=== PATIENT | female | born 1960 | race Caucasian/White ===

== ENCOUNTER → 2019-02-06 | Outpatient (CLI) | payer OTHER ==
[2019-02-06 10:43] VITALS: BP 159/75; PULSE 66; RESP 16; TEMP 98; BMI 54.3
--- NOTE | 2019-02-06 11:34 | P.HPBAR ---
Bariatric H&P - History & Physicial H&P Date: 02/06/19 History & Physicial: Visit/CC: New Pt Patient initial contact: Initial weight: 117.934 kg Initial weight in pounds: 260.00 Height: 4 ft 10 in Initial BMI: 54.3 Last weight: Current weight: 117.934 kg Current weight in pounds: 260.00 Current BMI: 54.3 [place] body weight (based on NIH guidelines): 40.823 kg Excess body weight loss: 0.0% The patient is a 59 year-old F who presents for Bariatric Assessment. She comes in for weight loss. Highest was 304 pounds. She was in [place] for 2 years, 10 years ago. She has lost 40+ pounds in the last several years. She tried losing 10% of weight yearly. Her weight loss was done by caloric restriction. Diabetes for 7 to 8 years. Family runs in her family who are type 1. Has mild reflux. She had a cholecystectomy, "they left a stone behind." Her gallbladder surgery was over 10+ years ago. She has history of PE to the lungs. No family history of esophageal or stomach cancer. She denies any surgery to the stomach. Her mother had lung cancer. Mother has trouble with weight including sisters and daughter. No check for sleep apnea. She has sleep apnea not treated. She has lower back pain, hips pain, knees, ankles and feet pain. She has neuropathy of the legs. Her blood sugars 200 to 300. She has PVOD in her mother. She takes insulin 10 units at night. She has tried many years to get approval for weight loss surgery. She is looking into the sleeve as her cousins had the sleeve. [facility] reviewed She is looking into the sleeve Get labs. Past Medical History History of Any Multi-Drug Resistant Organisms: None Reported Smoking Status: Unknown if ever smoked Surgical - Exam Vital Signs Temp Pulse Resp BP 98 F 66 16 159/75 02/06/19 10:39 02/06/19 10:39 02/06/19 10:39 02/06/19 10:39 Bariatric Checklist Checklist: Plan: Checklist: EGD: 1. Hiatal hernia: 2. H. Pylori: HgbA1c: Vitamin D: Smoking: Unknown if ever smoked Primary care physician referral: Psychiatry clearance: Cardiology clearance: Sleep study: Diet journal: VTE risk score: VTE risk level: Rehab needs at discharge:
[2019-02-06 13:11] LABS: HCT 40.2 % (34.0-46.0); HGB 13.3 gm/dL (11.4-16.0); MCH 30.8 pg (25.0-35.0); MCHC 33.1 g/dL (31.0-37.0); MCV 93.2 fL (80.0-100.0); Mean Platelet Volume 8.2; Platelet Count 277 k/uL (150-450); RBC 4.32 m/uL (3.80-5.40); RDW 12.8 % (11.5-15.5)
[2019-02-06 13:21] LABS: INR 0.9 (<1.2); Partial Thromboplastin Time 22.3 sec (22.0-30.0); Prothrombin Time 9.6 sec (9.0-12.0)
[2019-02-06 18:41] LABS: % Iron Saturation 13.74 (12.00-45.00); ALT 22 U/L (8-44); AST 22 U/L (13-35); African American GFR (CKD) 51.3 (60.0-200.0); Albumin/Globulin Ratio 2.14 (1.60-3.17); Alkaline Phosphatase 71 U/L (41-126); BUN/Creat Ratio 25.38 Ratio (12.00-20.00); Calcium 9.9 mg/dL (8.7-10.3); Carbon Dioxide 25.9 mmol/L (21.6-31.8); Chloride 107 mmol/L (96-109); Chol/HDL Ratio 3.92; Cholesterol 145 mg/dL (0-200); Globulin 2.1 g/dL (1.6-3.3); Glucose 122 mg/dL (70-110); Iron 47 ug/dL (50-170); Magnesium 1.7 mg/dL (1.5-2.4); Non-African American GFR(CKD) 44.2 (60.0-200.0); Phosphorus 5.3 mg/dL (2.4-5.1); Sodium 142 mmol/L (135-145); Total Bilirubin 0.3 mg/dL (0.3-1.2); Total Iron Binding Capacity 342 ug/dL (228-460); Total Protein 6.6 g/dL (6.2-8.2)
[2019-02-06 18:51] LABS: Ferritin 115.9 ng/mL (10.0-291.0)
[2019-02-06 18:59] LABS: Folate, Serum >24.0 ng/mL
[2019-02-06 20:14] LABS: Hemoglobin A1C 8.5 % (4.0-6.0)
[2019-02-07 12:10] LABS: Zinc, Serum 78 ug/dL (60-130)
[2019-02-08 19:42] LABS: Selenium 165 mcg/L (63-160)
[2019-02-10 07:01] LABS: Vitamin A 75 ug/dL (38-106)
[2019-02-10 07:18] LABS: Vit B1(Thiamine) 99 ug/L (38-122)
== END | disposition home or self-care (01) ==
LOC: BARWHC3 09:58
PROVIDERS: ATTEND Surgery Plastic and Reconstructive Surgery
DX: K21.9 Gastro-esophageal reflux disease without esophagitis (principal); I26.99 Other pulmonary embolism without acute cor pulmonale; G47.30 Sleep apnea, unspecified; M54.5 Low back pain; M25.552 Pain in left hip; M25.551 Pain in right hip; M25.562 Pain in left knee; M25.561 Pain in right knee; M25.572 Pain in left ankle and joints of left foot; M25.571 Pain in right ankle and joints of right foot; M79.672 Pain in left foot; M79.671 Pain in right foot; E66.01 Morbid (severe) obesity due to excess calories; E21.1 Secondary hyperparathyroidism, not elsewhere classified; E89.1 Postprocedural hypoinsulinemia; D50.9 Iron deficiency anemia, unspecified; E44.0 Moderate protein-calorie malnutrition; E55.9 Vitamin D deficiency, unspecified; K74.1 Hepatic sclerosis; N19 Unspecified kidney failure; K50.90 Crohn's disease, unspecified, without complications; Z90.49 Acquired absence of other specified parts of digestive tract; Z68.43 Body mass index [BMI] 50.0-59.9, adult
CPT/HCPCS: 84255; 84134; 84425; 80061; 80053; 82607; 82728; 82525; 82746; 83540; 83550; 83735; 84100; 84443; 84590; 84630; 85027; 85610; 85730; 82306; 83970; 83036; 36415; G0463; 99211

== ENCOUNTER 2019-03-17 10:22 | Day surgery (SDC) | payer OTHER ==
[2019-03-13 15:52] VITALS: BMI 54.3
--- NOTE | 2019-03-16 21:07 | P.GSHP ---
History of Present Illness H&P Date: 03/17/19 CHIEF COMPLAINT: GERD HISTORY OF PRESENT ILLNESS: The patient is a 59-year-old female who presents reports gastroesophageal reflux disease. Upper endoscopy was offered for further evaluation and management. PAST MEDICAL HISTORY: Please see list. PAST SURGICAL HISTORY: Please see list. MEDICATIONS: Please see list. ALLERGIES: Please see list. SOCIAL HISTORY: No illicit drug use FAMILY HISTORY: No reports of Crohn disease or ulcerative colitis. REVIEW OF ORGAN SYSTEMS: CONSTITUTIONAL: No reports of fevers or chills. GI: Denies any blood in stools or constipation. PHYSICAL EXAM: VITAL SIGNS: Stable GENERAL: Well-developed and pleasant in no acute distress. HEENT: No scleral icterus. Extraocular movements grossly intact. Moist buccal mucosa. NECK: Supple without lymphadenopathy. CHEST: Unlabored respirations. Equal bilateral excursions. CARDIOVASCULAR: Regular rate and rhythm. Distal 2+ pulses. ABDOMEN: Soft, nondistended. MUSCULOSKELETAL: No clubbing, cyanosis, or edema. ASSESSMENT: 1. Gastroesophageal reflux disease PLAN: 1. Recommend proceeding with an upper endoscopy 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 History of Any Multi-Drug Resistant Organisms: None Reported Past Surgical History: Section, Cholecystectomy, Heart Catheterization, Orthopedic Surgery Additional Past Surgical History / Comment(s): cervical neck fusion x 2 with plates Past Anesthesia/Blood Transfusion Reactions: Postoperative Nausea & Vomiting (PONV) Smoking Status: Former smoker - Past Family History Mother Family Medical History: Cancer Medications and Allergies Home Medications Medication Instructions Recorded Confirmed Type Albuterol Inhaler [Ventolin Hfa 1 puff INHALATION DIRECTED 02/06/19 03/13/19 History Inhaler] Aspirin 81 mg PO DAILY 02/06/19 03/13/19 History Calcium Carbonate/Vitamin D3 1 tab PO BID 02/06/19 03/13/19 History [Calcium 500-Vit D3 200 Tablet] Fluticasone Propionate [Flonase 1 spray NASAL DIRECTED 02/06/19 03/13/19 History Allergy Relief] Gabapentin [Gralise] 900 mg PO BID 02/06/19 03/13/19 History Lisinopril [Zestril] 20 mg PO QAM 02/06/19 03/13/19 History Loperamide [Imodium] 2 mg PO DIRECTED PRN 02/06/19 03/13/19 History Magnesium Oxide [Mag-Ox] 250 mg PO DAILY 02/06/19 03/13/19 History Methenamine/Sodium Salicylate 1 tab PO DAILY 02/06/19 03/13/19 History [Cystex Plus Tablet] Methocarbamol [Robaxin] 750 mg PO DIRECTED PRN 02/06/19 03/13/19 History Metoprolol Tartrate 25 mg PO BID 02/06/19 03/13/19 History Oxybutynin Chloride 5 mg PO BID 02/06/19 03/13/19 History Simvastatin [Zocor] 10 mg PO HS 02/06/19 03/13/19 History metFORMIN HCL 1,000 tab PO BID 02/06/19 03/13/19 History sitaGLIPtin [Januvia] 100 mg PO DAILY 02/06/19 03/13/19 History Insulin Glargine,Hum.rec.anlog 10 unit SQ HS 02/20/19 03/13/19 History [Basaglar Kwikpen U-100] Bearberry 2 tab PO BID 03/13/19 History Loratadine [Claritin] 10 mg PO DAILY 03/13/19 03/13/19 History Tumeric/Black Pepper 1 tab PO DAILY 03/13/19 History glyBURIDE [Diabeta] 2.5 mg PO AC-BID 03/13/19 03/13/19 History Allergies Allergy/AdvReac Type Severity Reaction Status Date / Time cephalexin [From Keflex] AdvReac Vomiting Verified 03/13/19 15:41
[~2019-03-17 10:22] MED LIST: LACTATED RINGERS 1,000 ML IV SCH; LIDOCAINE 1% 20 ML VIAL (10MG/ML) FOR IV START INTRADERMA PRN
[2019-03-17 11:04] LABS: Glucose,Whole Blood 175 mg/dL (75-99)
[2019-03-17 11:09] VITALS: TEMP 97
[2019-03-17] MEDS ORDERED: LIDOCAINE 1% INJ 10MG/ML (20 ML MDV) ONE (11:25)
[2019-03-17] MEDS ORDERED: PROPOFOL 10 MG/ML 20 ML VIAL IV ONE (11:25)
--- NOTE | 2019-03-17 11:38 | P.PCN ---
Date of Procedure: 03/17/19 Description of Procedure: PREOPERATIVE DIAGNOSIS: Gastroesophageal reflux disease. Morbid obesity. POSTOPERATIVE DIAGNOSIS: Morbid obesity. Gastroparesis Gastroesophageal reflux disease. Gastritis OPERATION: Esophagogastroduodenoscopy with biopsies along antrum. SURGEON: Nathaly Harris MD ANESTHESIA: MAC. INDICATIONS: The patient is a 59-year-old female who presents with a history of reflux disease. Benefits and risks of the procedure were described. Informed consent was obtained. DESCRIPTION: The patient was brought into the endoscopy suite and laid in the left lateral decubitus position. An Olympus gastroscope was passed along the posterior oropharynx down to the distal esophagus where the squamocolumnar junction was encountered at 36 cm from the incisors. The stomach was entered and no bile reflux was found. Additional findings are listed below. Biopsies with cold forceps were obtained of the antrum. The first through third portion of the duodenum was examined and unremarkable. Retroflexion of the scope confirmed Hill grade 2 lower esophageal valve. The squamocolumnar junction demonstrated LA grade A erosive esophagitis. The stomach was desufflated. The patient tolerated the procedure well. FINDINGS: Squamocolumnar junction 36 cm from the incisors. Diaphragmatic hiatus at 36 cm. Hill grade 2 lower esophageal valve. LA grade A erosive esophagitis. No active duodenitis. Moderate retained food consistent with gastroparesis Chronic gastritis RECOMMENDATIONS: Upper endoscopy as needed. Plan - Discharge Summary Discharge Rx Participant: No New Discharge Prescriptions: New Metoclopramide [Reglan] 10 mg PO ACHS #15 tab No Action Methocarbamol [Robaxin] 750 mg PO DIRECTED PRN PRN Reason: Pain Aspirin 81 mg PO DAILY Simvastatin [Zocor] 10 mg PO HS Albuterol Inhaler [Ventolin Hfa Inhaler] 1 puff INHALATION DIRECTED Oxybutynin Chloride 5 mg PO BID sitaGLIPtin [Januvia] 100 mg PO DAILY Metoprolol Tartrate 25 mg PO BID Methenamine/Sodium Salicylate [Cystex Plus Tablet] 1 tab PO DAILY Fluticasone Propionate [Flonase Allergy Relief] 1 spray NASAL DIRECTED Magnesium Oxide [Mag-Ox] 250 mg PO DAILY Lisinopril [Zestril] 20 mg PO QAM metFORMIN HCL 1,000 tab PO BID Gabapentin [Gralise] 900 mg PO BID Calcium Carbonate/Vitamin D3 [Calcium 500-Vit D3 200 Tablet] 1 tab PO BID Loperamide [Imodium] 2 mg PO DIRECTED PRN PRN Reason: Diarrhea Insulin Glargine,Hum.rec.anlog [Basaglar Kwikpen U-100] 10 unit SQ HS glyBURIDE [Diabeta] 2.5 mg PO AC-BID Loratadine [Claritin] 10 mg PO DAILY Tumeric/Black Pepper 1 tab PO DAILY Bearberry 2 tab PO BID Discharge Medication List Albuterol Inhaler [Ventolin Hfa Inhaler] 1 puff INHALATION DIRECTED 02/06/19 [History] Aspirin 81 mg PO DAILY 02/06/19 [History] Calcium Carbonate/Vitamin D3 [Calcium 500-Vit D3 200 Tablet] 1 tab PO BID 02/06/19 [History] Fluticasone Propionate [Flonase Allergy Relief] 1 spray NASAL DIRECTED 1 04/09/18 [History] Gabapentin [Gralise] 900 mg PO BID 02/06/19 [History] Lisinopril [Zestril] 20 mg PO QAM 02/06/19 [History] Loperamide [Imodium] 2 mg PO DIRECTED PRN 02/06/19 [History] Magnesium Oxide [Mag-Ox] 250 mg PO DAILY 02/06/19 [History] Methenamine/Sodium Salicylate [Cystex Plus Tablet] 1 tab PO DAILY 02/06/19 [History] Methocarbamol [Robaxin] 750 mg PO DIRECTED PRN 02/06/19 [History] Metoprolol Tartrate 25 mg PO BID 02/06/19 [History] Oxybutynin Chloride 5 mg PO BID 02/06/19 [History] Simvastatin [Zocor] 10 mg PO HS 02/06/19 [History] metFORMIN HCL 1,000 tab PO BID 02/06/19 [History] sitaGLIPtin [Januvia] 100 mg PO DAILY 02/06/19 [History] Insulin Glargine,Hum.rec.anlog [Basaglar Kwikpen U-100] 10 unit SQ HS 02/20/19 [History] Bearberry 2 tab PO BID 03/13/19 [History] Loratadine [Claritin] 10 mg PO DAILY 03/13/19 [History] Tumeric/Black Pepper 1 tab PO DAILY 03/13/19 [History] glyBURIDE [Diabeta] 2.5 mg PO AC-BID 03/13/19 [History] Metoclopramide [Reglan] 10 mg PO ACHS #15 tab 03/17/19 [Rx] [place] [facility]Ref[place] [facility] [place] [place] [facility] [place] [facility] Patient Instructions/Handouts: Diabetic Gastroparesis (GEN) Discharge Disposition: HOME SELF-CARE
[2019-03-17 11:40] VITALS: RESP 16
[2019-03-17 12:11] VITALS: BP 133/80; PULSE 60
== END 2019-03-17 12:40 | disposition home or self-care (01) ==
LOC: ORWHC2ENDO 10:22
PROVIDERS: ATTEND Surgery Plastic and Reconstructive Surgery
DX: K21.0 Gastro-esophageal reflux disease with esophagitis (principal); E66.01 Morbid (severe) obesity due to excess calories; K29.50 Unspecified chronic gastritis without bleeding; E11.42 Type 2 diabetes mellitus with diabetic polyneuropathy; E11.43 Type 2 diabetes mellitus with diabetic autonomic (poly)neuropathy; K31.84 Gastroparesis; I10 Essential (primary) hypertension; E78.5 Hyperlipidemia, unspecified; F41.9 Anxiety disorder, unspecified; Z79.51 Long term (current) use of inhaled steroids; Z79.4 Long term (current) use of insulin; Z79.899 Other long term (current) drug therapy; Z79.82 Long term (current) use of aspirin; Z86.711 Personal history of pulmonary embolism; Z90.49 Acquired absence of other specified parts of digestive tract; Z98.890 Other specified postprocedural states; Z98.1 Arthrodesis status; Z87.891 Personal history of nicotine dependence; Z88.1 Allergy status to other antibiotic agents; Z68.43 Body mass index [BMI] 50.0-59.9, adult
CPT/HCPCS: 88305; 43239; J2001; J2704

== ENCOUNTER → 2019-04-02 | Outpatient (CLI) | payer OTHER ==
--- NOTE | 2019-04-02 16:17 | P.PN ---
Subjective Progress Note Date: 04/02/19 DATE OF SERVICE: 04/02/2019 CHIEF COMPLAINT: Morbid obesity HISTORY OF PRESENT ILLNESS: Crystal Chapman is a 59-year-old female who comes with lifelong morbid obesity. As a result of her morbid obesity, she has developed diabetes type II with neuropathy, osteoarthritis of the back, hips, knees and ankles, including sleep apnea. She comes in with a new problem of panniculitis. She has severe gastroparesis. She reports Reglan did help with her symptoms. She is looking into the sleeve gastrectomy. At height of 4 feet 10 inches, her ideal body weight is 118 pounds. Her highest weigh was 304 pounds, BMI 63.7. She comes in 255 pounds from 259 pounds, 2 months ago. She has lost 4 pounds in 2 months. Her body mass index is 53.5. She is 137 pounds overweight. PAST MEDICAL HISTORY: 1. Morbid obesity due to excess calories 2. Body mass index of 63.7, initial 3. Osteoarthritis of the knees. 4. Osteoarthritis of the lower back. 5. Osteoarthritis of the hips. 6. Osteoarthritis of the ankles. 7. Diabetic neuropathy 8. Gastroesophageal reflux disease 9. Obstructive sleep apnea 10. Diabetes type 2, insulin dependent 11. Asthma 12. Chronic obstructive pulmonary disease 13. Hypertensive heart disease 14. Hyperlipidemia 15. Depressive disorder PAST SURGICAL HISTORY: 1. Cholecystectomy 2. 3. Cervical neck fusion HOME MEDICATIONS: Home Medications Medication Instructions Recorded Confirmed Albuterol Inhaler [Ventolin Hfa 1 puff INHALATION DIRECTED 02/06/19 03/17/19 Inhaler] Aspirin 81 mg PO DAILY 02/06/19 03/13/19 Calcium Carbonate/Vitamin D3 1 tab PO BID 02/06/19 03/13/19 [Calcium 500-Vit D3 200 Tablet] Fluticasone Propionate [Flonase 1 spray NASAL DIRECTED 02/06/19 03/13/19 Allergy Relief] Gabapentin [Gralise] 900 mg PO BID 02/06/19 03/13/19 Lisinopril [Zestril] 20 mg PO QAM 02/06/19 03/13/19 Loperamide [Imodium] 2 mg PO DIRECTED PRN 02/06/19 03/13/19 Magnesium Oxide [Mag-Ox] 250 mg PO DAILY 02/06/19 03/13/19 Methenamine/Sodium Salicylate 1 tab PO DAILY 02/06/19 03/13/19 [Cystex Plus Tablet] Methocarbamol [Robaxin] 750 mg PO DIRECTED PRN 02/06/19 03/13/19 Metoprolol Tartrate 25 mg PO BID 02/06/19 03/13/19 Oxybutynin Chloride 5 mg PO BID 02/06/19 03/17/19 Simvastatin [Zocor] 10 mg PO HS 02/06/19 03/13/19 metFORMIN HCL 1,000 tab PO BID 02/06/19 03/13/19 sitaGLIPtin [Januvia] 100 mg PO DAILY 02/06/19 03/13/19 Insulin Glargine,Hum.rec.anlog 10 unit SQ HS 02/20/19 03/13/19 [Basaglar Kwikpen U-100] Bearberry 2 tab PO BID 03/13/19 Loratadine [Claritin] 10 mg PO DAILY 03/13/19 03/13/19 Tumeric/Black Pepper 1 tab PO DAILY 03/13/19 glyBURIDE [Diabeta] 2.5 mg PO AC-BID 03/13/19 03/13/19 Previous Rx's Medication Instructions Recorded Metoclopramide [Reglan] 10 mg PO ACHS #15 tab 03/17/19 ALLERGIES: Allergies Allergy/AdvReac Type Severity Reaction Status Date / Time cephalexin [From Keflex] AdvReac Vomiting Verified 03/17/19 10:42 SOCIAL HISTORY: Past tobacco use. FAMILY HISTORY: No family history of ulcerative colitis disease or Crohn's disease. Family history of morbid obesity. No lupus in the family. No reports of stomach or esophageal cancer. Family history of pulmonary embolism. Morbid obesity runs in her family. Her mother had lung cancer. Her mother has trouble with weight including sisters and daughter. REVIEW OF ORGAN SYSTEMS: CONSTITUTIONAL: At height of 4 feet 10 inches, her ideal body weight is 118 poun ds. Her highest weigh was 304 pounds, BMI 63.7. HEENT: Denies any active troubles with vision or hearing. ENDOCRINE: Has diabetes. No hypothyroidism. She has diabetes for 7 to 8 years. CARDIOVASCULAR: No past reports of palpitations or heart attacks or chest pain. RESPIRATORY: Has daytime somnolence. Has asthma. GASTROINTESTINAL: Denies any bright red blood per rectum. No diarrhea. No cons tipation. She has mild gastroesophageal reflux disease. She had a cholecystectomy where "they left a stone behind." MUSCULOSKELETAL: Has lower back pain and joint pain. Has osteoarthritis of the knees. She has lower back pain, hip pain, knee, ankles and foot pain. NEURO: No headaches. No seizure disorders. Has neuropathy. She has neuropathy of the legs. PSYCH: Has depression. No suicidal ideation. RHEUMATOLOGIC: No lupus. No rheumatoid arthritis. HEMATOLOGIC: Denies any abnormal bleeding or bruising. She has history of pulmonary embolus to the lungs. SKIN: No rash. No skin cancer. PHYSICAL EXAM: VITAL SIGNS: Height 4 foot 10 inches, weight 255 pounds. BMI 53.5 Vital Signs Temp 98.2 F 04/02/19 16:12 Pulse 86 04/02/19 16:12 Resp BP 135/67 04/02/19 16:12 Pulse Ox GENERAL: Well-developed in no acute distress. HEENT: No scleral icterus. Extraocular movements grossly intact. Hears conversational speech. No nasal drainage. NECK: Supple without lymphadenopathy. CHEST: Nonlabored respirations with equal bilateral excursions. CARDIOVASCULAR: Regular rate and regular rhythm. Distal 2+ pulses. ABDOMEN: Obese, soft, nontender, nondistended. Diastasis recti. MUSCULOSKELETAL: No clubbing, cyanosis. NEURO: No focal or lateralizing signs. Cranial nerves 2 through 12 grossly within normal limits. PSYCH: Appropriate affect. Alert and oriented to person, place and time. SKIN: Good skin turgor. Well perfused. LABS: Iron is low, Selenium is elevated, Hgb A1C 8.5% EGD FINDINGS: Squamocolumnar junction 36 cm from the incisors. Diaphragmatic hiatus at 36 cm. Hill grade 2 lower esophageal valve. LA grade A erosive esophagitis. No active duodenitis. Moderate retained food consistent with gastroparesis Chronic gastritis PATHOLOGY: Final Pathologic Diagnosis GASTRIC ANTRUM, BIOPSY: Mild chronic gastritis. Helicobacter pylori organisms are not identified on routine H+E sections. ASSESSMENT: 1. Morbid obesity due to excess calories 2. Body mass index of 63.7 to 53.5 3. Osteoarthritis of the knees. 4. Osteoarthritis of the lower back. 5. Osteoarthritis of the hips. 6. Osteoarthritis of the ankles. 7. Diabetic neuropathy 8. Gastroesophageal reflux disease 9. Obstructive sleep apnea 10. Diabetes type 2, insulin dependent 11. Asthma 12. Chronic obstructive pulmonary disease 13. Hypertensive heart disease 14. Hyperlipidemia 15. Depressive disorder 16. Iron deficiency anemia 17. Gastroparesis 18. Chronic gastritis PLAN: 1. She is still pending cardiac clearance and will need a cardiac stress test e valuation. Recommend gastric bypass 2. With her gastroparesis, recommend gastric bypass. 3. She is pending completion of pysch assessment 4. She is pending PCP letter. 5. Still pending paper work 6. Additional Reglan for her gastroparesis described.
[2019-04-02 16:56] VITALS: BP 135/67; PULSE 86; TEMP 98.2; BMI 53.4
== END | disposition home or self-care (01) ==
LOC: BARWHC3 13:42
PROVIDERS: ATTEND Surgery Plastic and Reconstructive Surgery
DX: E66.01 Morbid (severe) obesity due to excess calories (principal); M17.0 Bilateral primary osteoarthritis of knee; M16.0 Bilateral primary osteoarthritis of hip; M19.072 Primary osteoarthritis, left ankle and foot; M19.071 Primary osteoarthritis, right ankle and foot; K21.9 Gastro-esophageal reflux disease without esophagitis; G47.33 Obstructive sleep apnea (adult) (pediatric); J44.9 Chronic obstructive pulmonary disease, unspecified; I11.9 Hypertensive heart disease without heart failure; E78.5 Hyperlipidemia, unspecified; D50.9 Iron deficiency anemia, unspecified; E11.43 Type 2 diabetes mellitus with diabetic autonomic (poly)neuropathy; K31.84 Gastroparesis; K29.50 Unspecified chronic gastritis without bleeding; Z68.43 Body mass index [BMI] 50.0-59.9, adult; Z83.49 Family history of other endocrine, nutritional and metabolic diseases; Z90.49 Acquired absence of other specified parts of digestive tract; Z87.891 Personal history of nicotine dependence; Z79.899 Other long term (current) drug therapy; Z79.4 Long term (current) use of insulin; Z79.82 Long term (current) use of aspirin; Z88.1 Allergy status to other antibiotic agents
CPT/HCPCS: 99211

== ENCOUNTER → 2019-04-28 | Outpatient (CLI) | payer OTHER ==
[2019-04-28 13:53] VITALS: BMI 53.8
== END | disposition home or self-care (01) ==
LOC: BARWHC3 08:26
PROVIDERS: ATTEND Surgery Plastic and Reconstructive Surgery
DX: E66.01 Morbid (severe) obesity due to excess calories (principal); E11.65 Type 2 diabetes mellitus with hyperglycemia; Z68.43 Body mass index [BMI] 50.0-59.9, adult
CPT/HCPCS: 97804

== ENCOUNTER → 2019-07-23 | Outpatient (CLI) | payer OTHER ==
[2019-07-23 13:46] VITALS: BP 171/94; PULSE 66; RESP 16; TEMP 98.7; BMI 59.2
--- NOTE | 2019-07-23 14:10 | P.PN ---
Subjective Progress Note Date: 07/23/19 DATE OF SERVICE: 07/23/2019 CHIEF COMPLAINT: Morbid obesity HISTORY OF PRESENT ILLNESS: Crystal Chapman is a 59-year-old female who comes with lifelong morbid obesity. She has developed diabetes type II with neuropathy, osteoarthritis of the back, hips, knees and ankles, including sleep apnea. She comes in with new right upper quadrant pain. She reports going to [facility] 1 week ago for her abdominal pain. [facility]. She has 25 pound weight gain in 3 months. She reports in her family too that has caused weight gain. At height of 4 feet 10 inches, her ideal body weight is 118 pounds. Her highest weigh was 304 pounds, BMI 63.7. She comes in 283 pounds from 255 pounds, 3 months ago. She has gained 27 pounds in 3 months. Her body mass index is 59.2. S he is 165 pounds overweight. PAST MEDICAL HISTORY: 1. Morbid obesity due to excess calories 2. Body mass index of 63.7, initial 3. Osteoarthritis of the knees. 4. Osteoarthritis of the lower back. 5. Osteoarthritis of the hips. 6. Osteoarthritis of the ankles. 7. Diabetic neuropathy 8. Gastroesophageal reflux disease 9. Obstructive sleep apnea 10. Diabetes type 2, insulin dependent 11. Asthma 12. Chronic obstructive pulmonary disease 13. Hypertensive heart disease 14. Hyperlipidemia 15. Depressive disorder PAST SURGICAL HISTORY: 1. Cholecystectomy 2. 3. Cervical neck fusion HOME MEDICATIONS: Home Medications Medication Instructions Recorded Confirmed Albuterol Inhaler [Ventolin Hfa 1 puff INHALATION DIRECTED 02/06/19 03/17/19 Inhaler] Aspirin 81 mg PO DAILY 02/06/19 03/13/19 Calcium Carbonate/Vitamin D3 1 tab PO BID 02/06/19 03/13/19 [Calcium 500-Vit D3 200 Tablet] Fluticasone Propionate [Flonase 1 spray NASAL DIRECTED 02/06/19 03/13/19 Allergy Relief] Gabapentin [Gralise] 900 mg PO BID 02/06/19 03/13/19 Lisinopril [Zestril] 20 mg PO QAM 02/06/19 03/13/19 Loperamide [Imodium] 2 mg PO DIRECTED PRN 02/06/19 03/13/19 Magnesium Oxide [Mag-Ox] 250 mg PO DAILY 02/06/19 03/13/19 Methenamine/Sodium Salicylate 1 tab PO DAILY 02/06/19 03/13/19 [Cystex Plus Tablet] Methocarbamol [Robaxin] 750 mg PO DIRECTED PRN 02/06/19 03/13/19 Metoprolol Tartrate 25 mg PO BID 02/06/19 03/13/19 Oxybutynin Chloride 5 mg PO BID 02/06/19 03/17/19 Simvastatin [Zocor] 10 mg PO HS 02/06/19 03/13/19 metFORMIN HCL 1,000 tab PO BID 02/06/19 03/13/19 sitaGLIPtin [Januvia] 100 mg PO DAILY 02/06/19 03/13/19 Insulin Glargine,Hum.rec.anlog 10 unit SQ HS 02/20/19 03/13/19 [Basaglar Kwikpen U-100] Bearberry 2 tab PO BID 03/13/19 Loratadine [Claritin] 10 mg PO DAILY 03/13/19 03/13/19 Tumeric/Black Pepper 1 tab PO DAILY 03/13/19 glyBURIDE [Diabeta] 2.5 mg PO AC-BID 03/13/19 03/13/19 Previous Rx's Medication Instructions Recorded Metoclopramide [Reglan] 10 mg PO ACHS #15 tab 03/17/19 ALLERGIES: Allergies Allergy/AdvReac Type Severity Reaction Status Date / Time cephalexin [From Keflex] AdvReac Vomiting Verified 03/17/19 10:42 SOCIAL HISTORY: Past tobacco use. FAMILY HISTORY: No family history of ulcerative colitis disease or Crohn's disease. Family history of morbid obesity. No lupus in the family. No reports of stomach or esophageal cancer. Family history of pulmonary embolism. Morbid obesity runs in her family. Her mother had lung cancer. Her mother has trouble with weight including sisters and daughter. REVIEW OF ORGAN SYSTEMS: CONSTITUTIONAL: At height of 4 feet 10 inches, her ideal body weight is 118 pounds. Her highest weigh was 304 pounds, BMI 63.7. HEENT: Denies any active troubles with vision or hearing. ENDOCRINE: Has diabetes. No hypothyroidism. She has diabetes for 7 to 8 years. CARDIOVASCULAR: No past reports of palpitations or heart attacks or chest pain. RESPIRATORY: Has daytime somnolence. Has asthma. GASTROINTESTINAL: Denies any bright red blood per rectum. No diarrhea. No constipation. She has mild gastroesophageal reflux disease. She had a cholecystectomy where "they left a stone behind." She has gastroparesis. MUSCULOSKELETAL: Has lower back pain and joint pain. Has osteoarthritis of the knees. She has lower back pain, hip pain, knee, ankles and foot pain. NEURO: No headaches. No seizure disorders. Has neuropathy. She has neuropathy of the legs. PSYCH: Has depression. No suicidal ideation. RHEUMATOLOGIC: No lupus. No rheumatoid arthritis. HEMATOLOGIC: Denies any abnormal bleeding or bruising. She has history of pulmonary embolus to the lungs. SKIN: No rash. No skin cancer. PHYSICAL EXAM: VITAL SIGNS: Height 4 foot 10 inches, weight 283 pounds. BMI 59.2 Vital Signs Temp 98.7 F 07/23/19 13:41 Pulse 66 07/23/19 13:41 Resp 16 07/23/19 13:41 BP 171/94 07/23/19 13:41 Pulse Ox GENERAL: Well-developed in no acute distress. HEENT: No scleral icterus. Extraocular movements grossly intact. Hears conversational speech. No nasal drainage. NECK: Supple without lymphadenopathy. CHEST: Nonlabored respirations with equal bilateral excursions. CARDIOVASCULAR: Regular rate and regular rhythm. Distal 2+ pulses. ABDOMEN: Obese, soft, nontender, nondistended. Diastasis recti. MUSCULOSKELETAL: No clubbing, cyanosis. NEURO: No focal or lateralizing signs. Cranial nerves 2 through 12 grossly within normal limits. PSYCH: Appropriate affect. Alert and oriented to person, place and time. SKIN: Good skin turgor. Well perfused. LABS: Hgb A1C 8.5% ASSESSMENT: 1. Morbid obesity due to excess calories 2. Body mass index of 63.7 to 59.2 3. Osteoarthritis of the knees. 4. Osteoarthritis of the lower back. 5. Osteoarthritis of the hips. 6. Osteoarthritis of the ankles. 7. Diabetic neuropathy 8. Gastroesophageal reflux disease 9. Obstructive sleep apnea 10. Diabetes type 2, insulin dependent 11. Asthma 12. Chronic obstructive pulmonary disease 13. Hypertensive heart disease 14. Hyperlipidemia 15. Depressive disorder 16. Iron deficiency anemia 17. Gastroparesis 18. Chronic gastritis 19. Right upper quadrant abdominal pain PLAN: 1. She was recently in the hospital, will need reports from [facility] regarding hospitalization and abdominal pain. 2. She comes in with new right upper quadrant pain, recommend follow up on CT of the abdomen and pelvis. 3. She has moderate weight re-gain, will need full repeat of bariatric labs including for hemoglobin A1c. 4. All surgery on hold pending review of labs 5. Will need re-assessment and follow-up prior to any surgical intervention. 6. She is looking into gastric bypass for gastroparesis. Objective - Vital Signs Vital signs: Vital Signs Temp 98.7 F 07/23/19 13:41 Pulse 66 07/23/19 13:41 Resp 16 07/23/19 13:41 BP 171/94 07/23/19 13:41 Pulse Ox Intake & Output 07/22/19 07/23/19 07/23/19 18:59 06:59 18:59 Weight 128.503 kg - Labs CBC & Chem 7: 07/23/19 14:40 07/23/19 14:40
[2019-07-23 15:03] LABS: HCT 38.4 % (34.0-46.0); HGB 12.2 gm/dL (11.4-16.0); Hypochromasia Moderate; MCHC 31.8 g/dL (31.0-37.0); MCV 97.5 fL (80.0-100.0); Mean Platelet Volume 7.9; Platelet Count 247 k/uL (150-450); RBC 3.94 m/uL (3.80-5.40); RDW 13.5 % (11.5-15.5); WBC 8.6 k/uL (3.8-10.6)
[2019-07-23 15:10] LABS: Partial Thromboplastin Time 22.5 sec (22.0-30.0); Prothrombin Time 10.5 sec (9.0-12.0)
[2019-07-23 22:47] LABS: % Iron Saturation 15.53 (12.00-45.00); African American GFR (CKD) 62.8 (60.0-200.0); Albumin 4.4 g/dL (3.80-4.90); Albumin/Globulin Ratio 1.76 (1.60-3.17); Anion Gap 10.6 mmol/L (4.00-12.00); BUN/Creat Ratio 12.73 Ratio (12.00-20.00); Calcium 9.5 mg/dL (8.7-10.3); Carbon Dioxide 32.4 mmol/L (21.6-31.8); Chol/HDL Ratio 3.12; Globulin 2.5 g/dL (1.6-3.3); LDL Cholesterol,Calculated 58.2 mg/dL (0.0-131.0); Magnesium 1.6 mg/dL (1.5-2.4); Non-African American GFR(CKD) 54.1 (60.0-200.0); Phosphorus 4.5 mg/dL (2.4-5.1); Potassium 4.7 mmol/L (3.5-5.5); Total Protein 6.9 g/dL (6.2-8.2); VLDL Calculation 30.8 mg/dL (5.00-40.00)
[2019-07-23 22:55] LABS: Ferritin 42.6 ng/mL (10.0-291.0)
[2019-07-23 23:13] LABS: Folate, Serum 21.7 ng/mL
[2019-07-24 14:51] LABS: Zinc, Serum 67 ug/dL (60-130)
[2019-07-25 07:00] LABS: Vit B1(Thiamine) 66 ug/L (38-122)
[2019-07-25 10:41] LABS: Vitamin A 60 ug/dL (38-106)
[2019-07-26 23:27] LABS: Selenium 77 mcg/L (63-160)
== END | disposition home or self-care (01) ==
LOC: BARWHC3 13:31
PROVIDERS: ATTEND Surgery Plastic and Reconstructive Surgery
DX: E66.01 Morbid (severe) obesity due to excess calories (principal); Z68.43 Body mass index [BMI] 50.0-59.9, adult; M17.9 Osteoarthritis of knee, unspecified; M47.816 Spondylosis without myelopathy or radiculopathy, lumbar region; M19.079 Primary osteoarthritis, unspecified ankle and foot; E11.43 Type 2 diabetes mellitus with diabetic autonomic (poly)neuropathy; K21.9 Gastro-esophageal reflux disease without esophagitis; I11.9 Hypertensive heart disease without heart failure; J44.9 Chronic obstructive pulmonary disease, unspecified; E78.5 Hyperlipidemia, unspecified; F32.9 Major depressive disorder, single episode, unspecified; D50.9 Iron deficiency anemia, unspecified; K29.50 Unspecified chronic gastritis without bleeding; K31.84 Gastroparesis; R10.11 Right upper quadrant pain; Z87.891 Personal history of nicotine dependence; E21.1 Secondary hyperparathyroidism, not elsewhere classified; E89.1 Postprocedural hypoinsulinemia; K90.9 Intestinal malabsorption, unspecified; E55.9 Vitamin D deficiency, unspecified; K74.1 Hepatic sclerosis; N19 Unspecified kidney failure; K50.90 Crohn's disease, unspecified, without complications; Z90.49 Acquired absence of other specified parts of digestive tract; Z79.82 Long term (current) use of aspirin; Z79.84 Long term (current) use of oral hypoglycemic drugs; Z79.4 Long term (current) use of insulin; Z79.899 Other long term (current) drug therapy; Z88.1 Allergy status to other antibiotic agents
CPT/HCPCS: 84255; 84134; 84425; 80061; 80053; 82607; 82728; 82525; 82746; 83540; 83550; 83735; 84100; 84443; 84590; 84630; 85027; 85610; 85730; 82306; 83970; 83036; G0463; 99211

== ENCOUNTER → 2019-08-20 | Outpatient (CLI) | payer OTHER ==
[2019-08-20 15:29] LABS: Basophils % (A) 1 %; Eosinophils # (A) 0.1 k/uL (0-0.7); Eosinophils % (A) 2 %; HGB 13.3 gm/dL (11.4-16.0); Lymphocytes # (A) 1.6 k/uL (1.0-4.8); Lymphocytes % (A) 20 %; MCH 29.2 pg (25.0-35.0); MCHC 30.9 g/dL (31.0-37.0); MCV 94.4 fL (80.0-100.0); Monocytes # (A) 0.5 k/uL (0-1.0); Monocytes % (A) 6 %; Neutrophils # (A) 5.5 k/uL (1.3-7.7); Neutrophils % (A) 69 %; Platelet Count 247 k/uL (150-450); RBC 4.55 m/uL (3.80-5.40); RDW 12.9 % (11.5-15.5)
[2019-08-20 15:35] LABS: Albumin 4.3 g/dL (3.5-5.0); Calcium 9.6 mg/dL (8.4-10.2); Potassium 5.2 mmol/L (3.5-5.1); Total Bilirubin 0.4 mg/dL (0.2-1.3); Total Protein 7.3 g/dL (6.3-8.2)
== END | disposition home or self-care (01) ==
LOC: LABPAT 15:03
PROVIDERS: ATTEND Surgery Plastic and Reconstructive Surgery
DX: Z01.818 Encounter for other preprocedural examination (principal)
CPT/HCPCS: 36415; 80053; 85025; 86850; 86900; 86901

== ENCOUNTER 2019-08-25 07:30 | Inpatient (IN) | payer OTHER ==
--- NOTE | 2019-08-25 05:37 | P.GSHP ---
History of Present Illness H&P Date: 08/25/19 CHIEF COMPLAINT: Morbid obesity HISTORY OF PRESENT ILLNESS: Crystal Chapman is a 59-year-old female who comes with lifelong morbid obesity. She has developed diabetes type II with neuropathy, osteoarthritis of the back, hips, knees and ankles, including sleep apnea. She comes in with new right upper quadrant pain. She reports going to [place] 1 month ago for her lower abdominal pain. At height of 4 feet 10 inches, her ideal body weight is 118 pounds. Her highest weigh was 304 pounds, BMI 63.7. She comes in 264 pounds from 283 pounds, 1 months ago. She has lost 19 pounds in 1 month. Her body mass index is 55.4 She is 146 pounds overweight. PAST MEDICAL HISTORY: 1. Morbid obesity due to excess calories 2. Body mass index of 63.7, initial 3. Osteoarthritis of the knees. 4. Osteoarthritis of the lower back. 5. Osteoarthritis of the hips. 6. Osteoarthritis of the ankles. 7. Diabetic neuropathy 8. Gastroesophageal reflux disease 9. Obstructive sleep apnea 10. Diabetes type 2, insulin dependent 11. Asthma 12. Chronic obstructive pulmonary disease 13. Hypertensive heart disease 14. Hyperlipidemia 15. Depressive disorder PAST SURGICAL HISTORY: 1. Cholecystectomy 2. 3. Cervical neck fusion HOME MEDICATIONS: Home Medications Medication Instructions Recorded Confirmed Albuterol Inhaler [Ventolin Hfa 1 puff INHALATION DIRECTED 02/06/19 03/17/19 Inhaler] Aspirin 81 mg PO DAILY 02/06/19 03/13/19 Calcium Carbonate/Vitamin D3 1 tab PO BID 02/06/19 03/13/19 [Calcium 500-Vit D3 200 Tablet] Fluticasone Propionate [Flonase 1 spray NASAL DIRECTED 02/06/19 03/13/19 Allergy Relief] Gabapentin [Gralise] 900 mg PO BID 02/06/19 03/13/19 Lisinopril [Zestril] 20 mg PO QAM 02/06/19 03/13/19 Loperamide [Imodium] 2 mg PO DIRECTED PRN 02/06/19 03/13/19 Magnesium Oxide [Mag-Ox] 250 mg PO DAILY 02/06/19 03/13/19 Methenamine/Sodium Salicylate 1 tab PO DAILY 02/06/19 03/13/19 [Cystex Plus Tablet] Methocarbamol [Robaxin] 750 mg PO DIRECTED PRN 02/06/19 03/13/19 Metoprolol Tartrate 25 mg PO BID 02/06/19 03/13/19 Oxybutynin Chloride 5 mg PO BID 02/06/19 03/17/19 Simvastatin [Zocor] 10 mg PO HS 02/06/19 03/13/19 metFORMIN HCL 1,000 tab PO BID 02/06/19 03/13/19 sitaGLIPtin [Januvia] 100 mg PO DAILY 02/06/19 03/13/19 Insulin Glargine,Hum.rec.anlog 10 unit SQ HS 02/20/19 03/13/19 [Basaglar Kwikpen U-100] Bearberry 2 tab PO BID 03/13/19 Loratadine [Claritin] 10 mg PO DAILY 03/13/19 03/13/19 Tumeric/Black Pepper 1 tab PO DAILY 03/13/19 glyBURIDE [Diabeta] 2.5 mg PO AC-BID 03/13/19 03/13/19 Previous Rx's Medication Instructions Recorded Metoclopramide [Reglan] 10 mg PO ACHS #15 tab 03/17/19 ALLERGIES: Allergies Allergy/AdvReac Type Severity Reaction Status Date / Time cephalexin [From Keflex] AdvReac Vomiting Verified 03/17/19 10:42 SOCIAL HISTORY: Past tobacco use. FAMILY HISTORY: No family history of ulcerative colitis disease or Crohn's disease. Family history of morbid obesity. No lupus in the family. No reports of stomach or esophageal cancer. Family history of pulmonary embolism. Morbid obesity runs in her family. Her mother had lung cancer. Her mother has trouble with weight including sisters and daughter. REVIEW OF ORGAN SYSTEMS: CONSTITUTIONAL: At height of 4 feet 10 inches, her ideal body weight is 118 pounds. Her highest weigh was 304 pounds, BMI 63.7. HEENT: Denies any active troubles with vision or hearing. ENDOCRINE: Has diabetes. No hypothyroidism. She has diabetes for 7 to 8 years. CARDIOVASCULAR: No past reports of palpitations or heart attacks or chest pain. RESPIRATORY: Has daytime somnolence. Has asthma. GASTROINTESTINAL: Denies any bright red blood per rectum. No diarrhea. No constipation. She has mild gastroesophageal reflux disease. She had a cholecystectomy where "they left a stone behind." She has gastroparesis. MUSCULOSKELETAL: Has lower back pain and joint pain. Has osteoarthritis of the knees. She has lower back pain, hip pain, knee, ankles and foot pain. NEURO: No headaches. No seizure disorders. Has neuropathy. She has neuropathy of the legs. PSYCH: Has depression. No suicidal ideation. RHEUMATOLOGIC: No lupus. No rheumatoid arthritis. HEMATOLOGIC: Denies any abnormal bleeding or bruising. She has history of pulmonary embolus to the lungs. SKIN: No rash. No skin cancer. PHYSICAL EXAM: VITAL SIGNS: Height 4 foot 10 inches, weight 264.4 pounds. BMI 55.4 GENERAL: Well-developed in no acute distress. HEENT: No scleral icterus. Extraocular movements grossly intact. Hears conversational speech. No nasal drainage. NECK: Supple without lymphadenopathy. CHEST: Nonlabored respirations with equal bilateral excursions. CARDIOVASCULAR: Regular rate and regular rhythm. Distal 2+ pulses. ABDOMEN: Obese, soft, nontender, nondistended. Diastasis recti. MUSCULOSKELETAL: No clubbing, cyanosis. NEURO: No focal or lateralizing signs. Cranial nerves 2 through 12 grossly within normal limits. PSYCH: Appropriate affect. Alert and oriented to person, place and time. SKIN: Good skin turgor. Well perfused. LABS: Hgb A1C 8.5% ASSESSMENT: 1. Morbid obesity due to excess calories 2. Body mass index of 63.7 to 55.4 3. Osteoarthritis of the knees. 4. Osteoarthritis of the lower back. 5. Osteoarthritis of the hips. 6. Osteoarthritis of the ankles. 7. Diabetic neuropathy 8. Gastroesophageal reflux disease 9. Obstructive sleep apnea 10. Diabetes type 2, insulin dependent 11. Asthma 12. Chronic obstructive pulmonary disease 13. Hypertensive heart disease 14. Hyperlipidemia 15. Depressive disorder 16. Iron deficiency anemia 17. Gastroparesis 18. Chronic gastritis 19. Right upper quadrant abdominal pain 20. Lower abdominal pain. PLAN: 1. Bariatric options between a sleeve, band and a [place]-en-Y gastric bypass were reviewed in detail. The patient elected for a sleeve gastrectomy. Robotic assisted approach described. 2. The [place] [facility] Data was also reviewed with benefits and risks as described. 3. An 8 page second-generation bariatric consent form was reviewed in detail including potential of bleeding, infection, leaks, adequate weight loss, nutritional deficiencies which the patient demonstrated understanding of the risks. 4. A 2 week high-protein low caloric 800 kcal diet described to address hepatomegaly. 5. Preoperative labs including complete metabolic panel and CBC with type and screen recommended. 6. DVT prophylaxis per [place] [facility] collaborative. 7. Antibiotic prophylaxis. 8. Inpatient hospitalization anticipated for more than 2 nights. 9. All questions and concerns were addressed with the patient. 10. Will need CT of the abdomen and pelvis for intermittent lower abdominal pain, possible diverticulitis Past Medical History Past Medical History: Asthma, Diabetes Mellitus, GERD/Reflux, Hyperlipidemia, Hypertension, Osteoarthritis (OA), Pulmonary Embolus (PE) Additional Past Medical History / Comment(s): Neuropathy bilateral feet. "Small PE, one year ago." Gastroparesis. Urinary urgency, episodes of incontinence. History of Any Multi-Drug Resistant Organisms: None Reported Past Surgical History: Section, Cholecystectomy, Heart Catheterization, Orthopedic Surgery Additional Past Surgical History / Comment(s): Section X2, Cervical neck fusion x 2 with plates/donor bones. Past Anesthesia/Blood Transfusion Reactions: Postoperative Nausea & Vomiting (PONV) Past Psychological History: Anxiety Smoking Status: Former smoker Past Alcohol Use History: Rare Additional Past Alcohol Use History / Comment(s): Smoked lightly as a teen. Past Drug Use History: None Reported - Past Family History Mother Family Medical History: Cancer Additional Family Medical History / Comment(s): Lung/abd cancer. Medications and Allergies Home Medications Medication Instructions Recorded Confirmed Type Albuterol Inhaler (Mhu) [Ventolin 1 puff INHALATION DIRECTED PRN 02/06/19 08/21/19 History Hfa Inhaler] Aspirin 81 mg PO BID 02/06/19 08/21/19 History Fluticasone Propionate [Flonase 1 spray NASAL DIRECTED PRN 02/06/19 08/21/19 History Allergy Relief] Gabapentin [Gralise] 900 mg PO BID 02/06/19 08/21/19 History Lisinopril [Zestril] 20 mg PO QAM 02/06/19 08/21/19 History Loperamide [Imodium] 2 mg PO DIRECTED PRN 02/06/19 08/21/19 History Magnesium Oxide [Mag-Ox] 250 mg PO DAILY 02/06/19 08/21/19 History Methenamine/Sodium Salicylate 1 tab PO DAILY PRN 02/06/19 08/21/19 History [Cystex Plus Tablet] Methocarbamol [Robaxin] 750 mg PO HS PRN 02/06/19 08/21/19 History Metoprolol Tartrate 25 mg PO BID 02/06/19 08/21/19 History Oxybutynin Chloride 7.5 mg PO BID 02/06/19 08/21/19 History Simvastatin [Zocor] 10 mg PO HS 02/06/19 08/21/19 History Insulin Glargine,Hum.rec.anlog 10 unit SQ HS 02/20/19 08/21/19 History [Basaglar Kwikpen U-100] Loratadine [Claritin] 10 mg PO DAILY PRN 03/13/19 08/21/19 History glyBURIDE [Diabeta] 2.5 mg PO AC-BID 03/13/19 08/21/19 History Cholecalciferol (Vitamin D3) 125 mcg PO DAILY 07/23/19 08/21/19 History [Vitamin D3] Furosemide [Lasix] 20 mg PO DAILY PRN 08/13/19 08/21/19 History Potassium Chloride 10 meq PO DAILY PRN 08/21/19 08/21/19 History sitaGLIPtin PHOS/metFORMIN HCL 1 each PO BID 08/21/19 08/21/19 History [Janumet 50-1,000 mg Tablet] Allergies Allergy/AdvReac Type Severity Reaction Status Date / Time cephalexin [From Keflex] AdvReac Vomiting Verified 08/21/19 09:35
[~2019-08-25 07:30] MED LIST changes: +ACETAMINOPHEN IV (For NPO) 1,000 MG in EMPTY BAG 1 BAG IVPB ONE; +CHLORHEXIDINE GLUCONATE 15 ML CUP MUCOUS MEM ONE; +CLINDAMYCIN 900 MG in DEXTROSE 5% IN WATER 50 ML IVPB ONE; +DEXAMETHASONE SOD PHOSPHATE 10 MG/ML 1 ML VIAL IV ONE; +ENOXAPARIN 40 MG/0.4 ML SYRINGE SQ ONE; +HYDROmorphone 0.5 MG/0.5 ML SYRINGE IVP PRN; -LACTATED RINGERS 1,000 ML IV SCH; -LIDOCAINE 1% 20 ML VIAL (10MG/ML) FOR IV START INTRADERMA PRN; +MIDAZOLAM 2 MG/2 ML VIAL IV PRN; +ONDANSETRON 4 MG/2 ML VIAL IVP ONE; +PANTOPRAZOLE 40 MG/10 ML VIAL IV ONE; +SCOPOLAMINE 1.5MG/72HR PATCH TRANSDERM ONE; +ceFAZolin 3 GM in SODIUM CHLORIDE 0.9% 100 ML IVPB ONE
[2019-08-25 09:19] LABS: Glucose,Whole Blood 167 mg/dL (75-99)
[2019-08-25] MEDS ORDERED: LIDOCAINE 1% (10MG/ML) FOR IV START INTRADERMA ONE (09:20)
[2019-08-25] MEDS: LACTATED RINGERS 1,000 ML IV SCH (09:21)
[2019-08-25] MEDS ORDERED: ONDANSETRON 4 MG/2 ML VIAL ONE (09:24)
[2019-08-25] MEDS ORDERED: LIDOCAINE 1% INJ 10MG/ML (20 ML MDV) ONE (09:46)
[2019-08-25] MEDS ORDERED: PROPOFOL 10 MG/ML 20 ML VIAL IV ONE (09:46)
[2019-08-25] MEDS ORDERED: GLYCOPYRROLATE 0.2 MG/ML 2 ML VIAL ONE (09:46)
[2019-08-25] MEDS ORDERED: ROCURONIUM BROMIDE 10 MG/ML 5 ML VIAL IV ONE (09:46)
[2019-08-25] MEDS ORDERED: NEOSTIGMINE 1 MG/ML 10 ML VIAL ONE (09:46)
[2019-08-25] MEDS ORDERED: HYDROmorphone (PF) 1 MG/ML ONE (09:46)
[2019-08-25] MEDS ORDERED: fentaNYL (PF) 50 MCG/ML 2 ML AMP ONE (09:46)
[2019-08-25] MEDS ORDERED: BUPIVACAIN-EPI 0.25%-1:200,000 30 ML VIAL SQ ONE (10:29)
[2019-08-25] MEDS ORDERED: SODIUM CHLORIDE 0.9% 1,000 ML IV ONE ×5 (11:18→20:57)
--- NOTE | 2019-08-25 12:31 | P.OP ---
Date of Procedure: 08/25/19 Description of Procedure: SURGEON: MATTHEW VUONG MD PREOPERATIVE DIAGNOSES: 1. Morbid obesity due to excess calories 2. Body mass index of 63.7 to 56.9 3. Osteoarthritis of the knees. 4. Osteoarthritis of the lower back. 5. Osteoarthritis of the hips. 6. Osteoarthritis of the ankles. 7. Diabetic neuropathy 8. Gastroesophageal reflux disease 9. Obstructive sleep apnea 10. Diabetes type 2, insulin dependent 11. Asthma 12. Chronic obstructive pulmonary disease 13. Hypertensive heart disease 14. Hyperlipidemia 15. Depressive disorder 16. Iron deficiency anemia 17. Gastroparesis 18. Chronic gastritis 19. Right upper quadrant abdominal pain 20. Lower abdominal pain. 21. Pre-existing hyperkalemia without EKG changes POSTOPERATIVE DIAGNOSES: 1. Morbid obesity due to excess calories 2. Body mass index of 63.7 to 56.9 3. Osteoarthritis of the knees. 4. Osteoarthritis of the lower back. 5. Osteoarthritis of the hips. 6. Osteoarthritis of the ankles. 7. Diabetic neuropathy 8. Gastroesophageal reflux disease 9. Obstructive sleep apnea 10. Diabetes type 2, insulin dependent 11. Asthma 12. Chronic obstructive pulmonary disease 13. Hypertensive heart disease 14. Hyperlipidemia 15. Depressive disorder 16. Iron deficiency anemia 17. Gastroparesis 18. Chronic gastritis 19. Right upper quadrant abdominal pain 20. Lower abdominal pain. 21. Pre-existing hyperkalemia without EKG changes 22. Severe and extensive lower abdominal, midline, upper abdominal adhesions omentum to abdominal wall 23. Hepatomegaly. OPERATION: 1. Robotic assisted daVinci Xi laparoscopic sleeve gastrectomy with 40-Brazilian bougie, multiport. 2. Robotic assisted daVinci Xi laparoscopic lysis of adhesions over 30 minutes 3. Intraoperative esophagogastroduodenoscopy. ANESTHESIA: Gen. local anesthetic ESTIMATED BLOOD LOSS: 5 mL SPECIMENS REMOVED: Sleeve gastrectomy COMPLICATIONS: None. INDICATIONS: Crystal Chapman is a 59-year-old female who comes with lifelong morbid obesity. She has developed diabetes type II with neuropathy, osteoarthritis of the back, hips, knees and ankles, including sleep apnea. She comes in with change in bowel habits including lower abdominal pain. In light of this, patient had elected for sleeve gastrectomy. Additionally, patient presented with hyperkalemia potassium of 6.1 without EKG changes and cleared by anesthesia. As a result, patient presents with moderately elevated risk for perioperative complications due to pre-existing conditions. At height of 4 feet 10 inches, her ideal body weight is 118 pounds. Her highest weigh was 304 pounds, BMI 63.7. She comes in 271 pounds from 264 pounds less than 1 month ago. She has gained 7 pounds in less than 1 month. Her body mass index is 56.9. She is 153 pounds overweight. She comes in for sleeve gastrectomy. All surgical options for morbid obesity had been described using the [place] [facility]ariat[facility] collaborative comorbidity resolution including complication risk score. A second-generation bariatric consent form was described in detail including the possibility of protein malnutrition, leaks, gastric stricture, venous thrombosis, gastroesophageal reflux disease, need for further surgery for which she demonstrated understanding. Benefits and risks of the procedure were described at length. Informed consent was obtained. DESCRIPTION: The patient was brought into the operating room theater. Preoperatively she had received Lovenox subcutaneously for DVT prophylaxis. Additionally she had Peridex oral solution as an oral decontaminant. After general induction, the abdomen was prepped and draped in standard sterile fashion. An Ioban draping was placed along the abdomen. A robotic da Zeeshan Xi system was prepped and primed. At 15 cm from the xiphoid, proposed port sites were marked with indelible marker along the anterior axillary line bilaterally, mid axillary line bilaterally with each ports were marked 10 to 15 cm from each other. The assistant secretary port was marked along the left lateral abdominal wall. The robotic stapler port was marked for the right midclavicular line. A 5 mm 0 degrees laparoscopic trocar entry was performed along the left upper quadrant. The abdomen was insufflated to 15 mmHg pressure was tolerated well. Diagnostic laparoscopy demonstrated no injury to bowel, viscera, or mesentery. No evidence of large hiatus hernia was identified. Moderate intra-abdominal adhesions incorporating the lower pelvis, midline, epigastrium were identified. The liver was large consistent with hepatomegaly despite her to 2 week low-carb high-protein diet. The ports were readjusted at 12 cm from the xiphoid to avoid additional adhesions. A 8 mm port was placed along the left upper abdominal wall after exchanging the 5 mm port. A separate 8 mm port was placed along the left lateral abdominal wall. Please note that the ports were placed at least 20 cm away from the target anatomy. Care was taken to check each robotic arms were safely away from collision with the bed or the patient. At the epigastrium, a medium sized Ana Rosa liver retractor was placed under direct visualization with the Iron Superintendent Compressor Stations placed under the right shoulder of the patient. Next, 12-mm robot stapler port was placed along the right upper qu adrant. The camera 8-mm port was maintained along the epigastrium, The patient was repositioned in reverse Trendelenburg position at 21-degrees after lowering the bed. The robot was docked along the left side of the patient. Using a grasper for arm 4, a vessel sealer for arm 3, including grasper for arm 1, the robotic system was docked and primed as described. Instruments were interchanged by the assistant secretary for stapler loads. The camera was placed at 30-degrees down. I had sat at the console. Initial attention was brought to the midline where vessel sealer was used to lyse adhesions of omentum to abdominal wall including at the left upper quadrant. Extensive lysis of adhesions over 30 minutes was performed using vessel sealer including blunt dissection. The pylorus was identified and 6 cm proximally along the greater curvature of the stomach, the short gastrics were mobilized upwards to the angle of His using a vessel sealer. Hemostasis was excellent during this portion of the procedure. Next, the upper pole of the stomach was adherent to the left yusuf, which was gently dissected free using atraumatic grasper. I went to the head of the bed and placed 40-Brazilian blunt bougie into the stomach. The bougie was readjusted by the nurse anesthesiology technologist. Robotic stapler black load 60 mm 1 followed by green 60 mm x 6 loads were used to create the sleeve. Initial firing was across the antrum of the stomach towards the angle of His. The staple line was linear without corkscrewing. The space from the angularis incisura of the sleeve was approximately 4 cm. I then went to the head of the bed to perform the intraoperative esophagogastroduodenoscopy leak test. The bougie was withdrawn. The upper pole of the stomach was bathed using normal saline solution. The scope was withdrawn with careful inspection along the staple line for which no leaks were found along the entire length. Additionally,the sleeve was completely hemostatic without any encroachment along the angularis incisura. Its topology was a soft "J". No stricture was encountered upon placement of the scope. The GI tract was desufflated. The patient tolerated this portion of the procedure well. The scope was completely withdrawn. At cross points of the staple line, mild bleeding was controlled using imbricating sutures of 3-0 Vicryl including oversew at mid third of the sleeve. The robot was undocked. I then rescrubbed into case, whereby the irrigation fluid was aspirated from the abdominal cavity. Tisseel fibrin sealant was placed along the entire staple length. Once dried the Ana Rosa liver retractor was removed. Attention was now brought to removal of the specimen. The distal end of the sleeve gastrectomy specimen was brought out through the 12 mm port at the left upper quadrant. The specimen was gently removed en total. No contamination had occurred during this process. All instruments and pneumoperitoneum including irrigation fluid was removed from the abdominal cavity. The 12 mm port site was closed using 0-Vicryl and Anderson Oneal and irrigated with diluted hydrogen peroxide. The final incisions were closed using subcuticular interrupted suture of 4-0 Monocryl. Exofin was applied to the skin once the skin had been cleansed. OptiFoam dressing was placed along the stomach extraction site. The sleeve specimen was measured and checked also for leaks which none were found. At the end of the procedure, needle, sponge, and instrument count was verified correct by the surgical services assistant. The patient was taken to the postanesthesia care unit in stable condition. She had tolerated the procedure well. Intraoperative films and findings were reviewed with the patient's family. FINDINGS: 1. Negative intraoperative esophagogastrojejunoscopy leak test. 2. No hepatomegaly and no large hiatus hernia. 3. Total of 7 staplers used including 5 - 60 mm green robot donna and 1 - 60 mm black robot loads used to create the gastric sleeve. 4. Severe lower abdominal midline and epigastric adhesions requiring over 30 minutes lysis of adhesions 5. Trocars placed 12 cm from xiphoid process 6. Exaggerated overly crescent shaped [place] stomach with sleeve gastrectomy, 35 x 5 cm 7. Oversew of staple points at mid third of sleeve using 3-0 Vicryl to control for bleeding 8. Adhesions within the pelvis, midline, epigastrium addressed
[2019-08-25] MEDS ORDERED: NALOXONE 0.4 MG/ML 1 ML VIAL IV PRN (12:32)
[2019-08-25] MEDS ORDERED: diphenhydrAMINE 50 MG/ML 1 ML VIAL IVP PRN (12:32)
[2019-08-25] MEDS ORDERED: DEXAMETHASONE SOD PHOSPHATE 10 MG/ML 1 ML VIAL IV PRN (12:36)
[2019-08-25 13:26] LABS: Glucose,Whole Blood 268 mg/dL (75-99)
[2019-08-25] MEDS ORDERED: INSULIN ASPART (NovoLOG) 100 UNIT/ML VIAL SQ ONE ×3 (13:33→17:22)
[2019-08-25 13:50] LABS: Calcium 8.8 mg/dL (8.4-10.2); Magnesium 1.4 mg/dL (1.6-2.3)
[2019-08-25 14:03] LABS: Potassium 6.6 mmol/L (3.5-5.1)
[2019-08-25] MEDS ORDERED: FUROSEMIDE 10 MG/ML 2 ML VIAL IV STA (14:14)
[2019-08-25] MEDS ORDERED: CALCIUM GLUCONATE 1 GM in SODIUM CHLORIDE 0.9% 100 ML IVPB STA (14:29)
[2019-08-25] MEDS ORDERED: DEXTROSE 50% SYRINGE 50 ML IVP STA (14:32)
[2019-08-25] MEDS ORDERED: INSULIN REGULAR 100 UNIT/ML VIAL IV STA (14:33)
[2019-08-25] MEDS ORDERED: SODIUM POLYSTYRENE SULFONATE 15 GM/60 ML BOTTLE PO STA (14:35)
[2019-08-25] MEDS ORDERED: SODIUM POLYSTYRENE SULFONATE 30 GM/120 ML BOTTLE RECTAL STA (15:48)
[2019-08-25] MEDS: ALBUTEROL NEBULIZED 2.5 MG/3 ML INHALATION SCH ×2 (16:06→19:27)
[2019-08-25] MEDS: ONDANSETRON 4 MG/2 ML VIAL IVP SCH ×3 (17:11→23:06)
[2019-08-25 17:16] LABS: Glucose,Whole Blood 302 mg/dL (75-99)
[2019-08-25 17:38] LABS: Calcium 9.2 mg/dL (8.4-10.2); Potassium 5.5 mmol/L (3.5-5.1)
[2019-08-25] MEDS: ACETAMINOPHEN IV (For NPO) 1,000 MG in EMPTY BAG 1 BAG IVPB SCH ×4 (17:40→23:08)
[2019-08-25] MEDS ORDERED: ceFAZolin 2 GM in SODIUM CHLORIDE 0.9% 100 ML IVPB SCH (18:00)
[2019-08-25] MEDS: SODIUM CHLORIDE 0.9% 1,000 ML IV SCH ×2 (18:50→19:46)
--- NOTE | 2019-08-25 19:34 | P.CONS ---
History of Present Illness - Reason for Consult Consult date: 08/25/19 Medical management Requesting physician: Nathaly Harris - Chief Complaint Hyperkalemia - History of Present Illness 59-year-old female with PMH of hypertension, diabetes mellitus and congestive heart failure with morbid obesity presents to [facility] for lysis of adhesions, robotic sleeve gastrectomy under Dr. Prabhakar. [facility] has been consulted for hyperkalemia and medical management of this patient. Patient currently complains of abdominal discomfort and bloating along with nausea. She denies any chest pain, shortness of breath or palpitations. No fever or chills. Review of her vitals show BP of 170/73 with 93% on room air. CMP initially showed potassium of 6.6, HCO3 of 20, BUN 48, creatinine 1.28, glucose 276. Review of Systems Pertinent positives and negatives as discussed in HPI, a complete review of systems was performed and all other systems are negative. Past Medical History Past Medical History: Asthma, Diabetes Mellitus, GERD/Reflux, Hyperlipidemia, Hypertension, Osteoarthritis (OA), Pulmonary Embolus (PE) Additional Past Medical History / Comment(s): Neuropathy bilateral feet. "Small PE, one year ago." Gastroparesis. Urinary urgency, episodes of incontinence. History of Any Multi-Drug Resistant Organisms: None Reported Past Surgical History: Section, Cholecystectomy, Heart Catheterization, Orthopedic Surgery Additional Past Surgical History / Comment(s): Section X2, Cervical neck fusion x 2 with plates/donor bones. Past Anesthesia/Blood Transfusion Reactions: Postoperative Nausea & Vomiting (PONV) Past Psychological History: Anxiety Smoking Status: Former smoker Past Alcohol Use History: Rare Additional Past Alcohol Use History / Comment(s): Smoked lightly as a teen. Past Drug Use History: None Reported - Past Family History Mother Family Medical History: Cancer Additional Family Medical History / Comment(s): Lung/abd cancer. Medications and Allergies Home Medications Medication Instructions Recorded Confirmed Type Albuterol Inhaler (Mhu) [Ventolin 1 puff INHALATION DIRECTED PRN 02/06/19 08/21/19 History Hfa Inhaler] Aspirin 81 mg PO BID 02/06/19 08/21/19 History Fluticasone Propionate [Flonase 1 spray NASAL DIRECTED PRN 02/06/19 08/21/19 History Allergy Relief] Gabapentin [Gralise] 900 mg PO BID 02/06/19 08/21/19 History Lisinopril [Zestril] 20 mg PO QAM 02/06/19 08/21/19 History Loperamide [Imodium] 2 mg PO DIRECTED PRN 02/06/19 08/21/19 History Magnesium Oxide [Mag-Ox] 250 mg PO DAILY 02/06/19 08/21/19 History Methenamine/Sodium Salicylate 1 tab PO DAILY PRN 02/06/19 08/21/19 History [Cystex Plus Tablet] Methocarbamol [Robaxin] 750 mg PO HS PRN 02/06/19 08/21/19 History Metoprolol Tartrate 25 mg PO BID 02/06/19 08/21/19 History Oxybutynin Chloride 7.5 mg PO BID 02/06/19 08/21/19 History Simvastatin [Zocor] 10 mg PO HS 02/06/19 08/21/19 History Insulin Glargine,Hum.rec.anlog 10 unit SQ HS 02/20/19 08/21/19 History [Marandaaglar Ayleenpen U-100] Loratadine [Claritin] 10 mg PO DAILY PRN 03/13/19 08/21/19 History glyBURIDE [Diabeta] 2.5 mg PO AC-BID 03/13/19 08/21/19 History Cholecalciferol (Vitamin D3) 125 mcg PO DAILY 07/23/19 08/21/19 History [Vitamin D3] Furosemide [Lasix] 20 mg PO DAILY PRN 08/13/19 08/21/19 History Potassium Chloride 10 meq PO DAILY PRN 08/21/19 08/21/19 History sitaGLIPtin PHOS/metFORMIN HCL 1 each PO BID 08/21/19 08/21/19 History [Janumet 50-1,000 mg Tablet] Allergies Allergy/AdvReac Type Severity Reaction Status Date / Time cephalexin [From Keflex] AdvReac Vomiting Verified 08/21/19 09:35 Physical Exam Vitals: Vital Signs Temp Pulse Pulse Resp BP Pulse Ox 08/25/19 18:30 98.4 F 76 17 170/73 93 L 08/25/19 18:00 73 18 153/75 98 08/25/19 17:30 81 16 146/63 100 08/25/19 17:00 75 18 147/70 100 08/25/19 16:30 78 18 129/60 100 08/25/19 16:00 84 16 144/64 99 08/25/19 15:30 82 16 148/70 99 08/25/19 15:00 78 16 148/67 98 08/25/19 14:30 82 16 137/65 99 08/25/19 14:15 81 18 146/64 98 08/25/19 14:04 80 16 147/65 99 08/25/19 13:45 68 16 148/65 98 08/25/19 13:30 67 16 151/66 96 08/25/19 13:15 67 16 152/63 96 08/25/19 13:00 69 16 141/64 99 08/25/19 12:45 68 16 140/64 99 08/25/19 12:29 97.9 F 73 18 135/62 100 08/25/19 09:08 97.2 F L 77 146/65 93 L Intake and Output 08/25/19 08/25/19 08/25/19 06:59 14:59 22:59 Intake Total 1600 710 Output Total 10 2200 Balance 1590 -1490 Intake: IV 1600 710 Output: Urine 2200 Estimated Blood Loss 10 Other: Voiding Method Indwelling Catheter Weight 116.4 kg General: [Morbidly obese], [acute distress from abdominal pain], [appears at stated age] Derm: [warm], [dry] Head: [atraumatic], [normocephalic], [symmetric] Eyes: [EOMI], [no lid lag], [anicteric sclera] Mouth: [no lip lesion], [mucus membranes moist] Cardiovascular: [S1S2 reg], [no murmur], [positive DP pulse bilateral], Lungs: [Decreased breath sounds bilateral], [no rhonchi, no rales] , [no accessory muscle use] Abdominal: [soft], [generalized tenderness in all 4 quadrants without rebound], [no guarding], [no appreciable organomegaly] Ext: [no gross muscle atrophy], [no edema], [no contractures] Neuro: [ CN II-XI grossly intact], [no focal neuro deficits] Psych: [Alert], [oriented], [appropriate affect] Results CBC & Chem 7: 08/25/19 17:05 Labs: Abnormal Lab Results - Last 24 Hours (Table) 08/25/19 08/25/19 08/25/19 Range/Units 09:10 09:18 13:20 Sodium 135 L (137-145) mmol/L Potassium 6.1 H* 6.6 H* (3.5-5.1) mmol/L Carbon Dioxide 20 L (22-30) mmol/L BUN 48 H (7-17) mg/dL Creatinine 1.28 H (0.52-1.04) mg/dL Glucose 276 H (74-99) mg/dL POC Glucose (mg/dL) 167 H (75-99) mg/dL Magnesium 1.4 L (1.6-2.3) mg/dL 08/25/19 08/25/19 08/25/19 Range/Units 13:23 17:05 17:14 Sodium 135 L (137-145) mmol/L Potassium 5.5 H (3.5-5.1) mmol/L Carbon Dioxide 19 L (22-30) mmol/L BUN 46 H (7-17) mg/dL Creatinine 1.25 H (0.52-1.04) mg/dL Glucose 303 H (74-99) mg/dL POC Glucose (mg/dL) 268 H 302 H (75-99) mg/dL Magnesium (1.6-2.3) mg/dL Assessment and Plan Assessment: Hyperkalemia Acute kidney injury Diabetes mellitus with hyperglycemia Hypertension Congestive heart failure, not in acute exacerbation Morbid obesity with BMI 53.6 status post gastric sleeve Patient had a potassium of 6.6. Stat EKG has been ordered. She was given 30 g of Kayexalate, 10 units of insulin IV with D50. Repeat potassium is 5.5. 20 mg of IV Lasix was given by surgery. There is another potassium ordered for 10 PM. She'll be placed on telemetry monitoring. Discontinue lisinopril. Patient has BUN of 46 and creatinine 1.25. Likely related to dehydration. Unknown baseline. Plans: Avoid nephrotoxins. Start normal saline at 150 mL per hour. Repeat BMP tomorrow morning. Nephrology consultation ordered. [id number] glucose 303. Plans: Long-acting insulin 10 units at bedtime. Insulin sliding scale. Regular Accu-Cheks. Hypoglycemic precautions. BP 170/73. Plans: Continue metoprolol. Hold lisinopril for hyperkalemia. Monitor vitals, adjust medications as necessary. Unknown EF. Appears to be euvolemic at this time. Plans: Continue to monitor. Follow-up with cardiology in the outpatient setting. Thank you for this consult. Please call with any additional questions or concerns.
[2019-08-25] MEDS: SIMETHICONE 40 MG/0.6 ML DROPS 2,000 MG/30 ML BOTTLE PO SCH ×2 (19:43→23:14)
[2019-08-25] MEDS: HYOSCYAMINE ORAL DROPS 1.875 MG/15 ML BOTTLE PO SCH ×2 (19:43→23:12)
[2019-08-25] MEDS: HYDROmorphone 1 MG/ML 1 ML SYRINGE IVP PRN (19:54)
[2019-08-25] MEDS: DEXAMETHASONE SOD PHOSPHATE 4 MG/ML 1 ML VIAL IV SCH ×2 (19:55→23:06)
[2019-08-25] MEDS: OXYBUTYNIN CHLORIDE 5 MG TAB PO SCH (19:56)
[2019-08-25] MEDS: METOPROLOL TARTRATE 25 MG TAB PO SCH (19:56)
[2019-08-25 20:01] LABS: Glucose,Whole Blood 223 mg/dL (75-99)
[2019-08-25] MEDS ORDERED: METOCLOPRAMIDE 5 MG/ML 2 ML VIAL IVP PRN (20:12)
[2019-08-25] MEDS: INSULIN ASPART (NovoLOG) 100 UNIT/ML VIAL SQ SCH (20:26)
[2019-08-25] MEDS: MAGNESIUM SULFATE-D5W PMX 1 GM in DEXTROSE/WATER 1 100ML.BAG IVPB SCH ×2 (20:27→23:05)
[2019-08-25] MEDS ORDERED: SCOPOLAMINE 1.5MG/72HR PATCH TRANSDERM STA (20:56)
[2019-08-25] MEDS: INSULIN DETEMIR (LEVEMIR) 100 UNIT/ML SYR SQ SCH (21:45)
[2019-08-25] MEDS: GABAPENTIN 300 MG CAP PO SCH (23:09)
[2019-08-25 23:19] LABS: Potassium 5.2 mmol/L (3.5-5.1)
[2019-08-26] MEDS: MAGNESIUM SULFATE-D5W PMX 1 GM in DEXTROSE/WATER 1 100ML.BAG IVPB SCH ×2 (00:35→02:12)
[2019-08-26] MEDS: SODIUM CHLORIDE 0.9% 1,000 ML IV SCH ×3 (00:36→20:04)
[2019-08-26 02:01] LABS: Glucose,Whole Blood 235 mg/dL (75-99)
[2019-08-26] MEDS: METOCLOPRAMIDE 5 MG/ML 2 ML VIAL IVP SCH ×4 (02:12→20:58)
[2019-08-26] MEDS: HYDROmorphone 1 MG/ML 1 ML SYRINGE IVP PRN ×3 (03:51→21:12)
[2019-08-26] MEDS: LACTATED RINGERS 1,000 ML IV SCH (05:18)
[2019-08-26] MEDS: ONDANSETRON 4 MG/2 ML VIAL IVP SCH ×3 (05:26→18:32)
[2019-08-26] MEDS: DEXAMETHASONE SOD PHOSPHATE 4 MG/ML 1 ML VIAL IV SCH ×3 (05:26→18:32)
[2019-08-26] MEDS: SIMETHICONE 40 MG/0.6 ML DROPS 2,000 MG/30 ML BOTTLE PO SCH ×3 (05:27→20:05)
[2019-08-26] MEDS: ACETAMINOPHEN IV (For NPO) 1,000 MG in EMPTY BAG 1 BAG IVPB SCH ×3 (05:27→17:17)
[2019-08-26] MEDS: HYOSCYAMINE ORAL DROPS 1.875 MG/15 ML BOTTLE PO SCH ×3 (05:27→20:05)
[2019-08-26 06:15] LABS: Basophils % (A) 0 %; Eosinophils # (A) 0.1 k/uL (0-0.7); Eosinophils % (A) 1 %; HCT 38.3 % (34.0-46.0); HGB 12.7 gm/dL (11.4-16.0); Lymphocytes # (A) 0.6 k/uL (1.0-4.8); Lymphocytes % (A) 6 %; MCH 31.1 pg (25.0-35.0); MCHC 33.2 g/dL (31.0-37.0); MCV 93.8 fL (80.0-100.0); Mean Platelet Volume 8.9; Monocytes # (A) 0.2 k/uL (0-1.0); Monocytes % (A) 2 %; Neutrophils # (A) 8.8 k/uL (1.3-7.7); Neutrophils % (A) 90 %; Platelet Count 222 k/uL (150-450); RBC 4.08 m/uL (3.80-5.40); WBC 9.7 k/uL (3.8-10.6)
[2019-08-26 06:15] LABS: Glucose,Whole Blood 250 mg/dL (75-99)
[2019-08-26 06:29] LABS: Calcium 8.5 mg/dL (8.4-10.2); Magnesium 2.6 mg/dL (1.6-2.3); Phosphorus 4.1 mg/dL (2.5-4.5); Potassium 5.4 mmol/L (3.5-5.1)
[2019-08-26] MEDS: INSULIN ASPART (NovoLOG) 100 UNIT/ML VIAL SQ SCH ×4 (06:49→20:48)
[2019-08-26] MEDS: ALBUTEROL NEBULIZED 2.5 MG/3 ML INHALATION SCH ×4 (08:14→19:28)
--- NOTE | 2019-08-26 08:51 | FL ---
EXAMINATION TYPE: FL UGI DATE OF EXAM: 08/26/2019 CLINICAL HISTORY: Status post gastric sleeve 3oz iso. 35 sec fluoro time. The patient ingested contrast without difficulty or delay. Noted are postsurgical changes of gastric sleeve. There is no evidence for leak or obstruction. Contrast is noted within the duodenum. IMPRESSION: Post-surgical change of gastric sleeve without evidence for obstruction or leak at this point in time.
[2019-08-26] MEDS ORDERED: lisinopriL 20 MG TAB PO SCH (09:00)
[2019-08-26] MEDS: PANTOPRAZOLE 40 MG/10 ML VIAL IV SCH (09:19)
[2019-08-26] MEDS: ENOXAPARIN 40 MG/0.4 ML SYRINGE SQ SCH (09:19)
[2019-08-26] MEDS: GABAPENTIN 300 MG CAP PO SCH ×2 (09:19→20:55)
[2019-08-26] MEDS: METOPROLOL TARTRATE 25 MG TAB PO SCH ×2 (09:19→20:44)
[2019-08-26] MEDS: OXYBUTYNIN CHLORIDE 5 MG TAB PO SCH ×2 (09:19→20:44)
--- NOTE | 2019-08-26 10:37 | P.PN ---
<Izzy Fox - Last Filed: 08/26/19 10:34> Subjective Progress Note Date: 08/26/19 CHIEF COMPLAINT: Morbid obesity HISTORY OF PRESENT ILLNESS: 59-year-old female who underwent robotic sleeve gastrectomy and extensive lysis of adhesions with Dr. Harris. Postop day #1. Patient examined this morning at the bedside. Her pain is tolerable. She is tolerating liquids. Esophagram completed negative for leak or obstruction. Potassium is 5.4 today. Vital signs stable. PHYSICAL EXAM: VITAL SIGNS: Reviewed GENERAL: Well-developed in no acute distress. HEENT: No sclera icterus. Extraocular movements grossly intact. Moist buccal mucosa. Head is atraumatic, normocephalic. Hears conversational speech. No nasal drainage. NECK: Supple without lymphadenopathy. CHEST: Non-labored respirations and equal bilateral excursions. CARDIOVASCULAR: Regular rate with regular rhythm. Palpable 2+ radial pulses. ABDOMEN: Soft. Nondistended. Nontender. Surgical sites clean dry intact. MUSCULOSKELETAL: No clubbing or cyanosis. NEUROLOGIC: No focal or lateralizing signs. Cranial nerves II through XII grossly intact. PSYCH: Appropriate affect. Alert and oriented to person, place and time. SKIN: Well perfused. Good skin turgor. ASSESSMENT: 1. Morbid obesity due to excess calories 2. Body mass index of 63.7 to 55.4 3. Osteoarthritis of the knees. 4. Osteoarthritis of the lower back. 5. Osteoarthritis of the hips. 6. Osteoarthritis of the ankles. 7. Diabetic neuropathy 8. Gastroesophageal reflux disease 9. Obstructive sleep apnea 10. Diabetes type 2, insulin dependent 11. Asthma 12. Chronic obstructive pulmonary disease 13. Hypertensive heart disease 14. Hyperlipidemia 15. Depressive disorder 16. Iron deficiency anemia 17. Gastroparesis 18. Chronic gastritis 19. Right upper quadrant abdominal pain 20. Lower abdominal pain. 21. Hyperkalemia PLAN: -Continue bariatric clear liquid diet. No straws or carbonated beverages -Monitor potassium. Nephrology consulted for hyperkalemia. Await evaluation -Patient complains of increased anxiety. Will obtain psych consult per Dr. Harris -Discontinue White catheter -Pain control. Continue current regimen -Incentive spirometer -Activity as tolerated -Obtain CT abdomen pelvis with IV contrast only per Dr. Harris secondary to history of lower abdominal pain with history of diarrhea -May transfer to with telemetry Nurse practitioner note has been reviewed by physician. Signing provider agrees with the documented findings, assessment, and plan of care. Objective - Vital Signs Vital signs: Vital Signs Temp 98.2 F 08/26/19 04:00 Pulse 80 08/26/19 04:00 Resp 16 08/26/19 04:00 BP 149/67 08/26/19 04:00 Pulse Ox 95 08/26/19 04:00 Intake & Output 08/25/19 08/26/19 08/26/19 18:59 06:59 18:59 Intake Total 2310 Output Total 2210 900 Balance 100 -900 Weight 116.4 kg 123.5 kg Intake: IV 2310 Output: Urine 2200 900 Estimated Blood Loss 10 Other: Voiding Method Indwelling Catheter Indwelling Catheter - Labs CBC & Chem 7: 08/26/19 05:33 08/26/19 05:33 Labs: Abnormal Lab Results - Last 24 Hours (Table) 08/25/19 08/25/19 08/25/19 Range/Units 13:20 13:23 17:05 Neutrophils # (1.3-7.7) k/uL Lymphocytes # (1.0-4.8) k/uL Sodium 135 L 135 L (137-145) mmol/L Potassium 6.6 H* 5.5 H (3.5-5.1) mmol/L Carbon Dioxide 20 L 19 L (22-30) mmol/L BUN 48 H 46 H (7-17) mg/dL Creatinine 1.28 H 1.25 H (0.52-1.04) mg/dL Glucose 276 H 303 H (74-99) mg/dL POC Glucose (mg/dL) 268 H (75-99) mg/dL Magnesium 1.4 L (1.6-2.3) mg/dL 08/25/19 08/25/19 08/25/19 Range/Units 17:14 19:59 22:48 Neutrophils # (1.3-7.7) k/uL Lymphocytes # (1.0-4.8) k/uL Sodium 135 L (137-145) mmol/L Potassium 5.2 H (3.5-5.1) mmol/L Carbon Dioxide 18 L (22-30) mmol/L BUN 41 H (7-17) mg/dL Creatinine 1.20 H (0.52-1.04) mg/dL Glucose 230 H (74-99) mg/dL POC Glucose (mg/dL) 302 H 223 H (75-99) mg/dL Magnesium (1.6-2.3) mg/dL 08/26/19 08/26/19 08/26/19 Range/Units 01:59 05:33 05:33 Neutrophils # 8.8 H (1.3-7.7) k/uL Lymphocytes # 0.6 L (1.0-4.8) k/uL Sodium 132 L (137-145) mmol/L Potassium 5.4 H (3.5-5.1) mmol/L Carbon Dioxide 20 L (22-30) mmol/L BUN 30 H (7-17) mg/dL Creatinine (0.52-1.04) mg/dL Glucose (74-99) mg/dL POC Glucose (mg/dL) 235 H (75-99) mg/dL Magnesium 2.6 H (1.6-2.3) mg/dL 08/26/19 Range/Units 06:14 Neutrophils # (1.3-7.7) k/uL Lymphocytes # (1.0-4.8) k/uL Sodium (137-145) mmol/L Potassium (3.5-5.1) mmol/L Carbon Dioxide (22-30) mmol/L BUN (7-17) mg/dL Creatinine (0.52-1.04) mg/dL Glucose (74-99) mg/dL POC Glucose (mg/dL) 250 H (75-99) mg/dL Magnesium (1.6-2.3) mg/dL <Nathaly Harris N - Last Filed: 09/25/19 08:12> Subjective -Obtain CT abdomen pelvis with IV contrast only per Dr. Harris secondary to PRE-EXISTING history of lower abdominal pain with history of diarrhea Objective - Vital Signs Vital signs: Vital Signs Temp 98.2 F 08/27/19 13:40 Pulse 68 08/27/19 13:40 Resp 16 08/27/19 13:40 BP 133/59 08/27/19 13:40 Pulse Ox 92 L 08/27/19 13:40 - Labs CBC & Chem 7: 08/26/19 05:33 08/27/19 08:01
[2019-08-26] MEDS: ceFAZolin 3 GM in SODIUM CHLORIDE 0.9% 100 ML IVPB SCH ×2 (11:05→20:05)
[2019-08-26 11:49] LABS: Glucose,Whole Blood 219 mg/dL (75-99)
[2019-08-26] MEDS ORDERED: FUROSEMIDE 10 MG/ML 2 ML VIAL IV STA (11:56)
[2019-08-26] MEDS ORDERED: clonazePAM 0.5 MG TAB PO PRN (13:47)
--- NOTE | 2019-08-26 14:28 | P.CN ---
Psychiatric Consult - . Consult date: 08/26/19 Consult:: 08/26/19 13:48 IDENTIFYING DATA: This patient is a 59-year-old female who currently lives alone in a house has 2 kids and collects Social Security and is unemployed. HISTORY OF PRESENT ILLNESS: The patient presented to the hospital due to her gastroparesis and underwent operation for gastric sleeve procedure and is now postop day 1. Psychiatry was consulted for increased anxiety. Patient was agreeable to be seen at the bedside after having her lunch. She spoke about her surgery and also spoke about the pain in her abdomen which is ongoing and states that she is getting medications for it. She states that now she is tolerating some liquids however continues to have some mild nausea. Patient claims that she has anxiety at this time and states that it is mainly related to her housing situation. Patient was preoccupied with possibly losing her housing however did not give any definitive details as to why. She states that "they come in and check randomly to see if it is clean or if I'm keeping it up otherwise they can take it away from me". She states that she broke a door frame with her scooter one time. She states that it has been difficulty in care of the property and herself all the time. She states that she used to get help with the yard work however does not anymore. She claimed that she also feels depressed at times as her cat has recently and also her mother and other family members since January of this year. She states that she feels alone sometimes and only sees her daughter once a week and does not see her son any longer. She claims that she does not want to be started on any antidepressant medications as she believes that it will affect her housing and believes that they may be able to take away her housing if she is started on it. At this time patient denies any suicidal or homical ideations, intent or plan. Patient denies any auditory, visual hallucinations . Patients admits to using no recreational drugs or cigarettes or alcohol. PAST PSYCHIATRIC HISTORY: Patient has a a history of depression and anxiety. Patient denies being on any psychiatric medications. Patient denies any previous psychiatric hospitalizations. Patient denies any psychiatric outpatient follow- up. Patient denies any history of suicide attempts in the past. PAST MEDICAL HISTORY: Morbid obesity, diabetes mellitus type 2, neuropathy, obstructive sleep apnea, austere arthritis, hypertension. ALLERGIES: as per EMR. CHEMICAL DEPENDENCY HISTORY: as per HPI. FAMILY PSYCHIATRIC/SUBSTANCE USE HISTORY: denies SOCIAL HISTORY: Patient was born and raised in [place] [facility] and moved to [facility] where she was raised. She states that she completed high school and attended [employer] however ended up dropping out. 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 She currently lives in a house alone and has 2 kids. MENTAL STATUS EXAM: General Appearance: Patient appears to be morbidly obese, stated age is alert, directable, and cooperative. Patient appears to have fair hygiene and grooming wearing hospital gown with fair eye contact. Behavior: Patient is calmly lying in bed without any agitated behavior. Directable and cooperative. Speech: Patient's speech is fluent and nonpressured. Mood/Affect: Patient reports their mood is "depressed at times" and anxious, affect is congruent Suicidality/Homicidality: Patient denies having any suicidal or homicidal ideation intent or plan. Perceptions: Patient denies any visual hallucinations and denies any auditory hallucinations Though content/process: There is no evidence of any delusional thought content and thought process is linear and goal-directed. Memory and concentration: AOX3, grossly intact for the purposes of this session. Can spell "WORLD" backwards Judgment and insight: Limited IMPRESSIONS: Major depressive disorder, mild Anxiety disorder unspecified PLAN: -At this time patient DOES NOT meet criteria for inpatient psychiatric admission. -Would recommend the following medication changes/additions: We will start Klonopin 0.5 mg twice a day when necessary for anxiety. This can be increased to 1 mg twice a day when necessary if patient's anxiety is still not controlled on this current dose. Started melatonin 5 mg nightly for sleep. -Immunologist spoke with patient about antidepressant medications which will help with anxiety and mood however patient declines these medications at this time. -forge utility worker consultation is recommended to assist patient with her housing situation and evaluate her ability to care for herself on her own and also have patient connected to outpatient therapy. -Psychiatry will sign off at this point, please contact with any questions. 08/26/19 14:02 08/26/19 14:26
[2019-08-26 16:19] VITALS: BMI 56.9
--- NOTE | 2019-08-26 17:07 | P.PN ---
Subjective Progress Note Date: 08/26/19 Principal diagnosis: Abdominal bloating, pain Patient was seen and examined. No acute events overnight. Patient reports significant improvement in her abdominal pain and bloating since yesterday. She reports multiple episodes of diarrhea this morning. She reports some nausea with increased oral intake but no vomiting. She denies any chest pain, shortness of breath or palpitations. No fever or chills. Objective - Vital Signs Vital signs: Vital Signs Temp 98 F 08/26/19 15:00 Pulse 73 08/26/19 15:00 Resp 20 08/26/19 15:00 BP 151/67 08/26/19 15:00 Pulse Ox 91 L 08/26/19 15:00 Intake & Output 08/25/19 08/26/19 08/26/19 18:59 06:59 18:59 Intake Total 2310 100 Output Total 2210 900 550 Balance 100 -900 -450 Weight 116.4 kg 123.5 kg 123.5 kg Intake: IV 2310 Oral 100 Output: Urine 2200 900 550 Estimated Blood Loss 10 Other: Voiding Method Indwelling Catheter Indwelling Catheter Toilet # Voids 2 # Bowel Movements 4 - Exam General: [Morbidly obese], [minimal distress], [appears at stated age] Derm: [warm], [dry] Head: [atraumatic], [normocephalic], [symmetric] Eyes: [EOMI], [no lid lag], [anicteric sclera] Mouth: [no lip lesion], [mucus membranes moist] Cardiovascular: [S1S2 reg], [no murmur], [positive DP pulse bilateral], Lungs: [Decreased breath sounds bilateral], [no rhonchi, no rales] , [no accessory muscle use] Abdominal: [soft], [generalized tenderness localized to the left upper quadrant without rebound, surgical site clean dry and intact], [no guarding], [no appreciable organomegaly] Ext: [no gross muscle atrophy], [no edema], [no contractures] Neuro: [no focal neuro deficits] Psych: [Alert], [oriented], [appropriate affect] - Labs CBC & Chem 7: 08/26/19 05:33 08/26/19 13:10 Labs: Abnormal Lab Results - Last 24 Hours (Table) 08/25/19 08/25/19 08/25/19 Range/Units 17:05 17:14 19:59 Neutrophils # (1.3-7.7) k/uL Lymphocytes # (1.0-4.8) k/uL Sodium 135 L (137-145) mmol/L Potassium 5.5 H (3.5-5.1) mmol/L Carbon Dioxide 19 L (22-30) mmol/L BUN 46 H (7-17) mg/dL Creatinine 1.25 H (0.52-1.04) mg/dL Glucose 303 H (74-99) mg/dL POC Glucose (mg/dL) 302 H 223 H (75-99) mg/dL Magnesium (1.6-2.3) mg/dL 08/25/19 08/26/19 08/26/19 Range/Units 22:48 01:59 05:33 Neutrophils # 8.8 H (1.3-7.7) k/uL Lymphocytes # 0.6 L (1.0-4.8) k/uL Sodium 135 L (137-145) mmol/L Potassium 5.2 H (3.5-5.1) mmol/L Carbon Dioxide 18 L (22-30) mmol/L BUN 41 H (7-17) mg/dL Creatinine 1.20 H (0.52-1.04) mg/dL Glucose 230 H (74-99) mg/dL POC Glucose (mg/dL) 235 H (75-99) mg/dL Magnesium (1.6-2.3) mg/dL 08/26/19 08/26/19 08/26/19 Range/Units 05:33 06:14 11:47 Neutrophils # (1.3-7.7) k/uL Lymphocytes # (1.0-4.8) k/uL Sodium 132 L (137-145) mmol/L Potassium 5.4 H (3.5-5.1) mmol/L Carbon Dioxide 20 L (22-30) mmol/L BUN 30 H (7-17) mg/dL Creatinine (0.52-1.04) mg/dL Glucose (74-99) mg/dL POC Glucose (mg/dL) 250 H 219 H (75-99) mg/dL Magnesium 2.6 H (1.6-2.3) mg/dL 08/26/19 Range/Units 13:10 Neutrophils # (1.3-7.7) k/uL Lymphocytes # (1.0-4.8) k/uL Sodium (137-145) mmol/L Potassium 5.4 H (3.5-5.1) mmol/L Carbon Dioxide (22-30) mmol/L BUN (7-17) mg/dL Creatinine (0.52-1.04) mg/dL Glucose (74-99) mg/dL POC Glucose (mg/dL) (75-99) mg/dL Magnesium (1.6-2.3) mg/dL Assessment and Plan Assessment: Hyperkalemia Diarrhea Anxiety Acute kidney injury Diabetes mellitus with hyperglycemia Hypertension Congestive heart failure, not in acute exacerbation Morbid obesity with BMI 53.6 status post gastric sleeve Patient had a potassium of 5.4. Specimen hemolyzed. She'll be placed on telemetry monitoring. Discontinue lisinopril. Repeat BMP tomorrow morning. Psychiatrist been consulted for further recommendations. Likely related to Kayexalate from yesterday. Would recommend conservative management at this time. CT abdomen pelvis ordered by surgery. Patient has BUN of 46-30 and creatinine 1.25-within normal limits. Likely related to dehydration. Unknown baseline. Plans: Avoid nephrotoxins. Decrease IVF infusion to 70 mL per hour. Repeat BMP tomorrow morning. Nephrology consultation ordered. [id number] glucose 219. Plans: Long-acting insulin 10 units at bedtime. Insulin sliding scale. Regular Accu-Cheks. Hypoglycemic precautions. BP 151/67. Plans: Continue metoprolol. Hold lisinopril for hyperkalemia. Monitor vitals, adjust medications as necessary. Unknown EF. Appears to be euvolemic at this time. Plans: Continue to monitor. Follow-up with cardiology in the outpatient setting. Thank you for this consult. Please call with any additional questions or concerns.
--- NOTE | 2019-08-26 17:08 | CT ---
EXAMINATION TYPE: CT abdomen pelvis w con DATE OF EXAM: 08/26/2019 COMPARISON: None HISTORY: diarrhea post-op gastric sleeve CT DLP: 2702.4 mGycm Automated exposure control for dose reduction was used. CONTRAST: Performed with IV Contrast, patient injected with 100 mL of Isovue 300. Images were obtained from the diaphragm to the floor the pelvis with IV contrast. There is some infiltrate and atelectasis at both lung bases. Heart is slightly enlarged. There is no pericardial effusion. There is small left pleural effusion. There is some hypodensity in the left lobe of the liver consistent with some regional fatty infiltrat ion. The bile ducts are not dilated. There are clips from cholecystectomy. Spleen is intact. There is no pancreatic mass. There are clips from gastric bariatric surgery. There is no adrenal mass. Kidneys show satisfactory contrast opacification. There is no hydronephrosi s. Ureters are not dilated. There is no retroperitoneal adenopathy. Appendix is posterior and appears normal. There is some air in the urinary bladder consistent with catheterization. Bladder distends smoothly. There is no inguinal hernia. There is no free fluid in the pelvis. There is no sign of a pelvic mass. There are 2 rounded 2.5 cm densities with ring calcification adjacent to the sigmoid colon that coul d be large diverticula. There is no mesenteric edema. There is no ascites or free air. There is no delores wel obstruction. Delayed images show normal renal excretion. There is a minimal degenerative L4-5 spondylolisthesis. There is no spondylolysis. There is no lumbar compression fracture. The bony pelvis is intact. IMPRESSION: Partly calcified cystic structures adjacent to the sigmoid colon could be mesenteric cysts or sigmoid diverticula. No sign of acute abdomen and pelvis. Bilateral lower lobe pneumonia and atelectasis. Small left pleural effusion.
--- NOTE | 2019-08-26 17:36 | CONS ---
CONSULTATION REASON FOR CONSULT: Mild hyperkalemia and acute kidney injury. HISTORY OF PRESENT ILLNESS: Patient is a 59-year-old female who was admitted to the hospital for lysis of adhesions, robotic sleeve gastrectomy and intraoperative EGD, which was all done yesterday. The patient denies any prior history of kidney diseases. She was noticed to have a serum creatinine of 1.28 mg/dL yesterday. It has decreased to 0.9 now. Previous creatinine noted on 08/20/2019 was 1.0 as well as 1.3 in 2019. Potassium has been high, with a serum potassium of 6.6 and 6.1 initially, now down to 5.4 mEq/L. Patient is not receiving any potassium supplements. She was on Zestril, which is now discontinued. Patient received Kayexalate yesterday. Her blood sugars have been running high, with glucose of 230 yesterday and 303 mg/dL as well yesterday. PAST MEDICAL HISTORY: Obesity, type 2 diabetes, hyperlipidemia, hypertension, asthma, history of PE, osteoarthritis, neuropathy. PAST SURGICAL HISTORY: , cholecystectomy, cardiac catheterization, cervical neck fusion. SOCIAL HISTORY: Patient is a former smoker. No history of drug abuse or alcohol abuse. MEDICATIONS: Medications prior to admission included Ventolin inhaler, aspirin, Zestril, Imodium, magnesium, Robaxin, metoprolol, Zocor, Claritin, insulin, vitamin D3, Lasix, potassium, metformin, Janumet. ALLERGIES: ALLERGIES include CEPHALEXIN, which causes vomiting. REVIEW OF SYSTEMS: As per HPI. Other systems negative. Patient is currently not eating, as she is postoperative day number 1. PHYSICAL EXAMINATION: On examination today, patient is comfortable. Blood pressure is 149/67, heart rate 80 per minute. She is afebrile. EXAMINATION OF THE HEART: S1 and S2. EXAMINATION OF LUNGS: Bilateral breath sounds are heard. ABDOMEN: Soft. Tenderness noted. Examination of lower extremities shows no evidence of edema. REVENUE STAMP CLERK exam is grossly intact. LABS: Labs show sodium of 132, potassium 5.4, chloride 104. CO2 is 20, BUN 30, creatinine 0.9, magnesium 2.6. Blood sugar was 250. ASSESSMENT: 1. Acute kidney injury, most likely acute tubular necrosis, currently improved. The patient has been maintained on IV fluids. Her blood pressure has not been significantly low. Patient was on STEVIE inhibitors, which are currently on hold secondary to hyperkalemia. 2. Hyperkalemia associated with use of STEVIE inhibitors in the setting of acute kidney injury as well as significant hyperglycemia. I am not sure if patient had urine retention. She has an indwelling White catheter and 24-hour urine output noted at 2.2 L. Urine retention will also cause the hyperkalemia. Serum potassium has improved. Recommend strict control of blood sugars. Continue to stay off of the STEVIE inhibitors/angiotensin receptor blockers. I will add loop diuretics. 3. Status post robotic sleeve gastrectomy and extensive lysis of adhesions. PLAN: Continue off of STEVIE inhibitors. Repeat labs in a.m. Control blood sugars. Lasix IV x1 and decrease IV fluids. I would avoid further use of Kayexalate, given the recent surgery and high risk of colonic perforation. Thank you for this consultation. Will continue to follow the patient with you during her hospitalization. MMODL / IJN: [id number] /
[2019-08-26 17:44] LABS: Glucose,Whole Blood 248 mg/dL (75-99)
[2019-08-26 20:05] LABS: Glucose,Whole Blood 275 mg/dL (75-99)
[2019-08-26] MEDS: INSULIN DETEMIR (LEVEMIR) 100 UNIT/ML SYR SQ SCH (20:48)
[2019-08-26 20:55] VITALS: RESP 16
[2019-08-26] MEDS ORDERED: MELATONIN 5 MG TABLET PO SCH (21:00)
[2019-08-27] MEDS: ACETAMINOPHEN IV (For NPO) 1,000 MG in EMPTY BAG 1 BAG IVPB SCH (00:47)
[2019-08-27] MEDS: SIMETHICONE 40 MG/0.6 ML DROPS 2,000 MG/30 ML BOTTLE PO SCH ×3 (00:48→12:44)
[2019-08-27] MEDS: HYOSCYAMINE ORAL DROPS 1.875 MG/15 ML BOTTLE PO SCH ×3 (00:48→12:44)
[2019-08-27] MEDS: DEXAMETHASONE SOD PHOSPHATE 4 MG/ML 1 ML VIAL IV SCH ×3 (00:48→12:40)
[2019-08-27] MEDS: ONDANSETRON 4 MG/2 ML VIAL IVP SCH ×3 (00:48→12:42)
[2019-08-27] MEDS: METOCLOPRAMIDE 5 MG/ML 2 ML VIAL IVP SCH ×3 (02:42→12:42)
[2019-08-27 02:45] LABS: Glucose,Whole Blood 256 mg/dL (75-99)
[2019-08-27 06:49] LABS: Glucose,Whole Blood 273 mg/dL (75-99)
[2019-08-27] MEDS: ALBUTEROL NEBULIZED 2.5 MG/3 ML INHALATION SCH ×3 (07:40→15:21)
[2019-08-27] MEDS ORDERED: bisacodyL 5 MG TABLET.DR PO PRN (08:00)
[2019-08-27 08:33] LABS: Calcium 8.3 mg/dL (8.4-10.2); Potassium 5.1 mmol/L (3.5-5.1)
[2019-08-27] MEDS: ENOXAPARIN 40 MG/0.4 ML SYRINGE SQ SCH (08:33)
[2019-08-27] MEDS: INSULIN ASPART (NovoLOG) 100 UNIT/ML VIAL SQ SCH ×2 (08:33→12:42)
[2019-08-27] MEDS: METOPROLOL TARTRATE 25 MG TAB PO SCH (08:33)
[2019-08-27] MEDS: PANTOPRAZOLE 40 MG/10 ML VIAL IV SCH (08:33)
[2019-08-27] MEDS: GABAPENTIN 300 MG CAP PO SCH (08:34)
[2019-08-27] MEDS: OXYBUTYNIN CHLORIDE 5 MG TAB PO SCH (08:34)
[2019-08-27] MEDS ORDERED: FUROSEMIDE 10 MG/ML 4 ML VIAL IV STA (09:56)
[2019-08-27 11:33] VITALS: PULSE 68
[2019-08-27 11:38] LABS: Glucose,Whole Blood 293 mg/dL (75-99)
[2019-08-27] MEDS: HYDROmorphone 1 MG/ML 1 ML SYRINGE IVP PRN (12:41)
--- NOTE | 2019-08-27 14:04 | PN ---
PROGRESS NOTE Patient is seen for followup for hyperkalemia and acute kidney injury. Renal function has improved. Creatinine down to 1.17. Potassium has improved as well to 5.1 from 6.6 initially on August 24. The patient has good urine output. She is voiding on her own. White catheter has been removed. On examination today, blood pressure was 145/73, heart rate 76 per minute. She is afebrile. Examination of the heart S1, S2. Examination of the lungs, bilateral breath sounds are heard. Abdomen is soft, nontender. Examination of lower extremities shows no significant edema. SPORT PSYCHOLOGIST exam grossly intact. LABS: Show sodium 136, potassium 5.1, chloride 107, BUN 27, creatinine 1.17, glucose was 273. ASSESSMENT: 1. Acute kidney injury, currently improved. The patient is nonoliguric. White catheter has been removed. The patient is off STEVIE inhibitors secondary to hyperkalemia. 2. Hyperkalemia associated with use of STEVIE inhibitors in the setting of acute kidney injury as well as hyperglycemia, currently improved. No urine retention. White catheter has been removed. 3. Status post robotic sleeve gastrectomy and extensive lysis of adhesions with CT scan done yesterday showing no significant acute abnormalities. PLAN: Patient is advised to avoid use of NSAIDs post discharge and avoid high potassium containing foods. Continue off IV fluids. Encourage increased oral intake once cleared by surgery. MMODL / IJN: [id number] /
--- NOTE | 2019-08-27 14:20 | P.DS ---
Providers Date of admission: 08/25/19 08:20 Expected date of discharge: 08/27/19 Attending physician: Nathaly Harris Consults: 08/25/19 14:15 Consult Physician Stat Consulting Provider: Adeline Trejo Consult Reason/Comments: medical management, K 6.6 Do you want consulting provider notified?: Already Contacted 08/25/19 14:43 Consult Physician Stat Consulting Provider: Quincy Toure Consult Reason/Comments: high potassium Do you want consulting provider notified?: Yes 08/26/19 07:30 Consult Physician Routine Consulting Provider: Abbie Smith Consult Reason/Comments: Acute kidney injury with hyperkalemia Do you want consulting provider notified?: Yes 08/26/19 09:43 Consult Physician Routine Consulting Provider: Nathan Payne Consult Reason/Comments: increased anxiety Do you want consulting provider notified?: Yes Primary care physician: [facility] Course: 59-year-old female who underwent robotic sleeve gastrectomy and extensive lysis of adhesions with Dr. Harris. Patient was found to be hyperkalemic prior to surgery. She was evaluated by nephrology. Her STEVIE inhibitor was discontinued. She was also instructed to discontinue her potassium supplement. Patient has been tolerating liquid diet. Esophagram completed negative for leak or obstruction. Pain is controlled on oral medications. She is stable for discharge home today. Please see EMR for further hospital course details. Discharge Diagnosis: 1. Morbid obesity due to excess calories 2. Body mass index of 63.7 to 55.4 3. Osteoarthritis of the knees. 4. Osteoarthritis of the lower back. 5. Osteoarthritis of the hips. 6. Osteoarthritis of the ankles. 7. Diabetic neuropathy 8. Gastroesophageal reflux disease 9. Obstructive sleep apnea 10. Diabetes type 2, insulin dependent 11. Asthma 12. Chronic obstructive pulmonary disease 13. Hypertensive heart disease 14. Hyperlipidemia 15. Depressive disorder 16. Iron deficiency anemia 17. Gastroparesis 18. Chronic gastritis 19. Right upper quadrant abdominal pain 20. Lower abdominal pain. 21. Hyperkalemia Nurse practitioner note has been reviewed by physician. Signing provider agrees with the documented findings, assessment, and plan of care. Plan - Discharge Summary Discharge Rx Participant: Yes New Discharge Prescriptions: New Bisacodyl [Dulcolax] 5 mg PO DAILY PRN #10 tablet.dr PRN Reason: Constipation Simethicone 40 mg/0.6 ml Drops [Mylicon Drops] 40 mg PO PCHS PRN #30 ml PRN Reason: Gas Omeprazole [PriLOSEC] 40 mg PO DAILY #30 capsule. Ondansetron Odt [Zofran Odt] 4 mg PO Q8HR PRN #9 tab PRN Reason: Nausea Acetaminophen Oral Susp [Tylenol] 650 mg PO Q4H PRN #500 ml PRN Reason: Pain Continue Methocarbamol [Robaxin] 750 mg PO HS PRN PRN Reason: Muscle Spasm Aspirin 81 mg PO BID Simvastatin [Zocor] 10 mg PO HS Albuterol Inhaler (u) [Ventolin Hfa Inhaler ([facility])] 1 puff INHALATION DIRECTED PRN PRN Reason: Asthma Oxybutynin Chloride 7.5 mg PO BID Metoprolol Tartrate 25 mg PO BID Methenamine/Sodium Salicylate [Cystex Plus Tablet] 1 tab PO DAILY PRN PRN Reason: Indigestion Fluticasone Propionate [Flonase Allergy Relief] 1 spray NASAL DIRECTED PRN PRN Reason: Allergic Reaction Lisinopril [Zestril] 20 mg PO QAM Gabapentin [Gralise] 900 mg PO BID Insulin Glargine,Hum.rec.anlog [Basaglar Kwikpen U-100] 10 unit SQ HS glyBURIDE [Diabeta] 2.5 mg PO AC-BID Loratadine [Claritin] 10 mg PO DAILY PRN PRN Reason: Allergic Reaction Cholecalciferol (Vitamin D3) [Vitamin D3] 125 mcg PO DAILY Furosemide [Lasix] 20 mg PO DAILY PRN PRN Reason: edema sitaGLIPtin PHOS/metFORMIN HCL [Janumet 50-1,000 mg Tablet] 1 each PO BID Discontinued Potassium Chloride 10 meq PO DAILY PRN PRN Reason: Takes with Lasix No Action Magnesium Oxide [Mag-Ox] 250 mg PO DAILY Loperamide [Imodium] 2 mg PO DIRECTED PRN PRN Reason: Diarrhea Discharge Medication List Albuterol Inhaler (u) [Ventolin Hfa Inhaler (u)] 1 puff INHALATION DIRECTED PRN 02/06/19 [History] Aspirin 81 mg PO BID 02/06/19 [History] Fluticasone Propionate [Flonase Allergy Relief] 1 spray NASAL DIRECTED PRN 02/06/19 [History] Gabapentin [Gralise] 900 mg PO BID 02/06/19 [History] Lisinopril [Zestril] 20 mg PO QAM 02/06/19 [History] Loperamide [Imodium] 2 mg PO DIRECTED PRN 02/06/19 [History] Magnesium Oxide [Mag-Ox] 250 mg PO DAILY 02/06/19 [History] Methenamine/Sodium Salicylate [Cystex Plus Tablet] 1 tab PO DAILY PRN 02/06/19 [History] Methocarbamol [Robaxin] 750 mg PO HS PRN 02/06/19 [History] Metoprolol Tartrate 25 mg PO BID 02/06/19 [History] Oxybutynin Chloride 7.5 mg PO BID 02/06/19 [History] Simvastatin [Zocor] 10 mg PO HS 02/06/19 [History] Insulin Glargine,Hum.rec.anlog [Basaglar Kwikpen U-100] 10 unit SQ HS 02/20/19 [History] Loratadine [Claritin] 10 mg PO DAILY PRN 03/13/19 [History] glyBURIDE [Diabeta] 2.5 mg PO AC-BID 03/13/19 [History] Cholecalciferol (Vitamin D3) [Vitamin D3] 125 mcg PO DAILY 07/23/19 [History] Furosemide [Lasix] 20 mg PO DAILY PRN 08/13/19 [History] sitaGLIPtin PHOS/metFORMIN HCL [Janumet 50-1,000 mg Tablet] 1 each PO BID 08/21/19 [History] Acetaminophen Oral Susp [Tylenol] 650 mg PO Q4H PRN #500 ml 08/27/19 [Rx] Bisacodyl [Dulcolax] 5 mg PO DAILY PRN #10 tablet. 08/27/19 [Rx] Omeprazole [PriLOSEC] 40 mg PO DAILY #30 capsule. 08/27/19 [Rx] Ondansetron Odt [Zofran Odt] 4 mg PO Q8HR PRN #9 tab 08/27/19 [Rx] Simethicone 40 mg/0.6 ml Drops [Mylicon Drops] 40 mg PO PCHS PRN #30 ml 08/27/19 [Rx] Follow up Appointment(s)/Referral(s): [facility] [NON-STAFF] - 09/01/19 Activity/Diet/Wound Care/Special Instructions: No lifting over 10 pounds You may shower. No soaking or tub baths Very light activity until you are reevaluated at your follow up appointment with your surgeon Continue liquid diet per bariatric center schedule Avoid beverages with more than 6 g of sugar to avoid dumping syndrome No straws or carbonated beverages Open or crush medications greater than the size of a tic tac
--- NOTE | 2019-08-27 14:21 | P.PN ---
Subjective Progress Note Date: 08/27/19 Principal diagnosis: Abdominal bloating, pain Patient was seen and examined. No acute events overnight. Patient reports significant improvement in her abdominal pain and bloating since yesterday. Diarrhea has resolved. Tolerating oral intake well. She denies any chest pain, shortness of breath or palpitations. No fever or chills. Objective - Vital Signs Vital signs: Vital Signs Temp 97.7 F 08/27/19 07:25 Pulse 68 08/27/19 11:40 Resp 16 08/27/19 07:35 BP 145/73 08/27/19 07:25 Pulse Ox 94 L 08/27/19 07:25 Intake & Output 08/26/19 08/27/19 08/27/19 18:59 06:59 18:59 Intake Total 100 150 Output Total 550 550 Balance -450 150 -550 Weight 123.5 kg 123.5 kg Intake: Oral 100 150 Output: Urine 550 550 Other: Voiding Method Toilet Toilet # Voids 2 2 2 # Bowel Movements 4 4 - Exam General: [Morbidly obese], [minimal distress], [appears at stated age] Derm: [warm], [dry] Head: [atraumatic], [normocephalic], [symmetric] Eyes: [EOMI], [no lid lag], [anicteric sclera] Mouth: [no lip lesion], [mucus membranes moist] Cardiovascular: [S1S2 reg], [no murmur], [positive DP pulse bilateral], Lungs: [Decreased breath sounds bilateral], [no rhonchi, no rales] , [no accessory muscle use] Abdominal: [soft], [generalized tenderness localized to the left upper quadrant without rebound, surgical site clean dry and intact], [no guarding], [no appreciable organomegaly] Ext: [no gross muscle atrophy], [no edema], [no contractures] Neuro: [no focal neuro deficits] Psych: [Alert], [oriented], [appropriate affect] - Labs CBC & Chem 7: 08/26/19 05:33 08/27/19 08:01 Labs: Abnormal Lab Results - Last 24 Hours (Table) 08/26/19 08/26/19 08/27/19 Range/Units 17:36 20:04 02:44 Sodium (137-145) mmol/L BUN (7-17) mg/dL Creatinine (0.52-1.04) mg/dL Glucose (74-99) mg/dL POC Glucose (mg/dL) 248 H 275 H 256 H (75-99) mg/dL Calcium (8.4-10.2) mg/dL 08/27/19 08/27/19 08/27/19 Range/Units 06:48 08:01 11:37 Sodium 136 L (137-145) mmol/L BUN 27 H (7-17) mg/dL Creatinine 1.17 H (0.52-1.04) mg/dL Glucose 273 H (74-99) mg/dL POC Glucose (mg/dL) 273 H 293 H (75-99) mg/dL Calcium 8.3 L (8.4-10.2) mg/dL Assessment and Plan Assessment: Anxiety Diabetes mellitus with hyperglycemia Hypertension Congestive heart failure, not in acute exacerbation Morbid obesity with BMI 53.6 status post gastric sleeve Resolved: Hyperkalemia, diarrhea, acute kidney injury Psychiatrist been consulted for further recommendations. [id number] glucose 293. Plans: Long-acting insulin 10 units at bedtime. Insulin sliding scale. Regular Accu-Cheks. Hypoglycemic precautions. BP 145/73. Plans: Continue metoprolol. Restart lisinopril. Monitor vitals, adjust medications as necessary. Unknown EF. Appears to be euvolemic at this time. Plans: Continue to monitor. One dose of Lasix 40 mg IV. Follow-up with cardiology in the outpatient setting. Thank you for this consult. Patient is medically cleared for discharge. Will sign off at this time, please do not hesitate to call with any additional questions or concerns.
[2019-08-27 14:53] VITALS: BP 133/59; TEMP 98.2
--- NOTE | 2019-08-31 10:39 | P.PN ---
Progress Note - Text Progress Note Date: 08/31/19 Patient called on-call bariatric surgeon regarding water retention. 4 attempts to call patient with 2 messages left on voicemail yesterday for patient to take Lasix without potassium she has history of hyperkalemia. Patient did not return call. I attempted to call today and still only got patient's voicemail. Patient to follow-up in the [facility] SundaySeptember 02. At least 5 attempts to contact patient in 12-24 hour timeframe with only voicemail obtained.
--- NOTE | 2019-09-01 02:42 | CDI ---
Documentation Clarification Form Date: 09/01/2019 From: Silvio Smallwood Phone: If you have a question about this query, please contact Elidia Prince Esthetic Dermatologist at [phone] between 8am and 5pm. Admit Date: 08/25/2019 Discharge Date: 08/27/2019 Patient Name: Crystal Chapman Visit Number: [id number] ATTENTION: The Clinical Documentation Specialists (CDI) and [facility] Coding Staff appreciate your assistance in clarifying documentation. Please respond to the clarification below the line at the bottom and electronically sign. The CDI & [facility] Coding staff will review the response and follow-up if needed. Please note: Queries are made part of the Legal Health Record. If you have any questions, please contact the author of this message via ITS. Dear Nathaly Brady., CHF is documented in the 08/24 Consult note as "Congestive heart failure, not in acute exacerbation". History/Risk Factors: DM, ATN, Morbid obesity VS/Pulse OX: Temp 98.2 F 08/26/19 04:00 Pulse 80 08/26/19 04:00 Resp 16 08/26/19 04:00 BP 149/67 08/26/19 04:00 Pulse Ox 95 08/26/19 04:00 Echocardiogram Results: NA Chest X Ray:Small left pleural effusion. Treatment: IV lasix one time 08/26 Progress note also stated "Congestive heart failure, not in acute exacerbation". In your professional opinion, can you please clarify the acuity and type of CHF if known? Systolic Heart Failure: Acute Chronic Acute on Chronic Diastolic Heart Failure: Acute Chronic Acute on Chronic Systolic & Diastolic Heart Failure: Acute Chronic Acute on Chronic Heart Failure Unable to Determine Other, please specify Unable to Determine Please defer to contamination consultant regarding heart failure status as no echo available in chart or cardiology consultation during hospitalization. ALEXUS 09/01/19 @ 14:27 LAUREN
== END 2019-08-27 16:02 | disposition home or self-care (01) | DRG 619 ==
LOC: 2ORMAIN 08:20 → 3SCARD 17:52 → 4SSUR 08-26 16:23
PROVIDERS: ADMIT Surgery Plastic and Reconstructive Surgery; ATTEND Surgery Plastic and Reconstructive Surgery
PROC: 0DJ08ZZ Inspection of Upper Intestinal Tract, Via Natural or Artificial Opening Endoscopic (ICD-10-PCS; principal; 2019-08-25 09:55)
PROC: 0DNU4ZZ Release Omentum, Percutaneous Endoscopic Approach (ICD-10-PCS; principal; 2019-08-25 09:55)
PROC: 0DB64Z3 Excision of Stomach, Percutaneous Endoscopic Approach, Vertical (ICD-10-PCS; principal; 2019-08-25 09:55)
PROC: 8E0W4CZ Robotic Assisted Procedure of Trunk Region, Percutaneous Endoscopic Approach (ICD-10-PCS; principal; 2019-08-25 09:55)
DX: E66.01 Morbid (severe) obesity due to excess calories (principal); N17.0 Acute kidney failure with tubular necrosis; E78.5 Hyperlipidemia, unspecified; G47.33 Obstructive sleep apnea (adult) (pediatric); I11.0 Hypertensive heart disease with heart failure; M17.0 Bilateral primary osteoarthritis of knee; M16.0 Bilateral primary osteoarthritis of hip; E86.0 Dehydration; E87.5 Hyperkalemia; E11.43 Type 2 diabetes mellitus with diabetic autonomic (poly)neuropathy; D50.9 Iron deficiency anemia, unspecified; J44.9 Chronic obstructive pulmonary disease, unspecified; K21.9 Gastro-esophageal reflux disease without esophagitis; F32.9 Major depressive disorder, single episode, unspecified; F41.9 Anxiety disorder, unspecified; E11.65 Type 2 diabetes mellitus with hyperglycemia; R33.9 Retention of urine, unspecified; I50.9 Heart failure, unspecified; K66.0 Peritoneal adhesions (postprocedural) (postinfection); R16.0 Hepatomegaly, not elsewhere classified; K29.50 Unspecified chronic gastritis without bleeding; M47.9 Spondylosis, unspecified; K31.84 Gastroparesis; Z68.44 Body mass index [BMI] 60.0-69.9, adult; Z79.4 Long term (current) use of insulin; Z79.82 Long term (current) use of aspirin; Z79.899 Other long term (current) drug therapy; Z80.1 Family history of malignant neoplasm of trachea, bronchus and lung; Z82.49 Family history of ischemic heart disease and other diseases of the circulatory system; Z87.891 Personal history of nicotine dependence; Z98.1 Arthrodesis status; Z86.711 Personal history of pulmonary embolism; Z90.49 Acquired absence of other specified parts of digestive tract; Z98.891 History of uterine scar from previous surgery; Z98.890 Other specified postprocedural states; Z88.1 Allergy status to other antibiotic agents
CPT/HCPCS: 74177; 74240; 80048; 80051; 82310; 82565; 83735; 84100; 84132; 84520; 85025; 86850; 86900; 86901; 88307; 94640; 94760; 94762

== ENCOUNTER → 2019-09-04 | Outpatient (CLI) | payer OTHER ==
[2019-09-04 14:14] LABS: HCT 41.4 % (34.0-46.0); HGB 13.5 gm/dL (11.4-16.0); Hypochromasia Slight; MCH 31.2 pg (25.0-35.0); MCHC 32.6 g/dL (31.0-37.0); MCV 95.8 fL (80.0-100.0); Mean Platelet Volume 7.9; Platelet Count 251 k/uL (150-450); RBC 4.32 m/uL (3.80-5.40); RDW 13.6 % (11.5-15.5); WBC 9.2 k/uL (3.8-10.6)
[2019-09-04 14:28] LABS: Appearance,Urine Turbid (Clear); Bilirubin,Urine Negative (Negative); Blood,Urine Moderate (Negative); Color,Urine Yellow; Glucose,Urine (UA) Negative (Negative); Ketones,Urine Trace (Negative); Leukocyte Esterase,Urine Large (Negative); Mucus,Urine Rare /hpf; Nitrite,Urine Negative (Negative); Protein,Urine 1+ (Negative); RBC,Urine 35 /hpf (0-5); Specific Gravity,Urine 1.018 (1.001-1.035); Urobilinogen,Urine <2.0 mg/dL (<2.0); WBC,Urine >182 /hpf (0-5)
[2019-09-04 19:41] LABS: African American GFR (CKD) 62.8 (60.0-200.0); Albumin 4.4 g/dL (3.80-4.90); Albumin/Globulin Ratio 1.91 (1.60-3.17); Anion Gap 10.5 mmol/L (4.00-12.00); BUN/Creat Ratio 13.64 Ratio (12.00-20.00); Calcium 9.4 mg/dL (8.7-10.3); Carbon Dioxide 27.5 mmol/L (21.6-31.8); Globulin 2.3 g/dL (1.6-3.3); Non-African American GFR(CKD) 54.1 (60.0-200.0); Potassium 4.6 mmol/L (3.5-5.5); Total Bilirubin 0.8 mg/dL (0.3-1.2); Total Protein 6.7 g/dL (6.2-8.2)
== END | disposition home or self-care (01) ==
LOC: LABWHC1 11:52
PROVIDERS: ATTEND Surgery Plastic and Reconstructive Surgery
DX: K90.9 Intestinal malabsorption, unspecified (principal); N19 Unspecified kidney failure; R30.0 Dysuria
CPT/HCPCS: 36415; 80053; 81001; 85027; 87077; 87086; 87186

== ENCOUNTER → 2019-09-04 | Outpatient (CLI) | payer OTHER ==
--- NOTE | 2019-09-04 11:29 | P.PN ---
Subjective Progress Note Date: 09/04/19 Patient presents status post sleeve gastrectomy 1 week ago. She reports troubles with swelling due to chronic diuretic use. Patient started taking her Lasix. Just reports pain for urination. Will obtain urinalysis including CBC and covers a metabolic panel due to persistent hyperkalemia. Follow-up in 2 weeks
[2019-09-05 10:08] VITALS: BMI 52.9
[2019-09-05 10:11] VITALS: BP 167/86; PULSE 66; TEMP 98.2
== END | disposition home or self-care (01) ==
LOC: BARWHC3 10:39
PROVIDERS: ATTEND Surgery Plastic and Reconstructive Surgery
DX: Z48.815 Encounter for surgical aftercare following surgery on the digestive system (principal); E66.01 Morbid (severe) obesity due to excess calories; E11.65 Type 2 diabetes mellitus with hyperglycemia; E87.5 Hyperkalemia; Z68.43 Body mass index [BMI] 50.0-59.9, adult; Z87.891 Personal history of nicotine dependence
CPT/HCPCS: 97803; G0463; 99211

== ENCOUNTER → 2019-10-15 | Outpatient (CLI) | payer OTHER ==
--- NOTE | 2019-10-15 14:09 | FL ---
EXAMINATION TYPE: FL barium swallow DATE OF EXAM: 10/15/2019 CLINICAL HISTORY: Status post gastric sleeve 39 sec fl time used The patient ingested contrast without difficulty or delay. Noted are postsurgical changes of gastric sleeve. There is no evidence for leak or obstruction. Contrast is noted within the duodenum. IMPRESSION: Post-surgical change of gastric sleeve without evidence for obstruction or leak at this point in time.
== END | disposition home or self-care (01) ==
LOC: RADUSWWP 13:06
PROVIDERS: ATTEND Surgery Plastic and Reconstructive Surgery
DX: R13.10 Dysphagia, unspecified (principal); Z98.84 Bariatric surgery status
CPT/HCPCS: 74220

== ENCOUNTER → 2019-10-15 | Outpatient (CLI) | payer OTHER ==
[2019-10-15 13:28] LABS: HCT 43.6 % (34.0-46.0); HGB 13.8 gm/dL (11.4-16.0); MCH 29.4 pg (25.0-35.0); MCHC 31.7 g/dL (31.0-37.0); MCV 92.5 fL (80.0-100.0); Platelet Count 278 k/uL (150-450); RBC 4.71 m/uL (3.80-5.40); RDW 13.4 % (11.5-15.5); WBC 7.7 k/uL (3.8-10.6)
[2019-10-15 20:53] LABS: Ferritin 91.9 ng/mL (10.0-291.0)
[2019-10-15 21:03] LABS: % Iron Saturation 29.15 (12.00-45.00); African American GFR (CKD) 56.5 (60.0-200.0); Albumin 4.3 g/dL (3.80-4.90); Albumin/Globulin Ratio 1.95 (1.60-3.17); Anion Gap 11.8 mmol/L (4.00-12.00); BUN/Creat Ratio 10.83 Ratio (12.00-20.00); Calcium 9.5 mg/dL (8.7-10.3); Carbon Dioxide 27.2 mmol/L (21.6-31.8); Chol/HDL Ratio 5.97; Folate, Serum 16.4 ng/mL; Globulin 2.2 g/dL (1.6-3.3); LDL Cholesterol,Calculated 156.4 mg/dL (0.0-131.0); Magnesium 1.6 mg/dL (1.5-2.4); Non-African American GFR(CKD) 48.7 (60.0-200.0); Potassium 4.1 mmol/L (3.5-5.5); Total Protein 6.5 g/dL (6.2-8.2); VLDL Calculation 37.6 mg/dL (5.00-40.00)
[2019-10-16 00:30] LABS: INR 1.02 (0.90-1.11); Partial Thromboplastin Time 27.1 sec (24.7-29.9); Prothrombin Time 10.9 sec (9.9-11.9)
[2019-10-16 14:19] LABS: Zinc, Serum 64 ug/dL (60-130)
[2019-10-17 06:20] LABS: Vit B1(Thiamine) 54 ug/L (38-122)
[2019-10-17 06:27] LABS: Vitamin A 58 ug/dL (38-106)
== END | disposition home or self-care (01) ==
LOC: LABWHC1 12:46
PROVIDERS: ATTEND Surgery Plastic and Reconstructive Surgery
DX: E21.1 Secondary hyperparathyroidism, not elsewhere classified (principal); E66.01 Morbid (severe) obesity due to excess calories; D50.9 Iron deficiency anemia, unspecified; K90.9 Intestinal malabsorption, unspecified; E44.0 Moderate protein-calorie malnutrition; E55.9 Vitamin D deficiency, unspecified; K74.1 Hepatic sclerosis; N19 Unspecified kidney failure; K50.90 Crohn's disease, unspecified, without complications; E89.1 Postprocedural hypoinsulinemia
CPT/HCPCS: 36415; 80053; 80061; 82306; 82525; 82607; 82728; 82746; 83540; 83550; 83735; 83970; 84100; 84134; 84255; 84425; 84443; 84590; 84630; 85027; 85610; 85730

== ENCOUNTER → 2020-02-11 | Outpatient (CLI) | payer OTHER ==
--- NOTE | 2020-02-11 13:25 | P.PN ---
Subjective Progress Note Date: 02/11/20 DATE OF SERVICE: 02/11/2020 CHIEF COMPLAINT: Status post sleeve gastrectomy HISTORY OF PRESENT ILLNESS: Crystal Chapman is a 60-year-old female status post sleeve gastrectomy, 08/25/19. She is 6 months out. She reports moderate stomach aches. She has lost 50 pounds in 7 months. She is now off insulin for her diabetes. She is taking omeprazole. She reports vomiting regularly. She reports chronic emesis. She has transportation issues. She drinks slowly with her sleeve. She reports occasional belly pain at the belly button and left upper quadrant with a burning sensation. She is not eating solid foods. She reports abdominal pain with eating foods. She can tolerate eating fish. Her protein intake is less than recommended under 40 grams daily and has been non-compliant. At height of 4 feet 10 inches, her ideal body weight is 118 pounds. Her highest weight is 304 pounds, BMI 63.7. She comes in 237 pounds from 240 pounds, 3 months ago. She has lost 3 pounds in 3 months. Total weight loss 67 pounds lifetime. Percent excess weight loss lifetime, 36%. Her body mass index is down 49.5. She is 119 pounds overweight. PAST MEDICAL HISTORY: 1. Morbid obesity due to excess calories 2. Body mass index of 63.7, initial 3. Osteoarthritis of the knees. 4. Osteoarthritis of the lower back. 5. Osteoarthritis of the hips. 6. Osteoarthritis of the ankles. 7. Diabetic neuropathy 8. Gastroesophageal reflux disease 9. Obstructive sleep apnea 10. Diabetes type 2, insulin dependent 11. Asthma 12. Chronic obstructive pulmonary disease 13. Hypertensive heart disease 14. Hyperlipidemia 15. Depressive disorder 16. Generalized anxiety disorder 17. Pulmonary embolism 18. Postop nausea and vomiting PAST SURGICAL HISTORY: 1. Cholecystectomy 2. section 3. Cervical neck fusion 4. Cardiac catherization 5. Sleeve gastrectomy HOME MEDICATIONS: Home Medications Medication Instructions Recorded Confirmed Albuterol Inhaler (Mhu) [Ventolin 1 puff INHALATION DIRECTED PRN 02/06/19 04/01/20 Hfa Inhaler (Mhu)] Fluticasone Propionate [Flonase 1 spray NASAL DIRECTED PRN 02/06/19 04/01/20 Allergy Relief] Gabapentin [Gralise] 600 mg PO BID 02/06/19 04/01/20 Metoprolol Tartrate 25 mg PO BID 02/06/19 04/01/20 Oxybutynin Chloride 7.5 mg PO BID 02/06/19 04/01/20 Loratadine [Claritin] 10 mg PO DAILY PRN 03/13/19 04/01/20 Furosemide [Lasix] 20 mg PO DAILY 10/15/19 04/01/20 Methocarbamol [Robaxin-750] 750 mg PO HS PRN 10/15/19 04/01/20 Metoclopramide [Reglan] 10 mg PO DAILY PRN 10/15/19 04/01/20 Lisinopril [Zestril] 20 mg PO DAILY 12/12/19 04/01/20 metFORMIN HCL 10,000 mg PO BID 12/12/19 04/01/20 Previous Rx's Medication Instructions Recorded Omeprazole [PriLOSEC] 40 mg PO DAILY #30 capsule. 08/27/19 bisacodyL [Dulcolax] 5 mg PO DAILY PRN #10 tablet. 08/27/19 clonazePAM [KlonoPIN] 0.5 mg PO BID PRN #30 tab 08/27/19 ALLERGIES: Allergies Allergy/AdvReac Type Severity Reaction Status Date / Time cephalexin [From Keflex] AdvReac Vomiting Verified 03/17/19 10:42 SOCIAL HISTORY: Past tobacco use. FAMILY HISTORY: No family history of ulcerative colitis disease or Crohn's disease. Family history of morbid obesity. No lupus in the family. No reports of stomach or esophageal cancer. Family history of pulmonary embolism. Morbid obesity runs in her family. Her mother had lung cancer. Her mother has trouble with weight including sisters and daughter. REVIEW OF ORGAN SYSTEMS: CONSTITUTIONAL: At height of 4 feet 10 inches, her ideal body weight is 118 pounds. Her highest weigh was 304 pounds, BMI 63.7. HEENT: Denies any active troubles with vision or hearing. ENDOCRINE: Has diabetes. No hypothyroidism. She has diabetes for 7 to 8 years. CARDIOVASCULAR: No past reports of palpitations or heart attacks or chest pain. RESPIRATORY: Has daytime somnolence. Has asthma. GASTROINTESTINAL: Denies any bright red blood per rectum. No diarrhea. No constipation. She has mild gastroesophageal reflux disease. She had a cholecystectomy where "they left a stone behind." She has gastroparesis. MUSCULOSKELETAL: Has lower back pain and joint pain. Has osteoarthritis of the knees. She has lower back pain, hip pain, knee, ankles and foot pain. NEURO: No headaches. No seizure disorders. Has neuropathy. She has neuropathy of the legs. PSYCH: Has depression. No suicidal ideation. RHEUMATOLOGIC: No lupus. No rheumatoid arthritis. HEMATOLOGIC: Denies any abnormal bleeding or bruising. She has history of pulmonary embolus to the lungs. SKIN: No rash. No skin cancer. PHYSICAL EXAM: VITAL SIGNS: Height 4 foot 10 inches, weight 237 pounds. BMI 49.5 Vital Signs Temp 97.9 F 02/11/20 13:15 Pulse 58 L 02/11/20 13:15 Resp BP 146/84 02/11/20 13:15 Pulse Ox GENERAL: Well-developed in no acute distress. HEENT: No scleral icterus. Extraocular movements grossly intact. Hears conversational speech. No nasal drainage. NECK: Supple without lymphadenopathy. CHEST: Nonlabored respirations with equal bilateral excursions. CARDIOVASCULAR: Regular rate and regular rhythm. Distal 2+ pulses. ABDOMEN: Incisions are granulated MUSCULOSKELETAL: No clubbing, cyanosis. NEURO: No focal or lateralizing signs. Cranial nerves 2 through 12 grossly within normal limits. PSYCH: Appropriate affect. Alert and oriented to person, place and time. SKIN: Good skin turgor. Well perfused. ASSESSMENT: 1. Morbid obesity due to excess calories 2. Body mass index of 63.7 to 50.4 3. Osteoarthritis of the knees. 4. Osteoarthritis of the lower back. 5. Osteoarthritis of the hips. 6. Osteoarthritis of the ankles. 7. Diabetic neuropathy 8. Gastroesophageal reflux disease 9. Obstructive sleep apnea 10. Diabetes type 2, insulin dependent 11. Asthma 12. Chronic obstructive pulmonary disease 13. Hypertensive heart disease 14. Hyperlipidemia 15. Depressive disorder 16. Iron deficiency anemia 17. Gastroparesis 18. Chronic gastritis 19. Status post sleeve gastrectomy 20. Dysphagia 21. Non-compliance to bariatric lifestyle PLAN: 1. Recommend esophogram with her dysphagia. 2. Recommend full bariatric labs 3. Additionally, she reports pulling sensation within the abdomen, consistent with adhesions. May benefit from robotic lysis of adhesions. She is elevated risk due to pre-existing cardiac disease. 4. Food diary journal advised 5. Recommend protein intake increase Objective - Vital Signs Vital signs: Intake & Output 02/10/20 02/11/20 02/11/20 18:59 06:59 18:59 Weight 107.501 kg
[2020-02-11 13:26] VITALS: BP 146/84; PULSE 58; TEMP 97.9; BMI 49.5
== END | disposition home or self-care (01) ==
LOC: BARWHC3 12:49
PROVIDERS: ATTEND Surgery Plastic and Reconstructive Surgery
DX: Z48.815 Encounter for surgical aftercare following surgery on the digestive system (principal); E66.01 Morbid (severe) obesity due to excess calories; M17.0 Bilateral primary osteoarthritis of knee; M47.816 Spondylosis without myelopathy or radiculopathy, lumbar region; E11.43 Type 2 diabetes mellitus with diabetic autonomic (poly)neuropathy; K21.9 Gastro-esophageal reflux disease without esophagitis; G47.33 Obstructive sleep apnea (adult) (pediatric); I11.0 Hypertensive heart disease with heart failure; E78.5 Hyperlipidemia, unspecified; J44.9 Chronic obstructive pulmonary disease, unspecified; D50.9 Iron deficiency anemia, unspecified; F32.9 Major depressive disorder, single episode, unspecified; K29.50 Unspecified chronic gastritis without bleeding; M16.0 Bilateral primary osteoarthritis of hip; R13.10 Dysphagia, unspecified; Z91.19 Patient's noncompliance with other medical treatment and regimen; Z88.1 Allergy status to other antibiotic agents; Z98.84 Bariatric surgery status; Z79.4 Long term (current) use of insulin; Z68.44 Body mass index [BMI] 60.0-69.9, adult; Z79.899 Other long term (current) drug therapy; Z90.49 Acquired absence of other specified parts of digestive tract; Z98.890 Other specified postprocedural states
CPT/HCPCS: 99211

== ENCOUNTER → 2020-03-31 | Outpatient (CLI) | payer OTHER ==
--- NOTE | 2020-03-31 11:14 | FL ---
EXAMINATION TYPE: FL barium swallow DATE OF EXAM: 03/31/2020 COMPARISON: 10/15/2019 HISTORY: Post gastric sleeve, patient exhibiting abdominal pain nausea and vomiting since gastric sle betty surgery. TECHNIQUE: A single contrast UGI study is performed. FINDINGS: Contrast passes from the distal esophagus through the gastric sleeve with no significant he sitancy. No free air is noted during this examination. Esophagus dilates normal caliber has normal contour to the gastroesophageal junction. Gastroesophagea l junction opens to normal caliber. No focal stenosis is present. The postsurgical gastric sleeve wilma ears unremarkable. Contrast passes through promptly without significant hesitancy. The proximal duode num within the [id number] is normal. No reflux is identified. In the horizontal drinking position there is incomplete stripping the esophageal bolus. A secondary c ontraction was observed. Subsequent dry swallow emptied the distal esophagus. IMPRESSIONS: 1. Mild secondary contraction compatible very mild presbyesophagus the horizontal drinking position. 2. Esophagram and post gastric sleeve stomach otherwise appears unremarkable
== END | disposition home or self-care (01) ==
LOC: RADUSWWP 09:56
PROVIDERS: ATTEND Surgery Plastic and Reconstructive Surgery
DX: R10.13 Epigastric pain (principal); Z98.890 Other specified postprocedural states
CPT/HCPCS: 74220

== ENCOUNTER → 2020-03-31 | Outpatient (CLI) | payer OTHER ==
[2020-03-31 20:51] LABS: Basophils # (A) 0.03 X 10*3/uL (0.00-0.10); Basophils % (A) 0.4 %; Eosinophils # (A) 0.22 X 10*3/uL (0.04-0.35); Eosinophils % (A) 2.8 %; HGB 12.2 g/dL (12.0-15.0); Lymphocytes # (A) 1.68 X 10*3/uL (0.90-5.00); Lymphocytes % (A) 21.4 %; MCH 30.7 pg (27.0-32.0); MCHC 32.1 g/dL (32.0-37.0); MCV 95.7 fL (80.0-97.0); Mean Platelet Volume 12.5 fL (9.5-12.2); Monocytes # (A) 0.61 X 10*3/uL (0.20-1.00); Monocytes % (A) 7.8 %; Neutrophils # (A) 5.26 X 10*3/uL (1.80-7.70); Neutrophils % (A) 67.1 %; Platelet Count 242 X 10*3/uL (140-440); RBC 3.97 X 10*6/uL (4.10-5.20); RDW 12.5 % (11.5-14.5); WBC 7.84 X 10*3/uL (4.50-10.00)
[2020-03-31 22:22] LABS: INR 0.96 (0.90-1.11); Partial Thromboplastin Time 25.1 sec (23.5-31.0); Prothrombin Time 10.5 sec (9.9-11.9)
[2020-03-31 23:32] LABS: Ferritin 91.4 ng/mL (10.0-291.0)
[2020-03-31 23:33] LABS: ALT 13 U/L (8-44); AST 18 U/L (13-35); African American GFR (CKD) 69.9 (60.0-200.0); Alkaline Phosphatase 78 U/L (41-126); Calcium 8.8 mg/dL (8.7-10.3); Carbon Dioxide 25.3 mmol/L (21.6-31.8); Chloride 107 mmol/L (96-109); Chol/HDL Ratio 3.53; Cholesterol 141 mg/dL (0-200); Glucose 126 mg/dL (70-110); Iron 60 ug/dL (50-170); LDL Cholesterol,Calculated 77.2 mg/dL (0.0-131.0); Non-African American GFR(CKD) 60.3 (60.0-200.0); Phosphorus 4.3 mg/dL (2.4-5.1); Potassium 4.3 mmol/L (3.5-5.5); Sodium 145 mmol/L (135-145); Total Bilirubin 0.6 mg/dL (0.3-1.2); Total Iron Binding Capacity 303 ug/dL (228-460); Total Protein 6.6 g/dL (6.2-8.2)
[2020-04-01 00:02] LABS: Folate, Serum >24.0 ng/mL
[2020-04-01 00:11] LABS: Hemoglobin A1C 6.9 % (4.0-6.0)
[2020-04-02 06:43] LABS: Vitamin A 47 ug/dL (38-106)
[2020-04-02 12:09] LABS: Zinc, Serum 73 ug/dL (60-130)
[2020-04-04 17:59] LABS: Selenium 89 mcg/L (63-160)
[2020-04-05 08:22] LABS: Vit B1(Thiamine) 58 ug/L (38-122)
== END | disposition home or self-care (01) ==
LOC: LABWHC1 11:01
PROVIDERS: ATTEND Physician Assistant Medical
DX: I47.1 Supraventricular tachycardia (principal); E11.9 Type 2 diabetes mellitus without complications; I11.0 Hypertensive heart disease with heart failure; I50.32 Chronic diastolic (congestive) heart failure; R00.1 Bradycardia, unspecified; E89.1 Postprocedural hypoinsulinemia; E44.0 Moderate protein-calorie malnutrition; E55.9 Vitamin D deficiency, unspecified; K74.1 Hepatic sclerosis; N19 Unspecified kidney failure; K50.90 Crohn's disease, unspecified, without complications
CPT/HCPCS: 36415; 80053; 80061; 82306; 82525; 82728; 82746; 83036; 83540; 83550; 83970; 84100; 84134; 84255; 84425; 84443; 84590; 84630; 85025; 85610; 85730

== ENCOUNTER → 2020-03-31 | Outpatient (CLI) | payer OTHER ==
--- NOTE | 2020-03-31 14:38 | P.PN ---
Subjective Progress Note Date: 03/31/20 DATE OF SERVICE: 03/31/2020 CHIEF COMPLAINT: Status post sleeve gastrectomy HISTORY OF PRESENT ILLNESS: Crystal Chapman is a 60-year-old female status post sleeve gastrectomy, 08/25/19. She is 8 months out. She comes in with weight loss. She reports epigastric pain with liquids and foods for over 3+ weeks. She has completed swallow study. She reports wearing steel plates in shoes causing higher weight today. Her blood sugars are averaging 138 to 148. She is off insulin. She presents with abdominal pain with textured foods. At height of 4 feet 10 inches, her ideal body weight is 118 pounds. Her highest weight is 304 pounds, BMI 63.7. She comes in 228 pounds from 237 pounds, 2 months ago. She has lost 9 pounds in 2 months. Total weight loss 76 pounds lifetime. Percent excess weight loss lifetime, 41%. Her body mass index is down 47.7. She is 110 pounds overweight. PAST MEDICAL HISTORY: 1. Morbid obesity due to excess calories 2. Body mass index of 63.7, initial 3. Osteoarthritis of the knees. 4. Osteoarthritis of the lower back. 5. Osteoarthritis of the hips. 6. Osteoarthritis of the ankles. 7. Diabetic neuropathy 8. Gastroesophageal reflux disease 9. Obstructive sleep apnea 10. Diabetes type 2, insulin dependent 11. Asthma 12. Chronic obstructive pulmonary disease 13. Hypertensive heart disease 14. Hyperlipidemia 15. Depressive disorder 16. Generalized anxiety disorder 17. Pulmonary embolism 18. Postop nausea and vomiting PAST SURGICAL HISTORY: 1. Cholecystectomy 2. section 3. Cervical neck fusion 4. Cardiac catherization 5. Sleeve gastrectomy HOME MEDICATIONS: Home Medications Medication Instructions Recorded Confirmed Albuterol Inhaler (Mhu) [Ventolin 1 puff INHALATION DIRECTED PRN 02/06/19 04/01/20 Hfa Inhaler (Mhu)] Fluticasone Propionate [Flonase 1 spray NASAL DIRECTED PRN 02/06/19 04/01/20 Allergy Relief] Gabapentin [Gralise] 600 mg PO BID 02/06/19 04/01/20 Metoprolol Tartrate 25 mg PO BID 02/06/19 04/01/20 Oxybutynin Chloride 7.5 mg PO BID 02/06/19 04/01/20 Loratadine [Claritin] 10 mg PO DAILY PRN 03/13/19 04/01/20 Furosemide [Lasix] 20 mg PO DAILY 10/15/19 04/01/20 Methocarbamol [Robaxin-750] 750 mg PO HS PRN 10/15/19 04/01/20 Metoclopramide [Reglan] 10 mg PO DAILY PRN 10/15/19 04/01/20 Lisinopril [Zestril] 20 mg PO DAILY 12/12/19 04/01/20 metFORMIN HCL 10,000 mg PO BID 12/12/19 04/01/20 Previous Rx's Medication Instructions Recorded Omeprazole [PriLOSEC] 40 mg PO DAILY #30 capsule. 08/27/19 bisacodyL [Dulcolax] 5 mg PO DAILY PRN #10 tablet. 08/27/19 clonazePAM [KlonoPIN] 0.5 mg PO BID PRN #30 tab 08/27/19 ALLERGIES: Allergies Allergy/AdvReac Type Severity Reaction Status Date / Time cephalexin [From Keflex] AdvReac Vomiting Verified 03/17/19 10:42 SOCIAL HISTORY: Past tobacco use. FAMILY HISTORY: No family history of ulcerative colitis disease or Crohn's disease. Family history of morbid obesity. No lupus in the family. No reports of stomach or esophageal cancer. Family history of pulmonary embolism. Morbid obesity runs in her family. Her mother had lung cancer. Her mother has trouble with weight including sisters and daughter. REVIEW OF ORGAN SYSTEMS: CONSTITUTIONAL: At height of 4 feet 10 inches, her ideal body weight is 118 pounds. Her highest weigh was 304 pounds, BMI 63.7. HEENT: Denies any active troubles with vision or hearing. ENDOCRINE: Has diabetes. No hypothyroidism. She has diabetes for 7 to 8 years. CARDIOVASCULAR: No past reports of palpitations or heart attacks or chest pain. RESPIRATORY: Has daytime somnolence. Has asthma. GASTROINTESTINAL: Denies any bright red blood per rectum. No diarrhea. No constipation. She has mild gastroesophageal reflux disease. She had a cholecystectomy where "they left a stone behind." She has gastroparesis. MUSCULOSKELETAL: Has lower back pain and joint pain. Has osteoarthritis of the knees. She has lower back pain, hip pain, knee, ankles and foot pain. NEURO: No headaches. No seizure disorders. Has neuropathy. She has neuropathy of the legs. PSYCH: Has depression. No suicidal ideation. RHEUMATOLOGIC: No lupus. No rheumatoid arthritis. HEMATOLOGIC: Denies any abnormal bleeding or bruising. She has history of pulmonary embolus to the lungs. SKIN: No rash. No skin cancer. PHYSICAL EXAM: VITAL SIGNS: Height 4 foot 10 inches, weight 228 pounds. BMI 47.7 Vital Signs Temp 97.7 F 03/31/20 15:21 Pulse 61 03/31/20 15:21 Resp 18 03/31/20 15:21 BP 149/81 03/31/20 15:21 Pulse Ox GENERAL: Well-developed in no acute distress. HEENT: No scleral icterus. Extraocular movements grossly intact. Hears conversational speech. No nasal drainage. NECK: Supple without lymphadenopathy. CHEST: Nonlabored respirations with equal bilateral excursions. CARDIOVASCULAR: Regular rate and regular rhythm. Distal 2+ pulses. ABDOMEN: Incisions are granulated MUSCULOSKELETAL: No clubbing, cyanosis. NEURO: No focal or lateralizing signs. Cranial nerves 2 through 12 grossly wit hin normal limits. PSYCH: Appropriate affect. Alert and oriented to person, place and time. SKIN: Good skin turgor. Well perfused. STUDIES: Barium swallow independently reviewed with her demonstrates no leak or obstruction. No hiatal hernias found. RADIOLOGY: Barium swallow report reviewed with additional mild presbyesophagus ASSESSMENT: 1. Morbid obesity due to excess calories 2. Body mass index of 63.7 to 47.7 3. Osteoarthritis of the knees. 4. Osteoarthritis of the lower back. 5. Osteoarthritis of the hips. 6. Osteoarthritis of the ankles. 7. Diabetic neuropathy 8. Gastroesophageal reflux disease 9. Obstructive sleep apnea 10. Diabetes type 2, insulin dependent 11. Asthma 12. Chronic obstructive pulmonary disease 13. Hypertensive heart disease 14. Hyperlipidemia 15. Depressive disorder 16. Iron deficiency anemia 17. Gastroparesis 18. Chronic gastritis 19. Status post sleeve gastrectomy 20. Dysphagia 21. Non-compliance to bariatric lifestyle 22. Presbyesophagus PLAN: 1. Recommend dietary education on bariatric diet with dietitian. 2. Recommend EGD with dilation for symptomatic presbyesophagus regarding new diagnosis. 3. Bariatric labs for correction of nutritional deficiences.
[2020-03-31 15:25] VITALS: BP 149/81; PULSE 61; RESP 18; TEMP 97.7; BMI 47.6
== END | disposition home or self-care (01) ==
LOC: BARWHC3 10:01
PROVIDERS: ATTEND Surgery Plastic and Reconstructive Surgery
DX: Z48.815 Encounter for surgical aftercare following surgery on the digestive system (principal); E66.01 Morbid (severe) obesity due to excess calories; Z68.44 Body mass index [BMI] 60.0-69.9, adult; M17.0 Bilateral primary osteoarthritis of knee; M16.0 Bilateral primary osteoarthritis of hip; M47.816 Spondylosis without myelopathy or radiculopathy, lumbar region; E11.43 Type 2 diabetes mellitus with diabetic autonomic (poly)neuropathy; K21.9 Gastro-esophageal reflux disease without esophagitis; G47.33 Obstructive sleep apnea (adult) (pediatric); J44.9 Chronic obstructive pulmonary disease, unspecified; I11.9 Hypertensive heart disease without heart failure; E78.5 Hyperlipidemia, unspecified; F32.9 Major depressive disorder, single episode, unspecified; D50.9 Iron deficiency anemia, unspecified; K29.50 Unspecified chronic gastritis without bleeding; R13.10 Dysphagia, unspecified; K22.8 Other specified diseases of esophagus; Z98.84 Bariatric surgery status; Z91.19 Patient's noncompliance with other medical treatment and regimen; Z88.1 Allergy status to other antibiotic agents; Z79.4 Long term (current) use of insulin; Z79.899 Other long term (current) drug therapy; Z79.84 Long term (current) use of oral hypoglycemic drugs
CPT/HCPCS: 74220; 99211

== ENCOUNTER 2020-04-21 07:03 | Day surgery (SDC) | payer OTHER ==
[~2020-04-21 07:03] MED LIST changes: -ACETAMINOPHEN IV (For NPO) 1,000 MG in EMPTY BAG 1 BAG IVPB ONE; -CHLORHEXIDINE GLUCONATE 15 ML CUP MUCOUS MEM ONE; -CLINDAMYCIN 900 MG in DEXTROSE 5% IN WATER 50 ML IVPB ONE; -DEXAMETHASONE SOD PHOSPHATE 10 MG/ML 1 ML VIAL IV ONE; -ENOXAPARIN 40 MG/0.4 ML SYRINGE SQ ONE; -HYDROmorphone 0.5 MG/0.5 ML SYRINGE IVP PRN; +LACTATED RINGERS 1,000 ML IV SCH; +LIDOCAINE 1% (10MG/ML) FOR IV START INTRADERMA PRN; -MIDAZOLAM 2 MG/2 ML VIAL IV PRN; -ONDANSETRON 4 MG/2 ML VIAL IVP ONE; -PANTOPRAZOLE 40 MG/10 ML VIAL IV ONE; -SCOPOLAMINE 1.5MG/72HR PATCH TRANSDERM ONE; -ceFAZolin 3 GM in SODIUM CHLORIDE 0.9% 100 ML IVPB ONE
[2020-04-21] MEDS ORDERED: LACTATED RINGERS 1,000 ML IV ONE (07:30)
[2020-04-21] MEDS ORDERED: LIDOCAINE 1% (10MG/ML) FOR IV START INTRADERMA ONE (07:30)
[2020-04-21 07:34] LABS: Glucose,Whole Blood 115 mg/dL (75-99)
[2020-04-21 07:41] VITALS: RESP 16; TEMP 96.8
[2020-04-21] MEDS ORDERED: PROPOFOL 10 MG/ML 20 ML VIAL IV ONE (07:42)
--- NOTE | 2020-04-21 07:43 | P.GSHP ---
History of Present Illness H&P Date: 04/21/20 CHIEF COMPLAINT: Esophageal stricture HISTORY OF PRESENT ILLNESS: The patient is a 60-year-old female who presents reports dysphagia. Upper endoscopy was offered for further evaluation and management. PAST MEDICAL HISTORY: Please see list. PAST SURGICAL HISTORY: Please see list. MEDICATIONS: Please see list. ALLERGIES: Please see list. SOCIAL HISTORY: No illicit drug use FAMILY HISTORY: No reports of Crohn disease or ulcerative colitis. REVIEW OF ORGAN SYSTEMS: CONSTITUTIONAL: No reports of fevers or chills. GI: Denies any blood in stools or constipation. PHYSICAL EXAM: VITAL SIGNS: Stable GENERAL: Well-developed and pleasant in no acute distress. HEENT: No scleral icterus. Extraocular movements grossly intact. Moist buccal mucosa. NECK: Supple without lymphadenopathy. CHEST: Unlabored respirations. Equal bilateral excursions. CARDIOVASCULAR: Regular rate and rhythm. Distal 2+ pulses. ABDOMEN: Soft, nondistended. MUSCULOSKELETAL: No clubbing, cyanosis, or edema. ASSESSMENT: 1. Esophageal stricture PLAN: 1. Recommend proceeding with an upper endoscopy with rigid dilators. 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 History of Any Multi-Drug Resistant Organisms: None Reported Past Surgical History: Section, Cholecystectomy, Heart Catheterization, Orthopedic Surgery Additional Past Surgical History / Comment(s): cervical neck fusion x 2 with plates Past Anesthesia/Blood Transfusion Reactions: Postoperative Nausea & Vomiting (PONV) Additional Past Anesthesia/Blood Transfusion Reaction / Comment(s): after last egd took longer to wake up Smoking Status: Never smoker - Past Family History Mother Family Medical History: Cancer Additional Family Medical History / Comment(s): Lung/abd cancer. Medications and Allergies Home Medications Medication Instructions Recorded Confirmed Type Albuterol Inhaler (Mhu) [Ventolin 1 puff INHALATION DIRECTED PRN 02/06/19 04/16/20 History Hfa Inhaler (Mhu)] Fluticasone Propionate [Flonase 1 spray NASAL DIRECTED PRN 02/06/19 04/16/20 History Allergy Relief] Gabapentin [Gralise] 600 mg PO BID 02/06/19 04/16/20 History Metoprolol Tartrate 25 mg PO BID 02/06/19 04/16/20 History Oxybutynin Chloride 7.5 mg PO BID 02/06/19 04/16/20 History Loratadine [Claritin] 10 mg PO DAILY PRN 03/13/19 04/16/20 History Omeprazole [PriLOSEC] 40 mg PO DAILY #30 capsule. 08/27/19 04/16/20 Rx clonazePAM [KlonoPIN] 0.5 mg PO BID PRN #30 tab 08/27/19 04/16/20 Rx Furosemide [Lasix] 20 mg PO DAILY PRN 10/15/19 04/16/20 History Lisinopril [Zestril] 20 mg PO DAILY 12/12/19 04/16/20 History Biotin 1,000 mcg PO DAILY 04/16/20 04/16/20 History Folic Acid 0.4 mg PO DAILY 04/16/20 04/16/20 History Multivit-Min/Ferrous Gluconate 1 dose PO DAILY 04/16/20 04/16/20 History [Centrum Multivit-Mineral Liq] Simvastatin [Zocor] 20 mg PO HS 04/16/20 04/16/20 History glyBURIDE [Diabeta] 5 mg PO BID PRN 04/16/20 04/16/20 History sitaGLIPtin PHOS/metFORMIN HCL 1 each PO BID 04/16/20 04/16/20 History [Janumet 50-1,000 mg Tablet] Allergies Allergy/AdvReac Type Severity Reaction Status Date / Time cephalexin [From Keflex] AdvReac Abdominal Verified 04/16/20 13:30 Pain Surgical - Exam Vital Signs Temp Pulse Resp BP Pulse Ox 96.8 F L 57 L 16 166/64 99 04/21/20 07:20 04/21/20 07:20 04/21/20 07:20 04/21/20 07:20 04/21/20 07:20 Results - Labs Abnormal Lab Results - Last 24 Hours (Table) 04/21/20 Range/Units 07:30 POC Glucose (mg/dL) 115 H (75-99) mg/dL
--- NOTE | 2020-04-21 08:07 | P.PCN ---
Date of Procedure: 04/21/20 Description of Procedure: PREOPERATIVE DIAGNOSIS: Dysphagia. Gastroesophageal reflux disease Esophageal stricture POSTOPERATIVE DIAGNOSIS: Dysphagia. Gastroesophageal reflux disease Esophageal stricture Esophageal dysmotility OPERATION: Esophagogastroduodenoscopy with rigid dilator over the guidewire 54 Fr. Esophagogastroduodenoscopy with balloon dilator, 20 mm SURGEON: Nathaly Harris MD ANESTHESIA: MAC. INDICATIONS: The patient is a 60-year-old female who presents with a history of dysphagia and clubbing of the upper throat and epigastrium. Benefits and risks of the procedure were described. Informed consent was obtained. DESCRIPTION: The patient was brought into the endoscopy suite and laid in the left lateral decubitus position. After a timeout was confirmed, the procedure was initiated. An Olympus gastroscope was passed and the stomach was entered. No moderate gastritis was identified. The scope was advanced to the duodenum which was unremarkable. Her sleeve was without tortuosity and adequate size reservoir. Next using an [place] rigid dilator, a guidewire was placed through the gastroscope. Next the scope was withdrawn. A 54-[place] rigid [place] dilator was passed carefully along the posterior oropharynx to 40 cm and left in place for 2 minutes stretch. The dilator was withdrawn including the guidewire. The scope was reentered along the posterior oropharynx with no findings of full- thickness tear of the upper esophageal sphincter. To address the lower esophageal sphincter, balloon dilator 20 mm was introduced into the scope with dilation at least 1 minute. No full-thickness injury was encountered. The GI tract was desufflated. The patient tolerated the procedure well. FINDINGS: Squamocolumnar junction unremarkable at 39 cm. Hypertensive lower esophageal sphincter with dysmotility and mild stricture dilated with balloon [place] rigid dilator 54-[place] completed tortuous hypertensive upper esophageal ring finger dysmotility No hiatus hernia Adequate size sleeve without tortuosity. No LA grade A esophagitis. RECOMMENDATIONS: Upper endoscopy as needed with dilation to address esophageal dysmotility Plan - Discharge Summary Discharge Rx Participant: No New Discharge Prescriptions: Continue Albuterol Inhaler (Mhu) [Ventolin Hfa Inhaler (Mhu)] 1 puff INHALATION DIRECTED PRN PRN Reason: Asthma Oxybutynin Chloride 7.5 mg PO BID Metoprolol Tartrate 25 mg PO BID Fluticasone Propionate [Flonase Allergy Relief] 1 spray NASAL DIRECTED PRN PRN Reason: Allergic Reaction Gabapentin [Gralise] 600 mg PO BID Loratadine [Claritin] 10 mg PO DAILY PRN PRN Reason: Allergic Reaction Omeprazole [PriLOSEC] 40 mg PO DAILY #30 capsule. clonazePAM [KlonoPIN] 0.5 mg PO BID PRN #30 tab PRN Reason: Anxiety Furosemide [Lasix] 20 mg PO DAILY PRN PRN Reason: swelling Lisinopril [Zestril] 20 mg PO DAILY sitaGLIPtin PHOS/metFORMIN HCL [Janumet 50-1,000 mg Tablet] 1 each PO BID glyBURIDE [Diabeta] 5 mg PO BID PRN PRN Reason: high blood sugar Simvastatin [Zocor] 20 mg PO HS Multivit-Min/Ferrous Gluconate [Centrum Multivit-Mineral Liq] 1 dose PO DAILY Folic Acid 0.4 mg PO DAILY Biotin 1,000 mcg PO DAILY Discharge Medication List Albuterol Inhaler (Mhu) [Ventolin Hfa Inhaler (u)] 1 puff INHALATION DIRECTED PRN 02/06/19 [History] Fluticasone Propionate [Flonase Allergy Relief] 1 spray NASAL DIRECTED PRN 02/06/19 [History] Gabapentin [Gralise] 600 mg PO BID 02/06/19 [History] Metoprolol Tartrate 25 mg PO BID 02/06/19 [History] Oxybutynin Chloride 7.5 mg PO BID 02/06/19 [History] Loratadine [Claritin] 10 mg PO DAILY PRN 03/13/19 [History] Omeprazole [PriLOSEC] 40 mg PO DAILY #30 capsule. 08/27/19 [Rx] clonazePAM [KlonoPIN] 0.5 mg PO BID PRN #30 tab 08/27/19 [Rx] Furosemide [Lasix] 20 mg PO DAILY PRN 10/15/19 [History] Lisinopril [Zestril] 20 mg PO DAILY 12/12/19 [History] Biotin 1,000 mcg PO DAILY 04/16/20 [History] Folic Acid 0.4 mg PO DAILY 04/16/20 [History] Multivit-Min/Ferrous Gluconate [Centrum Multivit-Mineral Liq] 1 dose PO DAILY 04/16/20 [History] Simvastatin [Zocor] 20 mg PO HS 04/16/20 [History] glyBURIDE [Diabeta] 5 mg PO BID PRN 04/16/20 [History] sitaGLIPtin PHOS/metFORMIN HCL [Janumet 50-1,000 mg Tablet] 1 each PO BID 04/16/20 [History] [facility] [place] [facility] [place] [facility] Patient Instructions/Handouts: Esophageal Dilation (DC) Activity/Diet/Wound Care/Special Instructions: Warm liquid beverages today. Advance diet tomorrow. Discharge Disposition: HOME SELF-CARE
[2020-04-21 08:36] VITALS: BP 155/66; PULSE 64
== END 2020-04-21 09:00 | disposition home or self-care (01) ==
LOC: ORWHC2ENDO 07:03
PROVIDERS: ATTEND Surgery Plastic and Reconstructive Surgery
DX: K22.2 Esophageal obstruction (principal); K22.4 Dyskinesia of esophagus; K21.9 Gastro-esophageal reflux disease without esophagitis; E78.5 Hyperlipidemia, unspecified; M19.90 Unspecified osteoarthritis, unspecified site; E11.42 Type 2 diabetes mellitus with diabetic polyneuropathy; K08.89 Other specified disorders of teeth and supporting structures; I50.9 Heart failure, unspecified; I11.0 Hypertensive heart disease with heart failure; J45.909 Unspecified asthma, uncomplicated; E66.01 Morbid (severe) obesity due to excess calories; Z86.711 Personal history of pulmonary embolism; Z98.890 Other specified postprocedural states; Z90.49 Acquired absence of other specified parts of digestive tract; Z98.1 Arthrodesis status; Z91.89 Other specified personal risk factors, not elsewhere classified; Z80.1 Family history of malignant neoplasm of trachea, bronchus and lung; Z80.8 Family history of malignant neoplasm of other organs or systems; Z79.899 Other long term (current) drug therapy; Z79.84 Long term (current) use of oral hypoglycemic drugs; Z88.1 Allergy status to other antibiotic agents; Z68.42 Body mass index [BMI] 45.0-49.9, adult; Z98.84 Bariatric surgery status
CPT/HCPCS: 43248; 43249

== ENCOUNTER → 2020-05-05 | Outpatient (CLI) | payer OTHER ==
[2020-05-05 14:43] VITALS: BP 126/84; PULSE 76; RESP 16; TEMP 98; BMI 46.7
--- NOTE | 2020-05-05 15:19 | P.PN ---
Subjective Progress Note Date: 05/05/20 She has no further troubles and abdominal pain. She is doing better following upper scope with dilation. She is off diabetic medications. She is still losing weight. Hgb A1c. Objective - Vital Signs Vital signs: Vital Signs Temp 98 F 05/05/20 14:40 Pulse 76 05/05/20 14:40 Resp 16 05/05/20 14:40 BP 126/84 05/05/20 14:40 Pulse Ox Intake & Output 05/04/20 05/05/20 05/05/20 18:59 06:59 18:59 Weight 101.605 kg
== END | disposition home or self-care (01) ==
LOC: BARWHC3 14:05
PROVIDERS: ATTEND Surgery Plastic and Reconstructive Surgery
DX: E66.01 Morbid (severe) obesity due to excess calories (principal); E11.9 Type 2 diabetes mellitus without complications; E78.5 Hyperlipidemia, unspecified; I10 Essential (primary) hypertension
CPT/HCPCS: 99211

== ENCOUNTER → 2020-08-04 | Outpatient (CLI) | payer OTHER ==
[2020-08-04 14:26] VITALS: BP 121/73; PULSE 79; RESP 18; TEMP 98.1; BMI 46.5
--- NOTE | 2020-08-04 14:38 | P.PN ---
Subjective Progress Note Date: 08/04/20 DATE OF SERVICE: 08/04/2020 CHIEF COMPLAINT: Status post sleeve gastrectomy HISTORY OF PRESENT ILLNESS: Crystal Chapman is a 60-year-old female status post sleeve gastrectomy, 08/25/19. She is 1 year out. She reports changes in her medications. She if off multiple diabetic medications. She can finally tolerate soy milk as an alternative food source. She is independently walking. She is gardening. She is still losing weight. She can eat fish. She presents for management of her morbid obesity following weight loss surgery. At height of 4 feet 10 inches, her ideal body weight is 118 pounds. Her highest weight is 304 pounds, BMI 63.7. She comes in 222 pounds from 224 pounds, 3 months ago. She has lost 1 pounds in 3 months. Total weight loss 81 pounds lifetime. Percent excess weight loss lifetime, 44%. Her body mass index is down 46.6. She is 104 pounds overweight. PHYSICAL EXAM: VITAL SIGNS: Height 4 foot 10 inches, weight 222 pounds. BMI 46.6 Vital Signs Temp 98.1 F 08/04/20 14:15 Pulse 79 08/04/20 14:15 Resp 18 08/04/20 14:15 BP 121/73 08/04/20 14:15 Pulse Ox GENERAL: Well-developed in no acute distress. HEENT: No scleral icterus. Extraocular movements grossly intact. Hears conversational speech. No nasal drainage. NECK: Supple without lymphadenopathy. CHEST: Nonlabored respirations with equal bilateral excursions. CARDIOVASCULAR: Regular rate and regular rhythm. Distal 2+ pulses. ABDOMEN: Nontender. Nondistended. MUSCULOSKELETAL: No clubbing, cyanosis. NEURO: No focal or lateralizing signs. Cranial nerves 2 through 12 grossly within normal limits. PSYCH: Appropriate affect. Alert and oriented to person, place and time. SKIN: Good skin turgor. Well perfused. ASSESSMENT: 1. Morbid obesity due to excess calories 2. Body mass index of 63.7 to 46.6 3. Osteoarthritis of the knees. 4. Osteoarthritis of the lower back. 5. Osteoarthritis of the hips. 6. Osteoarthritis of the ankles. 7. Diabetic neuropathy 8. Gastroesophageal reflux disease 9. Obstructive sleep apnea 10. Diabetes type 2, insulin dependent 11. Asthma 12. Chronic obstructive pulmonary disease 13. Hypertensive heart disease 14. Hyperlipidemia 15. Depressive disorder 16. Iron deficiency anemia 17. Gastroparesis 18. Chronic gastritis 19. Status post sleeve gastrectomy 20. Dysphagia 21. Non-compliance to bariatric lifestyle 22. Presbyesophagus PLAN: 1. Her diabetes has improved. Recommend Hgb A1c check 2. She is 1 year out. Recommend bariatric metabolic panel. 3. Recommend increase protein intake to 65 grams daily. Objective - Vital Signs Vital signs: Vital Signs Temp 98.1 F 08/04/20 14:15 Pulse 79 08/04/20 14:15 Resp 18 08/04/20 14:15 BP 121/73 08/04/20 14:15 Pulse Ox Intake & Output 08/03/20 08/04/20 08/04/20 18:59 06:59 18:59 Weight 101.151 kg
== END ==
LOC: BARWHC3 13:23
PROVIDERS: ATTEND Surgery Plastic and Reconstructive Surgery
DX: E66.01 Morbid (severe) obesity due to excess calories (principal); D50.9 Iron deficiency anemia, unspecified; E11.43 Type 2 diabetes mellitus with diabetic autonomic (poly)neuropathy; E78.5 Hyperlipidemia, unspecified; F32.9 Major depressive disorder, single episode, unspecified; G47.33 Obstructive sleep apnea (adult) (pediatric); I11.9 Hypertensive heart disease without heart failure; J44.9 Chronic obstructive pulmonary disease, unspecified; M19.072 Primary osteoarthritis, left ankle and foot; M19.071 Primary osteoarthritis, right ankle and foot; M47.816 Spondylosis without myelopathy or radiculopathy, lumbar region; K21.9 Gastro-esophageal reflux disease without esophagitis; K22.8 Other specified diseases of esophagus; K29.50 Unspecified chronic gastritis without bleeding; K31.84 Gastroparesis; M16.0 Bilateral primary osteoarthritis of hip; M17.0 Bilateral primary osteoarthritis of knee; R13.10 Dysphagia, unspecified; Z68.42 Body mass index [BMI] 45.0-49.9, adult; Z98.84 Bariatric surgery status; Z87.891 Personal history of nicotine dependence; Z88.1 Allergy status to other antibiotic agents; Z79.4 Long term (current) use of insulin
CPT/HCPCS: 99211

== ENCOUNTER 2020-09-26 10:53 | Observation (INO) | payer OTHER ==
[2020-09-26] MEDS ORDERED: ASPIRIN 81 MG PO STA (11:05)
[2020-09-26] MEDS ORDERED: NITROGLYCERIN OINT 1 INCH/GM PACKET TOPICAL STA (11:05)
--- NOTE | 2020-09-26 11:12 | ED ---
General Adult HPI - General Chief complaint: Chest Pain Stated complaint: Chest Pain Time Seen by Provider: 09/26/20 10:55 Source: patient, EMS, RN notes reviewed, old records reviewed Mode of arrival: EMS Limitations: no limitations - History of Present Illness Initial comments: This is a 60-year-old female who presents emergency Department with a past medical history significant for congestive heart failure, diabetes, hypertension and high cholesterol. Patient denies any smoking history. Patient states she started having chest pain about 9:30 this morning and he continued for about an hour and eventually dissipated on her way here in the ambulance. Patient also states the pain radiated to her back and up into her neck. Patient denies any d iaphoretic episodes. Patient denies any nausea. Patient denies any shortness of breath or difficulty breathing though she states yesterday when she was TOO LONG SHE DID FEEL SHORT OF BREATH AT THAT TIME. PATIENT STATES AT THIS POINT TIME SHE'S NOT HAVING ANY SYMPTOMS. Patient denies any swelling to his legs or calf tenderness. Patient denies any recent fever chills or cough. - Related Data Home Medications Medication Instructions Recorded Confirmed Gabapentin [Gralise] 600 mg PO BID 02/06/19 09/26/20 Metoprolol Tartrate 25 mg PO BID 02/06/19 09/26/20 Oxybutynin Chloride 5 mg PO BID 02/06/19 09/26/20 Biotin 5,000 mcg PO DAILY 04/16/20 09/26/20 Simvastatin [Zocor] 20 mg PO HS 04/16/20 09/26/20 sitaGLIPtin PHOS/metFORMIN HCL 1 tab PO BID 04/16/20 09/26/20 [Janumet 50-1,000 mg Tablet] Aspirin EC [Ecotrin Low Dose] 81 mg PO DAILY 09/26/20 09/26/20 lisinopriL [Zestril] 20 mg PO DAILY 09/26/20 09/26/20 Previous Rx's Medication Instructions Recorded Omeprazole [PriLOSEC] 40 mg PO DAILY #30 capsule. 08/27/19 Allergies Allergy/AdvReac Type Severity Reaction Status Date / Time cephalexin [From Keflex] AdvReac Abdominal Verified 09/26/20 11:32 Pain Review of Systems ROS Statement: Those systems with pertinent positive or pertinent negative responses have been documented in the HPI. ROS Other: All systems not noted in ROS Statement are negative. Past Medical History Past Medical History: Diabetes Mellitus, Hyperlipidemia, Hypertension, Osteoa rthritis (OA), Pulmonary Embolus (PE) Additional Past Medical History / Comment(s): neuropathy in queta feet History of Any Multi-Drug Resistant Organisms: None Reported Past Surgical History: Section, Cholecystectomy, Heart Catheterization, Orthopedic Surgery Additional Past Surgical History / Comment(s): cervical neck fusion x 2 with plates Past Anesthesia/Blood Transfusion Reactions: Postoperative Nausea & Vomiting (PONV) Additional Past Anesthesia/Blood Transfusion Reaction / Comment(s): after last egd took longer to wake up Past Psychological History: Anxiety Smoking Status: Never smoker Past Alcohol Use History: Rare Past Drug Use History: None Reported - Past Family History Mother Family Medical History: Cancer Additional Family Medical History / Comment(s): Lung/abd cancer. General Exam - General Exam Comments Initial Comments: GENERAL: Patient is well-developed and well-nourished. Patient is nontoxic and well- hydrated and is in mild distress. ENT: Neck is soft and supple. No significant lymphadenopathy is noted. Oropharynx is clear. Moist mucous membranes. Neck has full range of motion without eliciting any pain. EYES: The sclera were anicteric and conjunctiva were pink and moist. Extraocular movements were intact and pupils were equal round and reactive to light. Eyelids were unremarkable. PULMONARY: Unlabored respirations. Good breath sounds bilaterally. No audible rales rhonchi or wheezing was noted. CARDIOVASCULAR: There is a regular rate and rhythm without any murmurs gallops or rubs. ABDOMEN: Soft and nontender with normal bowel sounds. SKIN: Skin is clear with no lesions or rashes and otherwise unremarkable. NEUROLOGIC: Patient is alert and oriented x3. Cranial nerves II through XII are grossly intact. Motor and sensory are also intact. Normal speech, volume and content. Symmetrical smile. MUSCULOSKELETAL: Normal extremities with adequate strength and full range of motion. No lower extremity swelling or edema. No calf tenderness. LYMPHATICS: No significant lymphadenopathy is noted PSYCHIATRIC: Normal psychiatric evaluation. Limitations: no limitations Course Vital Signs 09/26/20 09/26/20 09/26/20 10:54 11:29 11:30 Temperature 98.2 F Pulse Rate 53 L 55 L 56 L Respiratory 18 16 16 Rate Blood Pressure 137/62 119/61 119/61 O2 Sat by Pulse 99 96 97 Oximetry Medical Decision Making - Medical Decision Making EKG shows sinus rhythm with occasional PAC at 60 bpm MN interval is 200 QRS is 84 QT interval 476 QTC is 476. EKG shows no ST segment elevation or depression. Chest x-ray shows no acute abnormality Patient remained chest pain-free in the emergency department. I spoke with some physicians agreed to admit the patient admitted the patient wrote admitting orders. I continued the aspirin and nitro and heparin in the hospital - Lab Data Result diagrams: 09/26/20 11:05 09/26/20 11:05 Lab Results 09/26/20 09/26/20 09/26/20 Range/Units 11:05 11:05 11:05 WBC 6.4 (3.8-10.6) k/uL RBC 4.26 (3.80-5.40) m/uL Hgb 13.8 (11.4-16.0) gm/dL Hct 39.9 (34.0-46.0) % MCV 93.9 (80.0-100.0) fL MCH 32.4 (25.0-35.0) pg MCHC 34.5 (31.0-37.0) g/dL RDW 12.7 (11.5-15.5) % Plt Count 202 (150-450) k/uL MPV 8.6 Neutrophils % 64 % Lymphocytes % 24 % Monocytes % 7 % Eosinophils % 2 % Basophils % 0 % Neutrophils # 4.1 (1.3-7.7) k/uL Lymphocytes # 1.5 (1.0-4.8) k/uL Monocytes # 0.5 (0-1.0) k/uL Eosinophils # 0.1 (0-0.7) k/uL Basophils # 0.0 (0-0.2) k/uL PT 9.9 (9.0-12.0) sec INR 0.9 (<1.2) APTT 21.1 L (22.0-30.0) sec Sodium 138 (137-145) mmol/L Potassium 4.5 (3.5-5.1) mmol/L Chloride 102 (98-107) mmol/L Carbon Dioxide 24 (22-30) mmol/L Anion Gap 12 mmol/L BUN 32 H (7-17) mg/dL Creatinine 2.22 H (0.52-1.04) mg/dL Est GFR (CKD-EPI)AfAm 27 (>60 ml/min/1.73 sqM) Est GFR (CKD-EPI)NonAf 23 (>60 ml/min/1.73 sqM) Glucose 173 H (74-99) mg/dL Calcium 9.4 (8.4-10.2) mg/dL Magnesium 1.9 (1.6-2.3) mg/dL Total Bilirubin 0.6 (0.2-1.3) mg/dL AST 24 (14-36) U/L ALT 36 H (4-34) U/L Alkaline Phosphatase 93 (38-126) U/L Troponin I (0.000-0.034) ng/mL Total Protein 6.6 (6.3-8.2) g/dL Albumin 4.0 (3.5-5.0) g/dL 09/26/20 Range/Units 11:05 WBC (3.8-10.6) k/uL RBC (3.80-5.40) m/uL Hgb (11.4-16.0) gm/dL Hct (34.0-46.0) % MCV (80.0-100.0) fL MCH (25.0-35.0) pg MCHC (31.0-37.0) g/dL RDW (11.5-15.5) % Plt Count (150-450) k/uL MPV Neutrophils % % Lymphocytes % % Monocytes % % Eosinophils % % Basophils % % Neutrophils # (1.3-7.7) k/uL Lymphocytes # (1.0-4.8) k/uL Monocytes # (0-1.0) k/uL Eosinophils # (0-0.7) k/uL Basophils # (0-0.2) k/uL PT (9.0-12.0) sec INR (<1.2) APTT (22.0-30.0) sec Sodium (137-145) mmol/L Potassium (3.5-5.1) mmol/L Chloride (98-107) mmol/L Carbon Dioxide (22-30) mmol/L Anion Gap mmol/L BUN (7-17) mg/dL Creatinine (0.52-1.04) mg/dL Est GFR (CKD-EPI)AfAm (>60 ml/min/1.73 sqM) Est GFR (CKD-EPI)NonAf (>60 ml/min/1.73 sqM) Glucose (74-99) mg/dL Calcium (8.4-10.2) mg/dL Magnesium (1.6-2.3) mg/dL Total Bilirubin (0.2-1.3) mg/dL AST (14-36) U/L ALT (4-34) U/L Alkaline Phosphatase (38-126) U/L Troponin I <0.012 (0.000-0.034) ng/mL Total Protein (6.3-8.2) g/dL Albumin (3.5-5.0) g/dL Critical Care Time Critical Care Time: Yes Total Critical Care Time: 35 Disposition Clinical Impression: Unstable angina pectoris, Renal insufficiency Disposition: ADMITTED IP TO THIS HOSP Referrals: Heather Macias, PAC [Primary Care Provider] - 1-2 days Time of Disposition: 12:14
[2020-09-26 11:33] LABS: Basophils % (A) 0 %; Eosinophils # (A) 0.1 k/uL (0-0.7); Eosinophils % (A) 2 %; HCT 39.9 % (34.0-46.0); HGB 13.8 gm/dL (11.4-16.0); Lymphocytes # (A) 1.5 k/uL (1.0-4.8); Lymphocytes % (A) 24 %; MCH 32.4 pg (25.0-35.0); MCHC 34.5 g/dL (31.0-37.0); MCV 93.9 fL (80.0-100.0); Mean Platelet Volume 8.6; Monocytes # (A) 0.5 k/uL (0-1.0); Monocytes % (A) 7 %; Neutrophils # (A) 4.1 k/uL (1.3-7.7); Neutrophils % (A) 64 %; Platelet Count 202 k/uL (150-450); RBC 4.26 m/uL (3.80-5.40); RDW 12.7 % (11.5-15.5); WBC 6.4 k/uL (3.8-10.6)
[2020-09-26 11:40] LABS: INR 0.9 (<1.2); Prothrombin Time 9.9 sec (9.0-12.0)
--- NOTE | 2020-09-26 11:50 | XR ---
EXAMINATION TYPE: XR chest 2V DATE OF EXAM: 09/26/2020 COMPARISON: NONE TECHNIQUE: PA and lateral views submitted. HISTORY: Chest pain FINDINGS: The lungs are clear and there is no pneumothorax, pleural effusion, or focal pneumonia. Hypertrophi c and degenerative change of the spine. No overt failure. Postsurgical change involving the cervical spine is suggested. Chronic deformity of the lateral left rib cage. IMPRESSION: 1. No acute process. Remote left-sided rib fracture suggested.
[2020-09-26 11:54] LABS: Calcium 9.4 mg/dL (8.4-10.2); Magnesium 1.9 mg/dL (1.6-2.3); Potassium 4.5 mmol/L (3.5-5.1); Total Bilirubin 0.6 mg/dL (0.2-1.3); Total Protein 6.6 g/dL (6.3-8.2)
[2020-09-26 11:55] LABS: Partial Thromboplastin Time 21.1 sec (22.0-30.0)
[2020-09-26] MEDS ORDERED: NITROGLYCERIN SL TABS 0.4 MG TAB SUBLINGUAL PRN (12:15)
[2020-09-26] MEDS ORDERED: MORPHINE SULFATE 4 MG/ML SYRINGE IV PRN (15:35)
[2020-09-26] MEDS ORDERED: ACETAMINOPHEN TAB 325 MG TAB PO PRN (15:35)
[2020-09-26] MEDS ORDERED: NALOXONE 0.4 MG/ML 1 ML VIAL IV PRN (15:35)
--- NOTE | 2020-09-26 16:13 | P.HPIM ---
History of Present Illness H&P Date: 09/26/20 Chief Complaint: chest pain 60 year old woman with history of HTN/HLD/DM, gastric sleeve surgery, Hx of PE presented with chest pain. Patient says her pain was sharp in nature with radiation to the back and up her neck and down both arms. She said the onset was sudden and occurred this morning during a walk from the kitchen to another room. She does not relay any exacerbating or alleviating symptoms. Her pain did resolve spontaneously. She says that she's been having abdominal issues due to her gastric sleeve since about one year ago and has had cramping after eating or drinking. Therefore, she falls behind on her fluids, and feels dehydrated often. She also reports having some loose stools and an episode of fever 2 days ago, which have also resolved. Her chest pain was the concerning symptom which brought her into the hospital. She denies chills, nausea, vomiting, constipation, numbness/weakness, cough, dyspnea, palps, syncope. In the ER, she is noted to be afebrile, HDS. Lab work shows elevated creatinine to 2.2 from baseline of 1. EKG appears low voltage with NSR and PACs. CXR did not have any acute pathology. Review of Systems All Systems reviewed and pertinent positives and negatives noted in HPI, all other symptoms are negative 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 History of Any Multi-Drug Resistant Organisms: None Reported Past Surgical History: Section, Cholecystectomy, Heart Catheterization, Orthopedic Surgery Additional Past Surgical History / Comment(s): cervical neck fusion x 2 with plates Past Anesthesia/Blood Transfusion Reactions: Postoperative Nausea & Vomiting (PONV) Additional Past Anesthesia/Blood Transfusion Reaction / Comment(s): after last egd took longer to wake up Past Psychological History: Anxiety Smoking Status: Never smoker Past Alcohol Use History: Rare Past Drug Use History: None Reported - Past Family History Mother Family Medical History: Cancer Additional Family Medical History / Comment(s): Lung/abd cancer. Medications and Allergies Home Medications Medication Instructions Recorded Confirmed Type Gabapentin [Gralise] 600 mg PO BID 02/06/19 09/26/20 History Metoprolol Tartrate 25 mg PO BID 02/06/19 09/26/20 History Oxybutynin Chloride 5 mg PO BID 02/06/19 09/26/20 History Omeprazole [PriLOSEC] 40 mg PO DAILY #30 capsule. 08/27/19 09/26/20 Rx Biotin 5,000 mcg PO DAILY 04/16/20 09/26/20 History Simvastatin [Zocor] 20 mg PO HS 04/16/20 09/26/20 History sitaGLIPtin PHOS/metFORMIN HCL 1 tab PO BID 04/16/20 09/26/20 History [Janumet 50-1,000 mg Tablet] Aspirin EC [Ecotrin Low Dose] 81 mg PO DAILY 09/26/20 09/26/20 History lisinopriL [Zestril] 20 mg PO DAILY 09/26/20 09/26/20 History Allergies Allergy/AdvReac Type Severity Reaction Status Date / Time cephalexin [From Keflex] AdvReac Abdominal Verified 09/26/20 11:32 Pain Physical Exam Osteopathic Statement: *. No significant issues noted on an osteopathic structural exam other than those noted in the History and Physical/Consult. Vitals: Vital Signs Temp Pulse Pulse Resp BP BP Pulse Ox 09/26/20 14:49 97.4 F L 55 L 16 111/61 99 09/26/20 13:29 97.4 F L 56 L 16 115/61 99 09/26/20 12:30 51 L 117/70 95 09/26/20 12:00 51 L 130/62 93 L 09/26/20 11:30 56 L 16 119/61 97 09/26/20 11:29 55 L 16 119/61 96 09/26/20 10:54 98.2 F 53 L 18 137/62 99 Intake and Output 09/26/20 09/26/20 09/26/20 06:59 14:59 22:59 Other: # Voids 1 Weight 101.151 kg Gen: awake, alert HEENT: normocephalic, atraumatic, good hearing acuity, moist mucous membranes Resp: good air exchange, breathing comfortably with no accessory muscle use, CTAB, no wheezes or crackles CVS: good distal perfusion x 4, RRR, no murmus GI: soft, NTTP, ND : no SPT, no CVAT, stallings catheter not present MSK: trace pitting edema, no clubbing Neuro: non-focal, moving all extremities Psych: cooperative, euthymic mood Results CBC & Chem 7: 09/26/20 11:05 09/26/20 11:05 Labs: Abnormal Lab Results - Last 24 Hours (Table) 09/26/20 09/26/20 Range/Units 11:05 11:05 APTT 21.1 L (22.0-30.0) sec BUN 32 H (7-17) mg/dL Creatinine 2.22 H (0.52-1.04) mg/dL Glucose 173 H (74-99) mg/dL ALT 36 H (4-34) U/L Assessment and Plan Assessment: Atypical chest pain -Admit to observation, telemetry -Cardiology consulted for ACS rule out -Trend troponins -EKG when necessary for chest pain -Nitro when necessary for chest pain -Echocardiogram, pending -D-dimer in the morning -TSH, A1c, lipid panel Acute kidney injury -Lactated Ringer's -Encourage by mouth intake -If no improvement by tomorrow, urine lytes, renal ultrasound 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
[2020-09-26 17:17] LABS: Glucose,Whole Blood 161 mg/dL (75-99)
[2020-09-26] MEDS: INSULIN ASPART (NovoLOG) 100 UNIT/ML VIAL SQ SCH (18:06)
[2020-09-26] MEDS: HEPARIN SODIUM,PORCINE/PF 5,000 UNIT/0.5 ML SYRINGE SQ SCH (18:06)
[2020-09-26] MEDS: NITROGLYCERIN OINT 1 INCH/GM PACKET TOPICAL SCH (18:07)
[2020-09-26] MEDS: GABAPENTIN 300 MG CAP PO SCH (20:33)
[2020-09-26] MEDS: ATORVASTATIN 10 MG TAB PO SCH (20:33)
[2020-09-26] MEDS: LACTATED RINGERS 1,000 ML IV SCH (20:33)
[2020-09-26] MEDS: OXYBUTYNIN CHLORIDE 5 MG TAB PO SCH (20:33)
[2020-09-26 20:38] LABS: Glucose,Whole Blood 218 mg/dL (75-99)
[2020-09-26] MEDS ORDERED: metFORMIN 500 MG TAB PO SCH (21:00)
[2020-09-27] MEDS: HEPARIN SODIUM,PORCINE/PF 5,000 UNIT/0.5 ML SYRINGE SQ SCH ×4 (00:19→23:59)
[2020-09-27] MEDS: NITROGLYCERIN OINT 1 INCH/GM PACKET TOPICAL SCH ×2 (00:19→06:00)
[2020-09-27] MEDS: METOPROLOL TARTRATE 12.5 MG TAB PO SCH ×3 (02:05→21:06)
[2020-09-27] MEDS: LACTATED RINGERS 1,000 ML IV SCH ×3 (02:49→23:59)
[2020-09-27 07:25] LABS: Glucose,Whole Blood 177 mg/dL (75-99)
[2020-09-27] MEDS: PANTOPRAZOLE 40 MG TABLET PO SCH (07:44)
[2020-09-27] MEDS: GABAPENTIN 300 MG CAP PO SCH ×2 (07:46→21:07)
[2020-09-27] MEDS: OXYBUTYNIN CHLORIDE 5 MG TAB PO SCH ×2 (07:46→21:06)
[2020-09-27] MEDS ORDERED: ASPIRIN 325 MG TAB PO SCH (09:00)
[2020-09-27] MEDS ORDERED: LINAGLIPTIN 5 MG TABLET PO SCH (09:00)
[2020-09-27] MEDS ORDERED: lisinopriL 20 MG TAB PO SCH (09:00)
[2020-09-27] MEDS ORDERED: NON FORMULARY DRUG (Biotin [Biotin] 5,000 MCG Tab.Rapdis) PO SCH (09:00)
[2020-09-27 09:01] LABS: Basophils # (A) 0.02 X 10*3/uL (0.00-0.10); Basophils % (A) 0.3 %; Eosinophils # (A) 0.16 X 10*3/uL (0.04-0.35); Eosinophils % (A) 2.5 %; HCT 37.8 % (37.2-46.3); HGB 12.4 g/dL (12.0-15.0); Lymphocytes # (A) 2.44 X 10*3/uL (0.90-5.00); Lymphocytes % (A) 37.7 %; MCH 31.4 pg (27.0-32.0); MCHC 32.8 g/dL (32.0-37.0); MCV 95.7 fL (80.0-97.0); Mean Platelet Volume 11.7 fL (9.5-12.2); Monocytes # (A) 0.56 X 10*3/uL (0.20-1.00); Monocytes % (A) 8.6 %; Neutrophils # (A) 3.26 X 10*3/uL (1.80-7.70); Neutrophils % (A) 50.3 %; Platelet Count 261 X 10*3/uL (140-440); RBC 3.95 X 10*6/uL (4.10-5.20); RDW 12.5 % (11.5-14.5); WBC 6.48 X 10*3/uL (4.50-10.00)
[2020-09-27 09:28] LABS: African American GFR (CKD) 32.2 (60.0-200.0); Anion Gap 8.5 mmol/L (4.00-12.00); BUN/Creat Ratio 19.47 Ratio (12.00-20.00); Carbon Dioxide 27.5 mmol/L (21.6-31.8); Chol/HDL Ratio 7.31; LDL Cholesterol,Calculated 124.2 mg/dL (0.0-131.0); Magnesium 1.9 mg/dL (1.5-2.4); Non-African American GFR(CKD) 27.8 (60.0-200.0); Potassium 4.4 mmol/L (3.5-5.5); VLDL Calculation 58.8 mg/dL (5.00-40.00)
--- NOTE | 2020-09-27 09:37 | P.CRDCN ---
History of Present Illness Consult date: 09/27/20 History of present illness: HISTORY OF PRESENT ILLNESS: This is a 60 year old female with a past medical history significant for hypertension, hyperlipidemia, diabetes, occasional alcohol use, and pulmonary embolism approximately 2 years ago. Patient follows with a Dr. Hodges out of [place]. We have been asked to see the patient in consultation for chest pain. Patient examined at the bedside. Patient states yesterday she was in her normal state of health and feeling well. She reports she was washing dishes and developed chest pain. She states the pain was in the middle of her chest and radiated down both of her arms and into her back. She denies feeling short of breath at the time. She does report feeling nauseated and slightly diaphoretic at that time. She is unable to tell me how long the pain lasted for. She states she was still having chest discomfort when she came to the emergency room but at some point the pain went away. At the time of my examination she denies chest pain or pressure. She believes she had a heart cath performed about 2 years ago and was normal to her knowledge. She also believes she had a stress t est performed within the last year but is unsure where this was performed at. EKG reveals sinus mechanism with no signs of acute ischemia. Low voltage QRS. Chest xray no acute process. Remote left-sided rib fracture suggested. Laboratory data: WBC 6.48. Hemoglobin 12.4. Platelet count 12.6. D-dimer 0.90. Sodium 138. Potassium 4.4. BUN 37. Creatinine 1.9. Troponin negative 3. Current home cardiac medications include aspirin 81 mg daily, metoprolol tartrate 25 mg twice a day, simvastatin 20 mg daily, and lisinopril 20 mg daily REVIEW OF SYSTEMS: At the time of my exam: CONSTITUTIONAL: Denies fever or chills. HEENT: Denies blurred vision, vision changes, or eye pain. Denies hemoptysis CARDIOVASCULAR: Denies chest pain. Denies orthopnea. Denies PND. Denies palpitations RESPIRATORY: Denies shortness of breath. GASTROINTESTINAL: Denies abdominal pain. Denies nausea or vomiting. HEMATOLOGIC: Denies bleeding disorders. GENITOURINARY: Denies any blood in urine. SKIN: Denies pruitis. Denies rash. PHYSICAL EXAM: VITAL SIGNS: Reviewed. GENERAL: Well-developed in no acute distress. HEENT: Head is normocephalic. Pupils are equal, round. Sclerae anicteric. Mucous membranes of the mouth are moist. Neck supple. No JVD or thyromegaly LUNGS: Respirations even and unlabored. Lungs essentially clear to auscultation bilaterally. HEART: Regular rate and rhythm. S1 and S2 heard. ABDOMEN: Soft. Nondistended. Nontender. EXTREMITIES: Normal range of motion. No clubbing or cyanosis. Peripheral pulses intact. No lower extremity edema NEUROLOGIC: Awake and alert. Oriented x 3. ASSESSMENT: Chest pain Elevated d-dimer, possibly chronic, r/o PE Acute kidney injury Hypertension Hyperlipidemia Diabetes mellitus History of PE Obesity: BMI 46.6 PLAN: Obtain 2D echo to assess cardiac structure and function Resume home cardiac medications Hold Lisinopril secondary to EVIE Obtain VQ scan Obtain records from patients hydrologic modeler Further recommendations pending patient course Nurse practitioner note has been reviewed by physician. Signing provider agrees with the documented findings, assessment, and plan of care. Past Medical History Past Medical History: Diabetes Mellitus, Hyperlipidemia, Hypertension, Osteoart hritis (OA), Pulmonary Embolus (PE) Additional Past Medical History / Comment(s): neuropathy in queta feet History of Any Multi-Drug Resistant Organisms: None Reported Past Surgical History: Section, Cholecystectomy, Heart Catheterization, Orthopedic Surgery Additional Past Surgical History / Comment(s): cervical neck fusion x 2 with plates Past Anesthesia/Blood Transfusion Reactions: Postoperative Nausea & Vomiting (PONV) Additional Past Anesthesia/Blood Transfusion Reaction / Comment(s): after last egd took longer to wake up Past Psychological History: Anxiety Smoking Status: Never smoker Past Alcohol Use History: Rare Past Drug Use History: None Reported - Past Family History Mother Family Medical History: Cancer Additional Family Medical History / Comment(s): Lung/abd cancer. Medications and Allergies Home Medications Medication Instructions Recorded Confirmed Type Gabapentin [Gralise] 600 mg PO BID 02/06/19 09/26/20 History Metoprolol Tartrate 25 mg PO BID 02/06/19 09/26/20 History Oxybutynin Chloride 5 mg PO BID 02/06/19 09/26/20 History Omeprazole [PriLOSEC] 40 mg PO DAILY #30 capsule. 08/27/19 09/26/20 Rx Biotin 5,000 mcg PO DAILY 04/16/20 09/26/20 History Simvastatin [Zocor] 20 mg PO HS 04/16/20 09/26/20 History sitaGLIPtin PHOS/metFORMIN HCL 1 tab PO BID 04/16/20 09/26/20 History [Janumet 50-1,000 mg Tablet] Aspirin EC [Ecotrin Low Dose] 81 mg PO DAILY 09/26/20 09/26/20 History lisinopriL [Zestril] 20 mg PO DAILY 09/26/20 09/26/20 History Allergies Allergy/AdvReac Type Severity Reaction Status Date / Time cephalexin [From Keflex] AdvReac Abdominal Verified 09/26/20 11:32 Pain Physical Exam Vitals: Vital Signs Temp Pulse Pulse Resp BP BP BP 09/27/20 07:00 98.0 F 72 16 143/77 09/27/20 04:07 80 117/54 09/27/20 02:30 97.8 F 51 L 17 74/45 09/27/20 02:04 74 107/63 09/26/20 20:00 98.0 F 74 17 101/69 09/26/20 14:49 97.4 F L 55 L 16 111/61 09/26/20 14:00 55 L 16 09/26/20 13:29 97.4 F L 56 L 16 115/61 09/26/20 12:30 51 L 117/70 09/26/20 12:00 51 L 130/62 09/26/20 11:30 56 L 16 119/61 09/26/20 11:29 55 L 16 119/61 09/26/20 10:54 98.2 F 53 L 18 137/62 Pulse Ox 09/27/20 07:00 99 09/27/20 04:07 09/27/20 02:30 94 L 09/27/20 02:04 09/26/20 20:00 97 09/26/20 14:49 99 09/26/20 14:00 09/26/20 13:29 99 09/26/20 12:30 95 09/26/20 12:00 93 L 09/26/20 11:30 97 09/26/20 11:29 96 09/26/20 10:54 99 Intake and Output 09/26/20 09/27/20 09/27/20 22:59 06:59 14:59 Intake Total 700 0 Balance 700 0 Intake: Oral 700 0 Other: Voiding Method Toilet Toilet # Voids 1 0 Results 09/27/20 06:12 09/26/20 11:05 Cardiac Enzymes 09/26/20 09/26/20 09/26/20 Range/Units 11:05 11:05 13:51 AST 24 (14-36) U/L Troponin I <0.012 <0.012 (0.000-0.034) ng/mL 09/26/20 Range/Units 16:37 AST (14-36) U/L Troponin I <0.012 (0.000-0.034) ng/mL Coagulation 09/26/20 Range/Units 11:05 PT 9.9 (9.0-12.0) sec APTT 21.1 L (22.0-30.0) sec CBC 09/26/20 Range/Units 11:05 WBC 6.4 (3.8-10.6) k/uL RBC 4.26 (3.80-5.40) m/uL Hgb 13.8 (11.4-16.0) gm/dL Hct 39.9 (34.0-46.0) % Plt Count 202 (150-450) k/uL Comprehensive Metabolic Panel 09/26/20 Range/Units 11:05 Sodium 138 (137-145) mmol/L Potassium 4.5 (3.5-5.1) mmol/L Chloride 102 (98-107) mmol/L Carbon Dioxide 24 (22-30) mmol/L BUN 32 H (7-17) mg/dL Creatinine 2.22 H (0.52-1.04) mg/dL Glucose 173 H (74-99) mg/dL Calcium 9.4 (8.4-10.2) mg/dL AST 24 (14-36) U/L ALT 36 H (4-34) U/L Alkaline Phosphatase 93 (38-126) U/L Total Protein 6.6 (6.3-8.2) g/dL Albumin 4.0 (3.5-5.0) g/dL Current Medications Generic Name Dose Route Start Last Admin Trade Name Freq PRN Reason Stop Dose Admin Acetaminophen 650 mg 09/26/20 15:35 Acetaminophen Tab 325 Mg Tab PO Q6HR PRN Mild Pain or Fever > 100.5 Aspirin 325 mg 09/27/20 09:00 Aspirin 325 Mg Tab PO DAILY [place] Atorvastatin Calcium 10 mg 09/26/20 21:00 09/26/20 20:33 Atorvastatin 10 Mg Tab PO 10 mg HS [place] Administration Gabapentin 600 mg 09/26/20 21:00 09/27/20 07:46 Gabapentin 300 Mg Cap PO 600 mg BID [place] Administration Heparin Sodium (Porcine) 5,000 unit 09/26/20 16:00 09/27/20 07:42 Heparin Sodium,Porcine/Pf 5,000 Unit/0.5 Ml Syringe SQ 5,000 unit Q8HR [place] Administration Lactated Ringer's 1,000 mls @ 100 mls/hr 09/26/20 16:15 09/27/20 02:49 Lactated Ringers IV 100 mls/hr .Q10H [place] Administration Insulin Aspart 0 unit 09/26/20 17:30 09/26/20 18:06 Insulin Aspart (Novolog) 100 Unit/Ml Vial SQ 2 unit AC-TID [place] Administration Protocol Metoprolol Tartrate 12.5 mg 09/26/20 21:00 09/27/20 07:56 Metoprolol Tartrate 12.5 Mg Tab PO 12.5 mg BID [place] Administration Morphine Sulfate 4 mg 09/26/20 15:35 Morphine Sulfate 4 Mg/Ml Syringe IV Q4HR PRN Severe Pain Naloxone HCl 0.2 mg 09/26/20 15:35 Naloxone 0.4 Mg/Ml 1 Ml Vial IV Q2M PRN Opioid Reversal Nitroglycerin 0.4 mg 09/26/20 12:15 Nitroglycerin Sl Tabs 0.4 Mg Tab SUBLINGUAL Q5M PRN Chest Pain Nitroglycerin 1 inch 09/26/20 18:00 09/27/20 06:00 Nitroglycerin Oint 1 Inch/Gm Packet TOPICAL 1 inch Q6HR [place] Administration Oxybutynin Chloride 5 mg 09/26/20 21:00 09/27/20 07:46 Oxybutynin Chloride 5 Mg Tab PO 5 mg BID [place] Administration Pantoprazole Sodium 40 mg 09/27/20 09:00 09/27/20 07:44 Pantoprazole 40 Mg Tablet PO 40 mg DAILY [place] Administration Intake and Output 09/26/20 09/27/20 09/27/20 22:59 06:59 14:59 Intake Total 700 0 Balance 700 0 Intake: Oral 700 0 Other: Voiding Method Toilet Toilet # Voids 1 0 09/26/20 11:05 09/26/20 11:05
[2020-09-27] MEDS: ASPIRIN 81 MG PO SCH (09:52)
[2020-09-27] MEDS: INSULIN ASPART (NovoLOG) 100 UNIT/ML VIAL SQ SCH ×3 (09:52→18:35)
[2020-09-27 12:01] LABS: Glucose,Whole Blood 144 mg/dL (75-99)
--- NOTE | 2020-09-27 12:24 | ECHOF ---
Referral Reason:CP rule out MEASUREMENTS -------- HEIGHT: 132.1 cm WEIGHT: 101.2 kg BP: RVIDd: 2.5 cm (< 3.3) IVSd: 1.0 cm (0.6 - 1.1) LVIDd: 4.8 cm (3.9 - 5.3) LVPWd: 1.3 cm (0.6 - 1.1) IVSs: 1.9 cm LVIDs: 3.3 cm LVPWs: 1.5 cm LAESV Index (A-L): 27.90 ml/m Ao Diam: 3.4 cm (2.0 - 3.7) AV Cusp: 1.5 cm (1.5 - 2.6) LA Diam: 3.5 cm (2.7 - 3.8) MV EXCURSION: 12.495 mm (> 18.000) MV EF SLOPE: 104 mm/s (70 - 150) EPSS: 0.5 cm MV E Jean: 1.01 m/s MV DecT: 269 ms MV A Jean: 0.81 m/s MV E/A Ratio: 1.25 RAP: 5.00 mmHg RVSP: 8.86 mmHg FINDINGS -------- Sinus rhythm. This was a technically adequate study. The left ventricular size is normal. There is mild concentric left ventricular hypertrophy. Overa ll left ventricular systolic function is normal with, an EF between 55 - 60 %. The diastolic fillin g pattern is normal for the age of the patient 15.12. Normal LAP Grade 1 Diastolic Dysfunction. The right ventricle is normal in size. Normal LA size by volume 22+/-6 ml/m2. The right atrial size is normal. The aortic valve is trileaflet, and appears structurally normal. No aortic stenosis or regurgitation. The mitral valve is normal. Mild mitral regurgitation is present. The tricuspid valve appears structurally normal. Mild tricuspid regurgitation present. Right vent ricular systolic pressure is normal at < 35 mmHg. There is no pulmonic regurgitation present. The aortic root size is normal. Normal inferior vena cava with normal inspiratory collapse consistent with estimated right atrial pre ssure of 5 mmHg. There is no pericardial effusion. CONCLUSIONS -------- 1. There is mild concentric left ventricular hypertrophy. 2. Overall left ventricular systolic function is normal with, an EF between 55 - 60 %. 3. Normal LAP Grade 1 Diastolic Dysfunction. 4. Normal LA size by volume 22+/-6 ml/m2. 5. The aortic valve is trileaflet, and appears structurally normal. No aortic stenosis or regurgitati on. 6. Mild mitral regurgitation is present. 7. Mild tricuspid regurgitation present. 8. There is no pericardial effusion. COPY OPERATOR: Alicia Rashid RDCS
--- NOTE | 2020-09-27 14:30 | P.PN ---
Subjective Progress Note Date: 09/27/20 No new complaints at this time. Chest pain, abdominal pain have resolved. D- Dimer elevated. Trops negative. EKG non-ischemic. EVIE improving. Objective - Vital Signs Vital signs: Vital Signs Temp 98.0 F 09/27/20 07:00 Pulse 72 09/27/20 07:00 Resp 16 09/27/20 07:00 BP 143/77 09/27/20 07:00 Pulse Ox 99 09/27/20 07:00 Intake & Output 09/26/20 09/27/20 09/27/20 18:59 06:59 18:59 Intake Total 400 500 Balance 400 500 Weight 101.151 kg Intake: Oral 400 500 Other: Voiding Method Toilet Toilet # Voids 1 0 - Exam Gen: awake, alert HEENT: normocephalic, atraumatic, good hearing acuity, moist mucous membranes Resp: good air exchange, breathing comfortably with no accessory muscle use, CTAB, no wheezes or crackles CVS: good distal perfusion x 4, RRR, no murmus GI: soft, NTTP, ND : no SPT, no CVAT, stallings catheter not present MSK: trace pitting edema, no clubbing Neuro: non-focal, moving all extremities Psych: cooperative, euthymic mood - Labs CBC & Chem 7: 09/27/20 06:12 09/27/20 06:12 Labs: Abnormal Lab Results - Last 24 Hours (Table) 09/26/20 09/26/20 09/27/20 Range/Units 17:15 20:36 06:12 RBC (4.10-5.20) X 10*6/uL D-Dimer 0.90 H (<0.60) mg/L FEU BUN (9.0-27.0) mg/dL Creatinine (0.6-1.5) mg/dL Est GFR (CKD-EPI)AfAm (60.0-200.0) Est GFR (CKD-EPI)NonAf (60.0-200.0) Glucose (70-110) mg/dL POC Glucose (mg/dL) 161 H 218 H (75-99) mg/dL Triglycerides (0.0-149.0) mg/dL Cholesterol (0-200) mg/dL VLDL Cholesterol, Calc (5.00-40.00) mg/dL HDL Cholesterol (40.0-60.0) mg/dL 09/27/20 09/27/20 09/27/20 Range/Units 06:12 06:12 07:24 RBC 3.95 L (4.10-5.20) X 10*6/uL D-Dimer (<0.60) mg/L FEU BUN 37.0 H (9.0-27.0) mg/dL Creatinine 1.9 H (0.6-1.5) mg/dL Est GFR (CKD-EPI)AfAm 32.2 L (60.0-200.0) Est GFR (CKD-EPI)NonAf 27.8 L (60.0-200.0) Glucose 151 H (70-110) mg/dL POC Glucose (mg/dL) 177 H (75-99) mg/dL Triglycerides 294.0 H (0.0-149.0) mg/dL Cholesterol 212 H (0-200) mg/dL VLDL Cholesterol, Calc 58.80 H (5.00-40.00) mg/dL HDL Cholesterol 29.0 L (40.0-60.0) mg/dL 09/27/20 Range/Units 12:00 RBC (4.10-5.20) X 10*6/uL D-Dimer (<0.60) mg/L FEU BUN (9.0-27.0) mg/dL Creatinine (0.6-1.5) mg/dL Est GFR (CKD-EPI)AfAm (60.0-200.0) Est GFR (CKD-EPI)NonAf (60.0-200.0) Glucose (70-110) mg/dL POC Glucose (mg/dL) 144 H (75-99) mg/dL Triglycerides (0.0-149.0) mg/dL Cholesterol (0-200) mg/dL VLDL Cholesterol, Calc (5.00-40.00) mg/dL HDL Cholesterol (40.0-60.0) mg/dL Assessment and Plan Assessment: Atypical chest pain -Admit to observation, telemetry -Cardiology consulted for ACS rule out -Trend troponins -EKG when necessary for chest pain -Nitro when necessary for chest pain -Echocardiogram, EF 55-60%, grade I diastolic dysfunction -D-dimer in the morning -TSH, A1c, lipid panel = pending, pending, . 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
[2020-09-27 17:16] LABS: Glucose,Whole Blood 271 mg/dL (75-99)
[2020-09-27 20:21] LABS: Glucose,Whole Blood 226 mg/dL (75-99)
[2020-09-27] MEDS: ATORVASTATIN 10 MG TAB PO SCH (21:07)
[2020-09-28] MEDS: HEPARIN SODIUM,PORCINE/PF 5,000 UNIT/0.5 ML SYRINGE SQ SCH ×2 (00:02→09:01)
[2020-09-28 07:18] LABS: Glucose,Whole Blood 166 mg/dL (75-99)
[2020-09-28 07:27] VITALS: RESP 16
[2020-09-28] MEDS: INSULIN ASPART (NovoLOG) 100 UNIT/ML VIAL SQ SCH ×2 (08:59→12:09)
[2020-09-28] MEDS: LACTATED RINGERS 1,000 ML IV SCH (09:02)
[2020-09-28] MEDS: METOPROLOL TARTRATE 12.5 MG TAB PO SCH (09:03)
[2020-09-28] MEDS: ASPIRIN 81 MG PO SCH (09:03)
[2020-09-28] MEDS: OXYBUTYNIN CHLORIDE 5 MG TAB PO SCH (09:03)
[2020-09-28] MEDS: GABAPENTIN 300 MG CAP PO SCH (09:05)
[2020-09-28] MEDS: PANTOPRAZOLE 40 MG TABLET PO SCH (09:05)
--- NOTE | 2020-09-28 11:07 | P.PN ---
Subjective Progress Note Date: 09/28/20 HISTORY OF PRESENT ILLNESS: This is a 60 year old female with a past medical history significant for hypertension, hyperlipidemia, diabetes, occasional alcohol use, and pulmonary embolism approximately 2 years ago. Patient follows with a Dr. Hodges out of [place]. We have been asked to see the patient in consultation for chest pain. Patient examined at the bedside. Patient states yesterday she was in her normal state of health and feeling well. She reports she was washing dishes and developed chest pain. She states the pain was in the middle of her chest and radiated down both of her arms and into her back. She denies feeling short of breath at the time. She does report feeling nauseated and slightly diaphoretic at that time. She is unable to tell me how long the pain lasted for. She states she was still having chest discomfort when she came to the emergency room but at some point the pain went away. At the time of my examination she denies chest pain or pressure. She believes she had a heart cath performed about 2 years ago and was normal to her knowledge. She also believes she had a stress test performed within the last year but is unsure where this was performed at. EKG reveals sinus mechanism with no signs of acute ischemia. Low voltage QRS. Chest xray no acute process. Remote left-sided rib fracture suggested. Laboratory data: WBC 6.48. Hemoglobin 12.4. Platelet count 12.6. D-dimer 0.90. Sodium 138. Potassium 4.4. BUN 37. Creatinine 1.9. Troponin negative 3. Current home cardiac medications include aspirin 81 mg daily, metoprolol ta rtrate 25 mg twice a day, simvastatin 20 mg daily, and lisinopril 20 mg daily 09/28/2020 Patient examined this morning at the bedside. She denies chest pain or pressure. Denies shortness of breath. She has been ambulating in her room this morning. Records from [facility] reviewed. Patient had a cardiac cath in 2019 revealing normal coronary arteries. Per Dr. Conklin yesterday, he is planning CTA today instead of VQ scan to rule out PE. Echocardiogram performed reveals ejection fraction 55-60%. Mild mitral regurgitation. Mild tricuspid regurgitation. PHYSICAL EXAM: VITAL SIGNS: Reviewed. GENERAL: Well-developed in no acute distress. HEENT: Head is normocephalic. Pupils are equal, round. Sclerae anicteric. Mucous membranes of the mouth are moist. Neck supple. No JVD or thyromegaly LUNGS: Respirations even and unlabored. Lungs essentially clear to auscultation bilaterally. HEART: Regular rate and rhythm. S1 and S2 heard. ABDOMEN: Soft. Nondistended. Nontender. EXTREMITIES: Normal range of motion. No clubbing or cyanosis. Peripheral pulses intact. No lower extremity edema NEUROLOGIC: Awake and alert. Oriented x 3. ASSESSMENT: Chest pain, acute coronary syndrome ruled out Elevated d-dimer, possibly chronic, r/o PE Acute kidney injury Hypertension Hyperlipidemia Diabetes mellitus History of PE Obesity: BMI 46.6 PLAN: Continue to hold Lisinopril secondary to EVIE Possible CTA today pending kidney function No further inpatient recommendations from a cardiac standpoint We will sign off. Please reconsult if needed. Nurse practitioner note has been reviewed by physician. Signing provider agrees with the documented findings, assessment, and plan of care. Objective - Vital Signs Vital signs: Vital Signs Temp 97.7 F 09/28/20 07:00 Pulse 64 09/28/20 08:00 Resp 16 09/28/20 08:00 BP 145/73 09/28/20 07:00 Pulse Ox 99 09/28/20 07:00 Intake & Output 09/27/20 09/28/20 09/28/20 18:59 06:59 18:59 Output Total 400 1550 700 Balance -400 -1550 -700 Output: Urine 400 1550 700 Other: Voiding Method Toilet Toilet # Voids 2 2 - Labs CBC & Chem 7: 09/27/20 06:12 09/27/20 06:12 Labs: Abnormal Lab Results - Last 24 Hours (Table) 09/27/20 09/27/20 09/27/20 Range/Units 12:00 17:10 20:19 POC Glucose (mg/dL) 144 H 271 H 226 H (75-99) mg/dL 09/28/20 Range/Units 06:55 POC Glucose (mg/dL) 166 H (75-99) mg/dL
[2020-09-28 11:40] LABS: Glucose,Whole Blood 282 mg/dL (75-99)
[2020-09-28 12:14] LABS: African American GFR (CKD) 65 (>60 ml/min/1.73 sqM); Anion Gap 8 mmol/L; Blood Urea Nitrogen 25 mg/dL (7-17); Calcium 9.1 mg/dL (8.4-10.2); Carbon Dioxide 23 mmol/L (22-30); Chloride 105 mmol/L (98-107); Glucose 285 mg/dL (74-99); Non-African American GFR(CKD) 56 (>60 ml/min/1.73 sqM); Potassium 5.1 mmol/L (3.5-5.1); Sodium 136 mmol/L (137-145)
[2020-09-28 14:11] VITALS: BP 151/79; PULSE 63; TEMP 98.4
--- NOTE | 2020-09-28 14:32 | CT ---
EXAMINATION TYPE: CT chest angio for PE DATE OF EXAM: 09/28/2020 COMPARISON: Chest x-ray 2 days ago.. HISTORY: Shortness of breath CT DLP: 508.2 mGycm Automated exposure control for dose reduction was used. CONTRAST: CT Chest for pulmonary embolism performed with with IV Contrast, patient injected with 80 mL of Isovu e 370. FINDINGS: LUNGS: Mild to moderate bibasilar linear scarring and/or atelectasis. No pleural effusion or pneumoth orax. No suspicious focal consolidation. No concerning pulmonary masses MEDIASTINUM: There is suboptimal bolus with most dense contrast in the SVC. Some heterogeneity in th e periphery without convincing CT evidence for acute pulmonary embolism. There are no greater than 1 cm hilar or mediastinal lymph nodes. No pericardial effusion is seen. Mild cardiomegaly. Moderate right atrial dilatation. OTHER: Cholecystectomy clips. Surgical changes from gastric sleeve. [id number] multilevel sp urring in the thoracic spine. Old lateral left sixth rib fracture axial image 66 confirmed. IMPRESSION: Suboptimal study without acute pulmonary embolism. Mild cardiomegaly with mild to moderat e bibasilar linear scarring and/or atelectasis.
--- NOTE | 2020-09-28 16:48 | P.DS ---
Providers Date of admission: 09/26/20 12:15 Expected date of discharge: 09/28/20 Attending physician: Dulce Maria Conklin MD Primary care physician: Heather Macias [facility] Course: Atypical chest pain -Admitted to observation, telemetry. Cardiology consulted for ACS rule out, which was negative, given negative trops x 3, non-ischemic EKG, and Echocardiogram with no WMA, EF 55-60%, and grade I diastolic dysfunction. D- Dimer was elevated, prompting CTA to rule out PE, which was negative. Acute kidney injury -Lactated Ringer's --> Cr improved to 1.06 -Encouraged by mouth intake in between meals to prevent EVIE in the future. 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, BMI 46.6 Hypertension Hyperlipidemia Diabetes type 2 GERD without esophagitis -Home medications reviewed and reconciled -Resumed home diabetes medication on discharge -Resumed home lisinopril on discharge -Resumed home atorvastatin -Resumed home PPI Assessment: Gen: awake, alert HEENT: normocephalic, atraumatic, good hearing acuity, moist mucous membranes Resp: good air exchange, breathing comfortably with no accessory muscle use, CTAB, no wheezes or crackles CVS: good distal perfusion x 4, RRR, no murmus GI: soft, NTTP, ND : no SPT, no CVAT, stallings catheter not present MSK: trace pitting edema, no clubbing Neuro: non-focal, moving all extremities Psych: cooperative, euthymic mood Patient Condition at Discharge: Good Plan - Discharge Summary Discharge Rx Participant: Yes New Discharge Prescriptions: Continue Oxybutynin Chloride 5 mg PO BID Metoprolol Tartrate 25 mg PO BID Gabapentin [Gralise] 600 mg PO BID Omeprazole [PriLOSEC] 40 mg PO DAILY #30 capsule. sitaGLIPtin PHOS/metFORMIN HCL [Janumet 50-1,000 mg Tablet] 1 tab PO BID Simvastatin [Zocor] 20 mg PO HS Biotin 5,000 mcg PO DAILY lisinopriL [Zestril] 20 mg PO DAILY Aspirin EC [Ecotrin Low Dose] 81 mg PO DAILY Discharge Medication List Gabapentin [Gralise] 600 mg PO BID 02/06/19 [History] Metoprolol Tartrate 25 mg PO BID 02/06/19 [History] Oxybutynin Chloride 5 mg PO BID 02/06/19 [History] Omeprazole [PriLOSEC] 40 mg PO DAILY #30 capsule. 08/27/19 [Rx] Biotin 5,000 mcg PO DAILY 04/16/20 [History] Simvastatin [Zocor] 20 mg PO HS 04/16/20 [History] sitaGLIPtin PHOS/metFORMIN HCL [Janumet 50-1,000 mg Tablet] 1 tab PO BID 04/16/20 [History] Aspirin EC [Ecotrin Low Dose] 81 mg PO DAILY 09/26/20 [History] lisinopriL [Zestril] 20 mg PO DAILY 09/26/20 [History] Follow up Appointment(s)/Referral(s): Heather Macias, [facility] [Primary Care Provider] - 1-2 days Discharge Disposition: HOME SELF-CARE
[2020-09-28] MEDS ORDERED: ATORVASTATIN 40 MG TAB PO SCH (21:00)
== END 2020-09-28 15:36 | disposition home or self-care (01) ==
LOC: EC 10:53 → 6NMEDSUR 12:15
PROVIDERS: ADMIT Internal Medicine; ATTEND Internal Medicine
DX: R07.89 Other chest pain (principal); E11.9 Type 2 diabetes mellitus without complications; E66.9 Obesity, unspecified; E78.00 Pure hypercholesterolemia, unspecified; E78.5 Hyperlipidemia, unspecified; F41.9 Anxiety disorder, unspecified; I11.0 Hypertensive heart disease with heart failure; I50.9 Heart failure, unspecified; K21.9 Gastro-esophageal reflux disease without esophagitis; N17.9 Acute kidney failure, unspecified; Z68.42 Body mass index [BMI] 45.0-49.9, adult; Z79.82 Long term (current) use of aspirin; Z79.84 Long term (current) use of oral hypoglycemic drugs; Z79.899 Other long term (current) drug therapy; Z86.711 Personal history of pulmonary embolism; Z98.1 Arthrodesis status; Z98.84 Bariatric surgery status
CPT/HCPCS: 93306; 99291; 96360; 96372 ×3; 96361 ×2; 36415; 93005; 85379; 80061; 80053; 80048 ×2; 83735 ×2; 84484; 85025 ×2; 85610; 85730; 71046; 71275; G0378 ×3; Q9967; J1644 ×3

== ENCOUNTER 2021-01-19 15:23 | Inpatient (IN) | payer OTHER ==
[2021-01-19 16:25] LABS: Basophils % (A) 0 %; Eosinophils % (A) 0 %; HCT 36.9 % (34.0-46.0); HGB 12.2 gm/dL (11.4-16.0); Lymphocytes # (A) 0.3 k/uL (1.0-4.8); Lymphocytes % (A) 8 %; MCH 30.6 pg (25.0-35.0); MCV 92.8 fL (80.0-100.0); Mean Platelet Volume 8.3; Monocytes # (A) 0.2 k/uL (0-1.0); Monocytes % (A) 5 %; Neutrophils # (A) 3.6 k/uL (1.3-7.7); Neutrophils % (A) 85 %; Platelet Count 200 k/uL (150-450); RBC 3.98 m/uL (3.80-5.40); RDW 12.4 % (11.5-15.5); WBC 4.3 k/uL (3.8-10.6)
[2021-01-19 16:30] LABS: Albumin 3.3 g/dL (3.5-5.0); Calcium 7.9 mg/dL (8.4-10.2); Magnesium 1.9 mg/dL (1.6-2.3); Potassium 4.7 mmol/L (3.5-5.1); Total Bilirubin 0.7 mg/dL (0.2-1.3); Total Protein 6.2 g/dL (6.3-8.2)
[2021-01-19 16:44] LABS: C Reactive Protein 16.3 mg/dL (<1.0)
--- NOTE | 2021-01-19 16:49 | XR ---
EXAMINATION TYPE: XR chest 1V portable DATE OF EXAM: 01/19/2021 COMPARISON: 09/26/2020 HISTORY: Pneumonia. Short of breath. TECHNIQUE: FINDINGS: There is moderate patchy bilateral pulmonary interstitial and airspace infiltrates. There is poor ins piration. There is mild blunting of the costophrenic angles. IMPRESSION: Bilateral patchy pneumonia. Congestive heart failure is also possible. Abnormalities appe ar new compared to old exam.
[2021-01-19 16:55] LABS: Partial Thromboplastin Time 24.5 sec (22.0-30.0); Prothrombin Time 10.3 sec (9.0-12.0)
--- NOTE | 2021-01-19 17:02 | ED ---
General Adult HPI - General Chief complaint: Shortness of Breath Stated complaint: covid+, SOB Time Seen by Provider: 01/19/21 15:57 Source: EMS, RN notes reviewed, old records reviewed Mode of arrival: EMS Limitations: no limitations - History of Present Illness Initial comments: Patient is a 60-year-old female with past medical history remarkable for diabetes, hypertension, prior PE presents emergency Department complaining of fatigue, fever, hypoxia. Patient was admitted to an outside hospital for hypoxia secondary to COVID-19 pneumonia. She was discharged home with home oxygen, however was never set up and she is been without her optional day today. She was discharged home yesterday morning. When EMS arrived, she was hypoxic to 70% on room air. They immediately started on nasal cannula oxygen. She is brought to the emergency department for further evaluation. She currently denies any chest pain but does endorse dyspnea. Denies any abdominal pain, nausea, vomiting. His no other acute complaints at this time. Patient states she was not vaccinated for COVID-19. - Related Data Home Medications Medication Instructions Recorded Confirmed Metoprolol Tartrate 25 mg PO BID 02/06/19 01/19/21 Oxybutynin Chloride 7.5 mg PO BID 02/06/19 01/19/21 Simvastatin [Zocor] 20 mg PO HS 04/16/20 01/19/21 Aspirin EC [Ecotrin Low Dose] 81 mg PO DAILY 09/26/20 01/19/21 lisinopriL [Zestril] 20 mg PO DAILY 09/26/20 01/19/21 Albuterol Sulfate [Proair Hfa] 2 puff INHALATION RT-Q6H PRN 01/19/21 01/19/21 Biotin 1,000 Mcg 5,000 mcg PO DAILY 01/19/21 01/19/21 Dexamethasone 6 mg PO BID 01/19/21 01/19/21 Gabapentin [Neurontin] 600 mg PO BID 01/19/21 01/19/21 Magnesium Oxide [Mag-Ox] 250 mg PO DAILY 01/19/21 01/19/21 Pantoprazole [Protonix] 40 mg PO DAILY 01/19/21 01/19/21 clonazePAM [KlonoPIN] 0.5 mg PO BID PRN 01/19/21 01/19/21 metFORMIN HCL [Glucophage] 1,000 mg PO BID-W/MEALS 01/19/21 01/19/21 Previous Rx's Medication Instructions Recorded Omeprazole [PriLOSEC] 40 mg PO DAILY #30 capsule. 08/27/19 Allergies Allergy/AdvReac Type Severity Reaction Status Date / Time cephalexin [From Keflex] AdvReac Abdominal Verified 01/19/21 17:41 Pain Review of Systems ROS Statement: Those systems with pertinent positive or pertinent negative responses have been documented in the HPI. Review of Systems: CONST: Denies fever EYES: Denies blurry vision ENT: Denies nasal congestion C/V: Denies Chest pain RESP: Endorses shortness of breath GI: Denies abdominal pain : Denies dysuria SKIN: Denies rash. MSK: Denies joint pain. NEURO: Denies headache ROS Other: All systems not noted in ROS Statement are negative. 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 History of Any Multi-Drug Resistant Organisms: None Reported Past Surgical History: Section, Cholecystectomy, Heart Catheterization, Orthopedic Surgery Additional Past Surgical History / Comment(s): cervical neck fusion x 2 with plates Past Anesthesia/Blood Transfusion Reactions: Postoperative Nausea & Vomiting (PONV) Additional Past Anesthesia/Blood Transfusion Reaction / Comment(s): after last egd took longer to wake up Past Psychological History: Anxiety Smoking Status: Never smoker Past Alcohol Use History: Rare Past Drug Use History: None Reported - Past Family History Mother Family Medical History: Cancer Additional Family Medical History / Comment(s): Lung/abd cancer. General Exam - General Exam Comments Initial Comments: General: Appears fatigued in mild distress. Patient is febrile. HEAD: Normal with no signs of head trauma. EYES: PERRLA, EOMI, conjunctiva normal, no discharge. ENT: Hearing grossly intact, normal oropharynx. RESPIRATORY: Chest breath sounds bilaterally. Mildly increased work of breathing. Hypoxic on room air. C/V: Regular rate and rhythm. S1 and S2 auscultated, no edema, peripheral pulses 2+ and intact throughout ABD: Abd is soft, nontender, nondistended EXT: Normal range of motion, no obvious deformity SKIN: No rashes or lesions observed on exposed skin. NEURO: Alert and oriented 4. Slow to respond to questions but patient states that she is fatigued. No focal sensory or strength deficits. Limitations: no limitations Course Vital Signs 01/19/21 01/19/21 01/19/21 15:25 16:10 18:23 Temperature 101.4 F H 98 F Pulse Rate 81 74 Respiratory 18 18 Rate Blood Pressure 177/70 150/66 O2 Sat by Pulse 91 L 82 L 98 Oximetry 01/19/21 19:22 Temperature 98.1 F Pulse Rate 65 Respiratory 18 Rate Blood Pressure 131/67 O2 Sat by Pulse 95 Oximetry Medical Decision Making - Medical Decision Making Based on the patient's presentation and physical exam, she appears to be hypoxic secondary to COVID-19 infection which was previously known however she has been without oxygen for at least one day. She'll require admission to the hospital. We will obtain Covid 19 swab. She does have a history of PE we will obtain a d- dimer screening test. Patient was in agreement this plan. She'll be started on Decadron twice a day as well as albuterol breathing treatments and placed on oxygen nasal cannula. She was in agreement this plan. EKG shows no signs of acute ischemia. The laboratory studies were remarkable for a mildly elevated d-dimer of 0.72. Troponin is 0.082 and elevated, likely secondary to her prolonged hypoxic. At home is certainly no acute ST segment changes. Likely a type II NSTEMI.. There is mild hyponatremia of 131. LDH is 1300. CRP is 16. Patient is mildly hyperglycemic to 320. Chest x-ray shows bilateral pneumonia. I spoke with the patient due to the elevated d-dimer, we will obtain a CTA of the chest. It is negative for acute pulmonary embolism. I spoke with the patient I would like to admit to the hospital. Patient was in agreement with this plan. I spoke with Dr. Schmidt who is admitting for Dr. Kwok who is the physician at the patient's PCP admits to. They accepted the patient. Patient will be admitted to telemetry bed and serious condition. Consults to pulmonology and infectious disease were placed by myself. Consult to cardiology was also placed due to the elevated troponin. - Lab Data Result diagrams: 01/19/21 16:01 01/19/21 16:01 Lab Results 01/19/21 01/19/21 01/19/21 Range/Units 16:01 16:01 16:01 WBC 4.3 (3.8-10.6) k/uL RBC 3.98 (3.80-5.40) m/uL Hgb 12.2 (11.4-16.0) gm/dL Hct 36.9 (34.0-46.0) % MCV 92.8 (80.0-100.0) fL MCH 30.6 (25.0-35.0) pg MCHC 33.0 (31.0-37.0) g/dL RDW 12.4 (11.5-15.5) % Plt Count 200 (150-450) k/uL MPV 8.3 Neutrophils % 85 % Lymphocytes % 8 % Monocytes % 5 % Eosinophils % 0 % Basophils % 0 % Neutrophils # 3.6 (1.3-7.7) k/uL Lymphocytes # 0.3 L (1.0-4.8) k/uL Monocytes # 0.2 (0-1.0) k/uL Eosinophils # 0.0 (0-0.7) k/uL Basophils # 0.0 (0-0.2) k/uL PT 10.3 (9.0-12.0) sec INR 1.0 (<1.2) APTT 24.5 (22.0-30.0) sec D-Dimer 0.72 H (<0.60) mg/L FEU Sodium 131 L (137-145) mmol/L Potassium 4.7 (3.5-5.1) mmol/L Chloride 95 L (98-107) mmol/L Carbon Dioxide 25 (22-30) mmol/L Anion Gap 11 mmol/L BUN 23 H (7-17) mg/dL Creatinine 0.86 (0.52-1.04) mg/dL Est GFR (CKD-EPI)AfAm 84 (>60 ml/min/1.73 sqM) Est GFR (CKD-EPI)NonAf 73 (>60 ml/min/1.73 sqM) Glucose 328 H (74-99) mg/dL Plasma Lactic Acid Williams (0.7-2.0) mmol/L Calcium 7.9 L (8.4-10.2) mg/dL Magnesium 1.9 (1.6-2.3) mg/dL Total Bilirubin 0.7 (0.2-1.3) mg/dL AST 44 H (14-36) U/L ALT 12 (4-34) U/L Alkaline Phosphatase 53 (38-126) U/L Lactate Dehydrogenase 1331 H (313-618) U/L Troponin I (0.000-0.034) ng/mL C-Reactive Protein 16.3 H (<1.0) mg/dL Total Protein 6.2 L (6.3-8.2) g/dL Albumin 3.3 L (3.5-5.0) g/dL 01/19/21 01/19/21 Range/Units 16:01 16:12 WBC (3.8-10.6) k/uL RBC (3.80-5.40) m/uL Hgb (11.4-16.0) gm/dL Hct (34.0-46.0) % MCV (80.0-100.0) fL MCH (25.0-35.0) pg MCHC (31.0-37.0) g/dL RDW (11.5-15.5) % Plt Count (150-450) k/uL MPV Neutrophils % % Lymphocytes % % Monocytes % % Eosinophils % % Basophils % % Neutrophils # (1.3-7.7) k/uL Lymphocytes # (1.0-4.8) k/uL Monocytes # (0-1.0) k/uL Eosinophils # (0-0.7) k/uL Basophils # (0-0.2) k/uL PT (9.0-12.0) sec INR (<1.2) APTT (22.0-30.0) sec D-Dimer (<0.60) mg/L FEU Sodium (137-145) mmol/L Potassium (3.5-5.1) mmol/L Chloride (98-107) mmol/L Carbon Dioxide (22-30) mmol/L Anion Gap mmol/L BUN (7-17) mg/dL Creatinine (0.52-1.04) mg/dL Est GFR (CKD-EPI)AfAm (>60 ml/min/1.73 sqM) Est GFR (CKD-EPI)NonAf (>60 ml/min/1.73 sqM) Glucose (74-99) mg/dL Plasma Lactic Acid Williams 1.1 (0.7-2.0) mmol/L Calcium (8.4-10.2) mg/dL Magnesium (1.6-2.3) mg/dL Total Bilirubin (0.2-1.3) mg/dL AST (14-36) U/L ALT (4-34) U/L Alkaline Phosphatase (38-126) U/L Lactate Dehydrogenase (313-618) U/L Troponin I 0.082 H* (0.000-0.034) ng/mL C-Reactive Protein (<1.0) mg/dL Total Protein (6.3-8.2) g/dL Albumin (3.5-5.0) g/dL - EKG Data -: EKG Interpreted by Me EKG Comments: 12-lead Electrocardiogram Interpretation Note EKG was reviewed and interpreted by myself. 12-lead ECG performed at 1542 is interpreted by me as revealing normal sinus rhythm at a rate of 74 beats per minute. Right axis deviation. QRS duration is 82 ms, QTc is 432 ms.. There were no ST or T wave abnormalities to suggest myocardial ischemia or injury. R wave progression across the precordium was satisfactory. By my interpretation this EKG is non-diagnostic for acute ischemia. Machine read this as atrial fibrillation, however there are small P waves present and it is a normal sinus rhythm. Disposition Clinical Impression: Pneumonia due to COVID-19 virus, Respiratory failure with hypoxia, Elevated troponin, NSTEMI (non-ST elevated myocardial infarction) Disposition: ADMITTED IP TO THIS HOSP Condition: Serious
[2021-01-19] MEDS: ACETAMINOPHEN TAB 325 MG TAB PO PRN (17:15)
[2021-01-19] MEDS: DEXAMETHASONE SOD PHOSPHATE 10 MG/ML 1 ML VIAL IVP SCH (18:25)
[2021-01-19] MEDS ORDERED: NALOXONE 0.4 MG/ML 1 ML VIAL IV PRN (18:39)
[2021-01-19] MEDS ORDERED: ASPIRIN 81 MG PO STA (19:16)
--- NOTE | 2021-01-19 20:03 | CT ---
EXAMINATION TYPE: CT chest angio for PE DATE OF EXAM: 01/19/2021 COMPARISON: 09/28/2020 HISTORY: Elevated d-dimer, covid. CT DLP: 485.1 mGycm Automated exposure control for dose reduction was used. CONTRAST: Performed with IV Contrast, patient injected with 100 mL of Isovue 370. There are 3-D post processed images. There is no mediastinal adenopathy. Thoracic aorta is intact. There is no aneurysm or dissection. The re are multiple bilateral bronchial lymph nodes up to 1.5 cm. Heart is top normal in size. There is p atchy bilateral pulmonary interstitial and airspace infiltrates. There is no evidence of filling defect in the pulmonary arteries. There is small pleural effusions. The thoracic spine is intact. There is no compression fracture. Sternum is intact. IMPRESSION: No evidence of pulmonary embolism. Moderate patchy bilateral pneumonia which is essentially [place] red to old exam.
--- NOTE | 2021-01-19 21:13 | HP ---
HISTORY AND PHYSICAL DATE OF SERVICE: 01/19/2021 CHIEF COMPLAINT: Shortness of breath and Covid 19. HISTORY OF PRESENT ILLNESS: This 60-year-old woman with a past medical history of diabetes, hypertension, hyperlipidemia, history of DJD, history of pulmonary embolism, history of cholecystectomy, history of cardiac catheterization, being followed by Dr. Amaro in the outpatient setting was recently having shortness of breath and cough and weakness. Patient was apparently admitted to [facility] about one and half days and then the patient was discharged. Subsequently patient is complaining of weakness and the patient was supposed to take oxygen, but there was nobody at home to knitting supervisor the oxygen and the patient was found to have be confused and pulse ox 70 percent. Patient taken to [facility] and admitted to the hospital for further evaluation and treatment. Patient had bilateral interstitial pneumonia highly suggestive of Covid 19 pneumonia. Patient for further evaluation and treatment. There is no history of any headache, loss of consciousness or seizures at this time. PAST MEDICAL HISTORY: History of diabetes, hypertension, hyperlipidemia, history of DJD, history of pulmonary embolism. MEDICATIONS: Home medications are: Dexamethasone, Klonopin, Glucophage, magnesium, Ecotrin, Zocor, Protonix, ProAir, oxybutynin, Prilosec, Zestril, metoprolol, Neurontin, biotin. Doses reviewed. ALLERGIES: CEPHALEXIN. FAMILY HISTORY: History of lung cancer in the family. SOCIAL HISTORY: No history of smoking, no history of alcohol. Previous history of smoking remotely. REVIEW OF SYSTEMS: ENT: No diminished vision. No diminished hearing. CARDIOVASCULAR system: No angina or palpitations. RESPIRATORY: As mentioned earlier. GI: No nausea or vomiting. : No dysuria. NERVOUS SYSTEM: No numbness or weakness. ALLERGY/IMMUNOLOGY: No asthma or hay fever. MUSCULOSKELETAL: As mentioned earlier. HEMATOLOGY/ONCOLOGY: As mentioned earlier. ENDOCRINE: As mentioned earlier. CONSTITUTIONAL: As mentioned earlier. DERMATOLOGY: Negative. RHEUMATOLOGY: Negative. PSYCHIATRIC: As mentioned earlier. PHYSICAL EXAM: GENERAL: Alert and oriented times three. Pulse is 81, blood pressure 171/70, respirations 18, temperature 101.4, pulse ox 91% on room air and 82% on room air. HEENT: Conjunctivae normal. NECK: No JVD. CARDIOVASCULAR: S1, S2 muffled. RESPIRATION: Breath sounds diminished in the bases. Scattered rhonchi and crackles. ABDOMEN: Soft, nontender. LEGS: No edema. No swelling. NERVOUS SYSTEM: Higher functions as mentioned earlier. Moves all four extremities. No focal deficits. LYMPHATICS: No lymph nodes palpable in the neck, axillae or groin. SKIN: No ulcer, no rash and no bleeding. JOINTS: No active deforming arthropathy. LABS: CBC within normal limits. D-dimer is 0.72. Sodium 131, glucose 328, troponin 0.082. ASSESSMENT: 1. Acute Covid 19 infection with acute Covid 19 bilateral interstitial pneumonia with acute hypoxic respiratory failure. 2. Hyponatremia. 3. Elevated D-dimer. 4. Troponin 0.032. 5. Elevated inflammatory markers of Covid 19. 6. Diabetes mellitus type 2. 7. Hypertension. 8. Hyperlipidemia. 9. History of degenerative joint disease. 10.History of pulmonary embolism. 12.History of cholecystectomy. 13.History of anxiety. 14.Obesity with body mass of 46. 15.FULL CODE. RECOMMENDATIONS AND DISCUSSION: This 60-year-old woman who presented with multiple complex medical issues, we will monitor the patient closely, continue the current medications, management and symptomatic treatment. Infectious Disease and pulmonary evaluation. Bronchodilators, steroids and seems like the patient may be out of the window for Remdesivir. We will continue to monitor. Repeat labs. Prognosis guarded because of multiple complex medical issues. Further recommendations to follow. MMODL / IJN: [id number] / LAUREN
[2021-01-19] MEDS: ENOXAPARIN 40 MG/0.4 ML SYRINGE SQ SCH (22:18)
[2021-01-19] MEDS: GABAPENTIN 300 MG CAP PO SCH (22:19)
[2021-01-19] MEDS: OXYBUTYNIN CHLORIDE 5 MG TAB PO SCH (22:19)
[2021-01-19] MEDS: ATORVASTATIN 10 MG TAB PO SCH (22:19)
[2021-01-19] MEDS: METOPROLOL TARTRATE 25 MG TAB PO SCH (22:19)
[2021-01-20] MEDS: DEXAMETHASONE SOD PHOSPHATE 10 MG/ML 1 ML VIAL IVP SCH ×2 (02:55→11:14)
[2021-01-20] MEDS: ALBUTEROL HFA INHALER INHALATION PRN ×4 (07:10→16:01)
[2021-01-20] MEDS ORDERED: PANTOPRAZOLE 40 MG TABLET PO SCH (09:00)
[2021-01-20] MEDS: metFORMIN 500 MG TAB PO SCH ×2 (10:28→17:30)
[2021-01-20] MEDS: METOPROLOL TARTRATE 25 MG TAB PO SCH ×2 (10:34→20:30)
[2021-01-20] MEDS: ASPIRIN 81 MG PO SCH (10:38)
[2021-01-20] MEDS: lisinopriL 20 MG TAB PO SCH (10:38)
[2021-01-20] MEDS: PANTOPRAZOLE 40 MG TABLET PO SCH (10:38)
[2021-01-20] MEDS: MAGNESIUM OXIDE 400 MG TAB PO SCH (10:38)
[2021-01-20] MEDS: ENOXAPARIN 40 MG/0.4 ML SYRINGE SQ SCH (10:38)
[2021-01-20] MEDS: GABAPENTIN 300 MG CAP PO SCH ×2 (10:38→20:29)
[2021-01-20] MEDS: OXYBUTYNIN CHLORIDE 5 MG TAB PO SCH ×2 (10:39→20:30)
[2021-01-20] MEDS: ASCORBIC ACID 500 MG TAB PO SCH (10:39)
[2021-01-20] MEDS: dexAMETHasone 2 MG TAB PO SCH (10:39)
[2021-01-20] MEDS: CHOLECALCIFEROL 25 MCG (1000 IU) TABLET PO SCH (10:40)
[2021-01-20 11:39] LABS: Glucose,Whole Blood 461 mg/dL (75-99)
--- NOTE | 2021-01-20 12:12 | P.CNPUL ---
History of Present Illness Consult date: 01/20/21 Requesting physician: Zeke Kwok Reason for consult: dyspnea, hypoxemia, abnormal CXR/CT Chief complaint: Shortness of breath History of present illness: This is a 60-year-old female patient who follows with Dr. Amaro is her primary care provider. She has a history of diabetes mellitus, hyperlipidemia, hypertension, gastroesophageal reflux disease. She had presented to [facility] initially with a nine-day history of shortness of breath, cough and congestion. She was transferred here to our emergency room yesterday. X-ray reveals bilateral patchy pneumonia. CT angiogram was negative for pulmonary emboli. There is moderate patchy bilateral pneumonia consistent with COVID-19. She did test positive. She is not vaccinated. She is currently seen in consultation in the ER. She is on 5 L high flow nasal cannula to maintain O2 saturation in low 90s. No IV fluids. She is awake and alert in no acute distress. White count 4.3. Hemoglobin 12.2. Lymphocytes 0.3. D-dimer 0.72. Troponin 0.082. 0.058. LDH 1331. C-reactive protein 16.3. Pro-calcitonin 0.30. She's been initiated on Decadron, Lovenox, vitamin supplements. Outside the window for Remdesivir. Review of Systems REVIEW OF SYSTEMS: CONSTITUTIONAL: Denies any recent significant weight loss or weight gain. EYES: Denies change in vision. EARS, NOSE, MOUTH, THROAT: Denies headaches, denies sore throat. CARDIOVASCULAR: Denies chest pain, palpitations or syncopal episodes. RESPIRATORY: Positive for shortness of breath, cough, congestion no hemoptysis. GASTROINTESTINAL: Denies change in appetite, denies abdominal pain GENITOURINARY: Denies hematuria, denies infections. MUSKULOSKELETAL: Denies pain, denies swelling. INTEGUMENTARY: Denies rash, denies eczema. NEUROLOGICAL: Denies recent memory loss, no recent seizure activity. PSYCHIATRIC: Denies anxiety, denies depression. HEMATOLOGIC/LYMPHATIC: Denies anemia, denies enlarged lymph nodes. 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 History of Any Multi-Drug Resistant Organisms: None Reported Past Surgical History: Section, Cholecystectomy, Heart Catheterization, Orthopedic Surgery Additional Past Surgical History / Comment(s): cervical neck fusion x 2 with plates Past Anesthesia/Blood Transfusion Reactions: Postoperative Nausea & Vomiting (PONV) Additional Past Anesthesia/Blood Transfusion Reaction / Comment(s): after last egd took longer to wake up Past Psychological History: Anxiety Smoking Status: Never smoker Past Alcohol Use History: Rare Additional Past Alcohol Use History / Comment(s): smoked for a few yrs as a teen Past Drug Use History: None Reported - Past Family History Mother Family Medical History: Cancer Additional Family Medical History / Comment(s): Lung/abd cancer. Medications and Allergies Home Medications Medication Instructions Recorded Confirmed Type Metoprolol Tartrate 25 mg PO BID 02/06/19 01/19/21 History Oxybutynin Chloride 7.5 mg PO BID 02/06/19 01/19/21 History Omeprazole [PriLOSEC] 40 mg PO DAILY #30 capsule. 08/27/19 01/19/21 Rx Simvastatin [Zocor] 20 mg PO HS 04/16/20 01/19/21 History Aspirin EC [Ecotrin Low Dose] 81 mg PO DAILY 09/26/20 01/19/21 History lisinopriL [Zestril] 20 mg PO DAILY 09/26/20 01/19/21 History Albuterol Sulfate [Proair Hfa] 2 puff INHALATION RT-Q6H PRN 01/19/21 01/19/21 History Biotin 1,000 Mcg 5,000 mcg PO DAILY 01/19/21 01/19/21 History Dexamethasone 6 mg PO BID 01/19/21 01/19/21 History Gabapentin [Neurontin] 600 mg PO BID 01/19/21 01/19/21 History Magnesium Oxide [Mag-Ox] 250 mg PO DAILY 01/19/21 01/19/21 History Pantoprazole [Protonix] 40 mg PO DAILY 01/19/21 01/19/21 History clonazePAM [KlonoPIN] 0.5 mg PO BID PRN 01/19/21 01/19/21 History metFORMIN HCL [Glucophage] 1,000 mg PO BID-W/MEALS 01/19/21 01/19/21 History Allergies Allergy/AdvReac Type Severity Reaction Status Date / Time cephalexin [From Keflex] AdvReac Abdominal Verified 01/19/21 17:41 Pain Physical Exam Vitals: Vital Signs Temp Pulse Pulse Resp BP BP Pulse Ox 01/20/21 11:02 97.8 F 57 L 18 137/62 96 01/20/21 10:50 97.8 F 57 L 18 137/62 96 01/20/21 10:06 168/78 01/20/21 09:58 98.8 F 56 L 18 92 L 01/20/21 06:00 60 18 116/63 93 L 01/20/21 00:52 87 17 136/76 92 L 01/19/21 23:20 59 L 18 146/91 92 L 01/19/21 19:22 98.1 F 65 18 131/67 95 01/19/21 18:23 98 F 74 18 150/66 98 01/19/21 16:10 82 L 01/19/21 15:25 101.4 F H 81 18 177/70 91 L Intake and Output 01/19/21 01/20/21 01/20/21 22:59 06:59 14:59 Other: Weight 99.79 kg 99.79 kg GENERAL EXAM: Alert, obese 60-year-old female patient, on 5 L nasal cannula, comfortable in no apparent distress. HEAD: Normocephalic. EYES: Normal reaction of pupils, equal size. NOSE: Clear with pink turbinates. THROAT: No erythema or exudates. NECK: No masses, no JVD. CHEST: No chest wall deformity. LUNGS: Equal air entry with crackles in the posterior bases. CVS: S1 and S2 normal with no audible murmur, regular rhythm. ABDOMEN: No hepatosplenomegaly, normal bowel sounds, no guarding or rigidity. SPINE: No scoliosis or deformity SKIN: No rashes CENTRAL NERVOUS SYSTEM: No focal deficits, tone is normal in all 4 extremities. EXTREMITIES: There is no peripheral edema. No clubbing, no cyanosis. Peripheral pulses are intact. Results - Laboratory Findings CBC and BMP: 01/19/21 16:01 01/19/21 16:01 PT/INR, D-dimer PT 10.3 sec (9.0-12.0) 01/19/21 16:01 INR 1.0 (<1.2) 01/19/21 16:01 D-Dimer 0.72 mg/L FEU (<0.60) H 01/19/21 16:01 Abnormal lab findings: Abnormal Labs 01/19/21 01/19/21 01/19/21 16:01 16:01 16:01 Lymphocytes # 0.3 L D-Dimer 0.72 H Sodium 131 L Chloride 95 L BUN 23 H Glucose 328 H POC Glucose (mg/dL) Calcium 7.9 L Ferritin 1034.0 H AST 44 H Lactate Dehydrogenase 1331 H Troponin I C-Reactive Protein 16.3 H Total Protein 6.2 L Albumin 3.3 L Procalcitonin 01/19/21 01/19/21 01/20/21 16:01 16:12 00:51 Lymphocytes # D-Dimer Sodium Chloride BUN Glucose POC Glucose (mg/dL) Calcium Ferritin AST Lactate Dehydrogenase Troponin I 0.082 H* 0.058 H* C-Reactive Protein Total Protein Albumin Procalcitonin 0.30 H 01/20/21 11:37 Lymphocytes # D-Dimer Sodium Chloride BUN Glucose POC Glucose (mg/dL) 461 H Calcium Ferritin AST Lactate Dehydrogenase Troponin I C-Reactive Protein Total Protein Albumin Procalcitonin - Diagnostic Findings Chest x-ray: image reviewed CT scan - chest: image reviewed Assessment and Plan Assessment: 1 Acute hypoxemic respiratory failure secondary to acute COVID-19 pneumonia. Not vaccinated. Outside the window for Remdesivir. 2 Elevated inflammatory markers secondary to above 3 Troponin leak 4 Obesity 5 Hyperlipidemia 6 Hypertension 7 Diabetes mellitus 8 Anxiety Plan: The patient was seen and evaluated by Dr. Handley Chest x-ray, CAT scan and labs reviewed Continue Decadron, Lovenox, vitamin supplements Outside the window for Remdesivir Titrate the FiO2 as tolerated Chest x-ray and inflammatory markers in the a.m. We will continue to follow and make further recommendations based on her clinical status I, the cosigning physician, performed a history & physical examination of the patient. Lungs sounds with crackles in the bilateral bases. Maintaining O2 saturations in the 90s on 5 liters per minute per nasal cannula. I discussed the assessment and plan of care with my nurse practitioner, Michelle Paris. I attest to the above consultation as dictated by her. Time with Patient: Greater than 30
--- NOTE | 2021-01-20 12:13 | P.CRDCN ---
History of Present Illness Consult date: 01/20/21 Consult reason: chest pain Chief complaint: COVID-19 pneumonia, hypoxic respiratory failure History of present illness: This is Dung Ornelas NP dictating a consult on this patient on behalf of Dr. Uriostegui. The patient was interviewed and examined. HPI: [Patient is a pleasant 60-year-old female who initially presented to the hospital with hypoxic respiratory failure secondary to COVID-19 infection. Past medical history includes diabetes, hypertension, hyperlipidemia, degenerative disc disease, pulmonary embolism, cholecystectomy, cardiac catheterization. Patient was being worked up in the emergency department for COVID-19, when she reports she developed sudden onset chest pain. Patient reports this pain was in the center of her chest with radiation to her back. Patient had serial EKGs completed 2 which were both normal. Patient's biggest complaint is of shortness of breath. X-ray was completed which found bilateral patchy pneumonia. Patient was also hypoxic and is on supplemental oxygen.] ROS: [No fever, chills, or rigors] [Patient complains of shortness of breath with a cough] [no nausea, vomiting, or diarrhea] [no hematuria, dysuria] [Patient reports weakness] [no strokes or seizures] [no skin lesions] EXAMINATION: GENERAL: Well-appearing, well-nourished and in no acute distress. NECK: Supple without JVD or thyromegaly. LUNGS: Breath sounds diminished to auscultation bilaterally, with scattered crackles. Respiration equal and unlabored. HEART: Regular rate and rhythm without murmurs, rubs or gallops. S1 and S2 heard. EXTREMITIES: Normal range of motion, no edema. No clubbing or cyanosis. Peripheral pulses intact and strong. REVIEW OF LABS, ECG & MEDICAL DATA: LABS: White blood cell count 4.3, hemoglobin 12.2, platelet count 200, PT 10.3, INR 1.0, d-dimer 0.72, sodium 131, potassium 4.7, B1 23, creatinine 0.86, calcium 7.9, magnesium 1.9, ferritin 1034, troponin-0.082, 0.058 EKG: Serial EKGs completed 2-normal sinus rhythm IMAGING: CT IBARRA-no evidence of pulmonary embolism, moderate patchy bilateral pneumonia; chest [id number] patchy pneumonia, congestive heart failure is also possible. VITALS: Temp is 97.8, pulse 57, respiratory rate 18, blood pressure 137/62, O2 sat 96% on 5 L of supplemental oxygen via nasal cannula IMPRESSION/PLAN: 1. Chest pain-patient has borderline troponin elevation in the presence of COVID-19 infection. We will start the patient on Lovenox 80 mg subcu twice a day. Will check EKG in the morning. Thank you for the consult and allowing us to participate in the care of this patient. 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 History of Any Multi-Drug Resistant Organisms: None Reported Past Surgical History: Section, Cholecystectomy, Heart Catheterization, Orthopedic Surgery Additional Past Surgical History / Comment(s): cervical neck fusion x 2 with plates Past Anesthesia/Blood Transfusion Reactions: Postoperative Nausea & Vomiting (PONV) Additional Past Anesthesia/Blood Transfusion Reaction / Comment(s): after last egd took longer to wake up Past Psychological History: Anxiety Smoking Status: Never smoker Past Alcohol Use History: Rare Additional Past Alcohol Use History / Comment(s): smoked for a few yrs as a teen Past Drug Use History: None Reported - Past Family History Mother Family Medical History: Cancer Additional Family Medical History / Comment(s): Lung/abd cancer. Medications and Allergies Home Medications Medication Instructions Recorded Confirmed Type Metoprolol Tartrate 25 mg PO BID 02/06/19 01/19/21 History Oxybutynin Chloride 7.5 mg PO BID 02/06/19 01/19/21 History Omeprazole [PriLOSEC] 40 mg PO DAILY #30 capsule. 08/27/19 01/19/21 Rx Simvastatin [Zocor] 20 mg PO HS 04/16/20 01/19/21 History Aspirin EC [Ecotrin Low Dose] 81 mg PO DAILY 09/26/20 01/19/21 History lisinopriL [Zestril] 20 mg PO DAILY 09/26/20 01/19/21 History Albuterol Sulfate [Proair Hfa] 2 puff INHALATION RT-Q6H PRN 01/19/21 01/19/21 History Biotin 1,000 Mcg 5,000 mcg PO DAILY 01/19/21 01/19/21 History Dexamethasone 6 mg PO BID 01/19/21 01/19/21 History Gabapentin [Neurontin] 600 mg PO BID 01/19/21 01/19/21 History Magnesium Oxide [Mag-Ox] 250 mg PO DAILY 01/19/21 01/19/21 History Pantoprazole [Protonix] 40 mg PO DAILY 01/19/21 01/19/21 History clonazePAM [KlonoPIN] 0.5 mg PO BID PRN 01/19/21 01/19/21 History metFORMIN HCL [Glucophage] 1,000 mg PO BID-W/MEALS 01/19/21 01/19/21 History Allergies Allergy/AdvReac Type Severity Reaction Status Date / Time cephalexin [From Keflex] AdvReac Abdominal Verified 01/19/21 17:41 Pain Physical Exam Vitals: Vital Signs Temp Pulse Pulse Resp BP BP Pulse Ox 01/20/21 11:02 97.8 F 57 L 18 137/62 96 01/20/21 10:50 97.8 F 57 L 18 137/62 96 01/20/21 10:06 168/78 01/20/21 09:58 98.8 F 56 L 18 92 L 01/20/21 06:00 60 18 116/63 93 L 01/20/21 00:52 87 17 136/76 92 L 01/19/21 23:20 59 L 18 146/91 92 L 01/19/21 19:22 98.1 F 65 18 131/67 95 01/19/21 18:23 98 F 74 18 150/66 98 01/19/21 16:10 82 L 01/19/21 15:25 101.4 F H 81 18 177/70 91 L Intake and Output 01/19/21 01/20/21 01/20/21 22:59 06:59 14:59 Other: Weight 99.79 kg 99.79 kg Results 01/19/21 16:01 01/19/21 16:01 Cardiac Enzymes 01/19/21 01/19/21 01/20/21 Range/Units 16:01 16:12 00:51 AST 44 H (14-36) U/L Lactate Dehydrogenase 1331 H (313-618) U/L Troponin I 0.082 H* 0.058 H* (0.000-0.034) ng/mL Coagulation 01/19/21 Range/Units 16:01 PT 10.3 (9.0-12.0) sec APTT 24.5 (22.0-30.0) sec CBC 01/19/21 Range/Units 16:01 WBC 4.3 (3.8-10.6) k/uL RBC 3.98 (3.80-5.40) m/uL Hgb 12.2 (11.4-16.0) gm/dL Hct 36.9 (34.0-46.0) % Plt Count 200 (150-450) k/uL Comprehensive Metabolic Panel 01/19/21 Range/Units 16:01 Sodium 131 L (137-145) mmol/L Potassium 4.7 (3.5-5.1) mmol/L Chloride 95 L (98-107) mmol/L Carbon Dioxide 25 (22-30) mmol/L BUN 23 H (7-17) mg/dL Creatinine 0.86 (0.52-1.04) mg/dL Glucose 328 H (74-99) mg/dL Calcium 7.9 L (8.4-10.2) mg/dL AST 44 H (14-36) U/L ALT 12 (4-34) U/L Alkaline Phosphatase 53 (38-126) U/L Total Protein 6.2 L (6.3-8.2) g/dL Albumin 3.3 L (3.5-5.0) g/dL Current Medications Generic Name Dose Route Start Last Admin Trade Name Freq PRN Reason Stop Dose Admin Acetaminophen 650 mg 01/19/21 16:00 01/19/21 17:15 Acetaminophen Tab 325 Mg Tab PO 650 mg Q4HR PRN Administration Fever>101 Albuterol Sulfate 2 puff 01/19/21 16:00 01/20/21 07:17 Albuterol Hfa Inhaler INHALATION 1 puff RT-Q6H PRN Administration Shortness Of Breath Or Wheezing Ascorbic Acid 1,000 mg 01/20/21 09:15 01/20/21 10:39 Ascorbic Acid 500 Mg Tab PO 1,000 mg DAILY [place] Administration Aspirin 81 mg 01/20/21 09:00 01/20/21 10:38 Aspirin 81 Mg PO 81 mg DAILY [place] Administration Atorvastatin Calcium 10 mg 01/19/21 21:00 01/19/21 22:19 Atorvastatin 10 Mg Tab PO 10 mg HS [place] Administration Cholecalciferol 25 mcg 01/20/21 09:15 01/20/21 10:40 Cholecalciferol 25 Mcg (1000 Iu) Tablet PO 25 mcg DAILY [place] Administration Dexamethasone 6 mg 01/20/21 09:15 01/20/21 10:39 Dexamethasone 2 Mg Tab PO 6 mg DAILY [place] Administration Enoxaparin Sodium 40 mg 01/19/21 19:00 01/20/21 10:38 Enoxaparin 40 Mg/0.4 Ml Syringe SQ 40 mg DAILY [place] Administration Gabapentin 600 mg 01/19/21 21:00 01/20/21 10:38 Gabapentin 300 Mg Cap PO 600 mg BID [place] Administration Insulin Aspart 0 unit 01/20/21 12:30 Insulin Aspart (Novolog) 100 Unit/Ml Vial SQ AC-TID [facility] Protocol Insulin Detemir 20 unit 01/20/21 12:30 Insulin Detemir (Levemir) 100 Unit/Ml Syr SQ DAILY@0700 [facility] Lisinopril 20 mg 01/20/21 09:00 01/20/21 10:38 Lisinopril 20 Mg Tab PO 20 mg DAILY [place] Administration Magnesium Oxide 400 mg 01/20/21 09:00 01/20/21 10:38 Magnesium Oxide 400 Mg Tab PO 400 mg DAILY [place] Administration Metformin HCl 1,000 mg 01/20/21 07:30 01/20/21 10:28 Metformin 500 Mg Tab PO Not Given BID-W/MEALS [facility] Metoprolol Tartrate 25 mg 01/19/21 21:00 01/20/21 10:34 Metoprolol Tartrate 25 Mg Tab PO Not Given BID [place] Naloxone HCl 0.2 mg 01/19/21 18:39 Naloxone 0.4 Mg/Ml 1 Ml Vial IV Q2M PRN Opioid Reversal Oxybutynin Chloride 7.5 mg 01/19/21 21:00 01/20/21 10:39 Oxybutynin Chloride 5 Mg Tab PO 7.5 mg BID [place] Administration Pantoprazole Sodium 40 mg 01/20/21 07:30 01/20/21 10:38 Pantoprazole 40 Mg Tablet PO 40 mg DAILY@0730 [facility] Administration Zinc Sulfate 220 mg 01/21/21 09:00 Zinc Sulfate 220 Mg Cap PO DAILY [place] Intake and Output 01/19/21 01/20/21 01/20/21 22:59 06:59 14:59 Other: Weight 99.79 kg 99.79 kg Patient Weight 01/21/21 06:59 Weight 99.79 kg 01/19/21 16:01 01/19/21 16:01
[2021-01-20] MEDS ORDERED: INSULIN DETEMIR (LEVEMIR) 100 UNIT/ML SYR SQ SCH (12:30)
[2021-01-20] MEDS ORDERED: INSULIN ASPART (NovoLOG) 100 UNIT/ML VIAL SQ SCH (12:30)
[2021-01-20] MEDS: ENOXAPARIN 40 MG/0.4 ML SYRINGE SQ ONE ×2 (12:53→12:54)
[2021-01-20 16:27] LABS: Glucose,Whole Blood 541 mg/dL (75-99)
[2021-01-20] MEDS ORDERED: INSULIN REGULAR BOLUS (FROM DRIP BAG) IV ONE (16:57)
--- NOTE | 2021-01-20 17:40 | P.PN ---
Progress Note - Text Progress Note Date: 01/20/21 Presenting complaint: Short of breath Interval history: Admitted with COVID 19 pneumonitis, acute hypoxic respiratory failure, the low- sodium. January 20: Sitting up in bed. Tired. Some shortness of breath. 6 L nasal cannula. Decrease appetite. Review of systems: Was done for constitutional, cardiovascular, GI, pulmonary. relevant finding as above Active Medications Acetaminophen (Acetaminophen Tab 325 Mg Tab) 650 mg PO Q4HR PRN PRN Reason: Fever>101 Last Admin: 01/19/21 17:15 Dose: 650 mg Documented by: Albuterol Sulfate (Albuterol Hfa Inhaler) 2 puff INHALATION RT-Q6H PRN PRN Reason: Shortness Of Breath Or Wheezing Last Admin: 01/20/21 16:01 Dose: 2 puff Documented by: Ascorbic Acid (Ascorbic Acid 500 Mg Tab) 1,000 mg PO DAILY [facility] Last Admin: 01/20/21 10:39 Dose: 1,000 mg Documented by: Aspirin (Aspirin 81 Mg) 81 mg PO DAILY [facility] Last Admin: 01/20/21 10:38 Dose: 81 mg Documented by: Atorvastatin Calcium (Atorvastatin 10 Mg Tab) 10 mg PO HS [facility] Last Admin: 01/19/21 22:19 Dose: 10 mg Documented by: Cholecalciferol (Cholecalciferol 25 Mcg (1000 Iu) Tablet) 25 mcg PO DAILY [facility] Last Admin: 01/20/21 10:40 Dose: 25 mcg Documented by: Dexamethasone (Dexamethasone 2 Mg Tab) 6 mg PO DAILY [facility] Last Admin: 01/20/21 10:39 Dose: 6 mg Documented by: Enoxaparin Sodium (Enoxaparin 80 Mg/0.8 Ml Syringe) 80 mg SQ Q12HR [facility] Gabapentin (Gabapentin 300 Mg Cap) 600 mg PO BID [facility] Last Admin: 01/20/21 10:38 Dose: 600 mg Documented by: Insulin Human Regular 100 unit (/ Sodium Chloride) 101 mls @ 0 mls/hr IV .Q0M [facility]; Protocol Insulin Aspart (Insulin Aspart (Novolog) 100 Unit/Ml Vial) 13 unit 0.13 unit/kg (13 unit) SQ AC-TID [facility] Lisinopril (Lisinopril 20 Mg Tab) 20 mg PO DAILY [facility] Last Admin: 01/20/21 10:38 Dose: 20 mg Documented by: Magnesium Oxide (Magnesium Oxide 400 Mg Tab) 400 mg PO DAILY [facility] Last Admin: 01/20/21 10:38 Dose: 400 mg Documented by: Metformin HCl (Metformin 500 Mg Tab) 1,000 mg PO BID-W/MEALS [facility] Last Admin: 01/20/21 17:30 Dose: Not Given Documented by: Metoprolol Tartrate (Metoprolol Tartrate 25 Mg Tab) 25 mg PO BID [facility] Last Admin: 01/20/21 10:34 Dose: Not Given Documented by: Naloxone HCl (Naloxone 0.4 Mg/Ml 1 Ml Vial) 0.2 mg IV Q2M PRN PRN Reason: Opioid Reversal Oxybutynin Chloride (Oxybutynin Chloride 5 Mg Tab) 7.5 mg PO BID [facility] Last Admin: 01/20/21 10:39 Dose: 7.5 mg Documented by: Pantoprazole Sodium (Pantoprazole 40 Mg Tablet) 40 mg PO DAILY@0730 [facility] Last Admin: 01/20/21 10:38 Dose: 40 mg Documented by: Zinc Sulfate (Zinc Sulfate 220 Mg Cap) 220 mg PO DAILY [facility] On examination: VITAL SIGNS: 97.8, 57, 18, 137/62, 86% on 5 L GENERAL APPEARANCE: Reclining in bed awake, tired. RESPIRATORY: Respiratory effort increased. PSYCHIATRY: Alert and oriented x3. Mood and affect normal. Rest of exam per pulmonary and nursing INVESTIGATIONS, reviewed in the clinical context: White count 4.3 hemoglobin 12.2 platelets 200 sodium 131 potassium 4.7 BUN 23 creatinine 0.86 Accu-Cheks 461 Troponin I 0.082, 0.058 procalcitonin 0.30 d-dimer 0.[address] chest angiogram: Active for PE. Patchy bilateral infiltrates EKG tracing: Sinus rhythm. Assessment plan: -Acute bilateral COVID 19 pneumonitis Dexamethasone 6 mg, vitamin C, zinc -Acute hypoxic respiratory failure secondary to COVID 19 pneumonitis. Severe On 5 L of nasal cannula -Possible myocarditis secondary to COVID 19 pneumonitis. No chest pain. Has asthenia. Telemetry. Follow for arrhythmias. Follow with cardiology -Diabetes mellitus type 2, uncontrolled with hyperglycemia. Secondary to steroids Start IV insulin drip -Hyperlipidemia Lipitor 10 mg daily at bedtime -Essential hypertension Mitral block 25 mg twice a day Zestril 20 mg daily -GERD Prilosec 40 mg daily -Chronic urinary stress incontinence Oxybutynin 7.5 by mouth twice a day -Primary osteoarthritis -Diabetic peripheral neuropathy Neurontin 600 mg twice a day -Anxiety disorder not otherwise specified Klonopin 15 mg twice a day when necessary Habits the patient set up in a chair. Incentive spirometry. Continue 5 L nasal cannula. Dexamethasone. Started patient on insulin drip. Started IV fluids
[2021-01-20] MEDS: INSULIN ASPART (NovoLOG) 100 UNIT/ML VIAL SQ SCH ×2 (17:58→22:10)
[2021-01-20] MEDS: INSULIN REGULAR 100 UNIT in SODIUM CHLORIDE 0.9% 100 ML IV SCH (18:01)
[2021-01-20] MEDS: SODIUM CHLORIDE 0.45% 1,000 ML IV SCH (18:06)
[2021-01-20 19:18] LABS: Glucose,Whole Blood 364 mg/dL (75-99)
[2021-01-20 20:04] LABS: Glucose,Whole Blood 317 mg/dL (75-99)
[2021-01-20] MEDS: ACETAMINOPHEN TAB 325 MG TAB PO PRN (20:29)
[2021-01-20] MEDS: ATORVASTATIN 10 MG TAB PO SCH (20:30)
[2021-01-20 20:39] LABS: Glucose,Whole Blood 246 mg/dL (75-99)
[2021-01-20] MEDS: ENOXAPARIN 80 MG/0.8 ML SYRINGE SQ SCH (20:48)
[2021-01-20 23:05] LABS: Glucose,Whole Blood 125 mg/dL (75-99)
[2021-01-21 00:06] LABS: Glucose,Whole Blood 110 mg/dL (75-99)
[2021-01-21 02:02] LABS: Glucose,Whole Blood 109 mg/dL (75-99)
[2021-01-21 04:09] LABS: Glucose,Whole Blood 128 mg/dL (75-99)
[2021-01-21] MEDS: metFORMIN 500 MG TAB PO SCH ×2 (05:49→13:30)
[2021-01-21 06:02] LABS: Glucose,Whole Blood 158 mg/dL (75-99)
[2021-01-21] MEDS: PANTOPRAZOLE 40 MG TABLET PO SCH (06:25)
[2021-01-21] MEDS: INSULIN REGULAR 100 UNIT in SODIUM CHLORIDE 0.9% 100 ML IV SCH (07:28)
[2021-01-21] MEDS: ALBUTEROL HFA INHALER INHALATION PRN ×3 (07:37→16:19)
[2021-01-21 08:07] LABS: Glucose,Whole Blood 141 mg/dL (75-99)
[2021-01-21] MEDS ORDERED: ASPIRIN 325 MG TAB PO STA (08:46)
[2021-01-21] MEDS: ZINC SULFATE 220 MG CAP PO SCH (08:52)
[2021-01-21] MEDS: GABAPENTIN 300 MG CAP PO SCH ×2 (08:52→20:59)
[2021-01-21] MEDS: MAGNESIUM OXIDE 400 MG TAB PO SCH (08:52)
[2021-01-21] MEDS: CHOLECALCIFEROL 25 MCG (1000 IU) TABLET PO SCH (08:52)
[2021-01-21] MEDS: OXYBUTYNIN CHLORIDE 5 MG TAB PO SCH ×2 (08:52→20:59)
[2021-01-21] MEDS: METOPROLOL TARTRATE 25 MG TAB PO SCH ×2 (08:52→20:59)
[2021-01-21] MEDS: lisinopriL 20 MG TAB PO SCH (08:53)
[2021-01-21] MEDS: ASCORBIC ACID 500 MG TAB PO SCH (08:53)
[2021-01-21] MEDS: ASPIRIN 81 MG PO SCH (08:53)
[2021-01-21] MEDS: dexAMETHasone 2 MG TAB PO SCH (08:53)
--- NOTE | 2021-01-21 08:54 | XR ---
EXAMINATION TYPE: XR chest 1V portable DATE OF EXAM: 01/21/2021 CLINICAL HISTORY: Difficulty breathing and covid pneumonia progress study. TECHNIQUE: Single AP portable upright view of the chest is obtained. COMPARISON: Chest x-ray and CTA chest from 2 days earlier FINDINGS: Diminished inspiration with bilateral multifocal opacities redemonstrated. Cardiac silhoue tte size stable and upper limits of normal. Long segment surgical change to the cervical spine is not ed. IMPRESSION: Persistent bilateral multifocal and confluent opacities greatest in the lung bases consis tent with known covid-19 are redemonstrated. Findings slightly more prominent or worsened from 2 days earlier.
[2021-01-21] MEDS: SODIUM CHLORIDE 0.45% 1,000 ML IV SCH ×2 (09:03→21:00)
--- NOTE | 2021-01-21 09:29 | P.PN ---
Subjective Progress Note Date: 01/21/21 Principal diagnosis: Hypoxic respiratory failure secondary to COVID-19 pneumonia This is Dung aleman NP, dictating a progress note on behalf of Dr. Uriostegui. Patient was interviewed and examined. Patient is a pleasant 60-year-old female who initially presented to the hospital with hypoxic respiratory failure secondary to COVID-19 pneumonia. Patient denies chest pain today, however still complains of abdominal pain. The patient's COVID-19, as well as slightly elevated troponins, we do start the patient on Lovenox 80 mg twice a day yesterday. Patient appears to be orion ating this well. GENERAL: Well-appearing, well-nourished and in no acute distress. NECK: Supple without JVD or thyromegaly. HEART: Regular rate and rhythm without murmurs, rubs or gallops. S1 and S2 heard. EXTREMITIES: Normal range of motion, no edema. No clubbing or cyanosis. Peripheral pulses intact and strong. VITALS: [Temp 97.6, pulse 87, respirations 16, blood pressure 141/64, O2 saturation 87% on 15 L high flow] TELEMETRY: [Normal sinus rhythm] LABS: [White count 4.3, hemoglobin 12.2, platelets 200, PT 10.3, INR 1.0, d-dimer 0.72, sodium 131, potassium 4.7, B1 23, creatinine 0.86, calcium 7.9, magnesium 1.9, ferritin 1034, troponin-0.082, 0.058] IMPRESSION/PLAN: [1. Chest pain-patient is reporting chest pain today. Patient is tolerating Lovenox. Repeat EKG demonstrates atrial fibrillation with rate control. Further recommendations will be based on the patient's clinical course] The patient has been seen and evaluated. Plan of care has been reviewed and agreed upon by Dr. Uriostegui. Objective - Vital Signs Vital signs: Vital Signs Temp 97.6 F 01/21/21 08:00 Pulse 87 01/21/21 08:00 Resp 16 01/21/21 08:10 BP 141/64 01/21/21 08:00 Pulse Ox 87 L 01/21/21 08:10 Intake & Output 01/20/21 01/21/21 01/21/21 18:59 06:59 18:59 Intake Total 95.6 5.00 Balance 95.6 5.00 Weight 99.79 kg 98.5 kg Intake: Intake, IV Titration 95.6 5.00 Amount Insulin Regular 100 unit 95.6 5.00 In Sodium Chloride 0.9% 100 ml @ Titrate IV .Q0M [facility] Rx#:[id number] Other: # Voids 1 1 - Labs CBC & Chem 7: 01/19/21 16:01 01/19/21 16:01 Labs: Abnormal Lab Results - Last 24 Hours (Table) 01/20/21 01/20/21 01/20/21 Range/Units 11:37 16:25 19:17 POC Glucose (mg/dL) 461 H 541 H 364 H (75-99) mg/dL 01/20/21 01/20/21 01/20/21 Range/Units 20:02 20:38 22:52 POC Glucose (mg/dL) 317 H 246 H 125 H (75-99) mg/dL 01/21/21 01/21/21 01/21/21 Range/Units 00:04 02:01 04:07 POC Glucose (mg/dL) 110 H 109 H 128 H (75-99) mg/dL 01/21/21 01/21/21 Range/Units 06:01 08:04 POC Glucose (mg/dL) 158 H 141 H (75-99) mg/dL Microbiology - Last 24 Hours (Table) 01/19/21 17:45 Blood Culture - Preliminary Blood No Growth after 24 hours 01/19/21 17:30 Blood Culture - Preliminary Blood No Growth after 24 hours
--- NOTE | 2021-01-21 09:42 | P.CONS ---
History of Present Illness - Reason for Consult Consult date: 01/20/21 covid 19 pneumonia Requesting physician: Sincere Kiran - Chief Complaint shortness of breath x few days - History of Present Illness History of present illness : Patient is 60-year-old female presented to the ER for evaluation of fatigue fever and hypoxemia patient was admitted to the outside facility and has been treated for COVID-19 pneumonia patient was d ischarged home with home oxygen however was never set up in the patient been without oxygen therapy for about a day patient was complaining of increasing shortness of breath EMS was called and and on arrival of EMS the patient was hypoxic with O2 sats of 70% on room air patient was subsequently brought to the hospital for further evaluation on arrival to the ER the patient did have a fever of 101.4 F patient was hypoxic with O2 sats of 82% on room air she is currently 94% 6 L nasal cannula patient did have a normal white count with lymphopenia D-dimer was mildly elevated patient did have a elevated AST creatinine was normal troponin are mildly elevated patient did have a chest x- ray bilateral patchy pneumonia patient did have a CT angiogram of the chest negative for PE did shows moderate patchy bilateral pneumonia patient has been admitted to hospital infectious disease was consulted for further management patient main symptom remains to be shortness of breath on minimal exertion paula ent did have a cough which is moderate intensity not bringing up any sputum denies any pleuritic chest pain no nausea no vomiting no abdominal pain no diarrhea Review of system: CONSTITUTIONAL: Positive for weakness along with the fever. EYES: No complaint. ENT: No complaint. RESPIRATORY: As per history of present illness. CARDIOVASCULAR: No complaint. GENITOURINARY: No complaint. GASTROINTESTINAL: No complaint. MUSCULOSKELETAL: No complaint. INTEGUMENTARY: No complaint. PSYCHOLOGIC: No complaint. ENDOCRINE: No complaint. NEUROLOGIC: No complaint. Past medical history : Reviewed, documented below Past surgical history : Reviewed, documented below Social history: Reviewed, documented below Medications: Reviewed, as documented below EXAMINATION: Vital sigans= Reviewed and documented below GENERAL DESCRIPTION: Middle-aged female up in the bed, no distress. No tachypnea or accessory muscle of respiration use. HEENT: Shows Pallor , no scleral icterus. Oral mucous membrane is dry. NECK: Trachea central, no thyromegaly. LUNGS: Unlabored breathing. Coarse breath sounds bilaterally. No wheeze or crackle. HEART: S1, S2, regular rate and rhythm. ABDOMEN: Soft, no tenderness , guarding or rigidity EXTREMITIES: No edema of feet. SKIN: No rash, no masses palpable. NEUROLOGICAL: The patient is awake, alert, oriented x3, mood and affect normal. LABS AND RADIOLOGY: Reviewed results see below Assessment : Patient presented to hospital with acute respiratory failure in this patient with hypoxemia fever with evidence of multifocal pneumonia secondary to COVID-19 infection, and this patient symptom has been going on for more than 10 days and is currently out of the therapeutic window for remdesivir patient currently do not have any fever suspicious for secondary bacterial pneumonia Plan: 1-patient to continue with Lovenox Decadron zinc and ascorbic acid 2-droplet isolation and respiratory support 3-no need for systemic antibiotic therapy We will follow on clinical condition and cultures to further adjust medication if needed Thank you for this consultation we will follow the patient along with you 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 History of Any Multi-Drug Resistant Organisms: None Reported Past Surgical History: Section, Cholecystectomy, Heart Catheterization, Orthopedic Surgery Additional Past Surgical History / Comment(s): cervical neck fusion x 2 with plates Past Anesthesia/Blood Transfusion Reactions: Postoperative Nausea & Vomiting (PONV) Additional Past Anesthesia/Blood Transfusion Reaction / Comm: after last egd took longer to wake up Past Psychological History: Anxiety Smoking Status: Never smoker Past Alcohol Use History: Rare Additional Past Alcohol Use History / Comment(s): smoked for a few yrs as a teen Past Drug Use History: None Reported - Past Family History Mother Family Medical History: Cancer Additional Family Medical History / Comment(s): Lung/abd cancer. Medications and Allergies Home Medications Medication Instructions Recorded Confirmed Type Metoprolol Tartrate 25 mg PO BID 02/06/19 01/19/21 History Oxybutynin Chloride 7.5 mg PO BID 02/06/19 01/19/21 History Omeprazole [PriLOSEC] 40 mg PO DAILY #30 capsule. 08/27/19 01/19/21 Rx Simvastatin [Zocor] 20 mg PO HS 04/16/20 01/19/21 History Aspirin EC [Ecotrin Low Dose] 81 mg PO DAILY 09/26/20 01/19/21 History lisinopriL [Zestril] 20 mg PO DAILY 09/26/20 01/19/21 History Albuterol Sulfate [Proair Hfa] 2 puff INHALATION RT-Q6H PRN 01/19/21 01/19/21 History Biotin 1,000 Mcg 5,000 mcg PO DAILY 01/19/21 01/19/21 History Dexamethasone 6 mg PO BID 01/19/21 01/19/21 History Gabapentin [Neurontin] 600 mg PO BID 01/19/21 01/19/21 History Magnesium Oxide [Mag-Ox] 250 mg PO DAILY 01/19/21 01/19/21 History Pantoprazole [Protonix] 40 mg PO DAILY 01/19/21 01/19/21 History clonazePAM [KlonoPIN] 0.5 mg PO BID PRN 01/19/21 01/19/21 History metFORMIN HCL [Glucophage] 1,000 mg PO BID-W/MEALS 01/19/21 01/19/21 History Allergies Allergy/AdvReac Type Severity Reaction Status Date / Time cephalexin [From Keflex] AdvReac Abdominal Verified 01/19/21 17:41 Pain Physical Exam Vitals: Vital Signs Temp Pulse Pulse Resp BP BP Pulse Ox 01/20/21 11:02 97.8 F 57 L 18 137/62 96 01/20/21 10:50 97.8 F 57 L 18 137/62 96 01/20/21 10:06 168/78 01/20/21 09:58 98.8 F 56 L 18 92 L 01/20/21 06:00 60 18 116/63 93 L 01/20/21 00:52 87 17 136/76 92 L 01/19/21 23:20 59 L 18 146/91 92 L 01/19/21 19:22 98.1 F 65 18 131/67 95 01/19/21 18:23 98 F 74 18 150/66 98 01/19/21 16:10 82 L 01/19/21 15:25 101.4 F H 81 18 177/70 91 L Intake and Output 01/19/21 01/20/21 01/20/21 22:59 06:59 14:59 Other: Weight 99.79 kg 99.79 kg Results CBC & Chem 7: 01/19/21 16:01 01/19/21 16:01 Labs: Abnormal Lab Results - Last 24 Hours (Table) 01/19/21 01/19/21 01/19/21 Range/Units 16:01 16:01 16:01 Lymphocytes # 0.3 L (1.0-4.8) k/uL D-Dimer 0.72 H (<0.60) mg/L FEU Sodium 131 L (137-145) mmol/L Chloride 95 L (98-107) mmol/L BUN 23 H (7-17) mg/dL Glucose 328 H (74-99) mg/dL POC Glucose (mg/dL) (75-99) mg/dL Calcium 7.9 L (8.4-10.2) mg/dL Ferritin 1034.0 H (10.0-291.0) ng/mL AST 44 H (14-36) U/L Lactate Dehydrogenase 1331 H (313-618) U/L Troponin I (0.000-0.034) ng/mL C-Reactive Protein 16.3 H (<1.0) mg/dL Total Protein 6.2 L (6.3-8.2) g/dL Albumin 3.3 L (3.5-5.0) g/dL Procalcitonin (0.02-0.09) ng/mL 01/19/21 01/19/21 01/20/21 Range/Units 16:01 16:12 00:51 Lymphocytes # (1.0-4.8) k/uL D-Dimer (<0.60) mg/L FEU Sodium (137-145) mmol/L Chloride (98-107) mmol/L BUN (7-17) mg/dL Glucose (74-99) mg/dL POC Glucose (mg/dL) (75-99) mg/dL Calcium (8.4-10.2) mg/dL Ferritin (10.0-291.0) ng/mL AST (14-36) U/L Lactate Dehydrogenase (313-618) U/L Troponin I 0.082 H* 0.058 H* (0.000-0.034) ng/mL C-Reactive Protein (<1.0) mg/dL Total Protein (6.3-8.2) g/dL Albumin (3.5-5.0) g/dL Procalcitonin 0.30 H (0.02-0.09) ng/mL 01/20/21 Range/Units 11:37 Lymphocytes # (1.0-4.8) k/uL D-Dimer (<0.60) mg/L FEU Sodium (137-145) mmol/L Chloride (98-107) mmol/L BUN (7-17) mg/dL Glucose (74-99) mg/dL POC Glucose (mg/dL) 461 H (75-99) mg/dL Calcium (8.4-10.2) mg/dL Ferritin (10.0-291.0) ng/mL AST (14-36) U/L Lactate Dehydrogenase (313-618) U/L Troponin I (0.000-0.034) ng/mL C-Reactive Protein (<1.0) mg/dL Total Protein (6.3-8.2) g/dL Albumin (3.5-5.0) g/dL Procalcitonin (0.02-0.09) ng/mL
--- NOTE | 2021-01-21 10:10 | CT ---
EXAMINATION TYPE: CT brain wo con DATE OF EXAM: 01/21/2021 COMPARISON: None HISTORY: 60-year-old female acute Headache TECHNIQUE: Examination was done in axial plane without intravenous contrast. Coronal and sagittal r econstructions performed. CT DLP: 1046.4 mGycm Automated exposure control for dose reduction was used. FINDINGS: There is no evidence of acute intracranial hemorrhage, acute ischemic changes, mass, mass-effect, or extra-axial fluid collection. There is no effacement of cerebral sulci or basal subarachnoid cister ns. There is no hydrocephalus. There is no midline shift. Blakely-white matter distinction is preserv ed. Mild mucosal thickening ethmoid air cells. Mastoid air cells well pneumatized. Rightward nasal septal deviation. Orbits and globes are intact. IMPRESSION: No acute intracranial abnormality seen. Mild chronic ethmoid sinus disease.
[2021-01-21 10:11] LABS: Glucose,Whole Blood 121 mg/dL (75-99)
[2021-01-21 10:20] LABS: C Reactive Protein 5.7 mg/dL (<1.0)
[2021-01-21] MEDS: ENOXAPARIN 80 MG/0.8 ML SYRINGE SQ SCH ×2 (10:30→20:58)
[2021-01-21 10:37] LABS: Basophils % (A) 0 %; Eosinophils % (A) 0 %; HCT 38.5 % (34.0-46.0); HGB 12.9 gm/dL (11.4-16.0); Lymphocytes # (A) 0.4 k/uL (1.0-4.8); Lymphocytes % (A) 6 %; MCH 31.3 pg (25.0-35.0); MCHC 33.6 g/dL (31.0-37.0); Mean Platelet Volume 8.3; Monocytes # (A) 0.4 k/uL (0-1.0); Monocytes % (A) 5 %; Neutrophils # (A) 6.2 k/uL (1.3-7.7); Neutrophils % (A) 88 %; Platelet Count 276 k/uL (150-450); RBC 4.14 m/uL (3.80-5.40); RDW 12.3 % (11.5-15.5)
[2021-01-21 11:09] LABS: Albumin 3.1 g/dL (3.5-5.0); Calcium 8.7 mg/dL (8.4-10.2); Magnesium 2.4 mg/dL (1.6-2.3); Potassium 4.4 mmol/L (3.5-5.1); Total Bilirubin 0.7 mg/dL (0.2-1.3); Total Protein 6.4 g/dL (6.3-8.2)
[2021-01-21 11:27] LABS: Glucose,Whole Blood 114 mg/dL (75-99)
[2021-01-21 12:04] LABS: Glucose,Whole Blood 117 mg/dL (75-99)
[2021-01-21] MEDS: INSULIN ASPART (NovoLOG) 100 UNIT/ML VIAL SQ SCH ×2 (12:46→17:55)
[2021-01-21 13:08] LABS: Glucose,Whole Blood 137 mg/dL (75-99)
--- NOTE | 2021-01-21 15:39 | P.CNNES ---
History of Present Illness Consult date: 01/21/21 Requesting physician: Zeke Kwok Reason for Consult: rule out cva, headache History of Present Illness: This is a 60-year-old woman with medical history of diabetes mellitus, hypertension, hyperlipidemia who initially presented to [facility] for 9 day history of shortness of breath. Patient was transferred facility for escalation of care. Neurology team is consulted to rule out stroke. He is at the patient has acute hypoxic respiratory failure secondary due to acute COVID- 19 pneumonia upon further testing. Per the patient nurse that today the patient kept on saying that she a brain free but per the patient's nurse the patient is responding appropriately and had no focality on examination. The patient she stated that the just felt "pain freeze" over the bilateral frontal region that lasted a short duration but she feels like it's better now. She denies of any photophobia, phonophobia. Denies of any nausea or vomiting. Denies of any focal weakness or numbness or difficulty getting her words out or swallowing. She feels her whole body is weak and she is coughing and short of breath. Per the patient's nurse earlier today she had her oxygen on the floor. Some of her home medications consist of aspirin 81 mg daily, Zocor 21 g daily at bedtime, gabapentin 600 mg 1 tablet twice a day. Some other workup in the hospital consisted of: Most recent vital signs is blood pressure of 141/64, heart rate of 87, temperature of 97.6 axillary, respiratory rate of 16 and pulse ox of 80% on 6 L of nasal cannula. CT of the head on 01/21/2021 is reported as no acute intracranial abnormality seen. Mild chronic ethmoid sinus disease. I personally reviewed the CT of the head there is no acute or subacute ischemia and no recruitment advertising manager, hemorrhage. White blood cells 7.0 thousand. Sodium is 134, creatinine is 0.99, serum glucose 126, calcium is 8.7, magnesium 2.4, AST of 54 and ALT of 16. Loza virus PCR was not detected. Review of Systems Review of system: The 12 point system was reviewed and apparent positive and negative per HPI. 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 History of Any Multi-Drug Resistant Organisms: None Reported Past Surgical History: Section, Cholecystectomy, Heart Catheterization, Orthopedic Surgery Additional Past Surgical History / Comment(s): cervical neck fusion x 2 with plates Past Anesthesia/Blood Transfusion Reactions: Postoperative Nausea & Vomiting (PONV) Additional Past Anesthesia/Blood Transfusion Reaction / Comment(s): after last egd took longer to wake up Past Psychological History: Anxiety Smoking Status: Never smoker Past Alcohol Use History: Rare Additional Past Alcohol Use History / Comment(s): smoked for a few yrs as a teen Past Drug Use History: None Reported - Past Family History Mother Family Medical History: Cancer Additional Family Medical History / Comment(s): Lung/abd cancer. Medications and Allergies Home Medications Medication Instructions Recorded Confirmed Type Metoprolol Tartrate 25 mg PO BID 02/06/19 01/19/21 History Oxybutynin Chloride 7.5 mg PO BID 02/06/19 01/19/21 History Omeprazole [PriLOSEC] 40 mg PO DAILY #30 capsule. 08/27/19 01/19/21 Rx Simvastatin [Zocor] 20 mg PO HS 04/16/20 01/19/21 History Aspirin EC [Ecotrin Low Dose] 81 mg PO DAILY 09/26/20 01/19/21 History lisinopriL [Zestril] 20 mg PO DAILY 09/26/20 01/19/21 History Albuterol Sulfate [Proair Hfa] 2 puff INHALATION RT-Q6H PRN 01/19/21 01/19/21 History Biotin 1,000 Mcg 5,000 mcg PO DAILY 01/19/21 01/19/21 History Dexamethasone 6 mg PO BID 01/19/21 01/19/21 History Gabapentin [Neurontin] 600 mg PO BID 01/19/21 01/19/21 History Magnesium Oxide [Mag-Ox] 250 mg PO DAILY 01/19/21 01/19/21 History Pantoprazole [Protonix] 40 mg PO DAILY 01/19/21 01/19/21 History clonazePAM [KlonoPIN] 0.5 mg PO BID PRN 01/19/21 01/19/21 History metFORMIN HCL [Glucophage] 1,000 mg PO BID-W/MEALS 01/19/21 01/19/21 History Allergies Allergy/AdvReac Type Severity Reaction Status Date / Time cephalexin [From Keflex] AdvReac Abdominal Verified 01/19/21 17:41 Pain Physical Examination - Vital Signs Vital Signs: Vital Signs Temp Pulse Resp BP Pulse Ox 01/21/21 09:00 95 01/21/21 08:30 16 95 01/21/21 08:10 16 87 L 01/21/21 08:00 97.6 F 87 16 141/64 80 L 01/21/21 04:00 97.9 F 70 18 119/58 94 L 01/21/21 02:00 16 01/21/21 00:00 98.1 F 53 L 16 109/57 94 L 01/20/21 20:30 90 L 01/20/21 20:00 98.0 F 18 126/58 86 L 01/20/21 16:00 97.8 F 65 18 145/77 93 L 01/20/21 14:00 58 L 18 Intake and Output 01/20/21 01/21/21 01/21/21 22:59 06:59 14:59 Intake Total 95.6 0 280.167 Balance 95.6 0 280.167 Intake: IV 10 Invasive Line 1 10 Intake, IV Titration 95.6 0 10.167 Amount Insulin Regular 100 unit 95.6 0 10.167 In Sodium Chloride 0.9% 100 ml @ Titrate IV .Q0M [facility] Rx#:[id number] Oral 260 Other: Voiding Method Bedpan # Voids 1 1 Weight 98.5 kg GENERAL: The patient is lying in bed and is not in acute distress. CHEST: The heart rate is regular rate rhythm. No murmurs to auscultation. LUNG: Clear to auscultation bilaterally no wheezing noted throughout. Not labored breathing. She had repetitive cough during examination. ABDOMEN/GI: Bowel sounds present in all 4 quadrants. No tenderness to palpation throughout. NEUROLOGICAL: Higher mental function: The patient is awake, alert, oriented to self, place and time. Patient is following commands. No aphasia and no neglect. Cranial nerves: The pupils are round, equal and reactive to light and accommodation. Visual patel are full to confrontation throughout. Extraocular movement is intact no nystagmus is noted. Facial sensation is normal to touch throughout. The facial strength is normal throughout. Hearing is normal bilaterally to hand rub. Tongue is midline and moved [id number] without any difficulty. No dysarthria is noted. Shoulder shrug is normal bilaterally. Motor: The strength is 5 over 5 throughout. Normal tone and bulk. Cerebellum: Normal finger to nose bilaterally. Sensation: Sensation is normal to touch throughout. Plantars are downgoing bilaterally. Results - Laboratory Findings CBC and BMP: 01/21/21 09:18 01/21/21 09:18 Abnormal Lab Findings: Abnormal Labs 01/19/21 01/19/21 01/19/21 16:01 16:01 16:01 Lymphocytes # 0.3 L D-Dimer 0.72 H Sodium 131 L Chloride 95 L Carbon Dioxide BUN 23 H Glucose 328 H POC Glucose (mg/dL) Calcium 7.9 L Magnesium Ferritin 1034.0 H AST 44 H Lactate Dehydrogenase 1331 H Troponin I C-Reactive Protein 16.3 H Total Protein 6.2 L Albumin 3.3 L Procalcitonin Coronavirus (PCR) 01/19/21 01/19/21 01/20/21 16:01 16:12 00:51 Lymphocytes # D-Dimer Sodium Chloride Carbon Dioxide BUN Glucose POC Glucose (mg/dL) Calcium Magnesium Ferritin AST Lactate Dehydrogenase Troponin I 0.082 H* 0.058 H* C-Reactive Protein Total Protein Albumin Procalcitonin 0.30 H Coronavirus (PCR) 01/20/21 01/20/21 01/20/21 11:37 16:25 19:17 Lymphocytes # D-Dimer Sodium Chloride Carbon Dioxide BUN Glucose POC Glucose (mg/dL) 461 H 541 H 364 H Calcium Magnesium Ferritin AST Lactate Dehydrogenase Troponin I C-Reactive Protein Total Protein Albumin Procalcitonin Coronavirus (PCR) 01/20/21 01/20/21 01/20/21 20:02 20:38 22:52 Lymphocytes # D-Dimer Sodium Chloride Carbon Dioxide BUN Glucose POC Glucose (mg/dL) 317 H 246 H 125 H Calcium Magnesium Ferritin AST Lactate Dehydrogenase Troponin I C-Reactive Protein Total Protein Albumin Procalcitonin Coronavirus (PCR) 01/21/21 01/21/21 01/21/21 00:04 02:01 04:07 Lymphocytes # D-Dimer Sodium Chloride Carbon Dioxide BUN Glucose POC Glucose (mg/dL) 110 H 109 H 128 H Calcium Magnesium Ferritin AST Lactate Dehydrogenase Troponin I C-Reactive Protein Total Protein Albumin Procalcitonin Coronavirus (PCR) 01/21/21 01/21/21 01/21/21 06:01 08:04 09:18 Lymphocytes # D-Dimer 0.80 H Sodium Chloride Carbon Dioxide BUN Glucose POC Glucose (mg/dL) 158 H 141 H Calcium Magnesium Ferritin AST Lactate Dehydrogenase Troponin I C-Reactive Protein Total Protein Albumin Procalcitonin Coronavirus (PCR) 01/21/21 01/21/21 01/21/21 09:18 09:18 09:18 Lymphocytes # 0.4 L D-Dimer Sodium 134 L Chloride 96 L Carbon Dioxide 32 H BUN 33 H Glucose 126 H POC Glucose (mg/dL) Calcium Magnesium 2.4 H Ferritin AST 54 H Lactate Dehydrogenase 1706 H Troponin I C-Reactive Protein 5.7 H Total Protein Albumin 3.1 L Procalcitonin Coronavirus (PCR) 01/21/21 01/21/21 01/21/21 09:18 10:08 11:07 Lymphocytes # D-Dimer Sodium Chloride Carbon Dioxide BUN Glucose POC Glucose (mg/dL) 121 H 114 H Calcium Magnesium Ferritin AST Lactate Dehydrogenase Troponin I C-Reactive Protein 6.2 H Total Protein Albumin Procalcitonin Coronavirus (PCR) 01/21/21 01/21/21 01/21/21 11:25 12:03 13:06 Lymphocytes # D-Dimer Sodium Chloride Carbon Dioxide BUN Glucose POC Glucose (mg/dL) 117 H 137 H Calcium Magnesium Ferritin AST Lactate Dehydrogenase Troponin I C-Reactive Protein Total Protein Albumin Procalcitonin Coronavirus (PCR) Detected A Assessment and Plan Assessment: Acute hypoxemic respiratory failure secondary due to COVID-19 pneumonia Diabetes mellitus Hypertension Hyperlipidemia Plan: I personally do not feel the patient symptoms were suggestive of stroke or TIA. Patient has hypoxemia and not complying using her oxygen per the patient's nurse. Her symptom of brain freezes resolved. Patient was given aspirin 325 one side today by the primary team. Patient is continued on his home dose of aspirin 81 mg daily. Is on Lipitor 10 mg daily at bedtime. I will hold off any further imaging or work-up and will re-evaluate patient tomorrow. Ordered every 4 hours neuro checks Pulmonary team is on board Infection disease is on board We'll defer the rest of the medical management to primary team. The plan is discussed with the patient's nurse. Thank you for the consultation. Yann Handley M.D. Neuro-hospitalist Time with Patient: Greater than 30
--- NOTE | 2021-01-21 16:00 | P.PN ---
Progress Note - Text Progress Note Date: 01/21/21 Presenting complaint: Short of breath Interval history: Admitted with COVID 19 pneumonitis, acute hypoxic respiratory failure, the low- sodium. Went into atrial fibrillation. January 20: Sitting up in bed. Tired. Some shortness of breath. 6 L nasal cannula. Decrease appetite. January 21: More tired. Short of breath. Requiring 15 L of oxygen. Ventimask. Decreased oral intake. Atrial fibrillation rate around 120s. Started on Lovenox by cardiology. Patient has chronic lower extremity swelling. Nurse earlier called me today that patient's feeling like her brain freeze. Stat computed tomography scan of the brain was done. Unremarkable. Neuro checks as ordered. There are no focal symptoms. Neurology was consulted. Review of systems: Was done for constitutional, cardiovascular, GI, pulmonary. relevant finding as above Active Medications Acetaminophen (Acetaminophen Tab 325 Mg Tab) 650 mg PO Q4HR PRN PRN Reason: Fever>101 Last Admin: 01/20/21 20:29 Dose: 650 mg Documented by: Albuterol Sulfate (Albuterol Hfa Inhaler) 2 puff INHALATION RT-Q6H PRN PRN Reason: Shortness Of Breath Or Wheezing Last Admin: 01/21/21 11:42 Dose: 1 puff Documented by: Ascorbic Acid (Ascorbic Acid 500 Mg Tab) 1,000 mg PO DAILY [facility] Last Admin: 01/21/21 08:53 Dose: 1,000 mg Documented by: Aspirin (Aspirin 81 Mg) 81 mg PO DAILY [facility] Last Admin: 01/21/21 08:53 Dose: Not Given Documented by: Atorvastatin Calcium (Atorvastatin 10 Mg Tab) 10 mg PO HS [facility] Last Admin: 01/20/21 20:30 Dose: 10 mg Documented by: Cholecalciferol (Cholecalciferol 25 Mcg (1000 Iu) Tablet) 25 mcg PO DAILY [facility] Last Admin: 01/21/21 08:52 Dose: 25 mcg Documented by: Dexamethasone (Dexamethasone 2 Mg Tab) 6 mg PO DAILY [facility] Last Admin: 01/21/21 08:53 Dose: 6 mg Documented by: Enoxaparin Sodium (Enoxaparin 80 Mg/0.8 Ml Syringe) 80 mg SQ Q12HR [facility] Last Admin: 01/21/21 10:30 Dose: 80 mg Documented by: Gabapentin (Gabapentin 300 Mg Cap) 600 mg PO BID [facility] Last Admin: 01/21/21 08:52 Dose: 600 mg Documented by: Sodium Chloride (Saline 0.45%) 1,000 mls @ 75 mls/hr IV .[id number] [facility] Last Admin: 01/21/21 09:03 Dose: 75 mls/hr Documented by: Insulin Aspart (Insulin Aspart (Novolog) 100 Unit/Ml Vial) 5 unit SQ AC-TID [facility] Insulin Detemir (Insulin Detemir (Levemir) 100 Unit/Ml Syr) 20 unit SQ HS [facility] Lisinopril (Lisinopril 20 Mg Tab) 20 mg PO DAILY [facility] Last Admin: 01/21/21 08:53 Dose: 20 mg Documented by: Metformin HCl (Metformin 500 Mg Tab) 1,000 mg PO BID-W/MEALS [facility] Last Admin: 01/21/21 13:30 Dose: Not Given Documented by: Metoprolol Tartrate (Metoprolol Tartrate 25 Mg Tab) 25 mg PO BID [facility] Last Admin: 01/21/21 08:52 Dose: 25 mg Documented by: Naloxone HCl (Naloxone 0.4 Mg/Ml 1 Ml Vial) 0.2 mg IV Q2M PRN PRN Reason: Opioid Reversal Oxybutynin Chloride (Oxybutynin Chloride 5 Mg Tab) 7.5 mg PO BID [facility] Last Admin: 01/21/21 08:52 Dose: 7.5 mg Documented by: Pantoprazole Sodium (Pantoprazole 40 Mg Tablet) 40 mg PO DAILY@0730 [facility] Last Admin: 01/21/21 06:25 Dose: 40 mg Documented by: Zinc Sulfate (Zinc Sulfate 220 Mg Cap) 220 mg PO DAILY [facility] Last Admin: 01/21/21 08:52 Dose: 220 mg Documented by: On examination: VITAL SIGNS: 97.6, 68, 26, 116/56, 92% on 15 L GENERAL APPEARANCE: Reclining in bed awake, short of breath, Ventimask Nonpitting edema RESPIRATORY: Respiratory effort increased. PSYCHIATRY: Alert and oriented x3. Mood and affect tired. Rest of exam per pulmonary and nursing INVESTIGATIONS, reviewed in the clinical context: January 21: White count 17 hemoglobin 12.9 platelets 276 d-dimer 0.8 potassium 4.4 creatinine 0.99 CRP 6.2 White count 4.3 hemoglobin 12.2 platelets 200 sodium 131 potassium 4.7 BUN 23 creatinine 0.86 Accu-Cheks 461 Troponin I 0.082, 0.058 procalcitonin 0.30 d-dimer 0.[address] chest angiogram: Active for PE. Patchy bilateral infiltrates EKG tracing: Sinus rhythm. Assessment plan: -Acute bilateral COVID 19 pneumonitis: Worsening Dexamethasone 6 mg, vitamin C, zinc -Acute hypoxic respiratory failure secondary to COVID 19 pneumonitis. Worsening On 15 L of nasal cannula -Possible myocarditis secondary to COVID 19 pneumonitis. No chest pain. Has asthenia. Telemetry. . Follow with cardiology -New onset atrial fibrillation, rate uncontrolled Lovenox 80 mg subcu every 12. Lopressor 25 mg twice a day -Diabetes mellitus type 2, uncontrolled with hyperglycemia. Secondary to steroids Stopped IV insulin drip. Start Levemir 20 units starting at night and NovoLog 5 units with meals -Hyperlipidemia Lipitor 10 mg daily at bedtime -Essential hypertension Metoprolol 25 mg twice a day Zestril 20 mg daily -GERD Prilosec 40 mg daily -Chronic urinary stress incontinence Oxybutynin 7.5 by mouth twice a day -Primary osteoarthritis -Diabetic peripheral neuropathy Neurontin 600 mg twice a day -Anxiety disorder not otherwise specified Klonopin 15 mg twice a day when necessary DC IV insulin. Start Levemir 20 units at night. Lovenox 80 mg subcu twice a day started. Telemetry. We'll have the patient sit up on a chair. Follow with cardiology pulmonary.
--- NOTE | 2021-01-21 17:19 | PN ---
PROGRESS NOTE DATE OF SERVICE: 01/21/2021 REASON FOR FOLLOWUP: Covid 19 infection. INTERVAL HISTORY: Patient did have worsening respiratory status requiring high-flow oxygen. The patient denies having any chest pain. No worsening cough or sputum production. No abdominal pain. No diarrhea. PHYSICAL EXAMINATION: Blood pressure 141/63 with a pulse of 95, temperature 97.2. She is 94% on high- flow oxygen. General description is a middle-aged female lying in bed in no distress. Respiratory system: Unlabored breathing, decreased intensity of breath sounds, no wheeze. Heart S1, S2. Regular rate and rhythm. Abdomen soft, no tenderness. LABS: was positive. Did have a normal white count. Lymphopenia, Procalcitonin 0.39. DIAGNOSTIC IMPRESSION/PLAN: Patient with acute Covid 19 pneumonia in this patient who did have worsening of her respiratory status on high-flow oxygen, may be benefit from Baricitinib, will discuss with pulmonary. Patient to continue with dexamethasone, Lovenox, zinc and ascorbic acid. Continue supportive care. MMODL / IJN: [id number] /
[2021-01-21 17:45] LABS: Glucose,Whole Blood 215 mg/dL (75-99)
--- NOTE | 2021-01-21 18:29 | P.PN ---
Subjective Progress Note Date: 01/21/21 Principal diagnosis: Shortness of breath. This is a 60-year-old female patient who follows with Dr. Amaro is her primary care provider. She has a history of diabetes mellitus, hyperlipidemia, hypertension, gastroesophageal reflux disease. She had presented to [facility] initially with a nine-day history of shortness of breath, cough and congestion. She was transferred here to our emergency room yesterday. X-ray reveals bilateral patchy pneumonia. CT angiogram was negative for pulmonary emboli. There is moderate patchy bilateral pneumonia consistent with COVID-19. She did test positive. She is not vaccinated. She is currently seen in consultation in the ER. She is on 5 L high flow nasal cannula to maintain O2 saturation in low 90s. No IV fluids. She is awake and alert in no acute distress. White count 4.3. Hemoglobin 12.2. Lymphocytes 0.3. D-dimer 0.72. Troponin 0.082. 0.058. LDH 1331. C-reactive protein 16.3. Pro-calcitonin 0.30. She's been initiated on Decadron, Lovenox, vitamin supplements. Outside the window for Remdesivir. Progress note dated 01/21/2021. This is a 60-year-old female seen in room 365. Currently, she is on a high flow nasal O2, and also a nonrebreather mass. His saturations are 98%. She's getting saline at 75 mL an hour. He was seen yesterday in consultation, down in the emergency department. She is not a very good historian. The patient was initiated on Decadron, Lovenox, and vitamin supplementation. She was outside the window for REM. Labs today included only blood sugars. A brain CT was ne gative for any acute abnormality. Chest x-ray showed bilateral infiltrates, more so at the bases, consistent with coronavirus pneumonia. Objective - Vital Signs Vital signs: Vital Signs Temp 97.2 F L 01/21/21 15:51 Pulse 95 01/21/21 15:51 Resp 16 01/21/21 15:51 BP 141/63 01/21/21 15:51 Pulse Ox 94 L 01/21/21 15:51 Intake & Output 01/20/21 01/21/21 01/21/21 18:59 06:59 18:59 Intake Total 95.6 790.167 Output Total 300 Balance 95.6 490.167 Weight 99.79 kg 98.5 kg Intake: IV 20 Invasive Line 1 20 Intake, IV Titration 95.6 10.167 Amount Insulin Regular 100 unit 95.6 10.167 In Sodium Chloride 0.9% 100 ml @ Titrate IV .Q0M [facility] Rx#:[id number] Oral 760 Output: Urine 300 Other: Voiding Method Bedside Commode # Voids 1 1 - Exam No acute distress, oriented 3. A bit lethargic, but arouses. Currently on 8 L high flow nasal cannula, and a nonrebreather mask. HEENT examination is grossly unremarkable. Neck supple. Full range of motion. No adenopathy thyromegaly or neck vein distention. Cardiovascular examination reveals regular rhythm rate. S1-S2 normal. No S3 or S4. No discernible murmur noted. Heart sounds are distant. Heart rate 95 bpm. Lungs reveal coarse bilateral inspiratory and expiratory rhonchi. Breath sounds are equal bilaterally. No wheezes. No crackles. Abdomen soft bowel sounds are heard. No masses or tenderness. Extremities are intact. No cyanosis clubbing or edema. Skin is without rash or lesion. Neurologic examination is brief but nonfocal. - Labs CBC & Chem 7: 01/21/21 09:18 01/21/21 09:18 Labs: Abnormal Lab Results - Last 24 Hours (Table) 01/20/21 01/20/21 01/20/21 Range/Units 19:17 20:02 20:38 Lymphocytes # (1.0-4.8) k/uL D-Dimer (<0.60) mg/L FEU Sodium (137-145) mmol/L Chloride (98-107) mmol/L Carbon Dioxide (22-30) mmol/L BUN (7-17) mg/dL Glucose (74-99) mg/dL POC Glucose (mg/dL) 364 H 317 H 246 H (75-99) mg/dL Hemoglobin A1c (4.0-6.0) % Magnesium (1.6-2.3) mg/dL AST (14-36) U/L Lactate Dehydrogenase (313-618) U/L C-Reactive Protein (<1.0) mg/dL Albumin (3.5-5.0) g/dL Coronavirus (PCR) (Not Detectd) 01/20/21 01/21/21 01/21/21 Range/Units 22:52 00:04 02:01 Lymphocytes # (1.0-4.8) k/uL D-Dimer (<0.60) mg/L FEU Sodium (137-145) mmol/L Chloride (98-107) mmol/L Carbon Dioxide (22-30) mmol/L BUN (7-17) mg/dL Glucose (74-99) mg/dL POC Glucose (mg/dL) 125 H 110 H 109 H (75-99) mg/dL Hemoglobin A1c (4.0-6.0) % Magnesium (1.6-2.3) mg/dL AST (14-36) U/L Lactate Dehydrogenase (313-618) U/L C-Reactive Protein (<1.0) mg/dL Albumin (3.5-5.0) g/dL Coronavirus (PCR) (Not Detectd) 01/21/21 01/21/21 01/21/21 Range/Units 04:07 06:01 08:04 Lymphocytes # (1.0-4.8) k/uL D-Dimer (<0.60) mg/L FEU Sodium (137-145) mmol/L Chloride (98-107) mmol/L Carbon Dioxide (22-30) mmol/L BUN (7-17) mg/dL Glucose (74-99) mg/dL POC Glucose (mg/dL) 128 H 158 H 141 H (75-99) mg/dL Hemoglobin A1c (4.0-6.0) % Magnesium (1.6-2.3) mg/dL AST (14-36) U/L Lactate Dehydrogenase (313-618) U/L C-Reactive Protein (<1.0) mg/dL Albumin (3.5-5.0) g/dL Coronavirus (PCR) (Not Detectd) 01/21/21 01/21/21 01/21/21 Range/Units 09:18 09:18 09:18 Lymphocytes # (1.0-4.8) k/uL D-Dimer 0.80 H (<0.60) mg/L FEU Sodium (137-145) mmol/L Chloride (98-107) mmol/L Carbon Dioxide (22-30) mmol/L BUN (7-17) mg/dL Glucose (74-99) mg/dL POC Glucose (mg/dL) (75-99) mg/dL Hemoglobin A1c 9.0 H (4.0-6.0) % Magnesium (1.6-2.3) mg/dL AST (14-36) U/L Lactate Dehydrogenase 1706 H (313-618) U/L C-Reactive Protein 5.7 H (<1.0) mg/dL Albumin (3.5-5.0) g/dL Coronavirus (PCR) (Not Detectd) 01/21/21 01/21/21 01/21/21 Range/Units 09:18 09:18 09:18 Lymphocytes # 0.4 L (1.0-4.8) k/uL D-Dimer (<0.60) mg/L FEU Sodium 134 L (137-145) mmol/L Chloride 96 L (98-107) mmol/L Carbon Dioxide 32 H (22-30) mmol/L BUN 33 H (7-17) mg/dL Glucose 126 H (74-99) mg/dL POC Glucose (mg/dL) (75-99) mg/dL Hemoglobin A1c (4.0-6.0) % Magnesium 2.4 H (1.6-2.3) mg/dL AST 54 H (14-36) U/L Lactate Dehydrogenase (313-618) U/L C-Reactive Protein 6.2 H (<1.0) mg/dL Albumin 3.1 L (3.5-5.0) g/dL Coronavirus (PCR) (Not Detectd) 01/21/21 01/21/21 01/21/21 Range/Units 10:08 11:07 11:25 Lymphocytes # (1.0-4.8) k/uL D-Dimer (<0.60) mg/L FEU Sodium (137-145) mmol/L Chloride (98-107) mmol/L Carbon Dioxide (22-30) mmol/L BUN (7-17) mg/dL Glucose (74-99) mg/dL POC Glucose (mg/dL) 121 H 114 H (75-99) mg/dL Hemoglobin A1c (4.0-6.0) % Magnesium (1.6-2.3) mg/dL AST (14-36) U/L Lactate Dehydrogenase (313-618) U/L C-Reactive Protein (<1.0) mg/dL Albumin (3.5-5.0) g/dL Coronavirus (PCR) Detected A (Not Detectd) 01/21/21 01/21/21 01/21/21 Range/Units 12:03 13:06 17:09 Lymphocytes # (1.0-4.8) k/uL D-Dimer (<0.60) mg/L FEU Sodium (137-145) mmol/L Chloride (98-107) mmol/L Carbon Dioxide (22-30) mmol/L BUN (7-17) mg/dL Glucose (74-99) mg/dL POC Glucose (mg/dL) 117 H 137 H 215 H (75-99) mg/dL Hemoglobin A1c (4.0-6.0) % Magnesium (1.6-2.3) mg/dL AST (14-36) U/L Lactate Dehydrogenase (313-618) U/L C-Reactive Protein (<1.0) mg/dL Albumin (3.5-5.0) g/dL Coronavirus (PCR) (Not Detectd) Microbiology - Last 24 Hours (Table) 01/19/21 17:45 Blood Culture - Preliminary Blood No Growth after 24 hours 01/19/21 17:30 Blood Culture - Preliminary Blood No Growth after 24 hours Assessment and Plan Assessment: 1 Acute hypoxemic respiratory failure secondary to acute COVID-19 pneumonia. Not vaccinated. Outside the window for Remdesivir. 2 Elevated inflammatory markers secondary to above. 3 Troponin leak. 4 Obesity. 5 Hyperlipidemia. 6 Hypertension. 7 Diabetes mellitus. 8 Anxiety. Plan: Plan dated 01/21/2021. The patient will continue on her current regimen. This includes Lovenox, Decadron, vitamin C, and the D3, and zinc. She was not a candidate for REM. She's currently on 8 L high flow nasal cannula, and a nonrebreather mask. She's getting saline at 75 mL an hour. She might be able to come off the nonrebreather mass. Respiratory we'll give it a try. Time with Patient: Less than 30
[2021-01-21 20:41] LABS: Glucose,Whole Blood 247 mg/dL (75-99)
[2021-01-21] MEDS: ATORVASTATIN 10 MG TAB PO SCH (20:59)
[2021-01-21] MEDS: INSULIN DETEMIR (LEVEMIR) 100 UNIT/ML SYR SQ SCH (21:00)
[2021-01-22 06:14] LABS: Glucose,Whole Blood 177 mg/dL (75-99)
[2021-01-22] MEDS: INSULIN ASPART (NovoLOG) 100 UNIT/ML VIAL SQ SCH ×2 (06:40→14:30)
[2021-01-22] MEDS: PANTOPRAZOLE 40 MG TABLET PO SCH (06:41)
[2021-01-22] MEDS: ALBUTEROL HFA INHALER INHALATION PRN ×2 (07:45→11:27)
[2021-01-22 09:53] LABS: Basophils % (A) 0 %; Eosinophils % (A) 0 %; HGB 12.8 gm/dL (11.4-16.0); Lymphocytes # (A) 0.5 k/uL (1.0-4.8); Lymphocytes % (A) 7 %; MCH 31.1 pg (25.0-35.0); MCHC 35.5 g/dL (31.0-37.0); Mean Platelet Volume 8.6; Monocytes # (A) 0.3 k/uL (0-1.0); Monocytes % (A) 5 %; Neutrophils # (A) 5.5 k/uL (1.3-7.7); Neutrophils % (A) 85 %; Platelet Count 260 k/uL (150-450); RDW 12.1 % (11.5-15.5); WBC 6.5 k/uL (3.8-10.6)
[2021-01-22 09:59] LABS: MCV 87.7 fL (80.0-100.0)
[2021-01-22] MEDS: lisinopriL 20 MG TAB PO SCH (10:02)
[2021-01-22] MEDS: dexAMETHasone 2 MG TAB PO SCH (10:02)
[2021-01-22] MEDS: ASPIRIN 81 MG PO SCH (10:02)
[2021-01-22] MEDS: ENOXAPARIN 80 MG/0.8 ML SYRINGE SQ SCH ×2 (10:02→20:53)
[2021-01-22] MEDS: CHOLECALCIFEROL 25 MCG (1000 IU) TABLET PO SCH (10:03)
[2021-01-22] MEDS: METOPROLOL TARTRATE 25 MG TAB PO SCH ×2 (10:03→20:52)
[2021-01-22] MEDS: GABAPENTIN 300 MG CAP PO SCH ×2 (10:03→20:52)
[2021-01-22] MEDS: ASCORBIC ACID 500 MG TAB PO SCH (10:03)
[2021-01-22] MEDS: SODIUM CHLORIDE 0.45% 1,000 ML IV SCH (10:03)
[2021-01-22] MEDS: OXYBUTYNIN CHLORIDE 5 MG TAB PO SCH ×2 (10:03→20:52)
[2021-01-22] MEDS: ZINC SULFATE 220 MG CAP PO SCH (10:03)
[2021-01-22] MEDS: metFORMIN 500 MG TAB PO SCH ×2 (10:04→17:04)
[2021-01-22 10:24] VITALS: BMI 41.2
[2021-01-22 11:46] LABS: Glucose,Whole Blood 90 mg/dL (75-99)
[2021-01-22 11:57] LABS: Glucose,Whole Blood 85 mg/dL (75-99)
[2021-01-22] MEDS ORDERED: LORazepam 2 MG/ML INJ IV STA (12:16)
--- NOTE | 2021-01-22 12:16 | P.PN ---
Subjective Progress Note Date: 01/22/21 Principal diagnosis: Hypoxic respiratory failure secondary to COVID-19 pneumonia This is Dung aleman NP, dictating a progress note on behalf of Dr. Uriostegui. Patient was interviewed and examined. Patient's a pleasant 60-year-old female who initially presented to the hospital hypoxic respiratory failure secondary to COVID-19 pneumonia. Patient continues to deny chest pain, but today states she is very tired. Patient was somewhat lethargic and unable to answer all questions. She is currently on high flow nasal cannula with a nonrebreather. Patient continues on Lovenox 80 mg twice a day. GENERAL: Well-appearing, well-nourished and in no acute distress. NECK: Supple without JVD or thyromegaly. HEART: Regular rate and rhythm without murmurs, rubs or gallops. S1 and S2 heard. EXTREMITIES: Normal range of motion, no edema. No clubbing or cyanosis. Peripheral pulses intact and strong. VITALS: [Vital signs 7.9, pulse rate 81, respirations 20, blood pressure 134/60, O2 saturation 90% on 30 L of high flow nasal cannula.] TELEMETRY: [Atrial fibrillation rate controlled] LABS: [White count 6.5, HEENT: 12.8, platelets 260, d-dimer 1.83, CRP 8.5] IMPRESSION/PLAN: 1. Chest pain-patient is not complaining of any chest discomfort today. D- dimer continues to elevate, however patient is already on 80 mg of Lovenox twice a day. Further recommendations based on the patient's clinical course The patient has been seen and evaluated. Plan of care has been reviewed and agreed upon by Dr. Uriostegui. Objective - Vital Signs Vital signs: Vital Signs Temp 97.9 F 01/22/21 04:00 Pulse 81 01/22/21 04:00 Resp 20 01/22/21 04:00 BP 134/60 01/22/21 04:00 Pulse Ox 84 L 01/22/21 10:30 Intake & Output 01/21/21 01/22/21 01/22/21 18:59 06:59 18:59 Intake Total 790.167 Output Total 300 700 Balance 490.167 -700 Weight 89.5 kg 89.5 kg Intake: IV 20 Invasive Line 1 20 Intake, IV Titration 10.167 Amount Insulin Regular 100 unit 10.167 In Sodium Chloride 0.9% 100 ml @ Titrate IV .Q0M [facility] Rx#:[id number] Oral 760 Output: Urine 300 700 Other: Voiding Method Bedside Commode Bedside Commode # Voids 1 - Labs CBC & Chem 7: 01/22/21 09:09 01/21/21 09:18 Labs: Abnormal Lab Results - Last 24 Hours (Table) 01/21/21 01/21/21 01/21/21 Range/Units 09:18 09:18 13:06 Lymphocytes # (1.0-4.8) k/uL POC Glucose (mg/dL) 137 H (75-99) mg/dL Hemoglobin A1c 9.0 H (4.0-6.0) % C-Reactive Protein 6.2 H (<1.0) mg/dL 01/21/21 01/21/21 01/22/21 Range/Units 17:09 20:32 06:12 Lymphocytes # (1.0-4.8) k/uL POC Glucose (mg/dL) 215 H 247 H 177 H (75-99) mg/dL Hemoglobin A1c (4.0-6.0) % C-Reactive Protein (<1.0) mg/dL 01/22/21 01/22/21 Range/Units 09:09 09:09 Lymphocytes # 0.5 L (1.0-4.8) k/uL POC Glucose (mg/dL) (75-99) mg/dL Hemoglobin A1c (4.0-6.0) % C-Reactive Protein 8.5 H (<1.0) mg/dL Microbiology - Last 24 Hours (Table) 01/19/21 17:45 Blood Culture - Preliminary Blood No Growth after 48 hours 01/19/21 17:30 Blood Culture - Preliminary Blood No Growth after 48 hours
--- NOTE | 2021-01-22 13:21 | P.PN ---
Subjective Progress Note Date: 01/22/21 Patient seen at bedside and she denies any episodes of brain freeze. She feels her whole body generalized weakness but denies any focality, any headaches,. Objective - Vital Signs Vital signs: Vital Signs Temp 97.9 F 01/22/21 04:00 Pulse 81 01/22/21 04:00 Resp 20 01/22/21 04:00 BP 134/60 01/22/21 04:00 Pulse Ox 84 L 01/22/21 10:30 Intake & Output 01/21/21 01/22/21 01/22/21 18:59 06:59 18:59 Intake Total 790.167 Output Total 300 700 Balance 490.167 -700 Weight 89.5 kg 89.5 kg Intake: IV 20 Invasive Line 1 20 Intake, IV Titration 10.167 Amount Insulin Regular 100 unit 10.167 In Sodium Chloride 0.9% 100 ml @ Titrate IV .Q0M [facility] Rx#:[id number] Oral 760 Output: Urine 300 700 Other: Voiding Method Bedside Commode Bedside Commode # Voids 1 - Exam GENERAL: The patient is lying in bed and is not in acute distress. NEUROLOGICAL: Higher mental function: The patient is awake, alert, oriented to self, place and time. Patient is following commands. No aphasia and no neglect. Cranial nerves: The pupils are round, equal and reactive to light. Visual patel are full to confrontation throughout. Extraocular movement is intact no nystagmus is noted. The facial strength is normal throughout. No dysarthria is noted. Motor: The strength is moving all extremities above gravity and no focality noted.. Normal tone and bulk. Sensation: Sensation is normal to touch throughout. Plantars are downgoing bilaterally. WORK-UP: CT of the head on 01/21/2021 is reported as no acute intracranial abnormality seen. Mild chronic ethmoid sinus disease. I personally reviewed the CT of the head there is no acute or subacute ischemia and no ward clerk, hemorrhage. White blood cells 7.0 thousand. Sodium is 134, creatinine is 0.99, serum glucose 126, calcium is 8.7, magnesium 2.4, AST of 54 and ALT of 16. Loza virus PCR was not detected. - Labs CBC & Chem 7: 01/22/21 09:09 01/21/21 09:18 Labs: Abnormal Lab Results - Last 24 Hours (Table) 01/21/21 01/21/21 01/21/21 Range/Units 09:18 09:18 17:09 Lymphocytes # (1.0-4.8) k/uL D-Dimer (<0.60) mg/L FEU POC Glucose (mg/dL) 215 H (75-99) mg/dL Hemoglobin A1c 9.0 H (4.0-6.0) % C-Reactive Protein 6.2 H (<1.0) mg/dL 01/21/21 01/22/21 01/22/21 Range/Units 20:32 06:12 09:09 Lymphocytes # 0.5 L (1.0-4.8) k/uL D-Dimer (<0.60) mg/L FEU POC Glucose (mg/dL) 247 H 177 H (75-99) mg/dL Hemoglobin A1c (4.0-6.0) % C-Reactive Protein (<1.0) mg/dL 01/22/21 01/22/21 Range/Units 09:09 11:25 Lymphocytes # (1.0-4.8) k/uL D-Dimer 1.83 H (<0.60) mg/L FEU POC Glucose (mg/dL) (75-99) mg/dL Hemoglobin A1c (4.0-6.0) % C-Reactive Protein 8.5 H (<1.0) mg/dL Microbiology - Last 24 Hours (Table) 01/19/21 17:45 Blood Culture - Preliminary Blood No Growth after 48 hours 01/19/21 17:30 Blood Culture - Preliminary Blood No Growth after 48 hours Assessment and Plan Assessment: Acute hypoxemic respiratory failure secondary due to COVID-19 pneumonia Diabetes mellitus Hypertension Hyperlipidemia Plan: I personally do not feel the patient symptoms were suggestive of stroke or TIA. Patient has hypoxemia and initially not complying using her oxygen per the patient's nurse. Her symptom of brain freezes resolved. Patient was given aspirin 325 one side today by the primary team. Patient is continued on his home dose of aspirin 81 mg daily. Is on Lipitor 10 mg daily at bedtime. I will hold off any further imaging or work-up since I feel less likely stroke. Ordered every 4 hours neuro checks Pulmonary team is on board Infection disease is on board We'll defer the rest of the medical management to primary team. The plan is discussed with the patient's nurse. There is no further work-up. Please notify neurology if any further concerns. Yann Handley M.D. Neuro-hospitalist Time with Patient: Less than 30
--- NOTE | 2021-01-22 15:04 | P.EN ---
60-year-old woman with medical history of hypertension, hyperlipidemia, diabetes presented with Covid 19 pneumonia. Rapid response was called today due to worsening hypoxemia despite being on AirVo plus nonrebreather. Upon my arrival, patient was saturating in the mid 70s with the settings. Patient is afebrile, 134/60, heart rate 84-105, 75% saturation. CBC from this morning was unremarkable, d-dimer elevated to 1.83 from 0.8 today. CRP increased from 6.2-8.5 today. Chest x-ray from 01/21 was reviewed appears to have diffuse interstitial opacities concerning for severe Covid 19 infection. Assessment, plan: ARDS secondary to Covid 19 Acute hypoxemic respiratory failure, worsening -Patient's nostrils appear to have clotted blood constricting the nasal passages, these were flushed out. Patient was then placed on BiPAP with FiO2 100%, 01/31, and patient saturation increased to 78-80%. Patient's CODE STATUS was confirmed to be DO NOT RESUSCITATE/DO NOT INTUBATE. Therefore, patient was not moved to the intensive care unit. Given patient's ongoing hypoxia despite appropriate BiPAP settings, patient was placed in a prone position, and this improved her saturation to 86-90%. The case and rapid response was discussed with patient's primary attending. I spent 40 minutes of critical care time with this patient.
--- NOTE | 2021-01-22 15:55 | P.PN ---
Subjective Progress Note Date: 01/22/21 Principal diagnosis: Shortness of breath. This is a 60-year-old female patient who follows with Dr. Amaro is her primary care provider. She has a history of diabetes mellitus, hyperlipidemia, hypertension, gastroesophageal reflux disease. She had presented to [facility] initially with a nine-day history of shortness of breath, cough and congestion. She was transferred here to our emergency room yesterday. X-ray reveals bilateral patchy pneumonia. CT angiogram was negative for pulmonary emboli. There is moderate patchy bilateral pneumonia consistent with COVID-19. She did test positive. She is not vaccinated. She is currently seen in consultation in the ER. She is on 5 L high flow nasal cannula to maintain O2 saturation in low 90s. No IV fluids. She is awake and alert in no acute distress. White count 4.3. Hemoglobin 12.2. Lymphocytes 0.3. D-dimer 0.72. Troponin 0.082. 0.058. LDH 1331. C-reactive protein 16.3. Pro-calcitonin 0.30. She's been initiated on Decadron, Lovenox, vitamin supplements. Outside the window for Remdesivir. Progress note dated 01/21/2021. This is a 60-year-old female seen in room 365. Currently, she is on a high flow nasal O2, and also a nonrebreather mass. His saturations are 98%. She's getting saline at 75 mL an hour. He was seen yesterday in consultation, down in the emergency department. She is not a very good historian. The patient was initiated on Decadron, Lovenox, and vitamin supplementation. She was outside the window for REM. Labs today included only blood sugars. A brain CT was ne gative for any acute abnormality. Chest x-ray showed bilateral infiltrates, more so at the bases, consistent with coronavirus pneumonia. Progress note dated 01/22/2021. 60-year-old female again seen in room 365. She is with her daughter today. The patient is on BiPAP, at 100%. The patient is a DO NOT RESUSCITATE. She's actually laying on her stomach. Currently her saturations are in the high 80s. According to her daughter, mom would not want to be intubated or mechanically ventilated. Unfortunately, they have some unusual request such as Ivermectin, hydroxychloroquine, and a Z-Javi. White count 6.5, hemoglobin 12.8, hematocrit 36, and platelet count 260,000. C-reactive protein was 8.5. BiPAP settings were 15/6, with an FiO2 of 100%. Objective - Vital Signs Vital signs: Vital Signs Temp 97.9 F 01/22/21 04:00 Pulse 81 01/22/21 04:00 Resp 20 01/22/21 04:00 BP 138/65 01/22/21 08:00 Pulse Ox 90 L 01/22/21 14:33 Intake & Output 01/21/21 01/22/21 01/22/21 18:59 06:59 18:59 Intake Total 790.167 Output Total 300 700 Balance 490.167 -700 Weight 89.5 kg 89.5 kg Intake: IV 20 Invasive Line 1 20 Intake, IV Titration 10.167 Amount Insulin Regular 100 unit 10.167 In Sodium Chloride 0.9% 100 ml @ Titrate IV .Q0M [facility] Rx#:[id number] Oral 760 Output: Urine 300 700 Other: Voiding Method Bedside Commode Bedside Commode # Voids 1 - Exam No acute distress, oriented 3. A bit lethargic, but arouses. Only on BiPAP at 15/6 and on percent. Saturations are in the high 80s. HEENT examination is grossly unremarkable. Neck supple. Full range of motion. No adenopathy thyromegaly or neck vein distention. Cardiovascular examination reveals regular rhythm rate. S1-S2 normal. No S3 or S4. No discernible murmur noted. Heart sounds are distant. Heart rate 90 bpm. Lungs reveal coarse bilateral inspiratory and expiratory rhonchi. Breath sounds are equal bilaterally. No wheezes. No crackles. Abdomen soft bowel sounds are heard. No masses or tenderness. Extremities are intact. No cyanosis clubbing or edema. Skin is without rash or lesion. Neurologic examination is brief but nonfocal. - Labs CBC & Chem 7: 01/22/21 09:09 01/21/21 09:18 Labs: Abnormal Lab Results - Last 24 Hours (Table) 01/21/21 01/21/21 01/21/21 Range/Units 09:18 17:09 20:32 Lymphocytes # (1.0-4.8) k/uL D-Dimer (<0.60) mg/L FEU POC Glucose (mg/dL) 215 H 247 H (75-99) mg/dL Hemoglobin A1c 9.0 H (4.0-6.0) % C-Reactive Protein (<1.0) mg/dL 01/22/21 01/22/21 01/22/21 Range/Units 06:12 09:09 09:09 Lymphocytes # 0.5 L (1.0-4.8) k/uL D-Dimer (<0.60) mg/L FEU POC Glucose (mg/dL) 177 H (75-99) mg/dL Hemoglobin A1c (4.0-6.0) % C-Reactive Protein 8.5 H (<1.0) mg/dL 01/22/21 Range/Units 11:25 Lymphocytes # (1.0-4.8) k/uL D-Dimer 1.83 H (<0.60) mg/L FEU POC Glucose (mg/dL) (75-99) mg/dL Hemoglobin A1c (4.0-6.0) % C-Reactive Protein (<1.0) mg/dL Microbiology - Last 24 Hours (Table) 01/19/21 17:45 Blood Culture - Preliminary Blood No Growth after 48 hours 01/19/21 17:30 Blood Culture - Preliminary Blood No Growth after 48 hours Assessment and Plan Assessment: 1 Acute hypoxemic respiratory failure secondary to acute COVID-19 pneumonia. Not vaccinated. Outside the window for Remdesivir. 2 Elevated inflammatory markers secondary to above. 3 Troponin leak. 4 Obesity. 5 Hyperlipidemia. 6 Hypertension. 7 Diabetes mellitus. 8 Anxiety. Plan: Plan dated 01/21/2021. The patient will continue on her current regimen. This includes Lovenox, Decadron, vitamin C, and the D3, and zinc. She was not a candidate for REM. She's currently on 8 L high flow nasal cannula, and a nonrebreather mask. She's getting saline at 75 mL an hour. She might be able to come off the nonrebreather mass. Respiratory we'll give it a try. Plan dated 01/22/2021. The patient is now on BiPAP. She is on 15/6 and 100%. She is a DO NOT RESUSCITATE. I had a conversation with the daughter who confirms that mom would not want to be on life support. They had some very unusual request so today. There were hoping that I could write an order for ivermectin, hydroxychloroquine, and azithromycin. I told him that I would not. I tried to explain the data behind this. I did say that of Dr. Kwok wants to write those orders, that would be up to him. We will continue to follow make recommendations where appropriate. The patient was not a candidate for REM. She is getting saline at 75 mL an hour. Time with Patient: Less than 30
--- NOTE | 2021-01-22 16:43 | P.PN ---
Progress Note - Text Progress Note Date: 01/22/21 Presenting complaint: Short of breath Interval history: Admitted with COVID 19 pneumonitis, acute hypoxic respiratory failure, the low- sodium. Went into atrial fibrillation. January 20: Sitting up in bed. Tired. Some shortness of breath. 6 L nasal cannula. Decrease appetite. January 21: More tired. Short of breath. Requiring 15 L of oxygen. Ventimask. Decreased oral intake. Atrial fibrillation rate around 120s. Started on Lovenox by cardiology. Patient has chronic lower extremity swelling. Nurse earlier called me today that patient's feeling like her brain freeze. Stat computed tomography scan of the brain was done. Unremarkable. Neuro checks as ordered. There are no focal symptoms. Neurology was consulted. January 22: Patient been short of breath. Hypoxic. Being followed by pulmonary Dr. Dos Santos. Patient's present BiPAP this afternoon. A team was called. Patient placed on prone position. Nurse called me to inform me that patient's family was requesting hydrochloroquin. I told him to ask Dr. Handley from pulmonary who is on the COVID committee team for [place]. This is not one of the recommended medications from CDC. Review of systems: Was done for constitutional, cardiovascular, GI, pulmonary. relevant finding as above Active Medications Acetaminophen (Acetaminophen Tab 325 Mg Tab) 650 mg PO Q4HR PRN PRN Reason: Fever>101 Last Admin: 01/20/21 20:29 Dose: 650 mg Documented by: Albuterol Sulfate (Albuterol Hfa Inhaler) 2 puff INHALATION RT-Q6H PRN PRN Reason: Shortness Of Breath Or Wheezing Last Admin: 01/22/21 11:27 Dose: 2 puff Documented by: Ascorbic Acid (Ascorbic Acid 500 Mg Tab) 1,000 mg PO DAILY [facility] Last Admin: 01/22/21 10:03 Dose: 1,000 mg Documented by: Aspirin (Aspirin 81 Mg) 81 mg PO DAILY [facility] Last Admin: 01/22/21 10:02 Dose: 81 mg Documented by: Atorvastatin Calcium (Atorvastatin 10 Mg Tab) 10 mg PO HS [facility] Last Admin: 01/21/21 20:59 Dose: 10 mg Documented by: Cholecalciferol (Cholecalciferol 25 Mcg (1000 Iu) Tablet) 25 mcg PO DAILY [facility] Last Admin: 01/22/21 10:03 Dose: 25 mcg Documented by: Dexamethasone (Dexamethasone 2 Mg Tab) 6 mg PO DAILY [facility] Last Admin: 01/22/21 10:02 Dose: 6 mg Documented by: Enoxaparin Sodium (Enoxaparin 80 Mg/0.8 Ml Syringe) 80 mg SQ Q12HR [facility] Last Admin: 01/22/21 10:02 Dose: 80 mg Documented by: Gabapentin (Gabapentin 300 Mg Cap) 600 mg PO BID [facility] Last Admin: 01/22/21 10:03 Dose: 600 mg Documented by: Sodium Chloride (Saline 0.45%) 1,000 mls @ 75 mls/hr IV .[id number] [facility] Last Admin: 01/22/21 10:03 Dose: 75 mls/hr Documented by: Insulin Aspart (Insulin Aspart (Novolog) 100 Unit/Ml Vial) 5 unit SQ AC-TID [facility] Last Admin: 01/22/21 14:30 Dose: Not Given Documented by: Insulin Detemir (Insulin Detemir (Levemir) 100 Unit/Ml Syr) 20 unit SQ HS [facility] Last Admin: 01/21/21 21:00 Dose: 20 unit Documented by: Lisinopril (Lisinopril 20 Mg Tab) 20 mg PO DAILY [facility] Last Admin: 01/22/21 10:02 Dose: 20 mg Documented by: Metformin HCl (Metformin 500 Mg Tab) 1,000 mg PO BID-W/MEALS [facility] Last Admin: 01/22/21 10:04 Dose: Not Given Documented by: Metoprolol Tartrate (Metoprolol Tartrate 25 Mg Tab) 25 mg PO BID [facility] Last Admin: 01/22/21 10:03 Dose: 25 mg Documented by: Naloxone HCl (Naloxone 0.4 Mg/Ml 1 Ml Vial) 0.2 mg IV Q2M PRN PRN Reason: Opioid Reversal Oxybutynin Chloride (Oxybutynin Chloride 5 Mg Tab) 7.5 mg PO BID [facility] Last Admin: 01/22/21 10:03 Dose: 7.5 mg Documented by: Pantoprazole Sodium (Pantoprazole 40 Mg Tablet) 40 mg PO DAILY@0730 [facility] Last Admin: 01/22/21 06:41 Dose: 40 mg Documented by: Zinc Sulfate (Zinc Sulfate 220 Mg Cap) 220 mg PO DAILY [facility] Last Admin: 01/22/21 10:03 Dose: 220 mg Documented by: On examination: VITAL SIGNS: 98.6, 73, 20, 130/65, 86% on high flow nonrebreather GENERAL APPEARANCE: Reclining in bed awake, short of breath, BiPAP Nonpitting edema RESPIRATORY: Respiratory effort increased. Not able to speak in full sentences accessory muscles a working. PSYCHIATRY: Alert and oriented x3. Mood and affect tired. Rest of exam per pulmonary and nursing INVESTIGATIONS, reviewed in the clinical context: January 22: WBC 6.5 hemoglobin 12.8 d-dimer 1.83 CRP 8.5 January 21: White count 17 hemoglobin 12.9 platelets 276 d-dimer 0.8 potassium 4.4 creatinine 0.99 CRP 6.2 White count 4.3 hemoglobin 12.2 platelets 200 sodium 131 potassium 4.7 BUN 23 creatinine 0.86 Accu-Cheks 461 Troponin I 0.082, 0.058 procalcitonin 0.30 d-dimer 0.[address] chest angiogram: Active for PE. Patchy bilateral infiltrates EKG tracing: Sinus rhythm. Assessment plan: -Acute bilateral COVID 19 pneumonitis: Not improving Dexamethasone 6 mg, vitamin C, zinc -Acute hypoxic respiratory failure secondary to COVID 19 pneumonitis. Worsening Changed to 2 BiPAP. -Possible myocarditis secondary to COVID 19 pneumonitis. No chest pain. Has asthenia. Telemetry. . Follow with cardiology -New onset atrial fibrillation, rate controlled Lovenox 80 mg subcu every 12. Lopressor 25 mg twice a day -Diabetes mellitus type 2, uncontrolled with hyperglycemia. Secondary to steroids Stopped IV insulin drip. Levemir 20 units starting at night . DC scheduled NovoLog because of decreased oral intake. -Hyperlipidemia Lipitor 10 mg daily at bedtime -Essential hypertension Metoprolol 25 mg twice a day Zestril 20 mg daily -GERD Prilosec 40 mg daily -Chronic urinary stress incontinence Oxybutynin 7.5 by mouth twice a day -Primary osteoarthritis -Diabetic peripheral neuropathy Neurontin 600 mg twice a day -Anxiety disorder not otherwise specified Klonopin 15 mg twice a day when necessary BiPAP. Prognosis guarded. DC scheduled NovoLog as patient not eating much. Patient is put on a prone position. Follow with pulmonary.
[2021-01-22 16:54] LABS: Glucose,Whole Blood 116 mg/dL (75-99)
--- NOTE | 2021-01-22 20:45 | PN ---
PROGRESS NOTE DATE OF SERVICE: 01/22/2021 REASON FOR FOLLOWUP: COVID-19 pneumonia. INTERVAL HISTORY: The patient did spike a fever of 100.4 last night. The patient has been afebrile this morning. The patient is hemodynamically stable. The patient is hypoxic, currently on a BiPAP 100%. The patient was sleepy, lethargic, unable to provide any history. No vomiting, diarrhea or any changes reported by nursing staff. PHYSICAL EXAMINATION: Blood pressure 132/65, pulse of 73, temperature 97.6. General description is a middle- aged female lying in bed in no distress. Respiratory system: Unlabored breathing, decreased intensity of breath sounds. No wheeze. Heart S1, S2. Regular rate and rhythm. Abdomen soft, no tenderness. LAB: Hemoglobin is 12.1, white count 6.5, D-dimer is 1.83. DIAGNOSTIC IMPRESSION AND PLAN: Patient with acute COVID-19 pneumonia with acute respiratory failure. Did have ( ) clinical condition. Patient is on dexamethasone, ( ), zinc and ascorbic acid. Continue with current supportive treatment and respiratory support. MMODL / IJN: [id number] /
[2021-01-22] MEDS: KETOROLAC 30 MG/ML 1 ML VIAL IVP PRN (20:53)
[2021-01-22] MEDS: ATORVASTATIN 10 MG TAB PO SCH (20:53)
[2021-01-22] MEDS: INSULIN DETEMIR (LEVEMIR) 100 UNIT/ML SYR SQ SCH (21:00)
[2021-01-22 21:15] LABS: Glucose,Whole Blood 129 mg/dL (75-99)
--- NOTE | 2021-01-22 23:04 | XR ---
EXAMINATION TYPE: XR cervical spine limited DATE OF EXAM: 01/22/2021 COMPARISON: NONE HISTORY: Neck pain TECHNIQUE: 2 views FINDINGS: There is posterior fusion surgery in the lower cervical spine. Lateral view is limited by t he shoulders. Vertebra appear to have fairly normal alignment. I see no compression fracture. Prevert ebral soft tissues are not enlarged. IMPRESSION: Previous surgery. Limited exam. No fracture seen. There is moderately severe pulmonary ed antonia which appears increased compared to the chest x-ray yesterday.
[2021-01-23 06:20] LABS: Glucose,Whole Blood 144 mg/dL (75-99)
[2021-01-23] MEDS: KETOROLAC 30 MG/ML 1 ML VIAL IVP PRN (06:33)
[2021-01-23] MEDS: PANTOPRAZOLE 40 MG TABLET PO SCH (06:33)
[2021-01-23] MEDS: ALBUTEROL HFA INHALER INHALATION PRN ×3 (08:24→19:10)
--- NOTE | 2021-01-23 08:29 | P.CON ---
Consult Note - . Consult date: 01/23/21 Assessment/Plan:: Case discussed with PM/AM nurse and hospitalist and chart reviewed. Patient has a long history of chronic cervical and lumbar pain with a history of previous cervical fusion and discectomy. She is currently in COVID respiratory failure on BIPAP and being flipped prone/supine. There are no neurological deficits reported but patient is also becoming somnolent secondary to the respiratory failure and unable to follow commands for a neuro exam. Reviewed the C spine XR which showed signs of a previous fusion without any fracture or obvious signs of hardware failure. CT scan is not performed because the patient is too unstable to go to the scanner. Would recommend pain medication for comfort per primary/pulmonary team but understand the difficulty with a respiratory depressant given her fragile respiratory status.
[2021-01-23] MEDS: GABAPENTIN 300 MG CAP PO SCH ×2 (09:24→20:41)
[2021-01-23] MEDS: dexAMETHasone 2 MG TAB PO SCH (09:26)
[2021-01-23] MEDS: ATORVASTATIN 10 MG TAB PO SCH (09:26)
[2021-01-23] MEDS: HYDROcodone/APAP 5-325MG 1 EACH TAB PO PRN ×2 (09:26→20:51)
[2021-01-23] MEDS: OXYBUTYNIN CHLORIDE 5 MG TAB PO SCH ×2 (09:26→20:40)
[2021-01-23] MEDS: ZINC SULFATE 220 MG CAP PO SCH (09:27)
[2021-01-23] MEDS: ASCORBIC ACID 500 MG TAB PO SCH (09:28)
[2021-01-23] MEDS: CHOLECALCIFEROL 25 MCG (1000 IU) TABLET PO SCH (09:28)
[2021-01-23] MEDS: ASPIRIN 81 MG PO SCH (09:28)
[2021-01-23] MEDS: lisinopriL 20 MG TAB PO SCH (09:28)
[2021-01-23] MEDS: METOPROLOL TARTRATE 25 MG TAB PO SCH ×2 (09:28→20:41)
[2021-01-23] MEDS: ACETAMINOPHEN TAB 325 MG TAB PO PRN (09:28)
[2021-01-23] MEDS: metFORMIN 500 MG TAB PO SCH ×2 (09:29→17:00)
[2021-01-23] MEDS: SODIUM CHLORIDE 0.45% 1,000 ML IV SCH ×3 (09:29→23:53)
[2021-01-23] MEDS: CYCLOBENZAPRINE 5 MG TAB PO SCH ×3 (09:30→20:40)
[2021-01-23] MEDS: ENOXAPARIN 80 MG/0.8 ML SYRINGE SQ SCH ×2 (09:31→20:41)
[2021-01-23 11:39] LABS: Glucose,Whole Blood 188 mg/dL (75-99)
--- NOTE | 2021-01-23 12:02 | P.PN ---
Subjective Progress Note Date: 01/23/21 Principal diagnosis: Hypoxic respiratory failure secondary to COVID-19 pneumonia This is Dung aleman NP, dictating a progress note on behalf of Dr. Uriostegui. Patient was interviewed and examined. Patient's pleasant 60-year-old female who initially presented to the hospital with hypoxic respiratory failure secondary to COVID-19 pneumonia. Patient continues to deny chest pain today, however the patient is on BiPAP at this time. Patient was started on Lovenox 80 mg twice a day for couple days ago for anticoagulation. GENERAL: Well-appearing, well-nourished and in no acute distress. NECK: Supple without JVD or thyromegaly. LUNGS: Breath sounds clear to auscultation bilaterally. Respiration equal and unlabored. No wheezes, rales or rhonchi. HEART: Regular rate and rhythm without murmurs, rubs or gallops. S1 and S2 heard. EXTREMITIES: Normal range of motion, no edema. No clubbing or cyanosis. Peripheral pulses intact and strong. VITALS: [Temp 97.6, pulse 84, respirations 26, blood pressure 130/77, O2 saturation 90% on BiPAP with 100% FiO2, at 15/6] TELEMETRY: [Rate controlled atrial fibrillation] LABS: [White count 6.5, hemoglobin 12.8, platelets 260, sodium 134, potassium 4.4, BUN 33, creatinine 0.99, calcium 8.7, magnesium 2.4] IMPRESSION/PLAN: [1. Chest pain-patient has no complaints of chest pain. Patient was started on Lovenox 80 mg twice a day subcu 2 days ago. Patient should remain on the Lovenox until her clinical picture improves significantly. If the patient's clinical course changes, or further recommendations are needed please feel free to give us a call. The patient has been seen and evaluated. Plan of care has been reviewed and agreed upon by Dr. Uriostegui.] Objective - Vital Signs Vital signs: Vital Signs Temp 97.6 F 01/23/21 08:00 Pulse 84 01/23/21 08:00 Resp 26 H 01/23/21 10:38 BP 130/77 01/23/21 08:00 Pulse Ox 90 L 01/23/21 10:38 Intake & Output 11/27/21 11/28/21 11/28/21 18:59 06:59 18:59 Intake Total 920 900 0 Output Total 300 Balance 620 900 0 Weight 89.5 kg Intake: IV 920 Invasive Line 1 10 Invasive Line 2 10 Sodium Chloride 0.45% 1, 900 000 ml @ 75 mls/hr IV . [id number] [facility] Rx#:[id number] Intake, IV Titration 900 Amount Sodium Chloride 0.45% 1, 900 000 ml @ 75 mls/hr IV . [id number] [facility] Rx#:[id number] Oral 0 Output: Urine 300 Other: Voiding Method Indwelling Catheter Indwelling Catheter # Bowel Movements 0 - Labs CBC & Chem 7: 01/22/21 09:09 01/21/21 09:18 Labs: Abnormal Lab Results - Last 24 Hours (Table) 01/22/21 01/22/21 01/22/21 Range/Units 11:25 16:53 21:08 D-Dimer 1.83 H (<0.60) mg/L FEU POC Glucose (mg/dL) 116 H 129 H (75-99) mg/dL C-Reactive Protein (<1.0) mg/dL 01/23/21 01/23/21 01/23/21 Range/Units 06:18 08:19 08:19 D-Dimer 3.97 H (<0.60) mg/L FEU POC Glucose (mg/dL) 144 H (75-99) mg/dL C-Reactive Protein 19.8 H (<1.0) mg/dL 01/23/21 Range/Units 11:38 D-Dimer (<0.60) mg/L FEU POC Glucose (mg/dL) 188 H (75-99) mg/dL C-Reactive Protein (<1.0) mg/dL Microbiology - Last 24 Hours (Table) 01/19/21 17:45 Blood Culture - Preliminary Blood No Growth after 72 hours 01/19/21 17:30 Blood Culture - Preliminary Blood No Growth after 72 hours
[2021-01-23 16:50] LABS: Glucose,Whole Blood 280 mg/dL (75-99)
--- NOTE | 2021-01-23 16:52 | P.PN ---
Subjective Progress Note Date: 01/23/21 Principal diagnosis: Shortness of breath. This is a 60-year-old female patient who follows with Dr. Amaro is her primary care provider. She has a history of diabetes mellitus, hyperlipidemia, hypertension, gastroesophageal reflux disease. She had presented to [facility] initially with a nine-day history of shortness of breath, cough and congestion. She was transferred here to our emergency room yesterday. X-ray reveals bilateral patchy pneumonia. CT angiogram was negative for pulmonary emboli. There is moderate patchy bilateral pneumonia consistent with COVID-19. She did test positive. She is not vaccinated. She is currently seen in consultation in the ER. She is on 5 L high flow nasal cannula to maintain O2 saturation in low 90s. No IV fluids. She is awake and alert in no acute distress. White count 4.3. Hemoglobin 12.2. Lymphocytes 0.3. D-dimer 0.72. Troponin 0.082. 0.058. LDH 1331. C-reactive protein 16.3. Pro-calcitonin 0.30. She's been initiated on Decadron, Lovenox, vitamin supplements. Outside the window for Remdesivir. Progress note dated 01/21/2021. This is a 60-year-old female seen in room 365. Currently, she is on a high flow nasal O2, and also a nonrebreather mass. His saturations are 98%. She's getting saline at 75 mL an hour. He was seen yesterday in consultation, down in the emergency department. She is not a very good historian. The patient was initiated on Decadron, Lovenox, and vitamin supplementation. She was outside the window for REM. Labs today included only blood sugars. A brain CT was ne gative for any acute abnormality. Chest x-ray showed bilateral infiltrates, more so at the bases, consistent with coronavirus pneumonia. Progress note dated 01/22/2021. 60-year-old female again seen in room 365. She is with her daughter today. The patient is on BiPAP, at 100%. The patient is a DO NOT RESUSCITATE. She's actually laying on her stomach. Currently her saturations are in the high 80s. According to her daughter, mom would not want to be intubated or mechanically ventilated. Unfortunately, they have some unusual request such as Ivermectin, hydroxychloroquine, and a Z-Javi. White count 6.5, hemoglobin 12.8, hematocrit 36, and platelet count 260,000. C-reactive protein was 8.5. BiPAP settings were 15/6, with an FiO2 of 100%. Progress note dated 01/23/2021. 60-year-old female again seen in room 365. She remains on BiPAP, with settings of 15/6 and 100%. Saturations are in the low 90s. The patient looks reasonably comfortable. She is a DO NOT RESUSCITATE patient. She does not want intubation or mechanical ventilation. No new labs today other than a glucose of 188, C- reactive protein of 19.8, and a d-dimer 3.97. She remains on standard treatment including Decadron, albuterol, and vitamins. The patient was started on therapeutic doses of Lovenox, despite the fact, there is been no demonstration of thrombotic disease. Objective - Vital Signs Vital signs: Vital Signs Temp 98.3 F 01/23/21 12:55 Pulse 86 01/23/21 12:55 Resp 25 H 01/23/21 12:55 BP 134/60 01/23/21 12:55 Pulse Ox 90 L 01/23/21 12:55 Intake & Output 01/22/21 01/23/21 01/23/21 18:59 06:59 18:59 Intake Total 920 900 600 Output Total 300 550 Balance 620 900 50 Weight 89.5 kg Intake: IV 920 600 Invasive Line 1 10 Invasive Line 2 10 Sodium Chloride 0.45% 1, 900 600 000 ml @ 75 mls/hr IV . [id number] [facility] Rx#:[id number] Intake, IV Titration 900 Amount Sodium Chloride 0.45% 1, 900 000 ml @ 75 mls/hr IV . [id number] [facility] Rx#:[id number] Oral 0 Output: Urine 300 550 Other: Voiding Method Indwelling Catheter Indwelling Catheter Indwelling Catheter # Bowel Movements 0 - Exam No acute distress, oriented 3. A bit lethargic, but arouses. Only on BiPAP at 15/6 and on percent. Saturations are in in the low 90s. HEENT examination is grossly unremarkable. Neck supple. Full range of motion. No adenopathy thyromegaly or neck vein distention. Cardiovascular examination reveals regular rhythm rate. S1-S2 normal. No S3 or S4. No discernible murmur noted. Heart sounds are distant. Heart rate 86 bpm. Lungs reveal coarse bilateral inspiratory and expiratory rhonchi. Breath sounds are equal bilaterally. No wheezes. No crackles. Abdomen soft bowel sounds are heard. No masses or tenderness. Extremities are intact. No cyanosis clubbing or edema. Skin is without rash or lesion. Neurologic examination is brief but nonfocal. - Labs CBC & Chem 7: 01/22/21 09:09 01/21/21 09:18 Labs: Abnormal Lab Results - Last 24 Hours (Table) 01/22/21 01/22/21 01/23/21 Range/Units 16:53 21:08 06:18 D-Dimer (<0.60) mg/L FEU POC Glucose (mg/dL) 116 H 129 H 144 H (75-99) mg/dL C-Reactive Protein (<1.0) mg/dL 01/23/21 01/23/21 01/23/21 Range/Units 08:19 08:19 11:38 D-Dimer 3.97 H (<0.60) mg/L FEU POC Glucose (mg/dL) 188 H (75-99) mg/dL C-Reactive Protein 19.8 H (<1.0) mg/dL Microbiology - Last 24 Hours (Table) 01/19/21 17:45 Blood Culture - Preliminary Blood No Growth after 72 hours 01/19/21 17:30 Blood Culture - Preliminary Blood No Growth after 72 hours Assessment and Plan Assessment: 1 Acute hypoxemic respiratory failure secondary to acute COVID-19 pneumonia. Not vaccinated. Outside the window for Remdesivir. 2 Elevated inflammatory markers secondary to above. 3 Troponin leak. 4 Obesity. 5 Hyperlipidemia. 6 Hypertension. 7 Diabetes mellitus. 8 Anxiety. Plan: Plan dated 01/21/2021. The patient will continue on her current regimen. This includes Lovenox, Decadron, vitamin C, and the D3, and zinc. She was not a candidate for REM. She's currently on 8 L high flow nasal cannula, and a nonrebreather mask. She's getting saline at 75 mL an hour. She might be able to come off the nonrebreather mass. Respiratory we'll give it a try. Plan dated 01/22/2021. The patient is now on BiPAP. She is on 15/6 and 100%. She is a DO NOT RE SUSCITATE. I had a conversation with the daughter who confirms that mom would not want to be on life support. They had some very unusual request so today. There were hoping that I could write an order for ivermectin, hydroxychloroquine, and azithromycin. I told him that I would not. I tried to explain the data behind this. I did say that of Dr. Kwok wants to write those orders, that would be up to him. We will continue to follow make recommendations where appropriate. The patient was not a candidate for REM. She is getting saline at 75 mL an hour. Plan dated 01/23/2021. The patient remains on BiPAP with settings of IPAP 15, and EPAP 6. Saturations are in the low 90s. She's receiving FiO2 of 100%. She is a DO NOT RESUSCITATE patient. Yesterday, some of the family members wanted azithromycin, hydroxychloroquine, and ivermectin. We told him that was not the standard of ca re. We will continue to follow make recommendations where appropriate. The patient remains on saline. She was not a candidate for REM. Time with Patient: Less than 30
[2021-01-23 20:12] LABS: Glucose,Whole Blood 284 mg/dL (75-99)
[2021-01-23] MEDS: INSULIN DETEMIR (LEVEMIR) 100 UNIT/ML SYR SQ SCH (20:41)
--- NOTE | 2021-01-23 21:59 | P.PN ---
Progress Note - Text Progress Note Date: 01/23/21 Presenting complaint: Short of breath Interval history: Admitted with COVID 19 pneumonitis, acute hypoxic respiratory failure, the low- sodium. Went into atrial fibrillation. January 20: Sitting up in bed. Tired. Some shortness of breath. 6 L nasal cannula. Decrease appetite. January 21: More tired. Short of breath. Requiring 15 L of oxygen. Ventimask. Decreased oral intake. Atrial fibrillation rate around 120s. Started on Lovenox by cardiology. Patient has chronic lower extremity swelling. Nurse earlier called me today that patient's feeling like her brain freeze. Stat computed tomography scan of the brain was done. Unremarkable. Neuro checks as ordered. There are no focal symptoms. Neurology was consulted. January 22: Patient been short of breath. Hypoxic. Being followed by pulmonary Dr. Dos Santos. Patient's present BiPAP this afternoon. A team was called. Patient placed on prone position. Nurse called me to inform me that patient's family was requesting hydrochloroquin. I told him to ask Dr. Handley from pulmonary who is on the COVID committee team for [place]. This is not one of the recommended medications from CDC. January 23: Patient complaining of more back pain. Orthopedics was consulted yesterday. Flexeril was added. [facility] was added. No further intervention per orthopedics. Patient on BiPAP. 15/6 and 100%. Eating small amounts. Diet. Review of systems: Attempted for constitutional, cardiovascular, GI, pulmonary. relevant finding as above Active Medications Acetaminophen (Acetaminophen Tab 325 Mg Tab) 650 mg PO Q4HR PRN PRN Reason: Fever>101 Last Admin: 01/23/21 09:28 Dose: 650 mg Documented by: Hydrocodone Bitart/Acetaminophen (Hydrocodone/Apap 5-325mg 1 Each Tab) 1 each PO Q6HR PRN PRN Reason: Pain Last Admin: 01/23/21 20:51 Dose: 1 each Documented by: Albuterol Sulfate (Albuterol Hfa Inhaler) 2 puff INHALATION RT-Q6H PRN PRN Reason: Shortness Of Breath Or Wheezing Last Admin: 01/23/21 19:10 Dose: 2 puff Documented by: Ascorbic Acid (Ascorbic Acid 500 Mg Tab) 1,000 mg PO DAILY [facility] Last Admin: 01/23/21 09:28 Dose: 1,000 mg Documented by: Aspirin (Aspirin 81 Mg) 81 mg PO DAILY [facility] Last Admin: 01/23/21 09:28 Dose: 81 mg Documented by: Atorvastatin Calcium (Atorvastatin 10 Mg Tab) 10 mg PO HS [facility] Last Admin: 01/23/21 09:26 Dose: 10 mg Documented by: Cholecalciferol (Cholecalciferol 25 Mcg (1000 Iu) Tablet) 25 mcg PO DAILY [facility] Last Admin: 01/23/21 09:28 Dose: 25 mcg Documented by: Cyclobenzaprine HCl (Cyclobenzaprine 5 Mg Tab) 5 mg PO TID [facility] Last Admin: 01/23/21 20:40 Dose: 5 mg Documented by: Dexamethasone (Dexamethasone 2 Mg Tab) 6 mg PO DAILY [facility] Last Admin: 01/23/21 09:26 Dose: 6 mg Documented by: Enoxaparin Sodium (Enoxaparin 80 Mg/0.8 Ml Syringe) 80 mg SQ Q12HR [facility] Last Admin: 01/23/21 20:41 Dose: 80 mg Documented by: Gabapentin (Gabapentin 300 Mg Cap) 600 mg PO BID [facility] Last Admin: 01/23/21 20:41 Dose: 600 mg Documented by: Sodium Chloride (Saline 0.45%) 1,000 mls @ 75 mls/hr IV .[id number] [facility] Last Admin: 01/23/21 14:33 Dose: Not Given Documented by: Insulin Detemir (Insulin Detemir (Levemir) 100 Unit/Ml Syr) 20 unit SQ HS [facility] Last Admin: 01/23/21 20:41 Dose: 20 unit Documented by: Ketorolac Tromethamine (Ketorolac 30 Mg/Ml 1 Ml Vial) 12.5 mg IVP Q8HR PRN PRN Reason: Analgesia Stop: 01/25/21 20:25 Last Admin: 01/23/21 06:33 Dose: 12.5 mg Documented by: Lisinopril (Lisinopril 20 Mg Tab) 20 mg PO DAILY [facility] Last Admin: 01/23/21 09:28 Dose: 20 mg Documented by: Metformin HCl (Metformin 500 Mg Tab) 1,000 mg PO BID-W/MEALS [facility] Last Admin: 01/23/21 17:00 Dose: Not Given Documented by: Metoprolol Tartrate (Metoprolol Tartrate 25 Mg Tab) 25 mg PO BID [facility] Last Admin: 01/23/21 20:41 Dose: 25 mg Documented by: Naloxone HCl (Naloxone 0.4 Mg/Ml 1 Ml Vial) 0.2 mg IV Q2M PRN PRN Reason: Opioid Reversal Oxybutynin Chloride (Oxybutynin Chloride 5 Mg Tab) 7.5 mg PO BID [facility] Last Admin: 01/23/21 20:40 Dose: 7.5 mg Documented by: Pantoprazole Sodium (Pantoprazole 40 Mg Tablet) 40 mg PO DAILY@0730 [facility] Last Admin: 01/23/21 06:33 Dose: 40 mg Documented by: Zinc Sulfate (Zinc Sulfate 220 Mg Cap) 220 mg PO DAILY [facility] Last Admin: 01/23/21 09:27 Dose: 220 mg Documented by: On examination: VITAL SIGNS: 98.3, 86, 25, 134/60, 90% on BiPAP at 100% and 15/6 GENERAL APPEARANCE: Reclining in bed tired, short of breath, BiPAP RESPIRATORY: Respiratory effort increased. Not able to speak in full sentences accessory muscles a working. PSYCHIATRY: . Mood and affect tired. Rest of exam per pulmonary and nursing INVESTIGATIONS, reviewed in the clinical context: January 23: D-dimer 3.97 CRP 98.8 Accu-Cheks noted January 22: WBC 6.5 hemoglobin 12.8 d-dimer 1.83 CRP 8.5 January 21: White count 17 hemoglobin 12.9 platelets 276 d-dimer 0.8 potassium 4.4 creatinine 0.99 CRP 6.2 White count 4.3 hemoglobin 12.2 platelets 200 sodium 131 potassium 4.7 BUN 23 creatinine 0.86 Accu-Cheks 461 Troponin I 0.082, 0.058 procalcitonin 0.30 d-dimer 0.[address] chest angiogram: Active for PE. Patchy bilateral infiltrates EKG tracing: Sinus rhythm. Assessment plan: -Acute bilateral COVID 19 pneumonitis: Not improving Dexamethasone 6 mg, vitamin C, zinc -Acute hypoxic respiratory failure secondary to COVID 19 pneumonitis. Not improving 100% BiPAP. -Possible myocarditis secondary to COVID 19 pneumonitis. No chest pain. Has asthenia. Telemetry. . Follow with cardiology -atrial fibrillation, rate controlled Lovenox 80 mg subcu every 12. Lopressor 25 mg twice a day -Diabetes mellitus type 2, uncontrolled with hyperglycemia. Secondary to steroids Stopped IV insulin drip. Increase Levemir 26 units starting at night . Sliding scale. -Hyperlipidemia Lipitor 10 mg daily at bedtime -Essential hypertension Metoprolol 25 mg twice a day Zestril 20 mg daily -GERD Prilosec 40 mg daily -Chronic urinary stress incontinence Oxybutynin 7.5 by mouth twice a day -Primary osteoarthritis -Diabetic peripheral neuropathy Neurontin 600 mg twice a day -Anxiety disorder not otherwise specified Klonopin 15 mg twice a day when necessary -Acute on chronic cervical lumbar spine arthritic pain. Patient's had prior surgery. Orthopedic consulted. For symptom control. On Flexeril and [facility] BiPAP. Subcu Lovenox. Decadron. Add Flexeril and [facility]. Increase dose of Levemir to 26 units. Prognosis guarded.
[2021-01-23] MEDS ORDERED: INSULIN DETEMIR (LEVEMIR) 100 UNIT/ML SYR SQ SCH (22:00)
--- NOTE | 2021-01-23 22:43 | PN ---
PROGRESS NOTE DATE OF SERVICE: 01/23/2021 REASON FOR FOLLOWUP: COVID-19 pneumonia. INTERVAL HISTORY: The patient is afebrile. The patient is currently on a BiPAP. The patient was lethargic, unable to provide any history. No vomiting, diarrhea or any other changes reported by the nursing staff. PHYSICAL EXAMINATION: Blood pressure 143/67 with a pulse of 69, temperature 98.7. She is 89% on BiPAP. General description is a middle-aged female lying in bed in no distress. Respiratory system: Unlabored breathing, decreased intensity of breath sounds. No wheeze or crackle. Heart S1, S2. Regular rate and rhythm. Abdomen soft, no tenderness. LABS: D-dimer of 3.97. CRP was 19.8. DIAGNOSTIC IMPRESSION AND PLAN: Patient with acute COVID-19 pneumonia with acute respiratory failure in this patient currently covered with dexamethasone, Lovenox, zinc and ascorbic acid; to continue along with respiratory support. Prognosis remains guarded. MMODL / IJN: [id number] /
[2021-01-24] MEDS: HYDROcodone/APAP 5-325MG 1 EACH TAB PO PRN ×2 (05:02→14:42)
[2021-01-24 05:55] LABS: Glucose,Whole Blood 296 mg/dL (75-99)
[2021-01-24] MEDS: INSULIN ASPART (NovoLOG) 100 UNIT/ML VIAL SQ SCH ×7 (06:12→22:19)
[2021-01-24] MEDS: PANTOPRAZOLE 40 MG TABLET PO SCH (06:13)
[2021-01-24] MEDS: GABAPENTIN 300 MG CAP PO SCH ×2 (09:13→23:14)
[2021-01-24] MEDS: ASCORBIC ACID 500 MG TAB PO SCH (09:13)
[2021-01-24] MEDS: dexAMETHasone 2 MG TAB PO SCH (09:13)
[2021-01-24] MEDS: CYCLOBENZAPRINE 5 MG TAB PO SCH ×2 (09:13→14:42)
[2021-01-24] MEDS: OXYBUTYNIN CHLORIDE 5 MG TAB PO SCH ×2 (09:14→23:14)
[2021-01-24] MEDS: ZINC SULFATE 220 MG CAP PO SCH (09:14)
[2021-01-24] MEDS: lisinopriL 20 MG TAB PO SCH (09:14)
[2021-01-24] MEDS: ENOXAPARIN 80 MG/0.8 ML SYRINGE SQ SCH (09:14)
[2021-01-24] MEDS: METOPROLOL TARTRATE 25 MG TAB PO SCH ×2 (09:14→23:14)
[2021-01-24] MEDS: ASPIRIN 81 MG PO SCH (09:14)
[2021-01-24] MEDS: CHOLECALCIFEROL 25 MCG (1000 IU) TABLET PO SCH (09:14)
[2021-01-24] MEDS: ALBUTEROL HFA INHALER INHALATION PRN ×3 (09:34→19:56)
--- NOTE | 2021-01-24 10:57 | P.PN ---
Subjective Progress Note Date: 01/24/21 60-year-old female patient, obesity BMI of 41, has diabetes and hypertension and hyperlipidemia and acid reflux. The patient presented with shortness of breath of nine-day duration. the chest x-ray at time of admission showed bilateral pulmonary infiltrates consistent with pneumonia. CT angiogram was negative for pulmonary embolism. Patient tested postive for COVID-19. The patient is not vaccinated. The patient was outside the window for Remdesivir. Pro-calcitonin level was at 0.3. The patient was started on a combination of Decadron, and anti-coagulation with Lovenox. Subsequently, the patient was placed on nonrebreather facemask in addition to high flow oxygen. Following that, she was placed on BiPAP. She has a DNR/DNI CODE STATUS. She remains hypoxic. According to the daughter, her mother do not want intubated at any point in time. Her BiPAP is running at a pressure 15/6 cm in the fact of 100%. Supportive treatment was continued with steroids and BiPAP therapy for respirato ry support. Her d-dimer was at 3.97 on today's evaluation, condition is essentially the same. D-dimer is at 2.97 on her blood work. The patient remains BiPAP dependent. Any attempts to taken off the BiPAP with resulting into his saturations. She desaturates down to the 60s. She is awake and she is able to communicate. No recent chest x-ray on this patient. She is unable to go in a prone body position. The last chest x-rays from 01/21/2021 and the patient cardiomegaly with diffuse bilateral pulmonary infiltrates. The patient remains on the same medication including Decadron 6 mg on a daily basis, Lovenox 80 mg subcu every 12 hours and she is also on half-normal saline at the rate of 75 mL an hour. Objective - Vital Signs Vital signs: Vital Signs Temp 98.2 F 01/24/21 03:55 Pulse 64 01/24/21 03:55 Resp 24 01/24/21 03:55 BP 137/64 01/24/21 03:55 Pulse Ox 88 L 01/24/21 09:34 Intake & Output 01/23/21 01/24/21 01/24/21 18:59 06:59 18:59 Intake Total 600 20 Output Total 1150 550 Balance -550 -530 Weight 114.5 kg Intake: IV 600 20 Invasive Line 1 20 Sodium Chloride 0.45% 1, 600 000 ml @ 75 mls/hr IV . [id number] [facility] Rx#:[id number] Oral 0 0 Output: Urine 1150 550 Uretheral (White) 600 Other: Voiding Method Indwelling Catheter Indwelling Catheter - Exam No acute distress, oriented 3. A bit lethargic, but arouses. Only on BiPAP at 15/6 and on percent. Saturations are in in the low 90s. HEENT examination is grossly unremarkable. Neck supple. Full range of motion. No adenopathy thyromegaly or neck vein distention. Cardiovascular examination reveals regular rhythm rate. S1-S2 normal. No S3 or S4. No discernible murmur noted. Heart sounds are distant. Heart rate 86 bpm. Lungs reveal coarse bilateral inspiratory and expiratory rhonchi. Breath sounds are equal bilaterally. No wheezes. No crackles. Abdomen soft bowel sounds are heard. No masses or tenderness. Extremities are intact. No cyanosis clubbing or edema. Skin is without rash or lesion. Neurologic examination is brief but nonfocal. - Labs CBC & Chem 7: 01/22/21 09:09 01/21/21 09:18 Labs: Abnormal Lab Results - Last 24 Hours (Table) 01/23/21 01/23/21 01/23/21 Range/Units 11:38 16:46 20:10 D-Dimer (<0.60) mg/L FEU POC Glucose (mg/dL) 188 H 280 H 284 H (75-99) mg/dL C-Reactive Protein (<1.0) mg/dL 01/24/21 01/24/21 01/24/21 Range/Units 05:45 06:09 06:09 D-Dimer 2.97 H (<0.60) mg/L FEU POC Glucose (mg/dL) 296 H (75-99) mg/dL C-Reactive Protein 20.9 H (<1.0) mg/dL Microbiology - Last 24 Hours (Table) 01/19/21 17:45 Blood Culture - Preliminary Blood No Growth after 96 hours 01/19/21 17:30 Blood Culture - Preliminary Blood No Growth after 96 hours Assessment and Plan Plan: 1 Acute hypoxemic respiratory failure secondary to acute COVID-19 pneumonia. Not vaccinated. Outside the window for Remdesivir. Note that the patient developed progressive hypoxemia and the patient is currently on a BiPAP for support and the pressures of 15/6 cm of water with an FiO2 being titrated to maintain a saturation above 90%. The patient is currently on Decadron. She is a DNR/DNI CODE STATUS. 2 Elevated inflammatory markers secondary to above. 3 Troponin leak. 4 Obesity. 5 Hyperlipidemia. 6 Hypertension. 7 Diabetes mellitus, currently on Levemir insulin 8 Anxiety. Plan: Continue Decadron and will proceed by ordering Baricitinib for this patient per protocol. Repeat chest x-ray Patient is unable to eat and currently she is nothing by mouth as the patient is strictly BiPAP dependent. Repeat d-dimer and if the levels are low change her Lovenox dose today prophylactic dose Follow-up chest x-ray Continue the Levemir 25 units and give the patient NovoLog exercise 5 units every 6 hours plus a sliding scale coverage Keep BiPAP for respiratory support and wean down the FiO2 as tolerated to [place]ta in a saturation above 90% Condition is critical and the patient has a DNR/DNI CODE STATUS, prognosis poor baseline above-mentioned comorbidities.
[2021-01-24 11:47] LABS: Glucose,Whole Blood 298 mg/dL (75-99)
[2021-01-24] MEDS: BARICITINIB 2 MG TABLET PO SCH (12:36)
--- NOTE | 2021-01-24 16:43 | P.PN ---
Progress Note - Text Progress Note Date: 01/24/21 Presenting complaint: Short of breath Interval history: Admitted with COVID 19 pneumonitis, acute hypoxic respiratory failure, the low- sodium. Went into atrial fibrillation. January 20: Sitting up in bed. Tired. Some shortness of breath. 6 L nasal cannula. Decrease appetite. January 21: More tired. Short of breath. Requiring 15 L of oxygen. Ventimask. Decreased oral intake. Atrial fibrillation rate around 120s. Started on Lovenox by cardiology. Patient has chronic lower extremity swelling. Nurse earlier called me today that patient's feeling like her brain freeze. Stat computed tomography scan of the brain was done. Unremarkable. Neuro checks as ordered. There are no focal symptoms. Neurology was consulted. January 22: Patient been short of breath. Hypoxic. Being followed by pulmonary Dr. Dos Santos. Patient's present BiPAP this afternoon. A team was called. Patient placed on prone position. Nurse called me to inform me that patient's family was requesting hydrochloroquin. I told him to ask Dr. Handley from pulmonary who is on the COVID committee team for [place]. This is not one of the recommended medications from CDC. January 23: Patient complaining of more back pain. Orthopedics was consulted yesterday. Flexeril was added. [place] was added. No further intervention per orthopedics. Patient on BiPAP. 15/6 and 100%. Eating small amounts. Diet. January 24: Remains on BiPAP. Barely eating. Hypoxic. Around 85%. Tired. Able to answer questions. Review of systems: Attempted for constitutional, cardiovascular, GI, pulmonary. relevant finding as above Active Medications Acetaminophen (Acetaminophen Tab 325 Mg Tab) 650 mg PO Q4HR PRN PRN Reason: Fever>101 Last Admin: 01/23/21 09:28 Dose: 650 mg Documented by: Hydrocodone Bitart/Acetaminophen (Hydrocodone/Apap 5-325mg 1 Each Tab) 1 each PO Q6HR PRN PRN Reason: Pain Last Admin: 01/24/21 14:42 Dose: 1 each Documented by: Albuterol Sulfate (Albuterol Hfa Inhaler) 2 puff INHALATION RT-Q6H PRN PRN Reason: Shortness Of Breath Or Wheezing Last Admin: 01/24/21 12:26 Dose: 2 puff Documented by: Ascorbic Acid (Ascorbic Acid 500 Mg Tab) 1,000 mg PO DAILY [facility] Last Admin: 01/24/21 09:13 Dose: 1,000 mg Documented by: Aspirin (Aspirin 81 Mg) 81 mg PO DAILY [facility] Last Admin: 01/24/21 09:14 Dose: 81 mg Documented by: Atorvastatin Calcium (Atorvastatin 10 Mg Tab) 10 mg PO HS [facility] Last Admin: 01/23/21 09:26 Dose: 10 mg Documented by: Baricitinib (Baricitinib 2 Mg Tablet) 4 mg PO DAILY [facility] Stop: 02/06/21 09:01 Last Admin: 01/24/21 12:36 Dose: 4 mg Documented by: Cholecalciferol (Cholecalciferol 25 Mcg (1000 Iu) Tablet) 25 mcg PO DAILY [facility] Last Admin: 01/24/21 09:14 Dose: 25 mcg Documented by: Cyclobenzaprine HCl (Cyclobenzaprine 5 Mg Tab) 5 mg PO TID [facility] Last Admin: 01/24/21 14:42 Dose: 5 mg Documented by: Dexamethasone (Dexamethasone 2 Mg Tab) 6 mg PO DAILY [facility] Last Admin: 01/24/21 09:13 Dose: 6 mg Documented by: Enoxaparin Sodium (Enoxaparin 40 Mg/0.4 Ml Syringe) 40 mg SQ Q12HR [facility] Gabapentin (Gabapentin 300 Mg Cap) 600 mg PO BID [facility] Last Admin: 01/24/21 09:13 Dose: 600 mg Documented by: Sodium Chloride (Saline 0.45%) 1,000 mls @ 75 mls/hr IV .[id number] [facility] Last Admin: 01/23/21 23:53 Dose: 75 mls/hr Documented by: Insulin Aspart (Insulin Aspart (Novolog) 100 Unit/Ml Vial) 0 unit SQ [facility]; Protocol Last Admin: 01/24/21 12:36 Dose: 5 unit Documented by: Insulin Aspart (Insulin Aspart (Novolog) 100 Unit/Ml Vial) 5 unit SQ [facility] Last Admin: 01/24/21 12:37 Dose: 5 unit Documented by: Insulin Detemir (Insulin Detemir (Levemir) 100 Unit/Ml Syr) 26 unit SQ HS [facility] Ketorolac Tromethamine (Ketorolac 30 Mg/Ml 1 Ml Vial) 12.5 mg IVP Q8HR PRN PRN Reason: Analgesia Stop: 01/25/21 20:25 Last Admin: 01/23/21 06:33 Dose: 12.5 mg Documented by: Lisinopril (Lisinopril 20 Mg Tab) 20 mg PO DAILY [facility] Last Admin: 01/24/21 09:14 Dose: 20 mg Documented by: Metoprolol Tartrate (Metoprolol Tartrate 25 Mg Tab) 25 mg PO BID [facility] Last Admin: 01/24/21 09:14 Dose: 25 mg Documented by: Naloxone HCl (Naloxone 0.4 Mg/Ml 1 Ml Vial) 0.2 mg IV Q2M PRN PRN Reason: Opioid Reversal Oxybutynin Chloride (Oxybutynin Chloride 5 Mg Tab) 7.5 mg PO BID [facility] Last Admin: 01/24/21 09:14 Dose: 7.5 mg Documented by: Pantoprazole Sodium (Pantoprazole 40 Mg Tablet) 40 mg PO DAILY@0730 [facility] Last Admin: 01/24/21 06:13 Dose: 40 mg Documented by: Zinc Sulfate (Zinc Sulfate 220 Mg Cap) 220 mg PO DAILY [facility] Last Admin: 01/24/21 09:14 Dose: 220 mg Documented by: On examination: VITAL SIGNS: 98.2, 56, 31, 1 57 x 70, 85% on BiPAP at 100% and 15/6 GENERAL APPEARANCE: Reclining in bed tired, short of breath, BiPAP RESPIRATORY: Respiratory effort increased. Not able to speak in full sentences accessory muscles a working. PSYCHIATRY: . Mood and affect tired. Rest of exam per pulmonary and nursing INVESTIGATIONS, reviewed in the clinical context: January 24: D-dimer 2.97 CRP 20.9 January 23: D-dimer 3.97 CRP 98.8 Accu-Cheks noted January 22: WBC 6.5 hemoglobin 12.8 d-dimer 1.83 CRP 8.5 January 21: White count 17 hemoglobin 12.9 platelets 276 d-dimer 0.8 potassium 4.4 creatinine 0.99 CRP 6.2 White count 4.3 hemoglobin 12.2 platelets 200 sodium 131 potassium 4.7 BUN 23 creatinine 0.86 Accu-Cheks 461 Troponin I 0.082, 0.058 procalcitonin 0.30 d-dimer 0.[address] chest angiogram: Active for PE. Patchy bilateral infiltrates EKG tracing: Sinus rhythm. Assessment plan: -Acute bilateral COVID 19 pneumonitis: Not improving Dexamethasone 6 mg, vitamin C, zinc. Baricitinib -Acute hypoxic respiratory failure secondary to COVID 19 pneumonitis. Not improving 100% BiPAP. -Possible myocarditis secondary to COVID 19 pneumonitis. No chest pain. Has asthenia. Telemetry. . Follow with cardiology -atrial fibrillation, rate controlled Lovenox 80 mg subcu every 12. Lopressor 25 mg twice a day -Diabetes mellitus type 2, uncontrolled with hyperglycemia. Secondary to steroids Stopped IV insulin drip. Increase Levemir 32 units starting at night . Sliding scale. -Hyperlipidemia Lipitor 10 mg daily at bedtime -Essential hypertension Metoprolol 25 mg twice a day Zestril 20 mg daily -GERD Prilosec 40 mg daily -Chronic urinary stress incontinence Oxybutynin 7.5 by mouth twice a day -Primary osteoarthritis -Diabetic peripheral neuropathy Neurontin 600 mg twice a day -Anxiety disorder not otherwise specified Klonopin 15 mg twice a day when necessary -Acute on chronic cervical lumbar spine arthritic pain. Patient's had prior surgery. Orthopedic consulted. For symptom control. On Flexeril and [place] BiPAP. Subcu Lovenox. Decadron. Increase dose of Levemir to 32 units. Prognosis guarded. Follow-up with pulmonary. Baricitinib added
[2021-01-24 17:00] LABS: Glucose,Whole Blood 283 mg/dL (75-99)
[2021-01-24] MEDS: SODIUM CHLORIDE 0.45% 1,000 ML IV SCH (18:07)
[2021-01-24] MEDS ORDERED: INSULIN DETEMIR (LEVEMIR) 100 UNIT/ML SYR SQ SCH (21:00)
[2021-01-24 21:30] LABS: Glucose,Whole Blood 278 mg/dL (75-99)
[2021-01-24] MEDS: ENOXAPARIN 40 MG/0.4 ML SYRINGE SQ SCH (22:19)
--- NOTE | 2021-01-24 22:34 | PN ---
PROGRESS NOTE DATE OF SERVICE: 01/24/2021 REASON FOR FOLLOWUP: COVID-19 pneumonia. INTERVAL HISTORY: The patient is afebrile. The patient remains BiPAP-dependent. The patient is hemodynamically stable, not on pressor support. The patient denies having any chest pain or worsening cough. No abdominal pain or diarrhea. PHYSICAL EXAMINATION: Blood pressure 153/69, pulse of 94, temperature 97.5. General description is a middle- aged female lying in bed in no distress. Respiratory system: Unlabored breathing, coarse breath sounds. No wheeze. Heart S1, S2. Regular rate and rhythm. Abdomen soft, no tenderness. LABS: D-dimer is 2.97. CRP of 20.9. Blood culture has been negative. DIAGNOSTIC IMPRESSION AND PLAN: Patient with acute COVID-19 pneumonia with acute respiratory failure. Patient has been started on baricitinib; to continue along with dexamethasone, Lovenox, zinc and ascorbic acid and respiratory support. Prognosis remains guarded. MMODL / IJN: [id number] /
[2021-01-24] MEDS: ATORVASTATIN 10 MG TAB PO SCH (23:14)
[2021-01-25] MEDS: CYCLOBENZAPRINE 5 MG TAB PO SCH ×4 (01:09→23:00)
[2021-01-25] MEDS: SODIUM CHLORIDE 0.45% 1,000 ML IV SCH ×2 (01:22→19:23)
[2021-01-25] MEDS: HYDROcodone/APAP 5-325MG 1 EACH TAB PO PRN (04:26)
[2021-01-25 06:00] LABS: Glucose,Whole Blood 236 mg/dL (75-99)
[2021-01-25] MEDS: PANTOPRAZOLE 40 MG TABLET PO SCH (06:28)
[2021-01-25] MEDS: INSULIN ASPART (NovoLOG) 100 UNIT/ML VIAL SQ SCH ×8 (06:28→23:01)
[2021-01-25 08:43] LABS: HCT 39.6 % (34.0-46.0); HGB 13.1 gm/dL (11.4-16.0); MCH 30.5 pg (25.0-35.0); MCHC 33.2 g/dL (31.0-37.0); MCV 91.9 fL (80.0-100.0); Mean Platelet Volume 8.8; Platelet Count 375 k/uL (150-450); RBC 4.31 m/uL (3.80-5.40); RDW 12.5 % (11.5-15.5); WBC 9.7 k/uL (3.8-10.6)
[2021-01-25] MEDS: ALBUTEROL HFA INHALER INHALATION PRN ×3 (08:55→19:59)
[2021-01-25 08:57] LABS: ALT 10 U/L (4-34); AST 37 U/L (14-36); African American GFR (CKD) >90 (>60 ml/min/1.73 sqM); Albumin 2.7 g/dL (3.5-5.0); Alkaline Phosphatase 80 U/L (38-126); Anion Gap 7 mmol/L; Blood Urea Nitrogen 32 mg/dL (7-17); Calcium 7.9 mg/dL (8.4-10.2); Carbon Dioxide 27 mmol/L (22-30); Chloride 100 mmol/L (98-107); Glucose 231 mg/dL (74-99); Non-African American GFR(CKD) 82 (>60 ml/min/1.73 sqM); Potassium 4.9 mmol/L (3.5-5.1); Sodium 134 mmol/L (137-145); Total Bilirubin 0.6 mg/dL (0.2-1.3)
[2021-01-25] MEDS: OXYBUTYNIN CHLORIDE 5 MG TAB PO SCH ×2 (10:13→22:59)
[2021-01-25] MEDS: ASCORBIC ACID 500 MG TAB PO SCH (10:13)
[2021-01-25] MEDS: dexAMETHasone 2 MG TAB PO SCH (10:14)
[2021-01-25] MEDS: ASPIRIN 81 MG PO SCH (10:14)
[2021-01-25] MEDS: BARICITINIB 2 MG TABLET PO SCH (10:14)
[2021-01-25] MEDS: ENOXAPARIN 40 MG/0.4 ML SYRINGE SQ SCH (10:14)
[2021-01-25] MEDS: ZINC SULFATE 220 MG CAP PO SCH (10:14)
[2021-01-25] MEDS: CHOLECALCIFEROL 25 MCG (1000 IU) TABLET PO SCH (10:14)
[2021-01-25] MEDS: lisinopriL 20 MG TAB PO SCH (10:15)
[2021-01-25] MEDS: METOPROLOL TARTRATE 25 MG TAB PO SCH ×2 (10:15→22:53)
[2021-01-25] MEDS: GABAPENTIN 300 MG CAP PO SCH ×2 (10:15→22:59)
--- NOTE | 2021-01-25 11:16 | P.PN ---
Subjective Progress Note Date: 01/25/21 60-year-old female patient, obesity BMI of 41, has diabetes and hypertension and hyperlipidemia and acid reflux. The patient presented with shortness of breath of nine-day duration. the chest x-ray at time of admission showed bilateral pulmonary infiltrates consistent with pneumonia. CT angiogram was negative for pulmonary embolism. Patient tested postive for COVID-19. The patient is not vaccinated. The patient was outside the window for Remdesivir. Pro-calcitonin level was at 0.3. The patient was started on a combination of Decadron, and anti-coagulation with Lovenox. Subsequently, the patient was placed on nonrebreather facemask in addition to high flow oxygen. Following that, she was placed on BiPAP. She has a DNR/DNI CODE STATUS. She remains hypoxic. According to the daughter, her mother do not want intubated at any point in time. Her BiPAP is running at a pressure 15/6 cm in the fact of 100%. Supportive treatment was continued with steroids and BiPAP therapy for respirat ory support. Her d-dimer was at 3.97 on today's evaluation, condition is essentially the same. D-dimer is at 2.97 on her blood work. The patient remains BiPAP dependent. Any attempts to taken off the BiPAP with resulting into his saturations. She desaturates down to the 60s. She is awake and she is able to communicate. No recent chest x-ray on this patient. She is unable to go in a prone body position. The last chest x-rays from 01/21/2021 and the patient cardiomegaly with diffuse bilateral pulmonary infiltrates. The patient remains on the same medication including Decadron 6 mg on a daily basis, Lovenox 80 mg subcu every 12 hours and she is also on half-normal saline at the rate of 75 mL an hour. On today's evaluation, the patient remains strictly BiPAP dependent and the bicarb is running at a pressure of 15/10 cm of water. I did some modification the BiPAP pressure yesterday increasing the EPAP of the 10 with an FiO2 of 100% and the patient was having episodes of desaturation. Earlier this morning, the patient stated that she is unable to breathe and she pulled off the BiPAP mask and she desaturated down to the 40s. Currently she is back on BiPAP. She seems a more comfortable for now. She is afebrile. Her current pulse ox is 93%. She is a DNR/DNI CODE STATUS. The patient and her family have been strictly against intubation mechanical ventilation. In terms of her inflammatory markers, d- dimer was down to 2.97, and the rest of the inflammatory markers have not been checked yet and there are still pending. Meanwhile, the blood work in the electrolytes are all within normal limits. The white cell count is at 9.7. The patient remains on Decadron 6 mg by mouth daily. The patient is also on therapeutic dose of Lovenox 80 mg subcu every 12 hours pH is receiving half- normal saline at the rate of 75 mL an hour. Chest x-ray on 01/21/2021 shows smaller lung volumes, diffuse pulmonary infiltrates most on the lower lobes and right lung is more infiltrated compared to the left. At the time of my evaluation, her pulse ox is down to 86%. I separate note, Baricitinib was also started yesterday in combination with Decadron to optimize her respiratory s tatus. Objective - Vital Signs Vital signs: Vital Signs Temp 98.1 F 01/25/21 08:00 Pulse 77 01/25/21 08:00 Resp 32 H 01/25/21 08:00 BP 145/96 01/25/21 08:00 Pulse Ox 93 L 01/25/21 08:55 Intake & Output 01/24/21 01/25/21 01/25/21 18:59 06:59 18:59 Intake Total 0 20 Output Total 1400 500 Balance -1400 -480 Weight 119.5 kg Intake: IV 20 Invasive Line 1 10 Invasive Line 2 10 Oral 0 Output: Urine 1400 500 Other: Voiding Method Indwelling Catheter Indwelling Catheter # Voids 0 # Bowel Movements 0 - Exam No acute distress, oriented 3. A bit lethargic, but arouses. Only on BiPAP at 15/10 and on percent. Saturations are in in the low 90s. HEENT examination is grossly unremarkable. Neck supple. Full range of motion. No adenopathy thyromegaly or neck vein distention. Cardiovascular examination reveals regular rhythm rate. S1-S2 normal. No S3 or S4. No discernible murmur noted. Heart sounds are distant. Heart rate 86 bpm. Lungs reveal coarse bilateral inspiratory and expiratory rhonchi. Breath sounds are equal bilaterally. No wheezes. No crackles. Abdomen soft bowel sounds are heard. No masses or tenderness. Extremities are intact. No cyanosis clubbing or edema. Skin is without rash or lesion. Neurologic examination is brief but nonfocal. - Labs CBC & Chem 7: 01/25/21 07:11 01/25/21 07:11 Labs: Abnormal Lab Results - Last 24 Hours (Table) 01/24/21 01/24/21 01/24/21 Range/Units 11:34 16:54 21:25 Sodium (137-145) mmol/L BUN (7-17) mg/dL Glucose (74-99) mg/dL POC Glucose (mg/dL) 298 H 283 H 278 H (75-99) mg/dL Calcium (8.4-10.2) mg/dL AST (14-36) U/L Total Protein (6.3-8.2) g/dL Albumin (3.5-5.0) g/dL 01/25/21 01/25/21 Range/Units 05:59 07:11 Sodium 134 L (137-145) mmol/L BUN 32 H (7-17) mg/dL Glucose 231 H (74-99) mg/dL POC Glucose (mg/dL) 236 H (75-99) mg/dL Calcium 7.9 L (8.4-10.2) mg/dL AST 37 H (14-36) U/L Total Protein 6.0 L (6.3-8.2) g/dL Albumin 2.7 L (3.5-5.0) g/dL Microbiology - Last 24 Hours (Table) 01/19/21 17:30 Blood Culture - Preliminary Blood No Growth after 120 hours 01/19/21 17:45 Blood Culture - Preliminary Blood No Growth after 120 hours Assessment and Plan Plan: 1 Acute hypoxemic respiratory failure secondary to acute COVID-19 pneumonia. Not vaccinated. Outside the window for Remdesivir. Note that the patient developed progressive hypoxemia and the patient is currently on a BiPAP for resendiz pport and the pressures of 15/10 cm of water with an FiO2 being titrated to maintain a saturation above 90%. The patient is currently on Decadron. Patient also was started on Baricitinib as of 01/24/2021. Inflammatory markers are still pending. This has been ordered. I would also suggest a follow-up chest x-ray to be done this patient. She is a DNR/DNI CODE STATUS. The patient and her family have been a gaze intubation mechanical ventilation. As such, the patient was kept on a BiPAP on a medical floor for now which is being treated supportively. 2 Elevated inflammatory markers secondary to above. 3 Troponin leak. 4 Obesity. 5 Hyperlipidemia. 6 Hypertension. 7 Diabetes mellitus, currently on Levemir insulin 8 Anxiety. Plan: Continue Decadron and Baricitinib for this patient per protocol. Repeat chest x-ray for today Patient is unable to eat and currently she is nothing by mouth as the patient is strictly BiPAP dependent. Lovenox dose today prophylactic dose Continue the Levemir 25 units and give the patient NovoLog and increase Novolog to 10 units every 6 hours plus a sliding scale coverage Keep BiPAP for respiratory support and wean down the FiO2 as tolerated to maintain a saturation above 90% Condition is critical and the patient has a DNR/DNI CODE STATUS, prognosis poor baseline above-mentioned comorbidities.
[2021-01-25 11:49] LABS: Lymphocytes # (M) 1.84 k/uL (1.0-4.8); Monocytes # (M) 0.49 k/uL (0-1.0); Neutrophils # (M) 7.37 k/uL (1.3-7.7); Neutrophils % (M) 76 %; Nucleated Red Blood Cells 0 /100 WBC (0-0); Total Cells Counted 100
[2021-01-25 11:59] LABS: Glucose,Whole Blood 217 mg/dL (75-99)
--- NOTE | 2021-01-25 15:37 | XR ---
EXAMINATION TYPE: XR chest 1V portable DATE OF EXAM: 01/25/2021 COMPARISON: 01/21/2021 INDICATION: Short of breath TECHNIQUE: Single frontal view of the chest is obtained. FINDINGS: The heart size is normal. The pulmonary vasculature is indistinct. Diffuse scattered infiltrates are present bilaterally. Findings are worsening over the interval. IMPRESSION: 1. Diffuse bilateral lung infiltrates worsening over the interval. Findings can be compatible with at ypical pneumonia.
[2021-01-25 16:56] LABS: Glucose,Whole Blood 165 mg/dL (75-99)
--- NOTE | 2021-01-25 17:42 | P.PN ---
Progress Note - Text Progress Note Date: 01/25/21 Presenting complaint: Short of breath Interval history: Admitted with COVID 19 pneumonitis, acute hypoxic respiratory failure, the low- sodium. Went into atrial fibrillation. January 20: Sitting up in bed. Tired. Some shortness of breath. 6 L nasal cannula. Decrease appetite. January 21: More tired. Short of breath. Requiring 15 L of oxygen. Ventimask. Decreased oral intake. Atrial fibrillation rate around 120s. Started on Lovenox by cardiology. Patient has chronic lower extremity swelling. Nurse earlier called me today that patient's feeling like her brain freeze. Stat computed tomography scan of the brain was done. Unremarkable. Neuro checks as ordered. There are no focal symptoms. Neurology was consulted. January 22: Patient been short of breath. Hypoxic. Being followed by pulmonary Dr. Dos Santos. Patient's present BiPAP this afternoon. A team was called. Patient placed on prone position. Nurse called me to inform me that patient's family was requesting hydrochloroquin. I told him to ask Dr. Handley from pulmonary who is on the COVID committee team for [place]. This is not one of the recommended medications from CDC. January 23: Patient complaining of more back pain. Orthopedics was consulted yesterday. Flexeril was added. [place] was added. No further intervention per orthopedics. Patient on BiPAP. 15/6 and 100%. Eating small amounts. Diet. January 24: Remains on BiPAP. Barely eating. Hypoxic. Around 85%. Tired. Able to answer questions. January 25: Remains on BiPAP. Currently had taken it off. Desaturate with the 40s. Put back on. Eating small amounts. Tired. Review of systems: Attempted for constitutional, cardiovascular, GI, pulmonary. relevant finding as above Active Medications Acetaminophen (Acetaminophen Tab 325 Mg Tab) 650 mg PO Q4HR PRN PRN Reason: Fever>101 Last Admin: 01/23/21 09:28 Dose: 650 mg Documented by: Hydrocodone Bitart/Acetaminophen (Hydrocodone/Apap 5-325mg 1 Each Tab) 1 each PO Q6HR PRN PRN Reason: Pain Last Admin: 01/25/21 04:26 Dose: 1 each Documented by: Albuterol Sulfate (Albuterol Hfa Inhaler) 2 puff INHALATION RT-Q6H PRN PRN Reason: Shortness Of Breath Or Wheezing Last Admin: 01/25/21 12:23 Dose: 2 puff Documented by: Ascorbic Acid (Ascorbic Acid 500 Mg Tab) 1,000 mg PO DAILY [facility] Last Admin: 01/25/21 10:13 Dose: 1,000 mg Documented by: Aspirin (Aspirin 81 Mg) 81 mg PO DAILY [facility] Last Admin: 01/25/21 10:14 Dose: 81 mg Documented by: Atorvastatin Calcium (Atorvastatin 10 Mg Tab) 10 mg PO [facility] Last Admin: 01/24/21 23:14 Dose: Not Given Documented by: Baricitinib (Baricitinib 2 Mg Tablet) 4 mg PO DAILY [facility] Stop: 02/06/21 09:01 Last Admin: 01/25/21 10:14 Dose: 4 mg Documented by: Cholecalciferol (Cholecalciferol 25 Mcg (1000 Iu) Tablet) 25 mcg PO DAILY [facility] Last Admin: 01/25/21 10:14 Dose: 25 mcg Documented by: Cyclobenzaprine HCl (Cyclobenzaprine 5 Mg Tab) 5 mg PO TID [facility] Last Admin: 01/25/21 10:14 Dose: 5 mg Documented by: Dexamethasone (Dexamethasone 2 Mg Tab) 6 mg PO DAILY [facility] Last Admin: 01/25/21 10:14 Dose: 6 mg Documented by: Enoxaparin Sodium (Enoxaparin 40 Mg/0.4 Ml Syringe) 40 mg SQ Q12HR [facility] Last Admin: 01/25/21 10:14 Dose: 40 mg Documented by: Gabapentin (Gabapentin 300 Mg Cap) 600 mg PO BID [facility] Last Admin: 01/25/21 10:15 Dose: 600 mg Documented by: Sodium Chloride (Saline 0.45%) 1,000 mls @ 75 mls/hr IV .[id number] [facility] Last Admin: 01/25/21 01:22 Dose: 75 mls/hr Documented by: Insulin Aspart (Insulin Aspart (Novolog) 100 Unit/Ml Vial) 0 unit SQ [facility]; Protocol Last Admin: 01/25/21 12:36 Dose: 3 unit Documented by: Insulin Aspart (Insulin Aspart (Novolog) 100 Unit/Ml Vial) 10 unit SQ [facility] Last Admin: 01/25/21 12:37 Dose: 10 unit Documented by: Insulin Detemir (Insulin Detemir (Levemir) 100 Unit/Ml Syr) 26 unit SQ [facility] Last Admin: 01/24/21 22:20 Dose: 26 unit Documented by: Ketorolac Tromethamine (Ketorolac 30 Mg/Ml 1 Ml Vial) 12.5 mg IVP Q8HR PRN PRN Reason: Analgesia Stop: 01/25/21 20:25 Last Admin: 01/23/21 06:33 Dose: 12.5 mg Documented by: Lisinopril (Lisinopril 20 Mg Tab) 20 mg PO DAILY [facility] Last Admin: 01/25/21 10:15 Dose: 20 mg Documented by: Metoprolol Tartrate (Metoprolol Tartrate 25 Mg Tab) 25 mg PO BID [facility] Last Admin: 01/25/21 10:15 Dose: 25 mg Documented by: Naloxone HCl (Naloxone 0.4 Mg/Ml 1 Ml Vial) 0.2 mg IV Q2M PRN PRN Reason: Opioid Reversal Oxybutynin Chloride (Oxybutynin Chloride 5 Mg Tab) 7.5 mg PO BID [facility] Last Admin: 01/25/21 10:13 Dose: 7.5 mg Documented by: Pantoprazole Sodium (Pantoprazole 40 Mg Tablet) 40 mg PO DAILY@0730 [facility] Last Admin: 01/25/21 06:28 Dose: 40 mg Documented by: Zinc Sulfate (Zinc Sulfate 220 Mg Cap) 220 mg PO DAILY [facility] Last Admin: 01/25/21 10:14 Dose: 220 mg Documented by: On examination: VITAL SIGNS: 98.3, 59, 30, 162/94, 86% on BiPAP 100% on 16/10 GENERAL APPEARANCE: Reclining in bed tired, short of breath, BiPAP RESPIRATORY: Respiratory effort increased. Not able to speak in full sentences accessory muscles a working. PSYCHIATRY: . Mood and affect tired. Rest of exam per pulmonary and nursing INVESTIGATIONS, reviewed in the clinical context: January 25: WBC 9.7 hemoglobin 13.1 platelets 375 potassium 4.9 creatinine 0.78 January 24: D-dimer 2.97 CRP 20.9 January 23: D-dimer 3.97 CRP 98.8 Accu-Cheks noted January 22: WBC 6.5 hemoglobin 12.8 d-dimer 1.83 CRP 8.5 January 21: White count 17 hemoglobin 12.9 platelets 276 d-dimer 0.8 potassium 4.4 creatinine 0.99 CRP 6.2 White count 4.3 hemoglobin 12.2 platelets 200 sodium 131 potassium 4.7 BUN 23 creatinine 0.86 Accu-Cheks 461 Troponin I 0.082, 0.058 procalcitonin 0.30 d-dimer 0.[address] chest angiogram: Active for PE. Patchy bilateral infiltrates EKG tracing: Sinus rhythm. Assessment plan: -Acute bilateral COVID 19 pneumonitis: Not improving Dexamethasone 6 mg, vitamin C, zinc. Baricitinib -Acute hypoxic respiratory failure secondary to COVID 19 pneumonitis. Not improving 100% BiPAP. -Possible myocarditis secondary to COVID 19 pneumonitis. No chest pain. Has asthenia. Telemetry. . Follow with cardiology -atrial fibrillation, rate controlled Lovenox 80 mg subcu every 12. Lopressor 25 mg twice a day. Stop Lovenox start eliquis -Diabetes mellitus type 2, uncontrolled with hyperglycemia. Secondary to steroids Stopped IV insulin drip. Increase Levemir 36 units starting at night . Sliding scale. -Hyperlipidemia Lipitor 10 mg daily at bedtime -Essential hypertension Metoprolol 25 mg twice a day Zestril 20 mg daily -GERD Prilosec 40 mg daily -Chronic urinary stress incontinence Oxybutynin 7.5 by mouth twice a day -Primary osteoarthritis -Diabetic peripheral neuropathy Neurontin 600 mg twice a day -Anxiety disorder not otherwise specified Klonopin 15 mg twice a day when necessary -Acute on chronic cervical lumbar spine arthritic pain. Patient's had prior surgery. Orthopedic consulted. For symptom control. On Flexeril and [place] BiPAP. Decadron. Increase dose of Levemir to 36 units. Prognosis guarded. Baricitinib. DC subcu Lovenox start eliquis
[2021-01-25 20:23] LABS: Glucose,Whole Blood 161 mg/dL (75-99)
[2021-01-25] MEDS ORDERED: INSULIN DETEMIR (LEVEMIR) 100 UNIT/ML SYR SQ SCH (21:00)
[2021-01-25] MEDS: APIXABAN 5 MG TAB PO SCH (23:00)
--- NOTE | 2021-01-25 23:04 | PN ---
PROGRESS NOTE DATE OF SERVICE: 01/25/2021 REASON FOR FOLLOWUP: COVID-19 pneumonia. INTERVAL HISTORY: The patient is currently afebrile. The patient is BiPAP-dependent. The patient is hemodynamically stable, not on any pressor support. The patient denies having any chest pain or worsening cough. No abdominal pain or diarrhea. PHYSICAL EXAMINATION: Blood pressure 175/77 with a pulse of 60, temperature 98.2. She is 94% on BiPAP. General description is a middle-aged female lying in bed in no distress. Respiratory system: Unlabored breathing, decreased intensity of breath sounds. No wheeze. Heart S1, S2. Regular rate and rhythm. Abdomen soft, no tenderness. LABS: Hemoglobin 13.1, white count 9.7, creatinine 0.78. DIAGNOSTIC IMPRESSION AND PLAN: Patient with acute COVID-19 infection with acute respiratory failure. Patient is BiPAP- dependent. Patient is covered with baricitinib, Eliquis, zinc and ascorbic acid; to continue along with respiratory support. Monitor clinical course closely. MMODL / IJN: [id number] /
[2021-01-25] MEDS: ATORVASTATIN 10 MG TAB PO SCH (23:29)
[2021-01-26] MEDS: SODIUM CHLORIDE 0.45% 1,000 ML IV SCH (04:04)
[2021-01-26 06:03] LABS: Glucose,Whole Blood 126 mg/dL (75-99)
[2021-01-26] MEDS: INSULIN ASPART (NovoLOG) 100 UNIT/ML VIAL SQ SCH ×8 (06:07→22:38)
[2021-01-26] MEDS: ALBUTEROL HFA INHALER INHALATION PRN ×2 (08:13→12:01)
--- NOTE | 2021-01-26 11:00 | P.PN ---
Subjective Progress Note Date: 01/26/21 60-year-old female patient, obesity BMI of 41, has diabetes and hypertension and hyperlipidemia and acid reflux. The patient presented with shortness of breath of nine-day duration. the chest x-ray at time of admission showed bilateral pulmonary infiltrates consistent with pneumonia. CT angiogram was negative for pulmonary embolism. Patient tested postive for COVID-19. The patient is not vaccinated. The patient was outside the window for Remdesivir. Pro-calcitonin level was at 0.3. The patient was started on a combination of Decadron, and anti-coagulation with Lovenox. Subsequently, the patient was placed on nonrebreather facemask in addition to high flow oxygen. Following that, she was placed on BiPAP. She has a DNR/DNI CODE STATUS. She remains hypoxic. According to the daughter, her mother do not want intubated at any point in time. Her BiPAP is running at a pressure 15/6 cm in the fact of 100%. Supportive treatment was continued with steroids and BiPAP therapy for respirat ory support. Her d-dimer was at 3.97 on today's evaluation, condition is essentially the same. D-dimer is at 2.97 on her blood work. The patient remains BiPAP dependent. Any attempts to taken off the BiPAP with resulting into his saturations. She desaturates down to the 60s. She is awake and she is able to communicate. No recent chest x-ray on this patient. She is unable to go in a prone body position. The last chest x-rays from 01/21/2021 and the patient cardiomegaly with diffuse bilateral pulmonary infiltrates. The patient remains on the same medication including Decadron 6 mg on a daily basis, Lovenox 80 mg subcu every 12 hours and she is also on half-normal saline at the rate of 75 mL an hour. On today's evaluation, the patient remains strictly BiPAP dependent and the bicarb is running at a pressure of 15/10 cm of water. I did some modification the BiPAP pressure yesterday increasing the EPAP of the 10 with an FiO2 of 100% and the patient was having episodes of desaturation. Earlier this morning, the patient stated that she is unable to breathe and she pulled off the BiPAP mask and she desaturated down to the 40s. Currently she is back on BiPAP. She seems a more comfortable for now. She is afebrile. Her current pulse ox is 93%. She is a DNR/DNI CODE STATUS. The patient and her family have been strictly against intubation mechanical ventilation. In terms of her inflammatory markers, d- dimer was down to 2.97, and the rest of the inflammatory markers have not been checked yet and there are still pending. Meanwhile, the blood work in the electrolytes are all within normal limits. The white cell count is at 9.7. The patient remains on Decadron 6 mg by mouth daily. The patient is also on therapeutic dose of Lovenox 80 mg subcu every 12 hours pH is receiving half- normal saline at the rate of 75 mL an hour. Chest x-ray on 01/21/2021 shows smaller lung volumes, diffuse pulmonary infiltrates most on the lower lobes and right lung is more infiltrated compared to the left. At the time of my evaluation, her pulse ox is down to 86%. I separate note, Baricitinib was also started yesterday in combination with Decadron to optimize her respiratory s tatus. 01/26/2021, the patient is clinically worse. She has become more anxious and agitated and uncooperative. As mentioned earlier, she hasn't hypoxic respiratory failure due to go with associated pneumonia and the patient is a DNR/DNI CODE STATUS. Yesterday, I made some adjustments on the BiPAP ventilation on the patient is currently on a BiPAP at a pressure 15/10 cm of water with an FiO2 of 100% and a saturation is at 92. Her degenerated tidal volume is around 375 mL. Her minute ventilation is on 40 L per minute. Her breathing is labored and the patient is tachypneic and resuscitation in the mid 30s. This morning, she refused taken her medications. Meanwhile, the patient remains on treatment and the patient is currently on half-normal saline at the rate of 75 mL an hour. The patient is on a combination of Decadron and Baricitinib and the patient is also on Lovenox 80 mg subcu every 12 hours. The blood work from today shows a blood sugar of 126. No other blood work was o btained. LDH from yesterday was on the rise and the level was up to 2744. Follow-up inflammatory markers are still pending from today. Condition overall is obviously worse. She is more lethargic. She is less cooperative. More agitated. She did have a bout of hypoglycemia sedated after being given insulin, Levemir insulin. Based on that, Levemir will be placed on hold and the patient was placed only on insulin scale coverage. Objective - Vital Signs Vital signs: Vital Signs Temp 98.1 F 01/26/21 04:00 Pulse 66 01/26/21 04:00 Resp 28 H 01/26/21 04:00 BP 128/85 01/26/21 04:00 Pulse Ox 91 L 01/26/21 04:00 Intake & Output 01/25/21 01/26/21 01/26/21 18:59 06:59 18:59 Intake Total 300 Output Total 600 625 700 Balance -300 -625 -700 Weight 124 kg Intake: IV 300 Sodium Chloride 0.45% 1, 300 000 ml @ 75 mls/hr IV . [id number] [facility] Rx#:[id number] Output: Urine 600 625 700 Uretheral (White) 600 350 Other: Voiding Method Indwelling Catheter Indwelling Catheter - Exam Respiratory distress, oriented 3. lethargic, but arouses. Only on BiPAP at 15/10 and on percent. Saturations are in in the low 90s., The patient's breathing is labored and the patient has a higher level of minute ventilation compared to yesterday. She is more lethargic, more tachypneic compared to yesterday. HEENT examination is grossly unremarkable. Neck supple. Full range of motion. No adenopathy thyromegaly or neck vein distention. Cardiovascular examination reveals regular rhythm rate. S1-S2 normal. No S3 or S4. No discernible murmur noted. Heart sounds are distant. Heart rate 86 bpm. Lungs reveal coarse bilateral inspiratory and expiratory rhonchi. Breath sounds are equal bilaterally. No wheezes. No crackles. Abdomen soft bowel sounds are heard. No masses or tenderness. Extremities are intact. No cyanosis clubbing or edema. Skin is without rash or lesion. Neurologic examination is brief but nonfocal. - Labs CBC & Chem 7: 01/25/21 07:11 01/25/21 07:11 Labs: Abnormal Lab Results - Last 24 Hours (Table) 01/25/21 01/25/21 01/25/21 Range/Units 07:11 11:55 16:55 POC Glucose (mg/dL) 217 H 165 H (75-99) mg/dL Lactate Dehydrogenase 2744 H (313-618) U/L 01/25/21 01/26/21 Range/Units 20:22 06:02 POC Glucose (mg/dL) 161 H 126 H (75-99) mg/dL Lactate Dehydrogenase (313-618) U/L Microbiology - Last 24 Hours (Table) 01/19/21 17:45 Blood Culture - Final Blood No Growth after 144 hours 01/19/21 17:30 Blood Culture - Final Blood No Growth after 144 hours Assessment and Plan Plan: 1 Acute hypoxemic respiratory failure secondary to acute COVID-19 pneumonia. Not vaccinated. Outside the window for Remdesivir. Note that the patient developed progressive hypoxemia and the patient is currently on a BiPAP for support and the pressures of 15/10 cm of water with an FiO2 being titrated to maintain a saturation above 90%. The patient is currently on Decadron. Patient also was started on Baricitinib as of 01/24/2021. Inflammatory markers are elevated including LDH. The patient's condition decompensated over the past 24- 48 hours. She is strictly BiPAP dependent for now. She has a DNR/DNI CODE STATUS. I'm going to repeat the chest x-ray. I'm going to keep her on a BiPAP at a pressure 15/10 cm of water with an FiO2 of 100%. She has become more lethargic and less cooperative and more agitated. Inflammatory markers from today are still pending. 2 Elevated inflammatory markers secondary to above. 3 Troponin leak. 4 Obesity. 5 Hyperlipidemia. 6 Hypertension. 7 Diabetes mellitus, currently on Levemir insulin, insulin will be placed on hold as the patient has developed a bout of hypoglycemia. 8 Anxiety. Plan: Continue Decadron and Baricitinib for this patient per protocol. Repeat chest x-ray for today, the patient will be kept on BiPAP at a pressure 15/10 cm of water with an FiO2 of 100%. She is doing poorly. Her condition decompensated over the past 24-48 hours. This is despite her being treated with a combination of Decadron and Baricitinib. She remains on Lovenox Patient is unable to eat and currently she is nothing by mouth as the patient is strictly BiPAP dependent. Condition is progressively decompensated and the patient carries a DNR/DNI CODE STATUS. She did have hypoglycemic episodes this morning and the patient will be taken off Levemir and she'll be placed only on his face. Insulin coverage. I'm going to contact the daughter and updated her on her condition. Prognosis o bviously poor baseline above-mentioned comorbidities. Condition is critical and the patient has a DNR/DNI CODE STATUS, prognosis poor baseline above-mentioned comorbidities.
--- NOTE | 2021-01-26 11:51 | XR ---
EXAMINATION TYPE: XR chest 1V portable DATE OF EXAM: 01/26/2021 COMPARISON: 01/25/2021 INDICATION: Covid TECHNIQUE: Single frontal view of the chest is obtained. FINDINGS: The heart size is normal. The pulmonary vasculature is normal. Patchy infiltrates are diffusely present may be slightly greater on the left. Findings may have sligh t improvement on the right compared to prior exam. IMPRESSION: 1. Patchy bilateral infiltrates can be compatible with atypical pneumonia. There may be slight improv ement on the right.
[2021-01-26 12:00] LABS: Glucose,Whole Blood 132 mg/dL (75-99)
[2021-01-26 15:23] LABS: Basophils # (A) 0.1 k/uL (0-0.2); Basophils % (A) 1 %; Eosinophils # (A) 0.1 k/uL (0-0.7); Eosinophils % (A) 1 %; HCT 37.8 % (34.0-46.0); Lymphocytes # (A) 0.6 k/uL (1.0-4.8); Lymphocytes % (A) 5 %; MCH 30.9 pg (25.0-35.0); MCHC 34.3 g/dL (31.0-37.0); MCV 90.2 fL (80.0-100.0); Monocytes # (A) 0.8 k/uL (0-1.0); Monocytes % (A) 7 %; Neutrophils # (A) 10.6 k/uL (1.3-7.7); Neutrophils % (A) 87 %; Platelet Count 349 k/uL (150-450); RBC 4.19 m/uL (3.80-5.40); RDW 12.4 % (11.5-15.5); WBC 12.3 k/uL (3.8-10.6)
[2021-01-26 15:34] LABS: ALT 27 U/L (4-34); AST 105 U/L (14-36); African American GFR (CKD) >90 (>60 ml/min/1.73 sqM); Albumin 2.6 g/dL (3.5-5.0); Alkaline Phosphatase 106 U/L (38-126); Anion Gap 6 mmol/L; Blood Urea Nitrogen 23 mg/dL (7-17); C Reactive Protein 5.1 mg/dL (<1.0); Calcium 7.9 mg/dL (8.4-10.2); Carbon Dioxide 26 mmol/L (22-30); Chloride 102 mmol/L (98-107); Glucose 167 mg/dL (74-99); Non-African American GFR(CKD) >90 (>60 ml/min/1.73 sqM); Potassium 3.9 mmol/L (3.5-5.1); Sodium 134 mmol/L (137-145); Total Bilirubin 0.9 mg/dL (0.2-1.3); Total Protein 5.9 g/dL (6.3-8.2)
[2021-01-26 15:40] LABS: LDH 2199 U/L (313-618)
--- NOTE | 2021-01-26 16:31 | P.PN ---
Progress Note - Text Progress Note Date: 01/26/21 Presenting complaint: Short of breath Interval history: Admitted with COVID 19 pneumonitis, acute hypoxic respiratory failure, the low- sodium. Went into atrial fibrillation. January 20: Sitting up in bed. Tired. Some shortness of breath. 6 L nasal cannula. Decrease appetite. January 21: More tired. Short of breath. Requiring 15 L of oxygen. Ventimask. Decreased oral intake. Atrial fibrillation rate around 120s. Started on Lovenox by cardiology. Patient has chronic lower extremity swelling. Nurse earlier called me today that patient's feeling like her brain freeze. Stat computed tomography scan of the brain was done. Unremarkable. Neuro checks as ordered. There are no focal symptoms. Neurology was consulted. January 22: Patient been short of breath. Hypoxic. Being followed by pulmonary Dr. Dos Santos. Patient's present BiPAP this afternoon. A team was called. Patient placed on prone position. Nurse called me to inform me that patient's family was requesting hydrochloroquin. I told him to ask Dr. Handley from pulmonary who is on the COVID committee team for [place]. This is not one of the recommended medications from CDC. January 23: Patient complaining of more back pain. Orthopedics was consulted yesterday. Flexeril was added. [place] was added. No further intervention per orthopedics. Patient on BiPAP. 15/6 and 100%. Eating small amounts. Diet. January 24: Remains on BiPAP. Barely eating. Hypoxic. Around 85%. Tired. Able to answer questions. January 25: Remains on BiPAP. Currently had taken it off. Desaturate with the 40s. Put back on. Eating small amounts. Tired. January 26: On BiPAP. Sometimes takes it off. Barely eating. On IV fluids, Baricitinib, dexamethasone. Eliquis for A. fib. Increase lisinopril to 20 mg twice a day Review of systems: Attempted for constitutional, cardiovascular, GI, pulmonary. relevant finding as above Active Medications Acetaminophen (Acetaminophen Tab 325 Mg Tab) 650 mg PO Q4HR PRN PRN Reason: Fever>101 Last Admin: 01/23/21 09:28 Dose: 650 mg Documented by: Hydrocodone Bitart/Acetaminophen (Hydrocodone/Apap 5-325mg 1 Each Tab) 1 each PO Q6HR PRN PRN Reason: Pain Last Admin: 01/25/21 04:26 Dose: 1 each Documented by: Albuterol Sulfate (Albuterol Hfa Inhaler) 2 puff INHALATION RT-Q6H PRN PRN Reason: Shortness Of Breath Or Wheezing Last Admin: 01/26/21 12:01 Dose: 2 puff Documented by: Apixaban (Apixaban 5 Mg Tab) 5 mg PO BID [facility]; Protocol Last Admin: 01/25/21 23:00 Dose: 5 mg Documented by: Ascorbic Acid (Ascorbic Acid 500 Mg Tab) 1,000 mg PO DAILY [facility] Last Admin: 01/25/21 10:13 Dose: 1,000 mg Documented by: Aspirin (Aspirin 81 Mg) 81 mg PO DAILY [facility] Last Admin: 01/25/21 10:14 Dose: 81 mg Documented by: Atorvastatin Calcium (Atorvastatin 10 Mg Tab) 10 mg PO HS [facility] Last Admin: 01/25/21 23:29 Dose: Not Given Documented by: Baricitinib (Baricitinib 2 Mg Tablet) 4 mg PO DAILY [facility] Stop: 02/06/21 09:01 Last Admin: 01/25/21 10:14 Dose: 4 mg Documented by: Cholecalciferol (Cholecalciferol 25 Mcg (1000 Iu) Tablet) 25 mcg PO DAILY [facility] Last Admin: 01/25/21 10:14 Dose: 25 mcg Documented by: Cyclobenzaprine HCl (Cyclobenzaprine 5 Mg Tab) 5 mg PO TID [facility] Last Admin: 01/25/21 23:00 Dose: 5 mg Documented by: Dexamethasone (Dexamethasone 2 Mg Tab) 6 mg PO DAILY [facility] Last Admin: 01/25/21 10:14 Dose: 6 mg Documented by: Gabapentin (Gabapentin 300 Mg Cap) 600 mg PO BID [facility] Last Admin: 01/25/21 22:59 Dose: 600 mg Documented by: Sodium Chloride (Saline 0.45%) 1,000 mls @ 75 mls/hr IV .[id number] [facility] Last Admin: 01/26/21 04:04 Dose: 75 mls/hr Documented by: Insulin Aspart (Insulin Aspart (Novolog) 100 Unit/Ml Vial) 0 unit SQ ACHS [facility]; Protocol Last Admin: 01/26/21 06:07 Dose: Not Given Documented by: Insulin Aspart (Insulin Aspart (Novolog) 100 Unit/Ml Vial) 10 unit SQ [facility]IN [facility] Last Admin: 01/26/21 06:07 Dose: Not Given Documented by: Lisinopril (Lisinopril 20 Mg Tab) 20 mg PO BID [facility] Metoprolol Tartrate (Metoprolol Tartrate 25 Mg Tab) 25 mg PO BID [facility] Last Admin: 01/25/21 22:53 Dose: Not Given Documented by: Naloxone HCl (Naloxone 0.4 Mg/Ml 1 Ml Vial) 0.2 mg IV Q2M PRN PRN Reason: Opioid Reversal Oxybutynin Chloride (Oxybutynin Chloride 5 Mg Tab) 7.5 mg PO BID [facility] Last Admin: 01/25/21 22:59 Dose: 7.5 mg Documented by: Pantoprazole Sodium (Pantoprazole 40 Mg Tablet) 40 mg PO DAILY@0730 [facility] Last Admin: 01/25/21 06:28 Dose: 40 mg Documented by: Zinc Sulfate (Zinc Sulfate 220 Mg Cap) 220 mg PO DAILY [facility] Last Admin: 01/25/21 10:14 Dose: 220 mg Documented by: On examination: VITAL SIGNS: 98.9, 78, 42, 170/94, on 100% BiPAP GENERAL APPEARANCE: Reclining in bed tired, short of breath, BiPAP RESPIRATORY: Respiratory effort increased. Not able to speak in full sentences accessory muscles a working. PSYCHIATRY: . Mood and affect tired. Rest of exam per pulmonary and nursing INVESTIGATIONS, reviewed in the clinical context: January 26: WBC 12.3 hemoglobin 13 d-dimer 17.6 potassium 3.9 creatinine 0.67 CRP 5.1 January 21: White count 17 hemoglobin 12.9 platelets 276 d-dimer 0.8 potassium 4.4 creatinine 0.99 CRP 6.2 White count 4.3 hemoglobin 12.2 platelets 200 sodium 131 potassium 4.7 BUN 23 creatinine 0.86 Accu-Cheks 461 Troponin I 0.082, 0.058 procalcitonin 0.30 d-dimer 0.[address] chest angiogram: Active for PE. Patchy bilateral infiltrates EKG tracing: Sinus rhythm. Assessment plan: -Acute bilateral COVID 19 pneumonitis: Not improving Dexamethasone 6 mg, vitamin C, zinc. Baricitinib -Acute hypoxic respiratory failure secondary to COVID 19 pneumonitis. Not improving 100% BiPAP. -Possible myocarditis secondary to COVID 19 pneumonitis. No chest pain. Has asthenia. Telemetry. . Follow with cardiology -atrial fibrillation, rate controlled Lovenox 80 mg subcu every 12-discontinued. Lopressor 25 mg twice a day. Eliquis 5 mg twice a day -Diabetes mellitus type 2, uncontrolled with hyperglycemia. Secondary to steroids Stopped IV insulin drip. Levemir 36 units starting at night . Sliding scale. -Hyperlipidemia Lipitor 10 mg daily at bedtime -Essential hypertension Metoprolol 25 mg twice a day ; increase Zestril 20 mg twice a day -GERD Prilosec 40 mg daily -Chronic urinary stress incontinence Oxybutynin 7.5 by mouth twice a day -Primary osteoarthritis -Diabetic peripheral neuropathy Neurontin 600 mg twice a day -Anxiety disorder not otherwise specified Klonopin 15 mg twice a day when necessary -Acute on chronic cervical lumbar spine arthritic pain. Patient's had prior surgery. Orthopedic consulted. For symptom control. On Flexeril and [place] BiPAP. Decadron. Levemir to 36 units. Baricitinib. eliquis. Increase lisinopril to 20 mg twice a day. Prognosis guarded.
--- NOTE | 2021-01-26 16:39 | PN ---
PROGRESS NOTE DATE OF SERVICE: 01/26/2021 REASON FOR FOLLOWUP: COVID-19 pneumonia. INTERVAL HISTORY: Patient is currently afebrile. The patient continues to be BiPAP dependent. The patient is hemodynamically stable. The patient remains to be lethargic. Unable to provide any history. Did have some tachypnea. No vomiting, diarrhea or any other changes reported by nursing staff. PHYSICAL EXAMINATION: Blood pressure 178/94 with a pulse of 73, temperature 98.9. She is 100% on BiPAP. General description is a middle-aged female lying in bed in no distress. Respiratory system: Unlabored breathing, decreased intensity of breath sounds. No wheeze. Heart S1, S2. Regular rate and rhythm. Abdomen: Soft. No tenderness. LABS: Hemoglobin is 13.1, white count 12.3, creatinine 0.67. DIAGNOSTIC IMPRESSION/PLAN: Patient with acute respiratory failure secondary to Covid 19 pneumonia in this patient whose condition remains to be critical. The patient is currently covered with Eliquis, baricitinib, dexamethasone, zinc and ascorbic acid. Overall prognosis remains to be guarded. Daughter at the bedside. Questions were answered. MMODL / IJN: [id number] /
[2021-01-26 16:58] LABS: Glucose,Whole Blood 142 mg/dL (75-99)
[2021-01-26 17:13] VITALS: TEMP 98.4
[2021-01-26] MEDS: ASPIRIN 81 MG PO SCH (17:14)
[2021-01-26] MEDS: APIXABAN 5 MG TAB PO SCH ×2 (17:14→22:37)
[2021-01-26] MEDS: ASCORBIC ACID 500 MG TAB PO SCH (17:14)
[2021-01-26] MEDS: PANTOPRAZOLE 40 MG TABLET PO SCH (17:14)
[2021-01-26] MEDS: CYCLOBENZAPRINE 5 MG TAB PO SCH ×3 (17:15→22:39)
[2021-01-26] MEDS: CHOLECALCIFEROL 25 MCG (1000 IU) TABLET PO SCH (17:15)
[2021-01-26] MEDS: BARICITINIB 2 MG TABLET PO SCH (17:15)
[2021-01-26] MEDS: GABAPENTIN 300 MG CAP PO SCH ×2 (17:16→22:37)
[2021-01-26] MEDS: dexAMETHasone 2 MG TAB PO SCH (17:16)
[2021-01-26] MEDS: METOPROLOL TARTRATE 25 MG TAB PO SCH ×2 (17:16→22:37)
[2021-01-26] MEDS: ZINC SULFATE 220 MG CAP PO SCH (17:16)
[2021-01-26] MEDS: OXYBUTYNIN CHLORIDE 5 MG TAB PO SCH ×2 (17:16→22:38)
[2021-01-26] MEDS: lisinopriL 20 MG TAB PO SCH (17:39)
[2021-01-26] MEDS ORDERED: LORazepam 2 MG/ML INJ IV PRN (18:17)
[2021-01-26] MEDS ORDERED: LORazepam 2 MG/ML INJ ONE (18:19)
[2021-01-26 19:58] VITALS: BP 177/85; PULSE 114; RESP 43
[2021-01-26] MEDS ORDERED: cloNIDine 0.1 MG/24HR PATCH TRANSDERM SCH (20:00)
[2021-01-26] MEDS ORDERED: lisinopriL 20 MG TAB PO SCH (21:00)
[2021-01-26 21:10] LABS: Glucose,Whole Blood 143 mg/dL (75-99)
[2021-01-26] MEDS: LORazepam 2 MG/ML INJ IV PRN (21:55)
[2021-01-26] MEDS ORDERED: ONDANSETRON 4 MG/2 ML VIAL IVP PRN (21:56)
[2021-01-26] MEDS ORDERED: ATROPINE OPHTH SOLN 1% 5ML BTL SUBLINGUAL PRN (21:56)
[2021-01-26] MEDS ORDERED: SCOPOLAMINE 1.5MG/72HR PATCH TRANSDERM SCH (22:00)
[2021-01-26] MEDS ORDERED: MORPHINE SULFATE (100 MG/2 ML) 100 MG in SODIUM CHLORIDE 0.9% 100 ML IV SCH (22:00)
[2021-01-26] MEDS: MORPHINE SULFATE 2 MG/ML SYRINGE IV PRN ×2 (22:22→23:35)
[2021-01-26] MEDS: ATORVASTATIN 10 MG TAB PO SCH (22:37)
--- NOTE | 2021-01-27 00:55 | P.EN ---
A- team: Indication: Hypoxia Arrived on Scene to find patient in severe respiratory distress with family at the bedside. The patient who was admitted with COVID-19 pneumonia had been on BiPAP with SpO2 82% at the time of evaluation with respiratory rate 45. The patient had previously notified the medical staff that she wished to be a no code. The family discussed with the patient further who again reiterated her wishes to not undergo CPR or be placed on life support. She verbalized understanding that she is likely going to pass without further intervention and requested to be made comfortable. The patient was subsequently placed on comfort care measures. Patient seen and examined at bedside. Vital signs reviewed General: Ill-appearing female, in severe respiratory distress, [appears at stated age] Derm: [warm], [dry] Head: [atraumatic], [normocephalic], [symmetric] Eyes: [EOMI], [no lid lag], [anicteric sclera] Mouth: [no lip lesion], [mucus membranes dry] Cardiovascular: [S1S2 reg], [no murmur], [positive posterior tibial pulse bilateral], Lungs: [Diffuse rhonchi and rales, no wheezing] , substernal retractions and conversational dyspnea noted Abdominal: [soft], [ nontender to palpation], [no guarding], [no appreciable organomegaly] Ext: [no gross muscle atrophy], [no edema], [no contractures] Neuro: [[no focal neuro deficits] Psych: [Somewhat lethargic], [oriented to person and place] Assessment: Hypoxic respiratory failure secondary to COVID-19 pneumonia -Patient and family requesting comfort care -Orders placed in the chart Notified: Primary team notified by RN A Total of 35 minutes of critical care time was spent on the complex care of this patient.
[2021-01-27] MEDS: MORPHINE SULFATE 2 MG/ML SYRINGE IV PRN ×2 (01:06→01:40)
[2021-01-27] MEDS: LORazepam 2 MG/ML INJ IV PRN (01:29)
--- NOTE | 2021-01-27 20:31 | P.DS ---
Providers Date of admission: 01/19/21 18:39 Expected date of discharge: 01/27/21 Attending physician: Zeke Kwok Consults: 01/19/21 16:00 Consult Physician Routine Consulting Provider: Nicola Handley Consult Reason/Comments: covid 19 pneumonia Do you want consulting provider notified?: Yes 01/19/21 16:01 Consult Physician Routine Consulting Provider: Slick Bailey Consult Reason/Comments: Covid 19 pneumonia Do you want consulting provider notified?: Yes 01/21/21 08:47 Consult Physician Routine Consulting Provider: Yann Handley Consult Reason/Comments: r/o cva, nolasco Do you want consulting provider notified?: Yes Primary care physician: Luis Amaro [place] [facility] Course: Presenting complaint: Short of breath Interval history: Admitted with COVID 19 pneumonitis, acute hypoxic respiratory failure, the low- sodium. Went into atrial fibrillation. January 20: Sitting up in bed. Tired. Some shortness of breath. 6 L nasal cannula. Decrease appetite. January 21: More tired. Short of breath. Requiring 15 L of oxygen. Ventimask. Decreased oral intake. Atrial fibrillation rate around 120s. Started on Lovenox by cardiology. Patient has chronic lower extremity swelling. Nurse earlier called me today that patient's feeling like her brain freeze. Stat computed tomography scan of the brain was done. Unremarkable. Neuro checks as ordered. There are no focal symptoms. Neurology was consulted. January 22: Patient been short of breath. Hypoxic. Being followed by pulmonary Dr. Dos Santos. Patient's present BiPAP this afternoon. A team was called. Patient placed on prone position. Nurse called me to inform me that patient's family was requesting hydrochloroquin. I told him to ask Dr. Handley from pulmonary who is on the COVID committee team for [place]. This is not one of the recommended medications from CDC. January 23: Patient complaining of more back pain. Orthopedics was consulted yesterday. Flexeril was added. [place] was added. No further intervention per orthopedics. Patient on BiPAP. 15/6 and 100%. Eating small amounts. Diet. January 24: Remains on BiPAP. Barely eating. Hypoxic. Around 85%. Tired. Able to answer questions. January 25: Remains on BiPAP. Currently had taken it off. Desaturate with the 40s. Put back on. Eating small amounts. Tired. January 26: On BiPAP. Sometimes takes it off. Barely eating. On IV fluids, Baricitinib, dexamethasone. Eliquis for A. fib. Increase lisinopril to 20 mg twice a day January 27: Patient tolerated overnight. Daughter was called in. Made comfort care. Patient this morning. INVESTIGATIONS, reviewed in the clinical context: January 26: WBC 12.3 hemoglobin 13 d-dimer 17.6 potassium 3.9 creatinine 0.67 CRP 5.1 January 21: White count 17 hemoglobin 12.9 platelets 276 d-dimer 0.8 potassium 4.4 creatinine 0.99 CRP 6.2 White count 4.3 hemoglobin 12.2 platelets 200 sodium 131 potassium 4.7 BUN 23 creatinine 0.86 Accu-Cheks 461 Troponin I 0.082, 0.058 procalcitonin 0.30 d-dimer 0.[address] chest angiogram: Active for PE. Patchy bilateral infiltrates EKG tracing: Sinus rhythm. Cause of : COVID 19 pneumonitis Assessment plan: -Acute bilateral COVID 19 pneumonitis: Not improving Dexamethasone 6 mg, vitamin C, zinc. Baricitinib -Acute hypoxic respiratory failure secondary to COVID 19 pneumonitis. Not improving 100% BiPAP. -Possible myocarditis secondary to COVID 19 pneumonitis. No chest pain. Has asthenia. Telemetry. . Follow with cardiology -atrial fibrillation, rate controlled Lovenox 80 mg subcu every 12-discontinued. Lopressor 25 mg twice a day. Eliquis 5 mg twice a day -Diabetes mellitus type 2, uncontrolled with hyperglycemia. Secondary to steroids Stopped IV insulin drip. Levemir 36 units starting at night . Sliding scale. -Hyperlipidemia Lipitor 10 mg daily at bedtime -Essential hypertension Metoprolol 25 mg twice a day ; increase Zestril 20 mg twice a day -GERD Prilosec 40 mg daily -Chronic urinary stress incontinence Oxybutynin 7.5 by mouth twice a day -Primary osteoarthritis -Diabetic peripheral neuropathy Neurontin 600 mg twice a day -Anxiety disorder not otherwise specified Klonopin 15 mg twice a day when necessary -Acute on chronic cervical lumbar spine arthritic pain. Patient's had prior surgery. Orthopedic consulted. For symptom control. On Flexeril and [place] Disposition: Patient Plan - Discharge Summary Discharge Rx Participant: No New Discharge Prescriptions: Discontinued Oxybutynin Chloride 7.5 mg PO BID Metoprolol Tartrate 25 mg PO BID Omeprazole [PriLOSEC] 40 mg PO DAILY #30 capsule.dr Simvastatin [Zocor] 20 mg PO HS lisinopriL [Zestril] 20 mg PO DAILY clonazePAM [KlonoPIN] 0.5 mg PO BID PRN PRN Reason: Anxiety Albuterol Sulfate [Proair Hfa] 2 puff INHALATION RT-Q6H PRN PRN Reason: Shortness Of Breath Gabapentin [Neurontin] 600 mg PO BID Aspirin EC [Ecotrin Low Dose] 81 mg PO DAILY metFORMIN HCL [Glucophage] 1,000 mg PO BID-W/MEALS Magnesium Oxide [Mag-Ox] 250 mg PO DAILY Pantoprazole [Protonix] 40 mg PO DAILY Biotin 1,000 Mcg 5,000 mcg PO DAILY Dexamethasone 6 mg PO BID Discharge Disposition: - Preliminary Cause of Preliminary Cause of : COVID 19 pneumonitis
--- NOTE | 2021-01-31 14:19 | CDI ---
Documentation Clarification Form Date: 01/31/2021 02:13:58 PM From: Simeon Cobos Phone: Admit Date: 01/19/2021 06:39:00 PM Patient Name: Crystal Chapman Visit Number: [id number] Discharge Date: 01/27/2021 05:22:00 AM ATTENTION: The Clinical Documentation Specialists (CDI) and [facility] Coding Staff appreciate your assistance in clarifying documentation. Please respond to the clarification below the line at the bottom and electronically sign. The CDI & [facility] Coding staff will review the response and follow-up if needed. Please note: Queries are made part of the Legal Health Record. If you have any questions, please contact the author of this message via ITS. Dr. Zeke Kwok Likely Type II AK is documented in the ED notes but is not noted in subsequent documentation. Clarification is requested. History/Risk Factors: COVID PNA Clinical Indicators: mildly elevated troponin Treatment: Please clarify if the [insert diagnosis] is: [ ] Type II AK confirmed, remains under treatment [ ] Type II AK confirmed, resolved [ ] Type II AK ruled out [ ] Other condition, please specify [ ] Unable to determine Type II AK ruled out MTDD
== END 2021-01-27 05:22 | disposition expired | DRG 177 ==
LOC: EC 15:23 → 3SCARD 18:39
PROVIDERS: ADMIT Hospitalist; ATTEND Hospitalist
PROC: 3E0333Z Introduction of Anti-inflammatory into Peripheral Vein, Percutaneous Approach (ICD-10-PCS; 2021-01-19)
PROC: 5A0935A Assistance with Respiratory Ventilation, Less than 24 Consecutive Hours, High Flow/Velocity Cannula (ICD-10-PCS; 2021-01-21)
PROC: 5A09557 Assistance with Respiratory Ventilation, Greater than 96 Consecutive Hours, Continuous Positive Airway Pressure (ICD-10-PCS; 2021-01-22)
PROC: XW0DXM6 Introduction of Baricitinib into Mouth and Pharynx, External Approach, New Technology Group 6 (ICD-10-PCS; principal; 2021-01-24)
DX: U07.1 COVID-19 (principal); J12.82 Pneumonia due to coronavirus disease 2019; J80 Acute respiratory distress syndrome; I40.0 Infective myocarditis; Z68.41 Body mass index [BMI] 40.0-44.9, adult; E87.1 Hypo-osmolality and hyponatremia; E11.42 Type 2 diabetes mellitus with diabetic polyneuropathy; E11.65 Type 2 diabetes mellitus with hyperglycemia; E66.9 Obesity, unspecified; E78.5 Hyperlipidemia, unspecified; F41.9 Anxiety disorder, unspecified; I48.91 Unspecified atrial fibrillation; I11.9 Hypertensive heart disease without heart failure; J32.2 Chronic ethmoidal sinusitis; K21.9 Gastro-esophageal reflux disease without esophagitis; M19.91 Primary osteoarthritis, unspecified site; N39.3 Stress incontinence (female) (male); T38.0X5A Adverse effect of glucocorticoids and synthetic analogues, initial encounter; E11.649 Type 2 diabetes mellitus with hypoglycemia without coma; Z51.5 Encounter for palliative care; Z66 Do not resuscitate; Z79.01 Long term (current) use of anticoagulants; Z79.82 Long term (current) use of aspirin; Z79.4 Long term (current) use of insulin; Z79.899 Other long term (current) drug therapy; Z86.711 Personal history of pulmonary embolism; Z87.891 Personal history of nicotine dependence; Z90.49 Acquired absence of other specified parts of digestive tract; Z98.1 Arthrodesis status; D72.810 Lymphocytopenia; Z80.1 Family history of malignant neoplasm of trachea, bronchus and lung; R77.8 Other specified abnormalities of plasma proteins; R60.0 Localized edema
CPT/HCPCS: 36415; 70450; 71045; 71275; 72040; 80053; 82728; 83036; 83605; 83615; 83735; 84145; 84484; 85025; 85379; 85610; 85730; 86140; 87040; 87635; 93005; 94640; 94660; 94760; 96372; 99285